=== PATIENT | female | born 1960 | race Caucasian/White ===

== ENCOUNTER 2017-10-13 19:25 | Emergency (ER) | payer MEDICAID, SELFPAY ==
[2017-10-13 19:29] VITALS: BP 155/96; PULSE 86; RESP 17; TEMP 36.5; O2SAT 98; BMI 25.9
--- NOTE | 2017-10-13 19:40 | RAD_ITS ---
STUDY: X-RAY - LEFT KNEE REASON FOR EXAM: Female, 57 years old. Pain TECHNIQUE: Three view(s) of the knee were obtained. COMPARISON: July 22, 2017 FINDINGS: There are small osteophytes on the distal femur. The proximal tibia is unremarkable. There is mild narrowing of the medial femorotibial compartment. Normal lateral femorotibial compartment. A lucency is again seen in the mid patella. There is sclerosis of the upper and lower patella. There is minimal fullness above the patella. The soft tissue structures are unremarkable. RAD/Knee 3 Views IMPRESSION: An old fracture is again seen in the patella. There is sclerosis throughout the patella. There is a small joint effusion. There are mild degenerative changes in the medial compartment. Electronically Signed: Annetta Arreola MD at 20:07 EST Tel Direct: [phone], Service support ,
--- NOTE | 2017-10-13 20:05 | ED.VISSUMM ---
- ER Visit Summary Date of Service: 10/13/17 Chief Complaint: Knee pain left History of Present Illness: The patient is a 57 F who had a fractured left patella surgically corrected by Dr. Anthony Ring approximately a year ago. She presents because of increased pain. She is concerned she may have ruptured the tendon. She is concerned the fracture may have broken apart. There is no history of direct trauma. She reports increased pain with walking and weightbearing. She localizes the pain to the left patella. Physical Examination: Vital signs are noted. The patella is not ballotable and there is no effusion. There is laxity with varus stressing of the lateral collateral ligament and causes her discomfort. Modified Jamarcus's test and Reyna tests were negative. She is able to extend 180? and flex to 90?. There is no evidence of trauma to the knee. Test Results: View x-ray of the knee reveals partial union of the patella. Unchanged from x-ray dated July 22, 2017. Emergency Department Course and Treatment: She was treated with [place] since she has intolerance and gastric problems with NSAIDs. Treatment Plan: Prescription for 10 [place] and follow-up appointment next week with pain management Disposition: Discharge to home Impression: Left patella pain status post fracture This note was generated with Gather dictation software. It may contain incorrect words, spelling, and punctuation that were not noted in review of the chart prior to signing ED Disposition - Plan for ED Patient: Disposition: Home or Assisted Living Chief Complaint: Lower Extremity Injury Instructions: ED Knee Pain [facility]O Prescriptions: Hydrocodone Bitart/Apap 5-325 [[place] 5MG-325MG] 1 tab PO Q6H PRN PRN #10 tab PRN Reason: Pain Referrals: Frankie Santiago MD [Primary Care Provider] -
--- NOTE | 2017-10-13 20:11 | ED.DCSUM_ITS ---
- ER Visit Summary Date of Service: 10/13/17 Chief Complaint: Knee pain left History of Present Illness: The patient is a 57 F who had a fractured left patella surgically corrected by Dr. Anthony Ring approximately a year ago. She presents because of increased pain. She is concerned she may have ruptured the tendon. She is concerned the fracture may have broken apart. There is no history of direct trauma. She reports increased pain with walking and weightbearing. She localizes the pain to the left patella. Physical Examination: Vital signs are noted. The patella is not ballotable and there is no effusion. There is laxity with varus stressing of the lateral collateral ligament and causes her discomfort. Modified Jamarcus's test and Reyna tests were negative. She is able to extend 180? and flex to 90?. There is no evidence of trauma to the knee. Test Results: View x-ray of the knee reveals partial union of the patella. Unchanged from x-ray dated July 22, 2017. Emergency Department Course and Treatment: She was treated with [place] since she has intolerance and gastric problems with NSAIDs. Treatment Plan: Prescription for 10 [place] and follow-up appointment next week with pain management Disposition: Discharge to home Impression: Left patella pain status post fracture This note was generated with CleanApp dictation software. It may contain incorrect words, spelling, and punctuation that were not noted in review of the chart prior to signing ED Disposition - Plan for ED Patient: Disposition: Home or Assisted Living Chief Complaint: Lower Extremity Injury Instructions: ED Knee Pain UKO Prescriptions: Hydrocodone Bitart/Apap 5-325 [[place] 5MG-325MG] 1 tab PO Q6H PRN PRN #10 tab PRN Reason: Pain Referrals: Frankie Santiago MD [Primary Care Provider] -
[2017-10-13 20:12] VITALS: PULSE 79; RESP 22
[2017-10-13] MEDS: HYDROcodone Bitartrate/Apap 5/325 Tablet PO (20:22)
[2017-10-13 20:23] VITALS: PULSE 71; RESP 22
--- NOTE | 2017-10-13 20:23 | ED.RN ---
THIS NURSE REVIEWED D/C INSTRUCTIONS WITH PT. PT VERBALIZED UNDERSTANDING OF INSTRUCTIONS. PT DENIES FURTHER NEEDS OR QUESTIONS AT THIS TIME. PT AMBULATES FROM DEPARTMENT ON OWN WITHOUT ASSISTANCE FROM STAFF
== END 2017-10-13 20:25 | disposition home or self-care (01) ==
PROVIDERS: Emergency Provider Emergency Medicine; Family Provider Family Medicine; PCP Family Medicine
DX: M25.562 Pain in left knee (principal); S82.002K Unspecified fracture of left patella, subsequent encounter for closed fracture with nonunion; X58.XXXD Exposure to other specified factors, subsequent encounter; Z72.0 Tobacco use; Z79.899 Other long term (current) drug therapy
CPT/HCPCS: 73562; 99283

== ENCOUNTER 2018-03-13 16:41 | Emergency (ER) | payer MEDICAID, SELFPAY ==
[2018-03-13 16:42] VITALS: BP 141/90; PULSE 72; RESP 16; TEMP 36.5; O2SAT 100; BMI 25.7
--- NOTE | 2018-03-13 17:07 | RAD_ITS ---
STUDY: X-RAY - LEFT ANKLE REASON FOR EXAM: Female, 58 years old. Trauma TECHNIQUE: 3 view(s) of the ankle. COMPARISON: None. FINDINGS: Normal visualized distal tibia and fibula. Normal medial and lateral malleoli. Normal tibiotalar articulation and ankle mortise. Normal visualized talus. Small plantar calcaneal spur is noted The visualized subtalar, talonavicular, calcaneocuboid and tarsal articulations are normal. The soft tissue structures are unremarkable. RAD/Ankle min 3 Views IMPRESSION: Normal x-ray examination of the ankle. Small plantar calcaneal spur Electronically Signed: Fermin New MD at 17:26 EDT , Service support ,
--- NOTE | 2018-03-13 18:26 | ED.VISSUMM ---
- ER Visit Summary Date of Service: 03/13/18 Chief Complaint: Left ankle pain History of Present Illness: The patient is a [address] Lorenzo. She reports that she suffered a forced inversion injury to her left ankle today. She has sharp pains 10-10 with walking and 9 out of 10 at rest. She denies any paresthesias distally or other injuries. Physical Examination: Vitals: Stable. Afebrile. General: Well-nourished and well-developed. Head: Normocephalic atraumatic. Neck: Supple, no lymphadenopathy. No JVD. Nontender. Cardiovascular: Regular rate and rhythm. No murmurs. Respiratory: No respiratory distress. Clear to auscultation bilaterally. Abdominal: Soft, nontender, nondistended, normal bowel sounds. No guarding, rebound, or peritoneal signs. Back: Nontender. Extremities: Moderate tenderness palpation over the lateral malleolus. No soft tissue swelling or contusion. She has mild tenderness palpation of the base the fifth metatarsal. No pain over the proximal fibula. She is neurovascularly intact. Skin: Normal color, no rash. Neurologic: Alert and oriented ?3. Cranial nerves II through XII are intact. Normal strength and sensation. Psych: Normal affect. Test Results: X-ray is negative. Emergency Department Course and Treatment: Had a prolonged discussion with patient that she does not need opiate-based medications for a sprained ankle. She is unhappy with this. She was given Tylenol and placed on crutches. Treatment Plan: Patient will be discharged with instructions to follow-up Dr. Scherer in 1 week if not improving. Return to the emergency department for any worsening symptoms. Disposition: To home in improved and stable condition. Impression: 1. Left ankle sprain. This note was generated with [email or web address] dictation software. It may contain incorrect words, spelling, and punctuation that were not noted in review of the chart prior to signing ED Disposition - Plan for ED Patient: Disposition: Home or Assisted Living Chief Complaint: Lower Extremity Injury Instructions: ED Sprain Ankle W X Ray Referrals: Fermin Scherer DPM [STAFF PHYSICIAN] - 1 Week if not improving
[2018-03-13] MEDS: Acetaminophen 325 MG Tablet 1000 MG PO (18:33)
== END 2018-03-13 19:12 | disposition home or self-care (01) ==
LOC: ED 18:33
PROVIDERS: Emergency Provider Emergency Medicine; Family Provider Family Medicine; PCP Family Medicine
DX: S93.402A Sprain of unspecified ligament of left ankle, initial encounter (principal); X50.1XXA Overexertion from prolonged static or awkward postures, initial encounter; Y93.9 Activity, unspecified; Y92.9 Unspecified place or not applicable; J44.9 Chronic obstructive pulmonary disease, unspecified; K21.9 Gastro-esophageal reflux disease without esophagitis; I48.91 Unspecified atrial fibrillation; Z79.899 Other long term (current) drug therapy; F17.200 Nicotine dependence, unspecified, uncomplicated
CPT/HCPCS: 73610; 99284

== ENCOUNTER 2018-03-27 16:43 | Emergency (ER) | payer MEDICAID, SELFPAY ==
[2018-03-27 16:43] VITALS: BP 136/102; PULSE 82; RESP 20; TEMP 37; O2SAT 96; BMI 26.6
--- NOTE | 2018-03-27 18:22 | RAD_ITS ---
STUDY: X-RAY - LEFT KNEE REASON FOR EXAM: Female, 58 years old. Left knee pain. Old injury TECHNIQUE: 3 view(s) of the knee. COMPARISON: 07/22/2017 FINDINGS: Continued lucency through patella compatible with chronic fracture. No acute fracture or dislocation. 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
[2018-03-27] MEDS: Morphine 4 MG/ML Syringe IM (18:29)
--- NOTE | 2018-03-27 19:34 | ED.VISSUMM ---
- ER Visit Summary Date of Service: 03/27/18 Chief Complaint: [Left knee pain] History of Present Illness: The patient is a 58 F [presents the emergency department complaint of left knee pain that has been chronic however more severe today. Patient states that she was walking when she felt like the knee got stuck and she was having a hard time bending it. Patient also having a hard time straightening the knee. Patient apparently has history of a non-healed patellar fracture and is scheduled to have surgery in 3 days with her surgeon at the [facility]. Patient denies falling today.] Physical Examination: [Left knee-no effusion. No significant soft tissue swelling. Patient has diffuse tenderness to palpation about the patella. Patient has pain with flexion of the knee. Patient is able to completely extend the knee. She is neurovascular intact distally. Ligamentous exam is not tolerated by the patient.] Test Results: [X-rays of the left knee were obtained and compared with recent prior x-rays of the same knee which showed a nonhealed patellar fracture otherwise nothing significant.] Emergency Department Course and Treatment: [Patient was medicated with morphine and Zofran] Treatment Plan: [Patient did not want a knee immobilizer and did not want an Gordon wrap. Patient does have crutches. Patient will be given a prescription for [place] for 3 days.] Disposition: [Discharged to home in stable condition] Impression: [Acute on chronic left knee pain-possible internal derangement] This note was generated with [employer] dictation software. It may contain incorrect words, spelling, and punctuation that were not noted in review of the chart prior to signing ED Disposition - Plan for ED Patient: Chief Complaint: Lower Extremity Injury Referrals: Frankie Santiago MD [Primary Care Provider] -
--- NOTE | 2018-03-27 19:37 | ED.DCSUM_ITS ---
- ER Visit Summary Date of Service: 03/27/18 Chief Complaint: [Left knee pain] History of Present Illness: The patient is a 58 F [presents the emergency department complaint of left knee pain that has been chronic however more severe today. Patient states that she was walking when she felt like the knee got stuck and she was having a hard time bending it. Patient also having a hard time straightening the knee. Patient apparently has history of a non- healed patellar fracture and is scheduled to have surgery in 3 days with her surgeon at the [facility]. Patient denies falling today.] Physical Examination: [Left knee-no effusion. No significant soft tissue swelling. Patient has diffuse tenderness to palpation about the patella. Patient has pain with flexion of the knee. Patient is able to completely extend the knee. She is neurovascular intact distally. Ligamentous exam is not tolerated by the patient.] Test Results: [X-rays of the left knee were obtained and compared with recent prior x-rays of the same knee which showed a nonhealed patellar fracture otherwise nothing significant.] Emergency Department Course and Treatment: [Patient was medicated with morphine and Zofran] Treatment Plan: [Patient did not want a knee immobilizer and did not want an Gordon wrap. Patient does have crutches. Patient will be given a prescription for [place] for 3 days.] Disposition: [Discharged to home in stable condition] Impression: [Acute on chronic left knee pain-possible internal derangement] This note was generated with [email or web address] dictation software. It may contain incorrect words, spelling, and punctuation that were not noted in review of the chart prior to signing ED Disposition - Plan for ED Patient: Chief Complaint: Lower Extremity Injury Referrals: Frankie Santiago MD [Primary Care Provider] -
--- NOTE | 2018-03-27 19:38 | DCINST.ED_ITS ---
ED Disposition - Plan for ED Patient: Chief Complaint: Lower Extremity Injury Instructions: ED Meniscal Injury Knee Poss, ED Knee Pain UKO Prescriptions: Hydrocodone Bitart/Apap 5-325 [[place] 5MG-325MG] 1 tab PO Q6H PRN PRN 3 Days #10 tab PRN Reason: Pain Referrals: Frankie Santiago MD [Primary Care Provider] - Additional Instructions: see your surgeon in 3 days
[2018-03-27 19:45] VITALS: BP 134/97; PULSE 86; RESP 22; O2SAT 97
--- NOTE | 2018-03-27 19:46 | ED.RN ---
THIS NURSE REVIEWED D/C INSTRUCTIONS WITH PT. PT VERBALIZED UNDERSTANDING OF INSTRUCTIONS. PT DENIES FURTHER NEEDS OR QUESTIONS AT THIS TIME. PT AMBULATES FROM ROOM ON OWN WITHOUT ASSISTANCE FROM STAFF
== END 2018-03-27 19:47 | disposition home or self-care (01) ==
PROVIDERS: Emergency Provider Emergency Medicine; Family Provider Family Medicine; PCP Family Medicine
DX: M25.562 Pain in left knee (principal); G89.29 Other chronic pain; Z72.0 Tobacco use
CPT/HCPCS: 73562; 96372; 99282

== ENCOUNTER 2018-07-04 18:32 | Emergency (ER) | payer MEDICAID, SELFPAY ==
[2018-07-04 18:33] VITALS: BP 156/82; PULSE 89; RESP 17; TEMP 36.2; O2SAT 100; BMI 27.6
--- NOTE | 2018-07-04 19:10 | RAD_ITS ---
STUDY: X-RAY - LEFT KNEE REASON FOR EXAM: Female, 58 years old. Increasing left knee pain. Patient feels mass over the left knee. History of left knee surgery 2 months ago. TECHNIQUE: 4 view(s) of the knee. COMPARISON: February 25, 2018. FINDINGS: Normal visualized distal femur. Normal visualized proximal tibia and fibula. Normal proximal tibiofibular articulation. The superior fragment of the chronically fractured patella is no longer absent is thought to been surgically removed. The remainder of the patella appears otherwise unchanged. There is mild degenerative arthrosis of the medial femorotibial compartment. There is mild degenerative arthrosis of the lateral femorotibial compartment. There is mild degenerative arthrosis of the patellofemoral articulation. There is no demonstrated joint effusion. The soft tissue structures are unremarkable. RAD/Knee 4 or More Views IMPRESSION: Evidence of interval removal of a patellar fragment when compared with study of February 25, 2018. There is no acute abnormality or interval change Electronically Signed: Julito Dao DO at 19:28 EDT Tel [phone], Service support ,
[2018-07-04] MEDS: Acetaminophen 500 MG Tablet 1000 MG PO (19:19)
--- NOTE | 2018-07-04 20:29 | US_ITS ---
STUDY: VENOUS DOPPLER ULTRASOUND - LEFT LOWER EXTREMITY REASON FOR EXAM: Female, 58 years old. Pain TECHNIQUE: Ultrasound evaluation of the deep vein system to include elizondo-scale imaging and compression was performed. Elizondo-scale imaging and Doppler sonographic evaluation, including duplex spectral analysis and qualitative color flow sonography, was performed. COMPARISON: None. FINDINGS: Common Femoral Vein: Normal compression, spontaneity and augmentation. Normal color Doppler. Common Femoral Vein/Greater Saphenous Junction: Normal compression, spontaneity and augmentation. Normal color Doppler. Femoral Proximal: Normal compression, spontaneity and augmentation. Normal color Doppler. Femoral Middle: Normal compression, spontaneity and augmentation. Normal color Doppler. Femoral Distal: Normal compression, spontaneity and augmentation. Normal color Doppler. Popliteal Vein: Normal compression, spontaneity and augmentation. Normal color Doppler. Posterior Tibial Vein: Normal compression, spontaneity and augmentation. Normal color Doppler. Peroneal Vein: Normal compression, spontaneity and augmentation. Normal color Doppler. There is a 5 x 4 x 3 mm simple fluid collection at the patient's palpable area of pain. US/Venous Duplex Imag/Limited/Uni IMPRESSION: Normal venous Doppler ultrasound of the lower extremity. 5 x 4 x 3 mm simple fluid collection in the patient's palpable area of pain. Electronically Signed: Tariq Almaguer, at 21:06 EDT Tel , Service support ,
[2018-07-04] MEDS: morphine 10 MG/ML Syringe 8 MG IM (21:00)
[2018-07-04] MEDS: Ondansetron 4 MG/2 ML Vial IM (21:00)
--- NOTE | 2018-07-04 21:25 | ED.VISSUMM ---
- ER Visit Summary Date of Service: 07/04/18 Chief Complaint: Left knee pain History of Present Illness: The patient is a 58 F presenting with left knee pain. This has been ongoing for the past week. She states she noticed swelling to the medial aspect of her left knee 1 week ago. She called her doctor at [facility] and she has appointment on July 11. She had surgery 2 months ago to remove part of her patella. She has been icing and using Tylenol at home. She denies any direct injury. She is able to ambulate. Denies fever. Physical Examination: Vitals are stable. Patient is afebrile. Alert no acute distress. HEENT exam is unremarkable. Neck is supple. Lungs are clear and equal bilaterally. Heart is regular rate and rhythm. Extremities left knee medial soft tissue swelling. No erythema or warmth. Active full range of motion. Normal distal pulse Skin is warm and dry. No focal neurologic deficit. Remainder of exam is unremarkable. Emergency Department Course and Treatment: Patient was given Tylenol. She continued to have pain and was given morphine and Zofran IM. Venous Doppler shows normal venous Doppler ultrasound of the lower extremity. 5 x 4 x 3 mm simple fluid collection in the patient's palpable area of pain. Left knee x-ray shows evidence of interval removal of a patellar fragment when compared with study of February 25, 2018. There is no acute abnormality or interval change. She is advised to keep her appointment with her orthopedic surgeon. She is given a short course of [place] for pain. Advised return to ED if worsening complaints. Disposition: Discharge home Impression: Left knee pain This note was generated with [employer]ity dictation software. It may contain incorrect words, spelling, and punctuation that were not noted in review of the chart prior to signing ED Disposition - Plan for ED Patient: Chief Complaint: Lower Extremity Injury Referrals: Frankie Santiago MD [Primary Care Provider] -
--- NOTE | 2018-07-04 21:29 | ED.DEP ---
ED Disposition - Plan for ED Patient: Chief Complaint: Lower Extremity Injury Prescriptions: Hydrocodone Bitart/Apap 5-325 [[place] 5MG-325MG] 1 tablet PO Q6H PRN PRN 3 Days #10 tablet PRN Reason: Pain Referrals: Frankie Santiago MD [Primary Care Provider] -
--- NOTE | 2018-07-04 21:32 | DCINST.ED_ITS ---
ED Disposition - Plan for ED Patient: Chief Complaint: Lower Extremity Injury Instructions: ED Knee Pain UKO Prescriptions: Hydrocodone Bitart/Apap 5-325 [[place] 5MG-325MG] 1 tablet PO Q6H PRN PRN 3 Days #10 tablet PRN Reason: Pain Referrals: Frankie Santiago MD [Primary Care Provider] -
--- NOTE | 2018-07-04 21:39 | ED.RN ---
REVIEWED D/C INSTRUCTIONS, FOLLOW UP CARE, PRESCRIPTION, AND S/S THAT WOULD WARRANT A RETURN TO THE ED WITH PT. PT VERBALIZED AN UNDERSTANDING AND DENIES FURTHER QUESTIONS FOR THIS RN. PT SKIN P/W/D, RESP EVEN AND UNLABORED, PT A&O X 3, NO DISTRESS NOTED. PT AMBULATED OUT OF ED, GAIT STEADY.
[2018-07-04 21:40] VITALS: BP 135/98; PULSE 78; RESP 16; O2SAT 98
== END 2018-07-04 21:41 | disposition home or self-care (01) ==
LOC: ED 19:29
PROVIDERS: Emergency Provider Emergency Medicine; Family Provider Family Medicine; PCP Family Medicine
DX: M25.562 Pain in left knee (principal); M79.89 Other specified soft tissue disorders; K21.9 Gastro-esophageal reflux disease without esophagitis; I10 Essential (primary) hypertension; G40.909 Epilepsy, unspecified, not intractable, without status epilepticus; Z79.899 Other long term (current) drug therapy; Z72.0 Tobacco use
CPT/HCPCS: 73564; 93971; 96372; 99283; J2405

== ENCOUNTER 2018-07-26 17:57 | Emergency (ER) | payer MEDICAID, SELFPAY ==
[2018-07-26 17:59] VITALS: BP 136/86; PULSE 79; RESP 17; TEMP 36.7; O2SAT 100; BMI 27.3
--- NOTE | 2018-07-26 18:26 | RAD_ITS ---
STUDY: X-RAY - RIGHT KNEE REASON FOR EXAM: Female, 58 years old. Posttraumatic pain TECHNIQUE: 4 view(s) of the knee. COMPARISON: None. FINDINGS: Normal visualized distal femur. Normal visualized proximal tibia and fibula. Normal proximal tibiofibular articulation. Mildly narrowed medial femorotibial compartment. Normal lateral femorotibial compartment. Normal patellofemoral articulation. The soft tissue structures are unremarkable. RAD/Knee 4 or More Views IMPRESSION: Mild degenerative changes. No evidence for acute fracture Electronically Signed: Fermin New MD at 19:04 EST , Service support ,
--- NOTE | 2018-07-26 18:36 | ED.VISSUMM ---
- ER Visit Summary Date of Service: 07/26/18 Chief Complaint: Right knee pain History of Present Illness: The patient is a 58 F presenting with right knee pain. Patient was putting up a smoke detector today. She was standing on a toolbox. When she stepped down she had pain in her right knee. She did not fall to the floor. She has had persistent pain since that time. She did not take any medication for pain prior to arrival. Physical Examination: Vitals are stable. Patient is afebrile. Alert no acute distress. HEENT exam is unremarkable. Neck is supple. Lungs are clear and equal bilaterally. Heart is regular rate and rhythm. Extremities right lateral knee tenderness. Active full range of motion. Normal distal pulse Skin is warm and dry. No focal neurologic deficit. Remainder of exam is unremarkable. Emergency Department Course and Treatment: Right knee x-ray shows no acute process. Patient is given Tylenol for pain. She states she has crutches at home. She is advised to follow-up with her orthopedic surgeon. Advised return to ED if worsening complaints. Disposition: Discharge home Impression: Right knee sprain This note was generated with [employer] dictation software. It may contain incorrect words, spelling, and punctuation that were not noted in review of the chart prior to signing ED Disposition - Plan for ED Patient: Chief Complaint: Lower Extremity Injury Referrals: Frankie Santiago MD [Primary Care Provider] -
[2018-07-26] MEDS: Acetaminophen 500 MG Tablet 1000 MG PO (19:41)
--- NOTE | 2018-07-26 19:43 | ED.DEP ---
ED Disposition - Plan for ED Patient: Chief Complaint: Lower Extremity Injury Instructions: ED Sprain Knee Referrals: Frankie Santiago MD [Primary Care Provider] -
[2018-07-26 20:10] VITALS: BP 131/60; PULSE 78; RESP 16; O2SAT 98
== END 2018-07-26 20:10 | disposition home or self-care (01) ==
LOC: ED 18:38
PROVIDERS: Emergency Provider Emergency Medicine; Family Provider Family Medicine; PCP Family Medicine
DX: S83.91XA Sprain of unspecified site of right knee, initial encounter (principal); X58.XXXA Exposure to other specified factors, initial encounter; Y93.9 Activity, unspecified; Y92.9 Unspecified place or not applicable; I25.10 Atherosclerotic heart disease of native coronary artery without angina pectoris; I25.2 Old myocardial infarction; Z79.899 Other long term (current) drug therapy; Z72.0 Tobacco use
CPT/HCPCS: 73564; 99282

== ENCOUNTER 2019-03-09 16:50 | Emergency (ER) | payer MEDICAID, SELFPAY ==
[2019-03-09 16:52] VITALS: BP 90/51; PULSE 89; RESP 12; TEMP 36.4; O2SAT 97; BMI 24.9
--- NOTE | 2019-03-09 17:08 | ED.VIS.GEN ---
History of Present Illness Informant: Patient Onset: Today Timing: Continuous Current Severity: Mild Maximum Severity: Mild Worsened by: Movement Relieved by: Nothing Narrative: Patient presents with left hand pain. She has chronic knee pain. Her knee sometimes give out on her. Her knees gave out on her today causing her to fall. She is complaining of left hand pain. She denies head trauma or loss of consciousness. Prior similar symptoms: No Recent Illness/Hospitalization: No <Nancy Carroll - Last Filed: 03/09/19 18:17> <Power Casper - Last Filed: 03/09/19 18:21> Chief Complaint: Upper Extremity Injury Past Medical History Surgical History: - - L foot surgery, BL knee arthroscopic surgery, CT surgery R wrist, partial-->complete hysterectomy, cholecystectomy, T+A. Smoking Status: Smoker, status unknown - Family History Maternal Family History: Family History (Last Updated 02/06/19 @ 17:01 by Maria Antonia Aiken) Mother Diabetes Cancer Father COPD (chronic obstructive pulmonary disease) Diabetes Sister Diabetes Family History: Reports: COPD, Diabetes, Heart Disease, Hypertension Paternal Family History: Family History (Last Updated 02/06/19 @ 17:01 by Maria Antonia Aiken) Mother Diabetes Cancer Father COPD (chronic obstructive pulmonary disease) Diabetes Sister Diabetes Family History: Reports: COPD, Diabetes, Heart Disease, Hypertension <Nancy Carroll - Last Filed: 03/09/19 18:17> - Family History Maternal Family History: Family History (Last Updated 02/06/19 @ 17:01 by Maria Antonia Aiken) Mother Diabetes Cancer Father COPD (chronic obstructive pulmonary disease) Diabetes Sister Diabetes Paternal Family History: Family History (Last Updated 02/06/19 @ 17:01 by Maria Antonia Aiken) Mother Diabetes Cancer Father COPD (chronic obstructive pulmonary disease) Diabetes Sister Diabetes <Power Casper - Last Filed: 03/09/19 18:21> - Allergies and Home Meds Allergies/Adverse Reactions: Allergies NSAIDS (Non-Steroidal Anti-Inflamma Adverse Reaction (Verified 03/09/19 16:52) Diarrhea tramadol HCl [From Ultram] Adverse Reaction (Verified 03/09/19 16:52) Diarrhea Primary Care Physician: Brea Jauregui DO [STAFF PHYSICIAN] - Frankie Santiago MD [Primary Care Provider] - Review of Systems General: Denies: Chills, Fever, Sweats Eyes: Denies: Visual changes - bilaterally, Diplopia ENT: Denies: Rhinorrhea, Sore throat Cardiovascular: Denies: Chest pain, Palpitations Respiratory: Denies: Dyspnea, Cough, Dyspnea on exertion Gastrointestinal: Denies: Abdominal pain, Nausea, Vomiting Genitourinary: Denies: Dysuria, Hematuria Musculoskeletal: Reports: Extremity Pain, - - Left hand pain. Denies: Back pain Skin: Denies: Rash, Wounds Neurological: Denies: Headache, Weakness, Numbness <NickmichaelNancy - Last Filed: 03/09/19 18:17> Physical Exam Vital Signs/Narrative: Vital Signs Temp Pulse Resp BP Pulse Ox 03/09/19 16:52 97.5 F L 89 12 90/51 L 97 Inital Vital Signs reviewed: Yes General: Well nourished, Well developed, No Acute Distress Head: Normocephalic, Atraumatic Eyes: Perrl, EOMI ENT: Moist mucous membranes, No rhinorrhea Neck: Supple, Nontender Cardiovascular: Regular rate, Regular rhythm, No murmurs Respiratory: No distress, CTA bilaterally, Chest nontender Abdomen: Soft, Nontender, Nondistended Back: Nontender, Normal Inspection Extremities: Tenderness, - - She has tenderness along the fourth and fifth metacarpals without swelling. Distal Ms. P is intact. Capillary refill is 1 second. No rotational deformity appreciated. Skin: Normal color, No rash Neurological: Alert, Oriented x3, Normal Strength, Normal Sensation Psychological: Normal affect, Normal Mood <Nancy Carroll - Last Filed: 03/09/19 18:17> Vital Signs/Narrative: Vital Signs Temp Pulse Resp BP Pulse Ox 03/09/19 16:52 97.5 F L 89 12 90/51 L 97 <Power Casper - Last Filed: 03/09/19 18:21> Diagnostic/Tx/Re-eval - Medical Decision Making Patient presents with left hand pain after fall. X-rays are ordered. Differential diagnosis is hand sprain versus fracture. X RAy of Left hand: nondisplaced proximal fifth meta carpal and possible proximal fourth metacarpal fracture. She was placed in an ortho Glass ulnar gutter splint. She remained neurovascularly intact. She was prescribed Percocet for pain. She was given orthopedic follow-up. She remained nervous intact and nontoxic in appearance she is comfortable discharge home. She was discharged home in stable condition. Final impression: Left proximal fourth and fifth nondisplaced metacarpal fracture <Nancy Carroll - Last Filed: 03/09/19 18:17> - Medical Decision Making Short arm ulnar gutter splint by ER physician using Ortho-Glass. <Power Casper - Last Filed: 03/09/19 18:21> ED Disposition <Nancy Carroll - Last Filed: 03/09/19 18:17> <Power Casper - Last Filed: 03/09/19 18:21> - Plan for ED Patient: Disposition: Home or Assisted Living Diagnosis: Hand fracture, left Instructions: FRACTURE, Hand (Closed) Prescriptions: Oxycodone HCl/Acetaminophen [Percocet 5/325] 1 tab PO Q6H PRN PRN 5 Days #20 tab PRN Reason: Moderate Pain (4-5/10) Prescription Printed Referrals: Frankie Santiago MD [Primary Care Provider] - Brea Jauregui DO [STAFF PHYSICIAN] - Additional Instructions: Keep splint clean and dry and do not remove. Follow-up with orthopedic doctor next week.
[2019-03-09] MEDS: HYDROcodone Bitartrate/Apap 5/325 Tablet PO (17:12)
--- NOTE | 2019-03-09 17:20 | RAD_ITS ---
STUDY: X-RAY - LEFT HAND REASON FOR EXAM: Female, 59 years old. Trauma TECHNIQUE: 3 view(s) of the hand. COMPARISON: None. FINDINGS: Normal radiocarpal articulation. Normal distal radioulnar joint. Normal visualized carpal bones. Normal carpal articulations Normal carpometacarpal articulation of the thumb. Normal second through fifth carpometacarpal joints. There is an old boxer fracture of the fifth metacarpal. Normal metacarpophalangeal joint of the thumb. Normal interphalangeal joint of the thumb. Normal proximal and distal phalanges of the thumb. Normal metacarpophalangeal joints of the second through fifth fingers. Normal proximal and distal interphalangeal joints of the second through fifth fingers. There is a nondisplaced transverse fracture of the base of the fifth proximal phalanx. The soft tissue structures are unremarkable. RAD/Hand Min 3 Views IMPRESSION: Nondisplaced transverse fracture of the base of the fifth proximal phalanx. There is an old healed fifth metacarpal boxer fracture. Electronically Signed: Chu King MD at 17:42 EDT , Service support ,
[2019-03-09 18:28] VITALS: BP 92/70; PULSE 74; RESP 16
== END 2019-03-09 18:28 | disposition home or self-care (01) ==
PROVIDERS: Emergency Provider Nurse Practitioner; Family Provider Family Medicine; PCP Family Medicine
DX: S62.645A Nondisplaced fracture of proximal phalanx of left ring finger, initial encounter for closed fracture (principal); W19.XXXA Unspecified fall, initial encounter; Y93.9 Activity, unspecified; Y92.9 Unspecified place or not applicable; M25.569 Pain in unspecified knee; G89.29 Other chronic pain; Z79.899 Other long term (current) drug therapy
CPT/HCPCS: 29125; 73130; 99283

== ENCOUNTER → 2019-03-19 | Outpatient (CLI) | payer MEDICAID, SELFPAY ==
[2019-03-09 16:52] VITALS: BMI 24.9
--- NOTE | 2019-03-19 09:18 | RAD_ITS ---
STUDY: X-RAY - LEFT HAND REASON FOR EXAM: Fracture. TECHNIQUE: 3 view(s) of the hand. COMPARISON: Radiographs 03/09/2019. FINDINGS: Normal radiocarpal articulation. Normal distal radioulnar joint. Normal visualized carpal bones. Normal carpal articulations Normal carpometacarpal articulation of the thumb. Normal second through fifth carpometacarpal joints. There is a chronic healed fracture of the fifth metacarpal neck. Normal metacarpophalangeal joint of the thumb. Normal interphalangeal joint of the thumb. Normal proximal and distal phalanges of the thumb. Normal metacarpophalangeal joints of the second through fifth fingers. Normal proximal and distal interphalangeal joints of the second through fifth fingers. There is a fracture of the base of the fifth proximal phalanx with slight dorsal angulation of the distal fragment. There is an overlying cast. RAD/Hand Min 3 Views IMPRESSION: Fifth proximal phalangeal base fracture. Chronic healed fracture deformity of the fifth metacarpal. Electronically Signed: Maury Hunt MD at 13:52 EDT Tel , Service support ,
--- NOTE | 2019-03-19 11:03 | RAD_ITS ---
STUDY: X-RAY - LEFT HAND REASON FOR EXAM: Fracture. TECHNIQUE: 3 view(s) of the hand. COMPARISON: Radiographs earlier the same day and 03/09/2019. FINDINGS: Normal radiocarpal articulation. Normal distal radioulnar joint. Normal visualized carpal bones. Normal carpal articulations Normal carpometacarpal articulation of the thumb. Normal second through fifth carpometacarpal joints. There is chronic fracture deformity of the fifth metacarpal neck. Normal metacarpophalangeal joint of the thumb. Normal interphalangeal joint of the thumb. Normal proximal and distal phalanges of the thumb. Normal metacarpophalangeal joints of the second through fifth fingers. Normal proximal and distal interphalangeal joints of the second through fifth fingers. There is a nondisplaced fracture of the fifth proximal phalangeal base. There has been readjustment of the overlying cast. RAD/Hand Min 3 Views IMPRESSION: Nondisplaced fracture of the fifth proximal phalangeal base. Chronic fracture deformity of the fifth metacarpal. Electronically Signed: Maury Hunt MD at 13:58 EDT Tel , Service support ,
== END | disposition home or self-care (01) ==
LOC: HPRAD 09:18
PROVIDERS: Family Provider Family Medicine; PCP Family Medicine; Referring Provider Orthopaedic Surgery; Visit Provider Orthopaedic Surgery
DX: S62.92XA Unspecified fracture of left hand, initial encounter for closed fracture (principal); S62.617A Displaced fracture of proximal phalanx of left little finger, initial encounter for closed fracture
CPT/HCPCS: 73130

== ENCOUNTER → 2019-03-27 | Outpatient (CLI) | payer MEDICAID, SELFPAY ==
[2019-03-19 10:58] VITALS: BMI 24.9
--- NOTE | 2019-03-27 12:26 | RAD_ITS ---
STUDY: X-RAY - LEFT HAND REASON FOR EXAM: Injury. TECHNIQUE: 3 view(s) of the hand. COMPARISON: Radiographs 03/19/2019 and 03/09/2019. FINDINGS: Normal radiocarpal articulation. Normal distal radioulnar joint. Normal visualized carpal bones. Normal carpal articulations Normal carpometacarpal articulation of the thumb. Normal second through fifth carpometacarpal joints. There is chronic fracture deformity of the fifth metacarpal neck. Normal metacarpophalangeal joint of the thumb. Normal interphalangeal joint of the thumb. Normal proximal and distal phalanges of the thumb. Normal metacarpophalangeal joints of the second through fifth fingers. Normal proximal and distal interphalangeal joints of the second through fifth fingers. There is a nondisplaced fracture of the fifth proximal phalangeal base. There is an ossicle at the ulnar styloid process. There is an overlying cast. RAD/Hand Min 3 Views IMPRESSION: Nondisplaced fracture of the fifth proximal phalangeal base. Chronic fracture deformity of the fifth metacarpal. Electronically Signed: Maury Hunt MD at 12:54 EDT Tel , Service support ,
== END | disposition home or self-care (01) ==
LOC: HPRAD 12:25
PROVIDERS: Family Provider Family Medicine; PCP Family Medicine; Referring Provider Physician Assistant; Visit Provider Physician Assistant
DX: S62.609A Fracture of unspecified phalanx of unspecified finger, initial encounter for closed fracture (principal)
CPT/HCPCS: 73130

== ENCOUNTER → 2019-05-03 | Outpatient (CLI) | payer MEDICAID, SELFPAY ==
[2019-03-27 12:37] VITALS: BMI 24.9
--- NOTE | 2019-05-03 09:37 | RAD_ITS ---
STUDY: X-RAY - LEFT HAND REASON FOR EXAM: Female, 59 years old. Post cast removal TECHNIQUE: 4 view(s) of the hand. COMPARISON: Prior study of 03/27/2019 FINDINGS: Normal radiocarpal articulation. Normal distal radioulnar joint. Normal visualized carpal bones. Normal carpal articulations Normal carpometacarpal articulation of the thumb. Normal second through fifth carpometacarpal joints. There is an old healed boxer's fracture of the fifth metacarpal. Normal metacarpophalangeal joint of the thumb. Normal interphalangeal joint of the thumb. Normal proximal and distal phalanges of the thumb. Normal metacarpophalangeal joints of the second through fifth fingers. Normal proximal and distal interphalangeal joints of the second through fifth fingers. There is a healing nondisplaced transverse fracture of the base of the fifth proximal phalanx. The soft tissue structures are unremarkable. RAD/Hand Min 3 Views IMPRESSION: Healing nondisplaced transverse fracture of the base of the fifth proximal phalanx. Bone union has not occurred as of yet. Old healed fifth metacarpal boxer fracture. Electronically Signed: Chu King MD at 22:16 EDT , Service support ,
== END | disposition home or self-care (01) ==
LOC: HPRAD 09:36
PROVIDERS: Family Provider Family Medicine; PCP Family Medicine; Referring Provider Physician Assistant; Visit Provider Physician Assistant
DX: S62.617A Displaced fracture of proximal phalanx of left little finger, initial encounter for closed fracture (principal)
CPT/HCPCS: 73130

== ENCOUNTER 2021-10-06 13:03 | Outpatient (CLI) | payer MEDICAID, SELFPAY ==
[2021-10-06 13:33] LABS: Absolute Lymphocyte Count 2.86 X10^3/uL (0.83-4.51); Absolute Neutrophil Count 3.7 X10^3/uL (2.0-7.7); Basophil# 0.05 X10^3/uL; Basophil% 0.7 % (0-1); Eosinophil# 0.09 X10^3/uL; Eosinophils% 1.2 % (0-5); Hematocrit 36.2 % (37-47); Hemoglobin 11.6 g/dL (12.0-15.0); Lymphocyte # 2.86 X10^3/ul (0.83-4.51); Lymphocyte % 39.4 % (19-41); Mean Corpuscular Hgb 27.3 pg (27.0-32.0); Mean Corpuscular Volume 85.2 fL (81-99); Mean Platelet Vol. 9.1 fl (6.2-12.0); Monocyte# 0.48 X10^3/uL; Monocyte% 6.6 % (0-10); NRBC Flagged by Analyzer 0 % (0-5); Neutrophil # 3.74 X10^3/uL (2.7-7.7); Neutrophil % 51.7 % (47-70); Platelet Count 357 K/mm3 (150-450); RBC Distribution Width CV 13.7 % (11.6-14.6); RBC Distribution Width SD 42.6 fl (35.1-43.9); Red Blood Count 4.25 M/mm3 (4.2-5.4); White Blood Count 7.3 K/mm3 (4.4-11.0)
[2021-10-06 14:29] LABS: ALB/GLOB Ratio 0.8 RATIO (0.9-2.4); AST(SGOT) 9 U/L (15-37); Alanine Aminotransfer ALT/SGPT 13 U/L (13-56); Albumin, Serum 3.4 g/dL (3.2-5.0); Alkaline Phosphatase 114 U/L (45-117); Anion Gap 5 (5-15); BUN 8 mg/dL (7-18); BUN/Creat Ratio 8.7 RATIO (10-20); Bilirubin, Direct < 0.05 mg/dL (0.00-0.30); Calcium,Total 8.5 mg/dL (8.5-10.1); Chloride 104 mmol/L (98-107); Cholesterol 243 mg/dL (200); Creatinine, Serum 0.92 mg/dL (0.55-1.02); EST Glomerular Filtration Rate 67 mL/min (>60); Est Glom Filt Rate - Afr Amer 81 mL/min (>60); Globulin 4.2 g/dL (2.2-4.2); Glucose 114 mg/dL (74-106); High Density Lipoprotein 70 mg/dL; Potassium 3.6 mmol/L (3.5-5.1); Protein, Total 7.6 g/dL (6.4-8.2); Sodium Level 137 mmol/L (136-145); Thyroid Stim Hormone (TSH) 1.22 uIU/mL (0.358-3.74); Triglycerides 117 mg/dL; Very Low Density Lipoprotein 23 mg/dL (5-40)
== END 2021-10-06 23:59 | disposition short-term general hospital (02) ==
PROVIDERS: Internal Medicine Cardiovascular Disease; Visit Provider Nurse Practitioner Adult Health
DX: K21.9 Gastro-esophageal reflux disease without esophagitis (principal)
CPT/HCPCS: 36415; 80053; 80061; 82248; 84443; 85025

== ENCOUNTER 2021-10-26 07:00 | Outpatient (CLI) | payer MEDICAID, SELFPAY ==
--- NOTE | 2021-10-26 07:04 | ECHOD_ITS ---
Reason For Study: Chest Pain Procedure This was a 2D Doppler, Color Flow transthoracic echocardiogram. The exam was of adequate technical quality. Exam performed in department. Left Ventricle Normal LV size. Left ventricular systolic function is normal. The estimated ejection fraction is 55 %. Transmitral doppler flow suggestive of impaired relaxation of left ventricle. No regional wall motion abnormalities noted. Right Ventricle Normal RV size. Normal systolic function. Atria Normal left atrium. Normal right atrium. No doppler evidence for ASD. Mitral Valve There is no mitral annular calcification. Normal mitral valve. Trivial mitral valve insufficiency. Tricuspid Valve Normal tricuspid valve. Trivial tricuspid valve insufficiency. Unable to estimate RV systolic pressure due to insufficient tricuspid regurgitant envelope. Aortic Valve Trisinus/trileaflet aortic valve. Mild focal aortic valve calcification. Pulmonic Valve The pulmonic valve is not well visualized. Great Vessels Normal sized aortic root. Pericardium/Pleural No pericardial effusion. MMode/2D Measurements & Calculations LVIDd: 5.1 cm IVSd: 1.3 cm Ao root diam: 2.9 cm LVIDs: 3.8 cm LVPWd: 1.2 cm LA dimension: 3.3 cm RVDd: 3.0 cm FS: 25.8 % LAV(MOD-bp): 25.5 ml LA A4 area: 10.3 cm2 RA A4 area: 7.3 cm2 LAV(MOD-bp) Indexed: 14.8 ml/m2 LAV(MOD-sp2): 29.4 ml LAV(MOD-sp4): 21.0 ml Time Measurements MV dec time: 0.18 sec Doppler Measurements & Calculations MV E max jeremias: 80.2 cm/sec Lat Peak E' Jeremias: 7.7 cm/sec Med Peak E' Jeremias: 5.8 cm/sec MV A max jeremias: 98.4 cm/sec E/E' lat: 10.4 E/E' med: 13.8 MV E/A: 0.82 MV V2 max: 99.7 cm/sec MV P1/2t max jeremias: 89.3 cm/sec Ao V2 max: 112.7 cm/sec MV max P.0 mmHg MV P1/2t: 73.2 msec Ao max P.1 mmHg MV V2 mean: 58.3 cm/sec MV dec slope: 357.2 cm/sec2 MV mean P.5 mmHg MVA(P1/2t): 3.0 cm2 MV V2 VTI: 24.7 cm LV V1 max: 84.4 cm/sec PA V2 max: 83.5 cm/sec LV V1 max P.9 mmHg ECHO/Echo Complete Interpretation Summary Left ventricular systolic function is normal. The estimated ejection fraction is 55 %. Trivial mitral valve insufficiency. Trivial tricuspid valve insufficiency. Mild focal aortic valve calcification. Unable to estimate RV systolic pressure due to insufficient tricuspid regurgita nt envelope. Transmitral doppler flow suggestive of impaired relaxation of left ventricle Ordering Physician: Alonzo Lanza Referring Physician: Alonzo Lanza Performed By: Kevin Appiah RCS
--- NOTE | 2021-10-26 09:08 | STRESSREP_ITS ---
Stress Test Report Date: 10-26-2021 Procedure: Exercise tolerance test/imaging study Indications: Chest pain; cardiomyopathy; cardiac ectopy/dysrhythmia; hyperlipi demia; hypertension Consent: Per the patient Procedure: The patient exercised on a Vineet protocol for 4 minutes 30 seconds completing Stage I and 1 minute 30 seconds of Stage II achieving a peak heart rate of 136 bpm (84% predicted maximal heart rate) with a peak blood pressure 170/88 mmHg and a peak MET capacity of 7 METs. The baseline ECG demonstrated normal sinus rhythm. The peak exercise ECG demonstrated no obvious ECG changes. There were occasional PVCs and transient ventricular bigeminy during recovery. The functional capacity was considered decreased. There was chest discomfort during exercise with spontaneous improvement/resolution in recovery. The examination was discontinued secondary to chest discomfort; dyspnea. Impression: 1. Technically inadequate (percent predicted maximal heart rate less than 85%) exercise tolerance test 2. Peak exercise ECG no obvious ECG changes at the heart rate achieved 3. There were occasional PVCs and transient ventricular bigeminy during recovery 4. Nuclear images pending Myocardial perfusion imaging study: Technique: The patient was injected with 11.0 mCi of technetium 99m Cardiolite and subsequently rest SPECT Cardiolite nuclear imaging was obtained in the horizontal long, vertical long, and short axis views. The patient exercised on a Vineet protocol for 4 minutes 30 seconds completing Stage I and 1 minute 30 seconds of Stage II achieving a peak heart rate of 136 bpm (84% predicted maximal heart rate) with a peak blood pressure 170/88 mmHg and a peak MET capacity of 7 METs. The patient was injected with 33.6 mCi of technetium 99m Cardiolite and subsequently stress SPECT Cardiolite nuclear imaging was obtained in the horizontal long, vertical long, and short axis views. A gated Cardiolite study at peak stress was obtained. Interpretation: Rest and stress SPECT Cardiolite nuclear imaging status post realignment, normalization, and attenuation correction, demonstrates the appearance of relative uniform tracer uptake and myocardial perfusion appearing within normal limits. There is end systolic thickening and brightening. The gated Cardiolite study demonstrates myocardial thickening and inward wall motion. The reported LVEF is 65%. Impression: 1. Rest and stress SPECT Cardiolite nuclear imaging demonstrate relative uniform tracer uptake and myocardial perfusion appearing within normal limits at the heart rate achieved. 2. The gated Cardiolite study reports an LVEF of 65%. This note was generated with Dragon dictation software. It may contain incorrect words, spelling, and punctuation that were not noted in checking the note before signing.
== END 2021-10-26 23:59 | disposition home or self-care (01) ==
LOC: CVS 07:02
PROVIDERS: Referring Provider Internal Medicine Cardiovascular Disease; Visit Provider Internal Medicine Cardiovascular Disease
DX: I10 Essential (primary) hypertension (principal); I43 Cardiomyopathy in diseases classified elsewhere; R07.9 Chest pain, unspecified; I49.9 Cardiac arrhythmia, unspecified; I25.2 Old myocardial infarction; E78.00 Pure hypercholesterolemia, unspecified
CPT/HCPCS: 78452; 93017; 93306; A9500; A4216

== ENCOUNTER 2021-11-23 18:42 | Outpatient (CLI) | payer MEDICAID, SELFPAY ==
--- NOTE | 2021-11-23 18:45 | CT_ITS ---
STUDY: CT ABDOMEN AND PELVIS WITHOUT CONTRAST REASON FOR EXAM: Female, 61 years old. PAIN RADIATION DOSAGE (If Supplied By Facility): CTDIvol = ( 9.38 ) mGy, DLP = ( 454.66 ) mGycm TECHNIQUE: Transaxial images were obtained from the dome of the diaphragm to the symphysis pubis without oral contrast, and without intravenous contrast. Sagittal and coronal images were reconstructed. Individualized dose optimization techniques were used for this CT. COMPARISON: CT abdomen and pelvis June 18, 2015 FINDINGS: The visualized lung bases are unremarkable. The visualized portions of the heart are within normal limits. Normal liver. There are surgical clips in the gallbladder fossa consistent with a prior cholecystectomy. Normal spleen. Normal pancreas. There is a small duodenal diverticulum at the level the head of the pancreas measuring 8.2 mm, not as well seen on prior study. Normal bilateral adrenal glands. Normal right kidney. Normal left kidney. Normal visualized stomach. There is nonspecific minimal distention of the small bowel. There is mild stool in the colon. There are a few diverticula present without visualized diverticulitis. The appendix is visualized and appears normal. The aorta is partially calcified. Normal inferior vena cava. There few nonspecific retroperitoneal lymph nodes Normal urinary bladder. There is absence of the uterus consistent with a prior hysterectomy. Normal abdominal wall. There are diffuse degenerative changes of the visualized lumbar spine. At the level of L4-L5 there is disc space narrowing and broad disc bulge moderate neural foramina narrowing moderate central stenosis facet arthropathy. CT/Abdomen/Pelvis without Cont IMPRESSION: Status post cholecystectomy. Status post hysterectomy. [id number] constipation. Nonspecific minimal distention of the small bowel. Minimal duodenal diverticula. No appendicitis. No hydronephrosis no visualized renal stones. Degenerative change of the thoracolumbar spine similar to the prior study. Electronically Signed: Mariaelena Manzano MD at 1:47 EST Reading Location ID and State: [facility] / [place] Tel , Service support ,
== END 2021-11-23 23:59 | disposition home or self-care (01) ==
LOC: CT 18:43
PROVIDERS: Visit Provider Nurse Practitioner Adult Health
DX: R10.84 Generalized abdominal pain (principal)
CPT/HCPCS: 74176

== ENCOUNTER → 2022-01-13 | Outpatient (CLI) | payer MEDICAID, SELFPAY ==
--- NOTE | 2022-01-13 11:01 | CDU_ITS ---
Reason For Study: Near syncope when turns head a certain way Rt. Velocities/BP Lt. Velocities/BP Prox CCA 77.3/16 cm/sec. Prox CCA 79.9/22.6 cm/sec. Mid CCA 78.6/20 cm/sec. Mid CCA 76/21.2 cm/sec. Dist CCA 74.7/21.3 cm/sec. Dist CCA 74.7/26.5 cm/sec. Prox ICA 66.9/26.5 cm/sec. Prox ICA 64.3/27.8 cm/sec. Mid ICA 95.6/40.8 cm/sec. Mid ICA 64.3/27.8 cm/sec. Dist ICA 81.2/27.8 cm/sec. Dist ICA 91.3/23.2 cm/sec. Rt. ICA/CCA = 1.24. Lt. ICA/CCA = 1.20. Prox ECA 96.9/22.6 cm/sec. Prox ECA 94.3/18.6 cm/sec. Rt. Vert. 57.8/22.6 cm/sec. Lt. Vert. 48.7/17.9 cm/sec. Right Extracranial There is homogeneous, smooth atherosclerotic plaque noted in the right common carotid artery. There is intimal thickening but no significant atherosclerotic plaque noted in the right internal carotid artery. There is intimal thickening but no significant atherosclerotic plaque noted in the right external carotid artery. Antegrade flow is noted in the right vertebral artery. Left Extracranial There is homogeneous, smooth atherosclerotic plaque noted in the left common carotid artery. There is heterogeneous, smooth atherosclerotic plaque noted in the left internal carotid artery. There is intimal thickening but no significant atherosclerotic plaque noted in the left external carotid artery. Antegrade flow is noted in the left vertebral artery. Procedure Carotid Duplex [id number]. This is a Carotid Duplex examination using B-mode, color flow and specral Doppler. Exam performed in department. VL/Carotid Duplex Ultrasound Interpretation Summary Intimal thickening right proximal internal carotid artery with less than 50% st enosis Less than 50% stenosis right external carotid artery Minimal smooth plaque at the proximal left internal carotid artery with less th an 50% stenosis Less than 50% stenosis left external carotid artery Patent and antegrade vertebral arteries bilaterally Ordering Physician: Maria Antonia Sinclair Referring Physician: [facility] Performed By: Graciela Berman RVT
== END | disposition home or self-care (01) ==
PROVIDERS: Referring Provider Physician Assistant Medical; Visit Provider Physician Assistant Medical
DX: R55 Syncope and collapse (principal); R42 Dizziness and giddiness; R00.2 Palpitations
CPT/HCPCS: 93225; 93226; 93880

== ENCOUNTER → 2022-02-07 | Outpatient (CLI) | payer MEDICAID, SELFPAY | END | disposition home or self-care (01) | LOC: CVS 13:13 | PROVIDERS: Referring Provider Internal Medicine Cardiovascular Disease; Visit Provider Internal Medicine Cardiovascular Disease | DX: R03.0 Elevated blood-pressure reading, without diagnosis of hypertension (principal) | CPT/HCPCS: 93788 ==

== ENCOUNTER 2022-02-16 02:15 | Emergency (ER) | payer MEDICAID, SELFPAY ==
[2022-02-16 02:16] VITALS: BP 138/72; PULSE 77; RESP 20; TEMP 36.7; O2SAT 100; BMI 26.6
--- NOTE | 2022-02-16 02:41 | RAD_ITS ---
STUDY: X-RAY CHEST REASON FOR EXAM: Female, 62 years old. chest pain TECHNIQUE: Single AP portable view of the chest. 2:52 AM. COMPARISON: Previous chest radiograph of 07/14/2017 and 01/01/2016. FINDINGS: The lungs are clear and expanded. There is no demonstrated pleural abnormality. Normal size heart. Normal mediastinum and vikas. Normal visualized pulmonary arteries. Normal visualized aortic arch and descending thoracic aorta. Normal visualized thoracic spine. Normal visualized ribs, clavicles, and shoulders. There is no demonstrated abnormality of the visualized soft tissue structures of the upper abdomen. RAD/Chest 1 View (Portable) IMPRESSION: Negative. No significant interval change or acute process. Electronically Signed: Kristopher Herbert MD at 3:14 EDT ,
--- NOTE | 2022-02-16 02:41 | EKG12_ITS ---
Test Reason : CP Blood Pressure : / mmHG Vent. Rate : 076 BPM Atrial Rate : 076 BPM P-R Int : 138 ms QRS Dur : 084 ms QT Int : 404 ms P-R-T Axes : 035 016 068 degrees QTc Int : 454 ms Sinus rhythm with frequent Premature ventricular complexes ST & T wave abnormality, consider anterolateral ischemia Abnormal ECG Confirmed by SHANNON SHAFFER, BIBI ([id number]), science editor GERSON ALMODOVAR ([id number]) on 02/21/2022 12:39:28 PM Referred By: MANISH Confirmed By:BIBI ORTEGA MD
[2022-02-16 02:54] LABS: Absolute Neutrophil Count 3.8 X10^3/uL (2.0-7.7); Basophil# 0.04 X10^3/uL; Basophil% 0.4 % (0-1); Eosinophil# 0.14 X10^3/uL; Eosinophils% 1.4 % (0-5); Hematocrit 38.4 % (37-47); Hemoglobin 12.5 g/dL (12.0-15.0); Lymphocyte % 52.9 % (19-41); Mean Corp Hgb Conc 32.6 g/dL (32-36); Mean Corpuscular Volume 85.9 fL (81-99); Mean Platelet Vol. 9.8 fl (6.2-12.0); Monocyte# 0.66 X10^3/uL; Monocyte% 6.6 % (0-10); NRBC Flagged by Analyzer 0 % (0-5); Neutrophil # 3.84 X10^3/uL (2.7-7.7); Neutrophil % 38.4 % (47-70); POSITIVE DIFFERENTIAL YES; Platelet Count 395 K/mm3 (150-450); RBC Distribution Width CV 12.8 % (11.6-14.6); RBC Distribution Width SD 39.9 fl (35.1-43.9); Red Blood Count 4.47 M/mm3 (4.2-5.4)
[2022-02-16 02:58] LABS: Differential Indicated SCAN CRITERIA MET
--- NOTE | 2022-02-16 03:07 | EX.ED.DYSGE1 ---
HPI History of Present Illness Chief Complaint: Chest Pain Informant: patient Narrative Narrative: Patient is a 62-year-old female with history of bipolar disorder, PVCs, palpitations and COPD as well as recent diagnosis of COVID-19 infection presenting with chest discomfort and palpitations. Patient developed symptoms approximately 3 days ago. She is now complaining of chest congestion and feeling like she has a chest cold. She states tonight she was sitting when she started feeling funny in her chest and every 2 heartbeats she felt like her heart would stop. She has some mild associated shortness of breath. Patient states she is on carvedilol for palpitations and this normally helps. Patient denies any swelling of her legs. She denies any history of DVT or PE. No other complaints at this time. PFSH PFSH Medical History Abdominal pain Asthma Bipolar disorder Cardiac dysrhythmia Cardiomyopathy in disease classified elsewhere Chest pain COPD (chronic obstructive pulmonary disease) Essential hypertension GERD (gastroesophageal reflux disease) History of left heart catheterization (LHC) (~09/04/09) HTN (hypertension) Melena Old myocardial infarct Pure hypercholesterolemia Seizure Tobacco use Home Medications duloxetine 60 mg PO DAILY 08/03/13 [History Last Taken 07/13/17] omeprazole 20 mg PO BID 08/03/13 [History Last Taken 07/13/17] lamotrigine 50 mg PO BID 04/13/17 [History Last Taken 07/13/17] atorvastatin 20 mg tablet 20 mg PO QHS #90 tab 11/10/21 [Rx Last Taken Unknown] carvedilol 6.25 mg tablet 12.5 mg PO BID #60 tab 01/26/22 [Rx Last Taken Unknown] Allergy/AdvReac Type Severity Reaction Status Date / Time NSAIDS (Non-Steroidal AdvReac Diarrhea Verified 02/16/22 02:19 Anti-Inflamma tramadol HCl [From Ultram] AdvReac Diarrhea Verified 02/16/22 02:19 Family History Mother Diabetes Cancer Father COPD (chronic obstructive pulmonary disease) Diabetes Sister Diabetes Surgical History History of arthroscopy of both knees History of carpal tunnel release History of cholecystectomy History of eye surgery History of foot surgery History of hysterectomy History of shoulder surgery Social History Smoking Status: Current every day smoker tobacco type: cigarettes alcohol intake: current details: occasional substance use type: does not use ROS ROS ED Constitutional Constitutional ED: Denies chills or fever(s) ENT ENT ED: Reports other Details: nasal congestion ; Denies rhinorrhea Cardiovascular Cardiovascular: Reports chest pain and palpitations; Denies racing heartbeat Respiratory/Chest Respiratory/Chest: Reports cough and dyspnea; Denies dyspnea on exertion or sputum Gastrointestinal Gastrointestinal: Denies abdominal pain, nausea or vomiting Genitourinary Genitourinary ED: Denies dysuria or hematuria Musculoskeletal Musculoskeletal: Denies myalgias Integumentary Denies rash Neurologic Neurologic: Denies headache(s) or weakness Psychiatric Psychiatric: Denies depression EXAM Physical Exam Const Vital Signs: 02/16/22 02:16 02/16/22 02:41 02/16/22 04:16 Temperature 98.1 F Temperature Source Temporal Pulse Rate 77 70 Respiratory Rate 20 H 16 Blood Pressure 138/72 H 115/73 Blood Pressure Mean 94 87 Pulse Ox 100 98 Oxygen Delivery Method Nasal Cannula Room Air Room Air 02/16/22 05:55 Temperature Temperature Source Pulse Rate 82 Respiratory Rate 21 H Blood Pressure 108/72 Blood Pressure Mean 84 Pulse Ox 97 Oxygen Delivery Method Room Air Positive well nourished and well developed General Appearance ED: well developed and NAD HEENT Reports moist mucous membranes Negative for tenderness Eyes PERRL and EOMs intact bilaterally Neck supple and no JVD Chest Wall inspection of chest normal Resp normal respiratory effort and clear to auscultation bilaterally Cardio regular rate, regular rhythm and no murmurs GI normal to inspection, nondistended, normoactive bowel sounds and non-tender Palpation: soft Extremity normal to inspection General Extremety ED: Negative for edema or tenderness General Extremity: Negative for edema Neuro oriented x3 and CN's II-XII intact bilaterally Sensorium / Orientation: alert Motor Exam: Negative for general weakness Psych mental status grossly normal Skin no rashes or lesions noted and no wounds MDM MDM MDM Narrative Medical decision making narrative: Patient's evaluated for palpitations. She has some associated chest congestion and a recent diagnosis of COVID-19 infection. Patient appears nontoxic in no acute distress. She does have intermittent PVCs in a trigeminy pattern. She seems to be feeeling the PVCs which I suspect is the cause of her palpitations. D-dimer is negative. CBC is normal. BMP is unremarkable. High since her troponin is less than 3x2. TSH is normal. Magnesium is normal. Chest x-rays not show any acute infiltrates or other acute process. Chest x-ray interpreted by myself as well as radiology. Patient be discharged home for outpatient cardiac follow-up. She is not hypoxic. I do not think she requires further admission or observation for her presentation today. Patient is agreeable this plan of care. Lab Data Attestation: I reviewed the patient's lab results. Labs: Laboratory Results - last 24 hr 02/16/22 02/16/22 02/16/22 02:24 02:24 02:24 WBC 10.0 RBC 4.47 Hgb 12.5 Hct 38.4 MCV 85.9 MCH 28.0 MCHC 32.6 RDW Std Deviation 39.9 RDW Coeff of Kaylyn 12.8 Plt Count 395 MPV 9.8 Immature Gran % (Auto) 0.300 Neut % (Auto) 38.4 L Lymph % (Auto) 52.9 H [place] % (Auto) 6.6 Eos % (Auto) 1.4 Baso % (Auto) 0.4 Absolute Neuts (auto) 3.8 Absolute Lymphs (auto) 5.30 H Nucleated RBC % 0 Atypical Lymphocytes 1+ D-Dimer Quant (PE/DVT) < 0.27 L Sodium 135 L Potassium 3.7 Chloride 103 Carbon Dioxide 26.0 Anion Gap 6 BUN 11 Creatinine 0.91 Estim Creat Clear Calc 59.16 Est GFR (MDRD) Af Amer 81 Est GFR (MDRD) Non-Af 67 BUN/Creatinine Ratio 12.1 Glucose 133 H Calcium 9.2 Magnesium 1.9 Troponin I High Sens < 3 L TSH 2.02 02/16/22 05:12 WBC RBC Hgb Hct MCV MCH MCHC RDW Std Deviation RDW Coeff of Kaylyn Plt Count MPV Immature Gran % (Auto) Neut % (Auto) Lymph % (Auto) [place] % (Auto) Eos % (Auto) Baso % (Auto) Absolute Neuts (auto) Absolute Lymphs (auto) Nucleated RBC % Atypical Lymphocytes D-Dimer Quant (PE/DVT) Sodium Potassium Chloride Carbon Dioxide Anion Gap BUN Creatinine Estim Creat Clear Calc Est GFR (MDRD) Af Amer Est GFR (MDRD) Non-Af BUN/Creatinine Ratio Glucose Calcium Magnesium Troponin I High Sens < 3 L TSH Radiography Chest X-Ray - ED: 1 View, Read by ED Physician, Read by Radiologist and No Acute Disease Diagnostic Testing: Clinical Impression(s) from Imaging Studies Chest X-Ray 02/16/22 02:41 IMPRESSION: Negative. No significant interval change or acute process. Electronically Signed: Kristopher Herbert MD at 3:14 EDT , Rhythm Strip Rhythm Strip: Sinus Rhythm Rate: 76 Ectopy: PVC(s) EKG Initial EKG: Attestation: I personally reviewed and interpreted this EKG as follows: Interpretation: Sinus Rhythm Comments: Sinus rhythm at a rate of 76 with frequent PVCs Normal intervals Normal axis T wave inversion in V1 through V5 with no reciprocal changes PVCs are new compared to prior EKG on 07/14/2017 however T wave inversions are unchanged Discharge Plan Triage Chief Complaint: Chest Pain ED Provider: Laquita Woods Dx/Rx/DC Orders Clinical Impression: Palpitations, Symptomatic PVCs Instructions: PVCs, ED Palpitations Prescriptions: No Action omeprazole 20 MG capsule 20 mg PO BID RF: 0 duloxetine 60 MG capsule,delayed release(DR/EC) 60 mg PO DAILY RF: 0 lamotrigine 25 MG tablet 50 mg PO BID RF: 0 atorvastatin 20 mg tablet 20 mg PO QHS Qty: 90 RF: 3 carvedilol 6.25 mg tablet 12.5 mg PO BID Qty: 60 RF: 12 Primary Care Provider: [facility] Miriam Anton Referrals: [facility] Miriam Anton [Primary Care Provider] - Activity Restrictions/Additional Instructions: Please follow-up with your quality assurance consultant. Disposition Disposition: Home, Self Care
[2022-02-16 03:09] LABS: Atypical Lymphocyte 1+ %
[2022-02-16 03:19] LABS: Anion Gap 6 (5-15); BUN 11 mg/dL (7-18); BUN/Creat Ratio 12.1 RATIO (10-20); Calcium,Total 9.2 mg/dL (8.5-10.1); Chloride 103 mmol/L (98-107); Creatinine, Serum 0.91 mg/dL (0.55-1.02); EST Glomerular Filtration Rate 67 mL/min (>60); Est Glom Filt Rate - Afr Amer 81 mL/min (>60); Estimated Creatinine Clearance 59.16 ml/min; Glucose 133 mg/dL (74-106); Magnesium 1.9 mg/dL (1.6-2.6); Potassium 3.7 mmol/L (3.5-5.1); Sodium Level 135 mmol/L (136-145); Thyroid Stim Hormone (TSH) 2.02 uIU/mL (0.358-3.74); Troponin-I HS (w/2H Reflex) < 3 pg/mL (3.0-54.0)
[2022-02-16 03:54] LABS: D-Dimer Quantitative (DVT/PE) < 0.27 FEU/ug/m (0.27-0.49)
[2022-02-16 04:16] VITALS: BP 115/73; PULSE 70; RESP 16; O2SAT 98
[2022-02-16 04:50] LABS: Reflex Troponin-HS? (from REC) Y
[2022-02-16 05:43] LABS: Troponin-I HS < 3 pg/mL (3.0-54.0)
[2022-02-16 05:55] VITALS: BP 108/72; PULSE 82; RESP 21; O2SAT 97
[2022-02-16 06:00] VITALS: BP 126/78; PULSE 78; RESP 16; O2SAT 96
== END 2022-02-16 06:12 | disposition home or self-care (01) ==
PROVIDERS: Emergency Provider Emergency Medicine; Visit Provider Emergency Medicine
DX: I49.3 Ventricular premature depolarization (principal); J44.9 Chronic obstructive pulmonary disease, unspecified; I43 Cardiomyopathy in diseases classified elsewhere; F31.9 Bipolar disorder, unspecified; G40.909 Epilepsy, unspecified, not intractable, without status epilepticus; K21.9 Gastro-esophageal reflux disease without esophagitis; I10 Essential (primary) hypertension; I25.2 Old myocardial infarction; E78.00 Pure hypercholesterolemia, unspecified; Z79.899 Other long term (current) drug therapy; Z86.16 Personal history of COVID-19; F17.210 Nicotine dependence, cigarettes, uncomplicated
CPT/HCPCS: 71045; 80048; 83735; 84443; 84484; 85025; 85379; 93005; 99285; A4216

== ENCOUNTER 2022-06-01 17:49 | Emergency (ER) | payer MEDICAID, SELFPAY ==
[2022-06-01 17:50] VITALS: BP 121/80; PULSE 82; RESP 17; TEMP 36.6; O2SAT 100; BMI 26.4
--- NOTE | 2022-06-01 18:36 | EDS_ITS ---
HPI History of Present Illness HPI Narrative: Patient presents with bilateral knee pain that has been getting progressively worse over the past several days. Patient denies any trauma or injury. Patient states the pain is worse in her right knee. Patient states she has had a left total knee replacement and is scheduled to have that revised. Patient denies any clicking or popping sensation. Patient states her pain is constant and worse with certain movements. Patient denies any paresthesias or weakness. Chief Complaint: Lower Extremity Injury Informant: patient Onset/Context/Timing Onset: Days Context: Gradual Onset Timing: Continuous Quality of Pain: Aching Location: Bilateral knees Associated Symptoms Associated Symptoms: Negative for Parasthesia, Weakness or Loss of Funtion PFSH [facility] Medical History Abdominal pain Asthma Bipolar disorder Cardiac dysrhythmia Cardiology follow-up encounter Cardiomyopathy in disease classified elsewhere Chest pain COPD (chronic obstructive pulmonary disease) Essential hypertension GERD (gastroesophageal reflux disease) History of atrial fibrillation History of echocardiogram History of edema History of heart attack History of left heart catheterization (LHC) (~09/04/09) History of stress test History of ulceration HTN (hypertension) Melena Old myocardial infarct Pure hypercholesterolemia Seizure Smoker Tobacco use Wears dentures Home Medications duloxetine 60 mg capsule,delayed release 60 mg PO DAILY 08/03/13 [History Last Taken 07/13/17] lamotrigine 25 mg tablet 50 mg PO BID seizures 04/13/17 [History Last Taken 07/13/17] atorvastatin 20 mg tablet 20 mg PO QHS #90 tabs 11/10/21 [Rx Last Taken Unknown] carvedilol 6.25 mg tablet 12.5 mg PO BID #60 tabs 01/26/22 [Rx Last Taken Unknown] pantoprazole 40 mg tablet,delayed release 40 mg PO BID 3 months #180 tabs 03/31/22 [Rx Last Taken Unknown] bisacodyl 5 mg tablet,delayed release (Dulcolax (bisacodyl)) 5 mg PO ONCE #4 tabs 05/06/22 [Rx Last Taken Unknown] polyethylene glycol 3350 17 gram/dose oral powder (Miralax) See Rx Instructions PO .COMPLEX #238 grams 05/06/22 [Rx Last Taken Unknown] sodium sul 1.479 gram-potas ch 0.188 gram-magnes sul 0.225 gram tablet (Sutab) See Rx Instructions PO PER PKG DIR #24 tabs 05/13/22 [Rx Last Taken Unknown] Allergy/AdvReac Type Severity Reaction Status Date / Time NSAIDS (Non-Steroidal AdvReac Diarrhea Verified 06/01/22 17:49 Anti-Inflamma tramadol HCl [From Ultram] AdvReac Diarrhea Verified 06/01/22 17:49 Family History Mother Diabetes Cancer Father COPD (chronic obstructive pulmonary disease) Diabetes Sister Diabetes Surgical History History of arthroscopy of both knees History of bilateral cataract extraction History of carpal tunnel release History of cholecystectomy History of foot surgery History of hysterectomy History of partial hysterectomy History of shoulder surgery History of total left knee replacement Social History Smoking Status: Current every day smoker tobacco type: cigarettes alcohol intake: current details: occasional substance use type: does not use ROS ROS ED Constitutional Constitutional ED: Denies chills or fever(s) Eyes Eyes: Denies blurry vision or change in vision ENT ENT ED: Denies rhinorrhea or sore throat Cardiovascular Cardiovascular: Denies chest pain or palpitations Respiratory/Chest Respiratory/Chest: Denies cough or dyspnea Gastrointestinal Gastrointestinal: Denies nausea or vomiting Genitourinary Genitourinary ED: Denies dysuria or hematuria Musculoskeletal Musculoskeletal: Denies back pain or neck pain Integumentary Denies abscess or rash Neurologic Neurologic: Denies headache(s) or weakness Allergic/Immunologic Allergic/Immunologic ED: Denies mouth swelling or urticaria EXAM Physical Exam Const Vital Signs: 06/01/22 17:50 Temperature 97.8 F Temperature Source Temporal Pulse Rate 82 Respiratory Rate 17 Blood Pressure 121/80 H Blood Pressure Mean 93 Pulse Ox 100 Oxygen Delivery Method Room Air Positive well nourished and well developed General Appearance ED: well developed and NAD HEENT Reports moist mucous membranes Neck full ROM and supple Extremity Extremity Narrative: There is tenderness over the knees bilaterally. There is no edema or ecchymosis. There is no erythema or warmth. There is no joint effusion noted. There is good range of motion of both knees. Strength is 5/5 bilaterally in the lower extremities. There are no sensory deficits noted. Extensor mechanism is intact bilaterally. Pedal pulses are equal bilaterally. Neuro oriented x3, CN's II-XII intact bilaterally, moves all extremities and no sensory deficits noted Sensorium / Orientation: alert Motor Exam: strength 5/5 throughout Psych mental status grossly normal MDM MDM MDM Narrative Medical decision making narrative: X-rays of the right knee were obtained. There are 4 views. On my interpretation, there is no acute fracture. There is no dislocation. There is no soft tissue swelling. Radiologist also interpreted the x-rays and agrees. X-rays of the left knee were obtained. There are 4 views. On my interpretation, there is no acute fracture. There is no dislocation. The left knee prosthesis is in place. There is no loosening of the prosthetic parts. There is no soft tissue swelling. Radiologist also interpreted the x-rays and agrees. Patient was advised of her findings. Patient was instructed to ice and elevate the knee. Patient was instructed to follow-up with her orthopedic surgeon in 5 to 7 days. Patient understood and was agreeable with the plan. All questions were answered. Radiography Diagnostic Testing: Clinical Impression(s) from Imaging Studies Knee X-Ray 06/01/22 18:39 IMPRESSION: Left knee replacement. Electronically Signed: Juan Miguel Andrea MD at 19:23 EDT , Knee X-Ray 06/01/22 18:50 IMPRESSION: Degenerative arthrosis. Electronically Signed: Juan Miguel Andrea MD at 19:24 EDT , Discharge Plan Triage Chief Complaint: Lower Extremity Injury ED Provider: Chuy Irving Dx/Rx/DC Orders Clinical Impression: Acute pain of left knee, Acute pain of right knee Instructions: ED Knee Pain of Uncertain Cause Prescriptions: No Action pantoprazole 40 mg tablet,delayed release (DR/EC) 40 mg PO BID 90 Days Qty: 180 0RF duloxetine 60 MG capsule,delayed release(DR/EC) 60 mg PO DAILY Label Comments: DEPRESSION lamotrigine 25 MG tablet 50 mg PO BID atorvastatin 20 mg tablet 20 mg PO QHS Qty: 90 3RF carvedilol 6.25 mg tablet 12.5 mg PO BID Qty: 60 12RF Rx Instructions: must administer with a meal/food bisacodyl [Dulcolax (bisacodyl)] 5 mg tablet,delayed release (DR/EC) 5 mg PO ONCE Qty: 4 0RF Rx Instructions: take as directed for bowel prep polyethylene glycol 3350 [Miralax] 17 gram/dose powder See Rx Instructions PO .COMPLEX Qty: 238 0RF Rx Instructions: orally; take as directed for bowel prep Sutab 1.479-0.188- 0.225 gram tablet See Rx Instructions PO PER PKG DIR Qty: 24 0RF Rx Instructions: PO PER PKG DIR Primary Care Provider: [facility] Miriam Anton Referrals: [facility] Miriam Anton [Primary Care Provider] - 3-5 Days Disposition Disposition: Home, Self Care
--- NOTE | 2022-06-01 18:39 | RAD_ITS ---
STUDY: X-RAY - LEFT KNEE REASON FOR EXAM: Female, 62 years old. Injury/Pain TECHNIQUE: 4 view(s) of the knee. COMPARISON: None. FINDINGS: There is demineralization of the visualized distal femur. There is demineralization of the tibia and fibula. Normal proximal tibiofibular articulation. There is no demonstrated fracture. There is total joint replacement . The alignment is near-anatomic. There is lucency of the proximal tibia with possible loosening or small particle disease. The soft tissue structures are unremarkable. RAD/Knee 4 or More Views IMPRESSION: Left knee replacement. Electronically Signed: Juan Miguel Andrea MD at 19:23 EDT ,
--- NOTE | 2022-06-01 18:50 | RAD_ITS ---
STUDY: X-RAY - RIGHT KNEE REASON FOR EXAM: Female, 62 years old. Injury/Pain TECHNIQUE: 4 view(s) of the knee. COMPARISON: None. FINDINGS: There is demineralization of the visualized distal femur. There is demineralization of the tibia and fibula. Normal proximal tibiofibular articulation. There is no demonstrated fracture. There is mild degenerative arthrosis of the medial femorotibial compartment. There is mild degenerative arthrosis of the lateral femorotibial compartment. There is mild degenerative arthrosis of the patellofemoral articulation. The soft tissue structures are unremarkable. RAD/Knee 4 or More Views IMPRESSION: Degenerative arthrosis. Electronically Signed: Juan Miguel Andrea MD at 19:24 EDT ,
== END 2022-06-01 20:33 | disposition home or self-care (01) ==
PROVIDERS: Emergency Provider Emergency Medicine; Visit Provider Emergency Medicine
DX: M25.561 Pain in right knee (principal); J44.9 Chronic obstructive pulmonary disease, unspecified; I43 Cardiomyopathy in diseases classified elsewhere; F31.9 Bipolar disorder, unspecified; I48.91 Unspecified atrial fibrillation; G40.909 Epilepsy, unspecified, not intractable, without status epilepticus; K21.9 Gastro-esophageal reflux disease without esophagitis; I10 Essential (primary) hypertension; E78.00 Pure hypercholesterolemia, unspecified; I25.2 Old myocardial infarction; Z79.899 Other long term (current) drug therapy; F17.210 Nicotine dependence, cigarettes, uncomplicated; Z96.652 Presence of left artificial knee joint; M25.562 Pain in left knee
CPT/HCPCS: 73564; 99282

== ENCOUNTER 2022-06-27 19:17 | Emergency (ER) | payer MEDICAID, SELFPAY ==
[2022-06-27 19:17] VITALS: BP 150/79; PULSE 78; RESP 16; TEMP 35.8; O2SAT 100
[2022-06-27 19:18] VITALS: BP 150/79; PULSE 78; RESP 16; TEMP 35.8; O2SAT 100; BMI 27.2
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
== END 2022-06-27 20:10 | disposition home or self-care (01) ==
PROVIDERS: Emergency Provider Emergency Medicine; Visit Provider Emergency Medicine
DX: S60.221A Contusion of right hand, initial encounter (principal); J44.9 Chronic obstructive pulmonary disease, unspecified; V29.888A Rider (driver) (passenger) of other motorcycle injured in other specified transport accidents, initial encounter; Y93.55 Activity, bike riding; I25.2 Old myocardial infarction; I10 Essential (primary) hypertension; E78.00 Pure hypercholesterolemia, unspecified; F17.210 Nicotine dependence, cigarettes, uncomplicated; Z79.899 Other long term (current) drug therapy
CPT/HCPCS: 73130; 99282

== ENCOUNTER 2022-08-04 13:01 | Outpatient (CLI) | payer MEDICAID, SELFPAY | END 2022-08-04 23:59 | disposition home or self-care (01) | LOC: PSN 13:03 | PROVIDERS: Referring Provider Nurse Practitioner Family; Visit Provider Nurse Practitioner Family | DX: Z78.9 Other specified health status (principal) | CPT/HCPCS: 93005 ==

== ENCOUNTER 2022-08-09 09:34 | Outpatient (CLI) | payer MEDICAID, SELFPAY ==
[2022-08-09 10:04] LABS: Hematocrit 37.6 % (37-47); Hemoglobin 12.2 g/dL (12.0-15.0); Mean Corp Hgb Conc 32.4 g/dL (32-36); Mean Corpuscular Hgb 27.8 pg (27.0-32.0); Mean Corpuscular Volume 85.6 fL (81-99); Mean Platelet Vol. 9.4 fl (6.2-12.0); Platelet Count 314 K/mm3 (150-450); RBC Distribution Width CV 13.8 % (11.6-14.6); RBC Distribution Width SD 42.9 fl (35.1-43.9); Red Blood Count 4.39 M/mm3 (4.2-5.4)
[2022-08-09 10:39] LABS: Anion Gap 4 (5-15); BUN 8 mg/dL (7-18); BUN/Creat Ratio 9.7 RATIO (10-20); Calcium,Total 9.1 mg/dL (8.5-10.1); Chloride 108 mmol/L (98-107); Creatinine, Serum 0.83 mg/dL (0.55-1.02); EST Glomerular Filtration Rate 75 mL/min (>60); Est Glom Filt Rate - Afr Amer 90 mL/min (>60); Glucose 118 mg/dL (74-106); Magnesium 2.3 mg/dL (1.6-2.6); Potassium 3.8 mmol/L (3.5-5.1); Sodium Level 142 mmol/L (136-145)
== END 2022-08-09 23:59 | disposition home or self-care (01) ==
DX: Z78.9 Other specified health status (principal)
CPT/HCPCS: 36415; 80048; 83735; 85027

== ENCOUNTER → 2023-02-09 | Outpatient (CLI) | payer MEDICAID, SELFPAY | END | disposition home or self-care (01) | LOC: PSN 09:24 | PROVIDERS: Referring Provider Physician Assistant Medical; Visit Provider Physician Assistant Medical | DX: R55 Syncope and collapse (principal); I43 Cardiomyopathy in diseases classified elsewhere; R42 Dizziness and giddiness; R00.2 Palpitations | CPT/HCPCS: 93225; 93226 ==

== ENCOUNTER 2024-02-06 12:39 | Emergency (ER) | payer MEDICAID, SELFPAY ==
[2024-02-06 12:40] VITALS: BP 88/59; PULSE 71; RESP 14; TEMP 36.3; O2SAT 100
--- NOTE | 2024-02-06 12:50 | RAD_ITS ---
STUDY: X-RAY - RIGHT KNEE REASON FOR EXAM: Female, 64 years old. Swelling. TECHNIQUE: 4 views of the right knee. COMPARISON: None. FINDINGS: Normal visualized distal femur. Normal visualized proximal tibia and fibula. Normal proximal tibiofibular articulation. There is no demonstrated fracture. There is mild degenerative arthrosis of the medial femorotibial compartment. There is mild degenerative arthrosis of the lateral femorotibial compartment. There is moderate degenerative arthrosis of the patellofemoral articulation. There is a small joint effusion. There is an 8 mm calcified loose body in the posterior femorotibial joint recess. The soft tissue structures are unremarkable. RAD/Knee 4 or More Views IMPRESSION: Tricompartment degenerative arthrosis, most pronounced in the patellofemoral compartment. Small joint effusion. 8 mm calcified loose body in the posterior femorotibial joint recess. Electronically Signed: Deondre Nava MD at 13:07 EDT ,
[2024-02-06 14:56] VITALS: BP 110/59
--- NOTE | 2024-02-06 15:00 | EDS_ITS ---
HPI History of Present Illness Chief Complaint: Lower Extremity Injury [facility] Medical History Abdominal pain Asthma Bipolar disorder Cardiac dysrhythmia Cardiology follow-up encounter Cardiomyopathy in disease classified elsewhere Chest pain COPD (chronic obstructive pulmonary disease) Essential hypertension GERD (gastroesophageal reflux disease) History of atrial fibrillation History of echocardiogram History of edema History of heart attack History of left heart catheterization (LHC) (~09/04/09) History of stress test History of ulceration HTN (hypertension) Melena Old myocardial infarct Pure hypercholesterolemia Seizure Smoker Tobacco use Wears dentures Home Medications ?Medication ?Instructions ?Recorded ?Last Taken ?Type lamotrigine 25 mg tablet 50 mg PO BID seizures 04/13/17 07/13/17 History bisacodyl 5 mg tablet,delayed 5 mg PO ONCE #4 tabs 05/06/22 Unknown Rx release (Dulcolax (bisacodyl)) polyethylene glycol 3350 17 See Rx Instructions PO .COMPLEX 05/06/22 Unknown Rx gram/dose oral powder (Miralax) #238 grams sodium sul 1.479 gram-potas ch See Rx Instructions PO PER PKG DIR 05/13/22 Unknown Rx 0.188 gram-magnes sul 0.225 gram #24 tabs tablet (Sutab) carvedilol 25 mg tablet 25 mg PO BID #180 tabs 11/07/22 Unknown Rx atorvastatin 20 mg tablet 20 mg PO QHS #90 tabs 12/12/22 Unknown Rx duloxetine 60 mg capsule,delayed 60 mg PO DAILY 12/15/22 Unknown History release pantoprazole 40 mg tablet,delayed 40 mg PO BID 3 months #180 tabs 09/29/23 Unknown Rx release Allergy/AdvReac Type Severity Reaction Status Date / Time NSAIDS (Non-Steroidal AdvReac Diarrhea Verified 02/06/24 12:44 Anti-Inflamma tramadol HCl (From Ultram) AdvReac Diarrhea Verified 02/06/24 12:44 Family History Mother Diabetes Cancer Father COPD (chronic obstructive pulmonary disease) Diabetes Sister Diabetes Surgical History History of arthroscopy of both knees History of bilateral cataract extraction History of carpal tunnel release History of cholecystectomy History of foot surgery History of hysterectomy History of partial hysterectomy History of shoulder surgery History of total left knee replacement Social History Smoking Status: Current every day smoker tobacco type: cigarettes alcohol intake: current details: occasional substance use type: does not use EXAM Physical Exam Const Vital Signs: 02/06/24 12:40 02/06/24 14:56 Temperature 97.4 F L Temperature Source Temporal Pulse Rate 71 Respiratory Rate 14 Blood Pressure 88/59 L 110/59 L Blood Pressure Mean 68 76 Pulse Ox 100 Oxygen Delivery Method Room Air MDM MDM [facility] Narrative Medical decision making narrative: HISTORY OF PRESENT ILLNESS: 62-year-old female presents with right knee pain. Notes she had mechanical fall from standing she fell on her buttocks. She did not note knee pain at that time however the next day 3 days ago she noticed knee pain and swelling. Patient denies active cancer, being bedridden for greater than 3 days, denies unilateral leg swelling, denies any varicose veins, denies any calf tenderness, denies tenderness along deep venous system. Denies major surgery within 12 weeks, recent paralysis, previous DVT. Denies history of surgery to the knee. Denies any loss of movement or sensation but notes pain with ambulation. REVIEW OF SYSTEMS: Pertinent positives: Knee pain, knee swelling Pertinent negatives: Calf tenderness, loss of movement or sensation PHYSICAL EXAM: Nursing triage notes reviewed, Vital signs reviewed Constitutional: please see mdm Extremities: Slight swelling and palpable effusion of right knee, patella midline, anticoag subtending complex. Neuro: Intact sensation L1-S1 dermatomal distributions. Intact 5/5 strength in hip flexion (T12-L3). Knee extension (L2-L4). Ankle dorsiflexion (L4-L5). Ankle plantar flexion (S1). Great toe extension (L5). 2+ patellar and Achilles DTRs. Skin: No erythema noted over the knee, no crepitus, no bullae, MEDICAL DECISION MAKING: Chief Complaint: Knee pain External records reviewed: [] Factors affecting care: COPD, bipolar disorder, hyperlipidemia Social determinants of health: none History obtained from others: none Consults: none] [facility] Narrative: Patient was hemodynamically stable, afebrile and nontoxic-appearing. Right lower extremity is neurovascularly intact. Intact quadricep tendon complex. Intact pulses. Intact sensation I considered the following differential diagnosis: Knee sprain, knee fracture, knee dislocation, patella fracture, dislocation, quadriceps tendon rupture ALL IMAGES (IF OBTAINED) HAVE BEEN PERSONALLY REVIEWED AND INTERPRETED BY MYSELF. X-ray of the right knee was read reviewed by myself shows no evidence of obvious bony abnormality including fracture or dislocation or patellar malalignment. The patient is likely suffering from a knee sprain. She is also likely suffering from osteoarthritis. NSAIDs, Tylenol, rest ice compression elevation instructions were given. Close PCP and orthopedic follow-up was given. The patient and/or family, caregivers express understanding. The patient and/or family, caregivers agrees with the plan. Shared decision making: I will have a discussion with the patient and or visitors regarding risk/benefits of further testing or admission. They will be made aware of of the risk/benefits inherent in this decision they will be given the opportunity to voice understanding. Total critical care time today provided was at least 0 minutes. This excludes separately billable procedures. Critical care time (if documented) is secondary to the patient having high probability of clinically significant/life threatening deterioration in the patient's condition which required my urgent intervention. Impression: 1. Acute right knee pain 2. Knee osteoarthritis Dispo: Discharge home This note was generated with [employer] dictation software. It may contain incorrect words, spelling, and punctuation that were not noted in review of the chart prior to signing. Radiography Diagnostic Testing: Clinical Impression(s) from Imaging Studies Knee X-Ray 02/06/24 12:50 IMPRESSION: Tricompartment degenerative arthrosis, most pronounced in the patellofemoral compartment. Small joint effusion. 8 mm calcified loose body in the posterior femorotibial joint recess. Electronically Signed: Deondre Nava MD at 13:07 EDT , Discharge Plan Triage Chief Complaint: Lower Extremity Injury ED Provider: Alan Barrios Dx/Rx/DC Orders Clinical Impression: Knee sprain Instructions: ED Knee Sprain, ED RICE Prescriptions: No Action duloxetine 60 mg capsule,delayed release(DR/EC) 60 mg PO DAILY Patient Comments: DEPRESSION Rx Instructions: 30 mg qhs lamotrigine 25 MG tablet 50 mg PO BID bisacodyl [Dulcolax (bisacodyl)] 5 mg tablet,delayed release (DR/EC) 5 mg PO ONCE Qty: 4 0RF Rx Instructions: take as directed for bowel prep polyethylene glycol 3350 [Miralax] 17 gram/dose powder See Rx Instructions PO .COMPLEX Qty: 238 0RF Rx Instructions: orally; take as directed for bowel prep Sutab 1.479-0.188- 0.225 gram tablet See Rx Instructions PO PER PKG DIR Qty: 24 0RF Rx Instructions: PO PER PKG DIR carvedilol 25 mg tablet 25 mg PO BID Qty: 180 3RF Rx Instructions: must administer with a meal/food atorvastatin 20 mg tablet 20 mg PO QHS Qty: 90 3RF pantoprazole 40 mg tablet,delayed release (DR/EC) 40 mg PO BID 90 Days Qty: 180 1RF Stand Alone Forms: ED Work / School Excuse Primary Care Provider: [facility] Miriam Anton Referrals: [facility] Miriam Anton [Primary Care Provider] - Activity Restrictions/Additional Instructions: Thank you for trusting us with your care today! Your x-ray was negative for any acute fracture, dislocation or bony injury. Did show evidence of osteoarthritis which can cause pain and swelling. You likely exacerbated this with your recent injury. Please take Tylenol (2 pills, 650 mg), ibuprofen (2 pills, 400 mg) every 6 hours as needed for pain and fever control. Please go to local pharmacy or drugstore obtain Salonpas lidocaine patches apply these for additional pain relief. Please use ice liberally. Recommend 20 minutes on and department soft for additional pain inflammation control. Please return to the emergency department if your symptoms change or worsen. Specifically develop calf pain, discoloration or loss of movement or sensation in your injured extremity Please follow with your primary care physician as well as your orthopedic surgeon (Dr. Rivas) for further outpatient evaluation and management. Print Language: Amharic Disposition Disposition: Home, Self Care
[2024-02-06 15:05] VITALS: BP 110/59; PULSE 80; RESP 18; TEMP 36.6; O2SAT 97
== END 2024-02-06 15:13 | disposition home or self-care (01) ==
PROVIDERS: Emergency Provider Emergency Medicine; Visit Provider Emergency Medicine
DX: S83.91XA Sprain of unspecified site of right knee, initial encounter (principal); J44.9 Chronic obstructive pulmonary disease, unspecified; M17.11 Unilateral primary osteoarthritis, right knee; E78.5 Hyperlipidemia, unspecified; M25.561 Pain in right knee; W18.39XA Other fall on same level, initial encounter; F17.210 Nicotine dependence, cigarettes, uncomplicated
CPT/HCPCS: 73564; 99282

== ENCOUNTER 2025-04-27 02:47 | Emergency (ER) | payer MEDICAID, SELFPAY ==
[2025-04-27 02:48] VITALS: BP 151/97; PULSE 94; RESP 24; TEMP 37.2; O2SAT 99; BMI 25.8
--- NOTE | 2025-04-27 02:55 | EKG12_ITS ---
Test Reason : DYSRHYTHMIA Blood Pressure : */* mmHG Vent. Rate : 90 BPM Atrial Rate : 90 BPM P-R Int : 140 ms QRS Dur : 82 ms QT Int : 380 ms P-R-T Axes : 59 8 73 degrees QTcB Int : 464 ms Normal sinus rhythm Nonspecific ST and T wave abnormality Abnormal ECG Confirmed by SHANNON SHAFFER, BIBI ([id number]), health editor MELISSA RIBEIRO ([id number]) on 04/28/2025 1:13:52 PM Referred By: PHIL Confirmed By: BIBI ORTEGA MD
--- OUTSIDE RECORDS SUMMARY | 2025-04-27 03:21 | XMS RPT_ITS | CCD ---
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 mg PO DAILY 12/15/22 Unknown History release pantoprazole 40 mg tablet,delayed 40 mg PO BID 3 months #180 tabs 09/29/23 Unknown Rx release Allergy/AdvReac Type Severity Reaction Status Date / Time NSAIDS (Non-Steroidal AdvReac Diarrhea Verified 02/06/24 12:44 Anti-Inflamma tramadol HCl (From Ultram) AdvReac Diarrhea Verified 02/06/24 12:44 Family History Mother Diabetes Cancer Father COPD (chronic obstructive pulmonary disease) Diabetes Sister Diabetes Surgical History History of arthroscopy of both knees History of bilateral cataract extraction History of carpal tunnel release History of cholecystectomy History of foot surgery History of hysterectomy History of partial hysterectomy History of shoulder surgery History of total left knee replacement Social History Smoking Status: Current every day smoker tobacco type: cigarettes alcohol intake: current details: occasional substance use type: does not use EXAM Physical Exam Const Vital Signs: 02/06/24 12:40 02/06/24 14:56 Temperature 97.4 F L Temperature Source Temporal Pulse Rate 71 Respiratory Rate 14 Blood Pressure 88/59 L 110/59 L Blood Pressure Mean 68 76 Pulse Ox 100 Oxygen Delivery Method Room Air MDM MDM MDM Narrative Medical decision making narrative: HISTORY OF PRESENT ILLNESS: 62-year-old female presents with right knee pain. Notes she had mechanical fall from standing she fell on her buttocks. She did not note knee pain at that time however the next day 3 days ago she noticed knee pain and swelling. Patient denies active cancer, being bedridden for greater than 3 days, denies unilateral leg swelling, denies any varicose veins, denies any calf tenderness, denies tenderness along deep venous system. Denies major surgery within 12 weeks, recent paralysis, previous DVT. Denies history of surgery to the knee. Denies any loss of movement or sensation but notes pain with ambulation. REVIEW OF SYSTEMS: Pertinent positives: Knee pain, knee swelling Pertinent negatives: Calf tenderness, loss of movement or sensation PHYSICAL EXAM: Nursing triage notes reviewed, Vital signs reviewed Constitutional: please see mdm Extremities: Slight swelling and palpable effusion of right knee, patella midline, anticoag subtending complex. Neuro: Intact sensation L1-S1 dermatomal distributions. Intact 5/5 strength in hip flexion (T12- L3). Knee extension (L2-L4). Ankle dorsiflexion (L4-L5). Ankle plantar flexion (S1). Great toe e xtension (L5). 2+ patellar and Achilles DTRs. Skin: No erythema noted over the knee, no crepitus, no bullae, MEDICAL DECISION MAKING: Chief Complaint: Knee pain External records reviewed: [] Factors affecting care: COPD, bipolar disorder, hyperlipidemia Soci (more content not included)... Normal [facility] Knee 4 or More Viewson 02-05 Knee 4 or More Views [facility] [address] [place] [address] Knee 4 or More Views MR#: [id number] Acct: [id number] Name: MARILU GUNTER Rep #: [id number] : 1960 F 64 From: Deondre Nava MD PCP: [facility] Status: PRE ER Study: Knee 4 or More Views Date of Exam: 02/06/24 Exam# [id number] Ordering Dr: Frederic Maxwell [id number] STUDY: X-RAY - RIGHT KNEE REASON FOR EXAM: Female, 64 years old. Swelling. TECHNIQUE: 4 views of the right knee. COMPARISON: None. FINDINGS: Normal visualized distal femur. Normal visualized proximal tibia and fibula. Normal proximal tibiofibular articulation. There is no demonstrated fracture. There is mild degenerative arthrosis of the medial femorotibial compartment. There is mild degenerative arthrosis of the lateral femorotibial compartment. There is moderate degenerative arthrosis of the patellofemoral articulation. There is a small joint effusion. There is an 8 mm calcified loose body in the posterior femorotibial joint recess. The soft tissue structures are unremarkable. RAD/Knee 4 or More Views IMPRESSION: Tricompartment degenerative arthrosis, most pronounced in the patellofemoral compartment. Small joint effusion. 8 mm calcified loose body in the posterior femorotibial joint recess. Electronically Signed: Deondre Nava MD at 13:07 EDT , CC: ED PHYSICIAN PROVIDER; [facility] Soapstoner: Signed Normal [facility] Basophil percentageon 2021 Chloride [Moles/Vol] 108 mmol/L 98-107 [facility] Work Phone: Glucose [Mass/Vol] 118 mg/dL 74-106 [facility] Work Phone: Comment on above: Fasting Glucose resu lt from 100 to 125 mg/dL suggests IMPAIRED HOMEOSTASIS per A.D.A. criteria. Potassium [Moles/Vol] 3.8 mmol/L 3.5-5.1 [facility] Work Phone: Sodium [Moles/Vol] 142 mmol/L 136-145 [facility] Work Phone: WBC (Bld) [#/Vol] 8.0 10*3/uL 4.4-11.0 [facility] Work Phone: Blood erythrocytes count (nu mber/volume)on 08-09-2022 RBC (Bld) [#/Vol] 4.39 10*6/uL 4.2-5.[address] [facility] Work Phone: Blood hemoglobin measurement (mass/volume)on 08-09-2022 Hemoglobin (Bld) [Mass/Vol] 12.2 g/dL 12.0-15.0 [facility] Work Phone: Blood platelet mean volumeon 08-09-2022 Platelet mean volume (Bld) [Entitic vol] 9.4 fL 6.2-12.0 [facility] Work Phone: Determination of erythrocyte mean corpuscular volume (MCV)on 08-09-2022 MCV (RBC) [Entitic vol] 85.6 fL 81-99 [facility] Work Phone: Hematocrit Auto (Bld) [Volum e fraction]on 08-09-2022 Hematocrit (Bld) [Volume fraction] 37.6 % 37-47 [facility] Work Phone: Laboratory - Chemistry and C hemistry - challengeon 08-09-2022 CO2 [Moles/Vol] 30.0 mmol/L 21.0-32.0 [facility] Work Phone: Magnesium [Mass/Vol] 2.3 mg/dL 1.6-2.6 [facility] Work Phone: Urea nitrogen/Creatini ne [Mass ratio] 9.7 mg/mg 10-20 [facility] Work Phone: Laboratory - Hematology and Cell countson 08-09-2022 Erythrocyte distribution width (RBC) [Entitic vol] 42.9 fL 35.1-43.9 [facility] Work Phone: Erythrocyte distribution width (RBC) [Ratio] 13.8 % 11.6-14.6 [facility] Work Phone: MCH (RBC) [Entitic mass] 27.8 pg 27.0-32.0 [facility] Work Phone: MCHC Auto (RBC) [Mass/Vol]on 08-09-2022 MCHC (RBC) [Mass/Vol] 32.4 g/dL 32-36 [facility] Work Phone: No Panel Informationon 08-09 Estimated GFR (MDRD) Amer 90 mL/min >60 [facility] Work Phone: Comment on above: GFR Calc Estimated GFR (MDRD) Non-Af Amer 75 mL/min >60 [facility] Work Phone: Comment on above: Non- GFR Calc Platelets bldon 08-09-2022 Platelets (Bld) [#/Vol] 314 10*3/uL 150-450 [facility] Work Phone: Serum or plasma calcium anupam urement (mass/volume)on 08-09-2022 Calcium [Mass/Vol] 9.1 mg/dL 8.5-10.1 [facility] Work Phone: Serum or plasma creatinine m easurement (mass/volume)on 08-09-2022 Creatinine [Mass/Vol] 0.83 mg/dL 0.55-1.02 [facility] Work Phone: Comment on above: The validity of the calculated GFR & GFRAA in patients over 70 years has not been determined. Clinical correlation is essential. Serum or plasma urea nitroge n measurement (mass/volume)on 08-09-2022 Urea nitrogen [Mass/Vol] 8 mg/dL 7-18 [facility] Work Phone: Thin prep Papanicolaou smear with manual screeningon 08-09-2022 Thin prep Papanicolaou smear with manual screening 4 5-15 [facility] Work Phone: Absolute lymphocyte counton 02-16-2022 Lymphocytes Auto (Unsp spec) [#/Vol] 5.30 10*3/uL 0.83-4.51 [facility] Work Phone: Basophil percentageon 2021 Basophils/100 WBC (Bld) 0.4 % 0-1 [facility] Work Phone: Chloride [Moles/Vol] 103 mmol/L 98-107 [facility] Work Phone: Eosinophils/100 WBC (Bld) 1.4 % 0-5 [facility] Work Phone: Glucose [Mass/Vol] 133 mg/dL 74-106 [facility] Work Phone: Comment on above: Fasting Glucose resu lt greater than or equal to 126 mg/dL suggests DIABETES MELLITUS per A.D.A. criteria. Neutrophils (Bld) [#/Vol] 3.8 10*3/uL 2.0-7.7 [facility] Work Phone: Neutrophils/100 WBC (Bld) 38.4 % 47-70 [facility] Work Phone: Potassium [Moles/Vol] 3.7 mmol/L 3.5-5.1 [facility] Work Phone: Sodium [Moles/Vol] 135 mmol/L 136-145 [facility] Work Phone: WBC (Bld) [#/Vol] 10.0 10*3/uL 4.4-11.[address] [facility] Work Phone: Blood erythrocytes count (nu mber/volume)on 02-16-2022 RBC (Bld) [#/Vol] 4.47 10*6/uL 4.2-5.[address] [facility] Work Phone: Blood hemoglobin measurement (mass/volume)on 02-16-2022 Hemoglobin (Bld) [Mass/Vol] 12.5 g/dL 12.0-15.0 [facility] Work Phone: Blood lymphocytes/100 leukoc yteson 02-16-2022 Lymphocytes/100 WBC (Bld) 52.9 % 19-41 [facility] Work Phone: Blood monocytes/100 leukocyt eson 02-16-2022 Monocytes/100 WBC (Bld) 6.6 % 0-10 [facility] Work Phone: Blood platelet mean volumeon 02-16-2022 Platelet mean volume (Bld) [Entitic vol] 9.8 fL 6.2-12.0 [facility] Work Phone: Determination of erythrocyte mean corpuscular volume (MCV)on 02-16-2022 MCV (RBC) [Entitic vol] 85.9 fL 81-99 [facility] Work Phone: Hematocrit Auto (Bld) [Volum e fraction]on 02-16-2022 Hematocrit (Bld) [Volume fraction] 38.4 % 37-47 [facility] Work Phone: Laboratory - Chemistry and C hemistry - challengeon 02-16-2022 CO2 [Moles/Vol] 26.0 mmol/L 21.0-32.0 [facility] Work Phone: [phone] Magnesium [Mass/Vol] 1.9 mg/dL 1.6-2.6 [facility] Work Phone: [phone] Urea nitrogen/Creatini ne [Mass ratio] 12.1 mg/mg 10-20 [facility] Work Phone: [phone] Laboratory - Hematology and Cell countson 02-16-2022 Erythrocyte distribution width (RBC) [Entitic vol] 39.9 fL 35.1-43.9 [facility] Work Phone: [phone] Erythrocyte distribution width (RBC) [Ratio] 12.8 % 11.6-14.6 [facility] Work Phone: Immature granulocytes/100 WBC (Bld) 0.300 % 0.0-0.9 [facility] Work Phone: [phone] Comment on above: IG% - Immature Granu locytes (promyelocytes, myelocytes and metamyelocytes) > 1% indicates that a LEFT SHIFT is Present. MCH (RBC) [Entitic mass] 28.0 pg 27.0-32.0 [facility] Work Phone: Nucleated RBC/100 WBC (Bld) [Ratio] 0 % 0-5 [facility] Work Phone: MCHC Auto (RBC) [Mass/Vol]on 02-16-2022 MCHC (RBC) [Mass/Vol] 32.6 g/dL 32-36 [facility] Work Phone: No Panel Informationon 02-16 Troponin I High Sensitivity < 3 pg/mL 3.0-54.0 [facility] Work Phone: Comment on above: Please Note: New Poppy t Units and Gender Specific Reference Ranges. For more information see Policy Stat Procedure [place] High Sensitivity Troponin (TNIH) and attachments. Atypical Lymphocytes 1+ % [facility] Work Phone: D-Dimer Quantitative (PE/DVT) < 0.27 FEU/ug/m 0.27-0.49 [facility] Work Phone: Comment on above: NORMAL D-Dimer level (<0.50) indicates no DVT or PE. Estimated Creatinine Clearance Calc 59.16 ml/min [facility] Work Phone: Estimated GFR (MDRD) Amer 81 mL/min >60 [facility] Work Phone: Comment on above: GFR Calc Estimated GFR (MDRD) Non-Af Amer 67 mL/min >60 [facility] Work Phone: Comment on above: Non- GFR Calc Thyroid Stimulating Hormone (TSH) 2.02 uIU/mL 0.358-3.74 [facility] Work Phone: Platelets bldon 02-16-2022 Platelets (Bld) [#/Vol] 395 10*3/uL 150-450 [facility] Work Phone: Serum or plasma calcium anupam urement (mass/volume)on 02-16-2022 Calcium [Mass/Vol] 9.2 mg/dL 8.5-10.1 [facility] Work Phone: Serum or plasma creatinine m easurement (mass/volume)on 02-16-2022 Creatinine [Mass/Vol] 0.91 mg/dL 0.55-1.02 [facility] Work Phone: Comment on above: The validity of the calculated GFR & GFRAA in patients over 70 years has not been determined. Clinical correlation is essential. Serum or plasma urea nitroge n measurement (mass/volume)on 02-16-2022 Urea nitrogen [Mass/Vol] 11 mg/dL 7-18 [facility] Work Phone: Thin prep Papanicolaou smear with manual screeningon 02-16-2022 Thin prep Papanicolaou smear with manual screening 6 5-15 [facility] Work Phone: Absolute lymphocyte counton 10-06-2021 Lymphocytes Auto (Unsp spec) [#/Vol] 2.86 10*3/uL 0.83-4.51 [facility] Work Phone: Basophil percentageon 2021 Basophils/100 WBC (Bld) 0.7 % 0-1 [facility] Work Phone: Eosinophils/100 WBC (Bld) 1.2 % 0-5 [facility] Work Phone: Neutrophils (Bld) [#/Vol] 3.7 10*3/uL 2.0-7.7 [facility] Work Phone: Neutrophils/100 WBC (Bld) 51.7 % 47-70 [facility] Work Phone: WBC (Bld) [#/Vol] 7.3 10*3/uL 4.4-11.0 [facility] Work Phone: Bilirubin [Mass/Vol] 0.20 mg/dL 0.20-1.00 [facility] Work Phone: Comment on above: For patients on eltr ombopag therapy, use of Dimension S[place]y TBIL is not recommended. Chloride [Moles/Vol] 104 mmol/L 98-107 [facility] Work Phone: Cholesterol [Mass/Vol] 243 mg/dL <200 [facility] Work Phone: Comment on above: <200 mg/dL Desirable 200-240 mg/dL Borderline >240 mg/dL High Risk Glucose [Mass/Vol] 114 mg/dL 74-106 [facility] Work Phone: Comment on above: Fasting Glucose resu lt from 100 to 125 mg/dL suggests IMPAIRED HOMEOSTASIS per A.D.A. criteria. Potassium [Moles/Vol] 3.6 mmol/L 3.5-5.1 [facility] Work Phone: Protein [Mass/Vol] 7.6 g/dL 6.4-8.2 [facility] Work Phone: Sodium [Moles/Vol] 137 mmol/L 136-145 [facility] Work Phone: Triglyceride [Mass/Vol] 117 mg/dL [facility] Work Phone: Comment on above: The drugs N-Acetylcy steine and Metamizole may falsely depress this assay.Serum Triglycerides Reference Interval Normal <150 mg/dL Borderline high 150 - 199 mg/dL High 200 - 499 mg/dL Very High > or = 500 mg/dL Blood erythrocytes count (nu mber/volume)on 10-06-2021 RBC (Bld) [#/Vol] 4.25 10*6/uL 4.2-5.[address] [facility] Work Phone: Blood hemoglobin measurement (mass/volume)on 10-06-2021 Hemoglobin (Bld) [Mass/Vol] 11.6 g/dL 12.0-15.0 [facility] Work Phone: Blood lymphocytes/100 leukoc yteson 10-06-2021 Lymphocytes/100 WBC (Bld) 39.4 % 19-41 [facility] Work Phone: Blood monocytes/100 leukocyt eson 10-06-2021 Monocytes/100 WBC (Bld) 6.6 % 0-10 [facility] Work Phone: Blood platelet mean volumeon 10-06-2021 Platelet mean volume (Bld) [Entitic vol] 9.1 fL 6.2-12.0 [facility] Work Phone: Determination of erythrocyte mean corpuscular volume (MCV)on 10-06-2021 MCV (RBC) [Entitic vol] 85.2 fL 81-99 [facility] Work Phone: Direct bilirubinon 2 Bilirubin.direct [Mass/Vol] mg/dL 0.00-0.30 [facility] Work Phone: Hematocrit Auto (Bld) [Volum e fraction]on 10-06-2021 Hematocrit (Bld) [Volume fraction] 36.2 % 37-47 [facility] Work Phone: [phone] Laboratory - Chemistry and C hemistry - challengeon 10-06-2021 ALP [Catalytic activity/Vol] 114 U/L 45-117 [facility] Work Phone: [phone] ALT [Catalytic activity/Vol] 13 U/L 13-56 [facility] Work Phone: [phone] CO2 [Moles/Vol] 28.0 mmol/L 21.0-32.0 [facility] Work Phone: [phone] Globulin (S) [Mass/Vol] 4.2 g/dL 2.2-4.2 [facility] Work Phone: [phone] Urea nitrogen/Creatini ne [Mass ratio] 8.7 mg/mg 10-20 [facility] Work Phone: [phone] Laboratory - Hematology and Cell countson 10-06-2021 Erythrocyte distribution width (RBC) [Entitic vol] 42.6 fL 35.1-43.9 [facility] Work Phone: [phone] Erythrocyte distribution width (RBC) [Ratio] 13.7 % 11.6-14.6 [facility] Work Phone: [phone] Immature granulocytes/100 WBC (Bld) 0.400 % 0.0-0.9 [facility] Work Phone: [phone] Comment on above: IG% - Immature Granu locytes (promyelocytes, myelocytes and metamyelocytes) > 1% indicates that a LEFT SHIFT is Present. MCH (RBC) [Entitic mass] 27.3 pg 27.0-32.0 [facility] Work Phone: [phone] Nucleated RBC/100 WBC (Bld) [Ratio] 0 % 0-5 [facility] Work Phone: MCHC Auto (RBC) [Mass/Vol]on 10-06-2021 MCHC (RBC) [Mass/Vol] 32.0 g/dL 32-36 [facility] Work Phone: No Panel Informationon 10-06 Estimated GFR (MDRD) Amer 81 mL/min >60 [facility] Work Phone: Comment on above: GFR Calc Estimated GFR (MDRD) Non-Af Amer 67 mL/min >60 [facility] Work Phone: Comment on above: Non- GFR Calc Thyroid Stimulating Hormone (TSH) 1.22 uIU/mL 0.358-3.74 [facility] Work Phone: Platelets bldon 10-06-2021 Platelets (Bld) [#/Vol] 357 10*3/uL 150-450 [facility] Work Phone: Serum or plasma albumin anupam urement (mass/volume)on 10-06-2021 Albumin [Mass/Vol] 3.4 g/dL 3.2-5.0 [facility] Work Phone: Serum or plasma albumin/glob ulin mass ratioon 10-06-2021 Albumin/Globulin [Mass ratio] 0.8 {ratio} 0.9-2.4 [facility] Work Phone: Serum or plasma calcium anupam urement (mass/volume)on 10-06-2021 Calcium [Mass/Vol] 8.5 mg/dL 8.5-10.1 [facility] Work Phone: Serum or plasma cholesterol in HDL measurement (mass/volume)on 10-06-2021 Cholesterol in HDL [Mass/Vol] 70 mg/dL [facility] Work Phone: Comment on above: The drugs N-Acetylcy steine and Metamizole may falsely depress this assay. Reference Range HDL <40 mg/dL Low HDL Cholesterol HDL >or= 60 mg/dL High HDL Cholesterol Serum or plasma cholesterol in VLDL measurement (mass/volume)on 10-06-2021 Cholesterol in VLDL [Mass/Vol] 23 mg/dL 5-40 [facility] Work Phone: Serum or plasma creatinine m easurement (mass/volume)on 10-06-2021 Creatinine [Mass/Vol] 0.92 mg/dL 0.55-1.02 [facility] Work Phone: Comment on above: The validity of the calculated GFR & GFRAA in patients over 70 years has not been determined. Clinical correlation is essential. Serum or plasma low density lipoprotein (LDL) cholesterol measurement (mass/volume)on 10-06-2021 Cholesterol in LDL [Mass/Vol] 150 mg/dL 0-130 [facility] Work Phone: Serum or plasma urea nitroge n measurement (mass/volume)on 10-06-2021 Urea nitrogen [Mass/Vol] 8 mg/dL 7-18 [facility] Work Phone: Thin prep Papanicolaou smear with manual screeningon 10-06-2021 Thin prep Papanicolaou smear with manual screening 9 U/L 15-37 [facility] Work Phone: Thin prep Papanicolaou smear with manual screening 5 5-15 [facility] Work Phone: PROGRESSon 01-15-2018 [facility] NOT[facility] XR KNEE LEFT 4+ VIEWS (SPECI FY VIEWS IN COMMENTS)on 08-02-2017 XR KNEE LEFT 4+ VIEWS (SPECIFY VIEWS IN COMMENTS) 4 views left knee reveals a patella fracture near the superior pole about 25% from the top is nondisplaced and minimal degenerative arthritis onlyDictated by: TOREY FLORES on MonAug 02, 2017 5:04:03 PM ESTTranscribed by: TOREY FLORES on MonAug 02, 2017 5:04:03 PM ESTFinalized by: TOREY FLORES on MonAug 02, 2017 5:04:03 PM EST Normal [facility] XR Knee Left 4+ Views (Note in Comments)on 08-02-2017 XR Knee Left 4+ Views (Note in Comments) 4 views left knee reveals a patella fracture near the superior pole about 25% from the top is nondisplaced and minimal degenerative arthritis only Invalid Interpretation Code FUJI SYNAPSE [facility] Vital Signs Date Time Vital Sign Value Performing Clinician Facility 12-15-2022 09:06-0400 Body height 165.1 cm [facility] Work Phone: [phone] [place] [address] 12-15-2022 09:00-0400 Body mass index (BMI) [Ratio] 28.4 kg/m2 [facility] Work Phone: [phone] [place] [address] 12-15-2022 09:00-0400 Body weight 77.56 kg [facility] Work Phone: [phone] [place] [address] 12-15-2022 09:00-0400 Diastolic blood pressure 63 mm[Hg] [facility] Work Phone: [phone] [place] [address] 12-15-2022 09:00-0400 Heart rate 76 /min [facility] [facility] Work Phone: [phone] [place] [address] 12-15-2022 09:00-0400 Respiratory rate 18 /min [facility] Work Phone: [phone] [place] [address] 12-15-2022 09:00-0400 SaO2% (BldA) [Mass fraction] 98 % [facility] Work Phone: [phone] [place] [address] 12-15-2022 09:00-0400 Systolic blood pressure 104 mm[Hg] [facility] Work Phone: [phone] [place] [address] 06-27-2022 19:18-0400 Body height 165.1 cm [facility] Work Phone: [phone] [place] [address] Work Phone: 06-27-2022 19:18-0400 Body mass index (BMI) [Ratio] 27.2 kg/m2 [facility] Work Phone: [phone])043-520824 [place] [address] Work Phone: 06-27-2022 19:18-0400 Body temperature 96.4 [degF] [facility] Work Phone: [phone] [place] [address] Work Phone: 06-27-2022 19:18-0400 Body weight 74.3 kg [facility] Work Phone: [phone] [place] [address] Work Phone: 06-27-2022 19:18-0400 Diastolic blood pressure 79 mm[Hg] [facility] Work Phone: [facility] Work Phone: 06-27-2022 19:18-0400 Heart rate 78 /min [facility] Work Phone: [facility] Work Phone: 06-27-2022 19:18-0400 Respiratory rate 16 /min [facility] Work Phone: [facility] Work Phone: 06-27-2022 19:18-0400 SaO2% (BldA) [Mass fraction] 100 % [facility] Work Phone: [facility] Work Phone: 06-27-2022 19:18-0400 Systolic blood pressure 150 mm[Hg] [facility] Work Phone: [facility] Work Phone: 06-01-2022 17:50-0400 Body height 165.1 cm [facility] Work Phone: [facility] Work Phone: 06-01-2022 17:50-0400 Body mass index (BMI) [Ratio] 26.4 kg/m2 [facility] Work Phone: [facility] Work Phone: 06-01-2022 17:50-0400 Body temperature 97.8 [degF] [facility] Work Phone: [facility] Work Phone: 06-01-2022 17:50-0400 Body weight 72 kg [facility] Work Phone: [facility] Work Phone: 06-01-2022 17:50-0400 Diastolic blood pressure 80 mm[Hg] [facility] Work Phone: [facility] Work Phone: 06-01-2022 17:50-0400 Heart rate 82 /min [facility] Work Phone: [facility] Work Phone: 06-01-2022 17:50-0400 Respiratory rate 17 /min [facility] Work Phone: [facility] Work Phone: 06-01-2022 17:50-0400 SaO2% (BldA) [Mass fraction] 100 % [facility] Work Phone: [facility] Work Phone: 06-01-2022 17:50-0400 Systolic blood pressure 121 mm[Hg] [facility] Work Phone: [facility] Work Phone: 02-16-2022 06:00-0400 Diastolic blood pressure 78 mm[Hg] [facility] Work Phone: [facility] Work Phone: 02-16-2022 06:00-0400 Heart rate 78 /min [facility] Work Phone: [facility] Work Phone: 02-16-2022 06:00-0400 Respiratory rate 16 /min [facility] Work Phone: [facility] Work Phone: 02-16-2022 06:00-0400 SaO2% (BldA) [Mass fraction] 96 % [facility] Work Phone: [facility] Work Phone: 02-16-2022 06:00-0400 Systolic blood pressure 126 mm[Hg] [facility] Work Phone: [facility] Work Phone: 02-16-2022 02:16-0400 Body height 165.1 cm [facility] Work Phone: [facility] Work Phone: 02-16-2022 02:16-0400 Body mass index (BMI) [Ratio] 26.6 kg/m2 [facility] Work Phone: [facility] Work Phone: 02-16-2022 02:16-0400 Body temperature 98.1 [degF] [facility] Work Phone: [facility] Work Phone: 02-16-2022 02:16-0400 Body weight 72.6 kg [facility] Work Phone: [facility] Work Phone: 09-23-2021 13:03-0500 Body height 165.1 cm No Primary Care Physician [facility] Work Phone: 09-23-2021 13:03-0500 Body mass index (BMI) [Ratio] 23.9 kg/m2 No Primary Care Physician [facility] Work Phone: 09-23-2021 13:03-0500 Body weight 65.31 kg No Primary Care Physician [facility] Work Phone: 09-23-2021 13:03-0500 Diastolic blood pressure 60 mm[Hg] No Primary Care Physician [facility] Work Phone: 09-23-2021 13:03-0500 Heart rate 84 /min No Primary Care Physician [facility] Work Phone: 09-23-2021 13:03-0500 Respiratory rate 20 /min No Primary Care Physician [facility] Work Phone: 09-23-2021 13:03-0500 Systolic blood pressure 130 mm[Hg] No Primary Care Physician [facility] Work Phone: 08-02-2017 14:15-0500 BMI (Body Mass Index) 25.79 kg/m2 Torey Flores [facility] Work Phone: 08-02-2017 14:15-0500 Height 165.1 cm Torey Flores [facility] Work Phone: 08-02-2017 14:15-0500 Weight 70.31 kg Torey Flores [facility] Work Phone: Encounters Encounter Date Encounter Type Care Provider Facility Start: 04-11-2025 ambulatory NO PCP AA NO PCP [facility] Start: 01-29-2025 End: 01-29-2025 ambulatory NO PCP AA NO PCP [facility] Start: 01-23-2025 ambulatory NO PCP AA NO PCP [facility] Start: 01-14-2025 ambulatory Sunita Wilson ty:[facility] Start: 11-27-2024 End: 11-27-2024 ambulatory NO PCP AA NO PCP [facility] Start: 11-12-2024 End: 11-22-2024 Telephone encounter Caryn Roe Work Phone: Podiatry Comment on above: Patient Update Start: 11-11-2024 End: 11-11-2024 ambulatory NO PCP AA NO PCP [facility] Start: 09-09-2024 ambulatory Carlos Mollison Facility :[facility] Start: 08-01-2024 ambulatory Carlos Mollison Facility [facility] Start: 07-23-2024 End: 07-23-2024 ambulatory Carlos Mollison Facility:[facility] Start: 02-27-2024 ambulatory Carlos Mollison Facility [facility] Start: 02-16-2024 ambulatory Carlos Mollison Facility :[facility] Start: 02-06-2024 End: 02-06-2024 Emergency department patient visit MARIA TERESA MORILLO Facility:[facility] Start: 10-20-2023 End: 10-20-2023 Patient encounter procedure HAYDEE ESCOTO MD [facility] Start: 10-13-2023 ambulatory HAYDEE ESCOTO MD Facility :[facility] Start: 02-09-2023 End: 02-09-2023 ambulatory [facility] Work Phone: [facility] Work Phone: Start: 02-09-2023 End: 02-09-2023 Patient encounter procedure [facility] Work Phone: [facility]-Pulmonary Services/Neurology Start: 12-15-2022 End: 12-15-2022 Patient encounter procedure [facility] Work Phone: [facility] Start: 08-09-2022 End: 08-09-2022 ambulatory [facility] Work Phone: [facility] Work Phone: Start: 08-09-2022 End: 08-09-2022 Patient encounter procedure [facility] Work Phone: [facility]-Laboratory Start: 08-04-2022 Patient encounter procedure [facility] Work Phone: [facility]-Pulmonary Services/Neurology Start: 07-12-2022 Non-patient / Non-visit [facility] Work Phone: [facility] Start: 06-27-2022 End: 06-27-2022 Emergency department patient visit [facility] Work Phone: [facility]-Emergency Department Start: 06-01-2022 End: 06-01-2022 Emergency department patient visit [facility] Work Phone: [facility]-Emergency Department Start: 03-31-2022 End: 03-31-2022 Patient encounter procedure [facility] Work Phone: [facility] Start: 02-16-2022 End: 02-16-2022 Emergency department patient visit [facility] Work Phone: [facility]-Emergency Department Start: 02-07-2022 End: 02-07-2022 Patient encounter procedure [facility] Start: 01-13-2022 Non-patient / Non-visit No Primary Care Physician [facility] Start: 01-13-2022 End: 01-13-2022 Patient encounter procedure No Primary Care Physician [facility]Cardi[facility] Services Start: 11-23-2021 End: 11-23-2021 Patient encounter procedure No Primary Care Physician [facility] Start: 10-26-2021 Non-patient / Non-visit No Primary Care Physician [facility] Start: 10-26-2021 End: 10-26-2021 Patient encounter procedure No Primary Care Physician [facility]Cardiovascular Services Start: 10-06-2021 End: 10-06-2021 Patient encounter procedure No Primary Care Physician [facility]-Laboratory Start: 09-23-2021 End: 09-23-2021 Patient encounter procedure No Primary Care Physician [facility] Start: 01-15-2018 Ambulatory EDUARDO Restrepo FABIEN [facility] Start: 11-15-2017 End: 11-15-2017 Ambulatory Cisco Murillo Facility:[facility] Start: 10-03-2017 End: 10-04-2017 Ambulatory Cisco Murillo Facility:[facility] Start: 09-22-2017 End: 09-23-2017 Ambulatory Cisco Murillo Facility:[facility] Start: 08-19-2017 End: 08-19-2017 Ambulatory Cisco Murillo Facility:[facility] Start: 08-03-2017 Ambulatory CELY GA [facility] Ambulatory Start: 08-02-2017 End: 08-02-2017 Ambulatory TOREY MARIE FLORES [facility] Amb[facility] Start: 08-02-2017 Office outpatient ne w 30 minutes Torey Flores Work Phone: [facility] Phys[facility] Procedures Date Procedure Procedure Detail Performing Clinician Start: 06-27-2022 Plain x-ray of hand [facility] Work Phone: Start: 06-01-2022 End: 06-01-2022 Radiologic examination of knee [facility] Work Phone: Start: 02-16-2022 Plain chest X-ray [facility] Work Phone: Start: 11-23-2021 CT of abdomen and pe lvis without contrast No Primary Care Physician Start: 10-26-2021 Radionuclide imaging of perfusion of myocardium under exercise stress No Primary Care Physician Start: 05-23-2012 Colonoscopy Caryn Luz Work Phone: Plan of Treatment Date Care Activity Detail Author Start: 2037 RSV Vaccine (1 - 1-d ose 75+ series) RSV Vaccine (1 - 1-dose 75+ series) [facility] Start: 11-26-2024 End: 11-26-2024 Patient encounter procedure 11/26/2024 9:15 AM EDT Office Visit Podiatry [address] [place] [address] Caryn Roe [address] [address] Left Foot/Ankle pain, previous surgery on foot Podiatry Comment on above: Left Foot/Ankle pain , previous surgery on foot Start: 05-19-2024 Covid-19 Vaccine ( season) Covid-19 Vaccine () [facility] Start: 05-19-2024 Influenza vaccination Influenza Vacc ine (#1) [facility] Start: 02-16-2022 [facility] Work Phone: Start: 03-22-2021 Diabetes Screening Diabetes Screenin g [facility] Start: 05-19-2017 Influenza vaccination SEQUENTI AL INFLUENZA VACCINE (#1) [facility] Work Phone: Start: 05-02-2015 Pneumococcal Vaccine : 50+ (2 of 2 - PCV) Pneumococcal Vaccine: 50+ (2 of 2 - PCV) [facility] Start: 05-23-2013 Screening for malign ant neoplasm of colon [facility] Start: 02-06-2012 Shingrix Vaccine (1 of 2) Shingrix Vaccine (1 of 2) [facility] Start: 07-19-2009 Screening for malign ant neoplasm of breast Mammogram Screening [facility] Start: 2007 Lipid panel Lipid Screening [facility] Start: 2007 Screening for malign ant neoplasm of colon [facility] Start: 1981 Urine microalbumin profile DTaP,Tdap,Td Vaccine (1 - Tdap) [facility] Start: 02-06-1980 Anxiety Screening Anxiety Screening [facility] Start: 02-06-1980 [facility] Start: 02-06-1980 Hepatitis C screening Hepatitis C [facility] Start: 02-06-1980 HIV screening HIV Screening [facility] Start: 1960 HEPATITIS C SCREENING HEPATITIS C [facility] Work Phone: Start: 1960 Screening colonoscopy [facility]OSCOPY [facility] Work Phone: Start: 1960 Screening for malign ant neoplasm of cervix PAP SMEAR [facility] Work Phone: Start: 1960 Tetanus vaccination TETANUS EVERY [address] [facility] Work Phone: Patient Education [facility] Work Phone: Patient referral [facility] Work Phone: Payers Date Payer Category Payer Self-pay [id number] 2022 Medicaid [employer] [id number] 2017 Unknown 2013 Medicaid [id number] 1962 Unknown [id number] 1962 Unknown [id number] 1962 Unknown [id number] 1962 Unknown [id number] 1962 Unknown [id number] 1962 Unknown [id number] 1959 Medicaid [id number] Unknown [id number] Unknown [id number] Unknown [id number] Unknown [id number] Unknown [id number] Unknown [id number] Unknown [id number] Social History Date Type Detail Facility Start: 08-02-2017 End: 03-09-2018 Tobacco smoking status MIIS Current every day smoker [facility] Start: 1960 Sex Assigned At Not on file [facility] Work Phone: Start: 09-23-2021 End: 12-15-2022 Tobacco smoking status MIIS Unknown if ever smoked [facility] Start: 07-14-2017 Heavy [facility] Start: 07-14-2017 None [place] [facility] Start: 07-14-2017 Alone [place] [facility] Start: 06-21-2021 Cigarettes [facility] Start: 1960 Sex Assigned At Female W [facility] Tobacco smoking status No Smokin g Status Entered [facility] History of tobacco use Cigarette Smoker C [facility] Start: 03-09-2018 End: 11-21-2024 Cigarettes smoked current (pack per day) - Reported 1 [facility] Start: 03-09-2018 Tobacco use and exposure Smokeless tobacco non-user [facility] Start: 03-22-2018 Alcoholic beverage intake Current drinker of alcohol (finding) [facility] Start: 03-22-2018 End: 11-21-2024 Tobacco use panel [facility] National Score (1-10 0), lower number is lower risk 89 [facility] Mental Status Date Assessment Result Facility 02-16-2022 Cognitive function Awake;Alert;A ppropriate;Fol lows Commands [facility] Work Phone: Clinical Notes 10-20-2023 to 11-14-2024 Telephone Encounter - Sonam Love RN - 11/14/2024 3:35 PM ESTTelephone Encounter - Sonam Love RN - 11/14/2024 3:35 PM ESTTelephone Encounter - Bev Meng LPN - 11/13/2024 1:54 PM EST Note Date & Type Note Facility 11-14-2024 Telephone encounter Note Called patient to inform her that at this time we do not have appointments available prior to her scheduled one next . Patient did not answer, left message for patient to call office back. We can place patient on a waitlist incase something sooner does open up. If she is experiencing concerning symptoms she can present to urgent care. Spoke with Dr. Roe about previous message. He is not able to see her tomorrow as he needs to leave the office by 11am and schedule is fully booked prior to. [facility] 11-14-2024 Miscellaneous Notes Called patient to inform her that at this time we do not have appointments available prior to her scheduled one next . Patient did not answer, left message for patient to call office back. We can place patient on a waitlist incase something sooner does open up. If she is experiencing concerning symptoms she can present to urgent care. Spoke with Dr. Roe about previous message. He is not able to see her tomorrow as he needs to leave the office by 11am and schedule is fully booked prior to. Report of xrays has been received. Bev Meng LPN 's office calling and is sending foot xray to office. Ara Hatfield LPN Pt reports she has appt with Dr. Roe on 11-21-24. Asking if she can get a sooner appt. Reports her left foot has gotten worse in the last week. Reports she is unable to wear a shoe the whole foot hurts. Top of foot has a hump, that has been there since or , when she was in the [employer]. She stepped into a deep hole and it messed up her foot. She had surgery on that foot to remove a spur and something on the left side of her foot. After the surgery it would still hurt once in a while and sometimes go numb, but in the last week the pain is constant. Reports everything on her foot hurts now, it's even painful to bend her toes. She is able to walk but has to limp due to pain. Reports she had left knee replacement surgery 6-7 years ago that didn't work out. 2 years ago her knee was still popping, and had to have surgery again to remove a piece that was moving around- it was too small. Reports pain management, Dr. Rush (ph # [phone]) took an xray of her foot yesterday. Pt has not received the results yet. Dr. 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 documented in this encounter [facility] 11-13-2024 Telephone encounter Note Report of xrays has been received. Bev Meng LPN [facility] Work Phone: 11-12-2024 Telephone encounter Note 's office calling and is sending foot xray to office. Ara Hatfield LPN [facility] 11-12-2024 Telephone encounter Note Pt reports she has appt with Dr. oRe on 11-21-24. Asking if she can get a sooner appt. Reports her left foot has gotten worse in the last week. Reports she is unable to wear a shoe the whole foot hurts. Top of foot has a hump, that has been there since or , when she was in the [employer]. She stepped into a deep hole and it messed up her foot. She had surgery on that foot to remove a spur and something on the left side of her foot. After the surgery it would still hurt once in a while and sometimes go numb, but in the last week the pain is constant. Reports everything on her foot hurts now, it's even painful to bend her toes. She is able to walk but has to limp due to pain. Reports she had left knee replacement surgery 6-7 years ago that didn't work out. 2 years ago her knee was still popping, and had to have surgery again to remove a piece that was moving around- it was too small. Reports pain management, Dr. Rush (ph # [phone]) took an xray of her foot yesterday. Pt has not received the results yet. Dr. 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 [facility] 10-20-2023 Note ORIGINAL EXAMINATION: MRI OF THE BRAIN WITHOUT AND WITH CONTRAST 10/20/2023 11:14 am TECHNIQUE: Multiplanar multisequence MRI of the head/brain was performed without and with the administration of intravenous contrast. COMPARISON: None. HISTORY: ORDERING SYSTEM PROVIDED HISTORY: Reason for Exam: Altered mental status, unspecified FINDINGS: No acute infarct or hemorrhage. No midline shift, mass effect or hydrocephalus. There is mild diffuse atrophy. Mild patchy periventricular and subcortical white matter T2 prolongation, nonspecific but likely on the basis of chronic small vessel ischemic change. Small chronic lacunar type infarct involves the right putamen. There is a tiny enhancing and branching structure in the right frontoparietal junction compatible with incidental developmental venous anomaly. No other abnormal postcontrast enhancement. Basilar cisterns patent. Mild sinus inflammatory disease. Mastoids clear. IMPRESSION: No acute intracranial findings. Probable mild chronic small vessel ischemic change. Mild diffuse atrophy. Incidentally noted is a tiny developmental venous anomaly at the right frontoparietal junction. Interpreted by: Riaz Livingston Preliminary Report By: Riaz Livingston Electronically signed By Riaz Livingston Dictated Date: 10/20/2023 7:24:15 PM Prelim Date: 10/20/2023 7:28:20 PM Sign Date: 10/20/2023 7:28:20 PM Ordering Provider: HAYDEE ESCOTO [facility] Evaluation + Plan note No data available for this section [facility] Evaluation note Diagnosis Onset Date Cardiomyopathy in disease cl assified elsewhere acute Chest pain acute Cardiac dysrhythmia chronic Essential hypertension chron ic Pure hypercholesterolemia [facility] Work Phone: Evaluation noteNo assessment information available [facility] Work Phone: Evaluation note* Diagnosis Onset Date Resolution Status Abdominal pain acute GERD (gastroesophageal reflux disease) [facility] Work Phone: Evaluation note* Diagnosis Onset Date Resolution Status Cardiomyopathy in disease classified elsewhere acute Cardiac dysrhythmia chronic Essential hypertension chron ic Pure hypercholesterolemia [facility] Work Phone: Hospital Discharge instructions No data available for this section [facility] Progress note No data available for this section [facility] Carole Assessments Diagnosis Left knee pain, unspecified chronicity - Primary Summary Purpose Family History No Family History Records Found Relationship Condition Age at Onset Recorded Date/T del mother Diabetes mellitus Unknown Malignant neoplasm Unknown father Chronic obstructive pulmonary disease Unk nown Diabetes mellitus Unknown sister Diabetes mellitus Unknown Advance Directives No Advanced Directives Records Found Advance Directive Response Recorded Date/ Time Advance Directives No March 19 9 10:58am Living Will No March 19, 2019 1 0:58am Power of Associate Professor [employer] No March 19, 2019 10:58am Advance Directive Response Recorded Date/ Time Advance Directives No February 03 2 2:01pm Living Will No February 03, 2022 2 :01pm Power of Associate Professor [employer] No February 03, 2022 2:01pm Advance Directive Response Recorded Date/ Time Advance Directives No February 03 2 2:01pm Living Will No February 16, 2022 2 :28am Power of Associate Professor [employer] No February 16, 2022 2:28am Advance Directive Response Recorded Date/ Time Advance Directives No February 03 2 2:01pm Living Will No June 01, 2022 7:02pm Power of Associate Professor [employer] No May 7:02pm Advance Directive Response Recorded Date/ Time Advance Directives No February 03 2 1:01pm Living Will No June 27 6:28pm Power of Associate Professor [employer] No June 27, 2022 6:28pm Advance Directive Response Recorded Date/ Time Advance Directives No February 03 2 2:01pm Living Will No June 27 7:28pm Power of Associate Professor [employer] No June 27, 2022 7:28pm Chief Complaint and Reason for Visit Chief Complaint RE-ESTAB WITH PFM [facility]/EORDERS CHEST PAIN CHEST PAIN pain Palpitations Reason for Visit Cardiomyopathy in estefany swenson classified elsewhere Chest pain Cardiac dysrhythmia Essential hypertension Pure hypercholesterolemia Chief Complaint CHEST PAIN CHEST PAIN pain Palpitations Elevated blood-pressure reading, without diagnosis Chief Complaint CHEST PAIN CHEST PAIN pain Palpitations Elevated blood-pressure reading, without diagnosis cp Chief Complaint Elevated blood-press ure reading, without diagnosis cp MELENA ABD PAIN GERD B/L KNEE PAIN Reason for Visit Abdominal pain GERD (gastroesophageal reflux disease) Chief Complaint B/L KNEE PAIN UPPER Other specified health status Chief Complaint SURG CLEARANCE - KNE E SURGERY SYNCOPE AND COLLAPSE Reason for Visit Cardiomyopathy in estefany swenson classified elsewhere Cardiac dysrhythmia Essential hypertension Pure hypercholesterolemia Additional Source Comments INFORMATION SOURCE (unrecogn ized section and content) DATE CREATED AUTHOR 03/08/2018 [facility] DATE CREATED AUTHOR AUTHOR'S ORGANIZ ATION 03/09/2018 [facility] DATE CREATED AUTHOR AUTHOR'S ORGANIZ ATION 03/13/2018 [facility] DATE CREATED AUTHOR AUTHOR'S ORGANIZ ATION 10/15/2023 [facility] DATE CREATED AUTHOR AUTHOR'S ORGANIZ ATION 01/11/2025 [facility] DATE CREATED AUTHOR AUTHOR'S ORGANIZ ATION 01/21/2025 [facility] DATE CREATED AUTHOR AUTHOR'S ORGANIZ ATION 04/09/2025 [facility] Goals (unrecognized section and content) Goals may be documented in a n alternate sectionGoals may be documented in an alternate sectionGoals may be documented in an alternate sectionGoals may be documented in an alternate sectionGoals may be documented in an alternate sectionGoals may be documented in an alternate section No data available for this section Care Teams (unrecognized sec tion and content) Team Status: Active Member Role Status Dates Dr. 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 Specialty Start Date End Date Torey Flores [address] [place] [address] Referring Orthopedics 08/08/17 Source Comments (unrecognize d section and content) In the event this informatio n is protected by the Federal Confidentiality of Alcohol and Drug Abuse Patient Records regulations: The Federal rules restrict any use of the information to criminally investigate or prosecute any alcohol or drug abuse patient.[facility] Reason for Visit (unrecogniz ed section and content) Reason Comments Patient Update FOR RECORDS PERTAINING TO PATIENTS WHO ARE OR HAVE BEEN ENROLLED IN A CHEMICAL DEPENDENCY/SUBSTANCEABUSE PROGRAM, SOME INFORMATION MAY BE OMITTED. This clinical summary was aggregated from multiple sources. Caution should be exercised in using it in the provision of clinical care. This summary normalizes information from multiple sources, and as a consequence, information in this document may materially change the coding, format and clinical context of patient data. In addition, data may be omitted in some cases. CLINICAL DECISIONS SHOULD BE BASED ON THE PRIMARY CLINICAL RECORDS. [employer] [facility]. provides no warranty or guarantee of the accuracy or completeness of information in this document.
--- NOTE | 2025-04-27 03:30 | RAD_ITS ---
PROCEDURE: KNEE 4 OR MORE VIEWS 04/27/2025 REASON FOR EXAM: PAIN TECHNIQUE: KNEE 4 OR MORE VIEWS Laterality: Right COMPARISON: 02/06/2024 FINDINGS: Osteophytes. Mild lateral femorotibial joint space narrowing. Mild lateral patellofemoral joint space narrowing. Posterior joint space loose body. Small joint effusion. No acute bone pathology. RAD/Knee 4 or More Views IMPRESSION: Mild right knee osteoarthritis. [facility]
[2025-04-27 03:49] LABS: Hematocrit 40.2 % (37-47); Hemoglobin 13.8 g/dL (12.0-15.0); Immature Granulocytes Count 0.050 X10^3/uL (0.0-0.0); Mean Corp Hgb Conc 34.3 g/dL (32-36); Mean Corpuscular Volume 86.1 fL (81-99); Mean Platelet Vol. 9.8 fl (6.2-12.0); NRBC Flagged by Analyzer 0 % (0-5); POSITIVE MORPHOLOGY YES; Platelet Count 394 K/mm3 (150-450); RBC Distribution Width CV 13.2 % (11.6-14.6); RBC Distribution Width SD 40.8 fl (35.1-43.9); Red Blood Count 4.67 M/mm3 (4.2-5.4); White Blood Count 9.4 K/mm3 (4.4-11.0)
[2025-04-27 03:51] LABS: Differential Indicated SCAN CRITERIA MET
[2025-04-27 04:47] LABS: Differential Comment SCANNED
[2025-04-27 04:48] VITALS: BP 145/80; PULSE 84; RESP 18; O2SAT 96
[2025-04-27 05:20] LABS: CRP < 3.00 mg/L (0.0-3.0)
--- NOTE | 2025-04-27 05:38 | EDS_ITS ---
HPI History of Present Illness Chief Complaint: Lower Extremity Injury Informant: patient and friend Narrative Narrative: Patient is a 65-year-old female with past medical history of COPD hypertension hyperlipidemia and bipolar disorder. She states that she has had knee problems for quite some time. However she reports that over the last 5 days she has been having increased pain and swelling to her right knee. She denies any trauma. She states this evening she was out with friends and the pain got to a point where it was so severe she could not ambulate. Secondary to this she was brought in for evaluation. Patient states there is been no sick symptoms such as fevers or chills and she denies any recent injury or excessive activity. [facility] Medical History (Updated 04/29/25 @ 00:[address] Geoff Marte, DO) Left knee pain Bilateral primary osteoarthritis of knee Right knee pain Wears dentures History of ulceration Smoker History of edema History of echocardiogram History of stress test Cardiology follow-up encounter History of heart attack History of atrial fibrillation Melena Abdominal pain Seizure History of left heart catheterization (LHC) (~09/04/09) Asthma COPD (chronic obstructive pulmonary disease) Cardiomyopathy in disease classified elsewhere Essential hypertension Chest pain GERD (gastroesophageal reflux disease) Tobacco use Pure hypercholesterolemia Old myocardial infarct HTN (hypertension) Cardiac dysrhythmia Bipolar disorder Home Medications ?Medication ?Instructions ?Recorded ?Last Taken ?Type lamotrigine 25 mg tablet 50 mg PO BID seizures 07/13/17 History atorvastatin 20 mg tablet 20 mg PO QHS #90 tabs Unknown Rx duloxetine 60 mg capsule,delayed 90 mg PO DAILY Unknown History release carvedilol 25 mg tablet 25 mg PO BID #180 tabs 05/02 Unknown Rx pantoprazole 40 mg tablet,delayed 40 mg PO BID 3 month s #180 tabs 01/09/25 Un known Rx release buprenorphine 7.5 mcg/hour weekly 1 patch topical QWEE K 04/27/25 Unknown History transdermal patch (Butrans) clonidine HCl 0.1 mg tablet 0.05 mg PO BID PRN PRN anx iety 04/27/25 Unknown History gabapentin 300 mg capsule 300 mg PO TID 30 days #90 ca ps 04/27/25 Unknown Rx Allergy/AdvReac Type Severity Reaction Status Date / Time NSAIDS (Non-Steroidal AdvReac Diarrhea Verified 02/06/24 12:44 Anti-Inflamma tramadol HCl (From Ultram) AdvReac Diarrhea Verified 02/06/24 12:44 Family History Mother Diabetes Cancer Father COPD (chronic obstructive pulmonary disease) Diabetes Sister Diabetes Surgical History History of partial hysterectomy History of bilateral cataract extraction History of total left knee replacement History of carpal tunnel release History of shoulder surgery History of foot surgery History of arthroscopy of both knees History of cholecystectomy History of hysterectomy Social History Smoking Status: Current every day smoker tobacco type: cigarettes alcohol intake: current details: occasional substance use type: does not use ROS ROS ED Constitutional Constitutional ED: Denies chills or fever(s) Cardiovascular Cardiovascular: Denies chest pain Respiratory/Chest Respiratory/Chest: Denies cough or dyspnea Gastrointestinal Gastrointestinal: Denies abdominal pain, diarrhea, nausea or vomiting Musculoskeletal Musculoskeletal: Reports other Details: Positive right knee pain and Integumentary Denies rash Neurologic Neurologic: Denies headache(s) Psychiatric Psychiatric: Reports anxiety Hematologic/Lymphatic Hematologic/Lymphatic: Denies easy bleeding or easy bruising EXAM Physical Exam Const Vital Signs: 04/27/25 02:48 04/27/25 04:48 Temperature 98.9 F Temperature Source Oral Pulse Rate 94 84 Respiratory Rate 24 H 18 Blood Pressure 151/97 H 145/80 H Blood Pressure Mean 115 101 Pulse Ox 99 96 Oxygen Delivery Method Room Air Room Air Positive well nourished and well developed General Appearance ED: well developed; Negative for pallor HEENT HEENT Narrative: Normocephalic atraumatic Eyes PERRL and EOMs intact bilaterally General Eye ED: Negative for scleral icterus Neck supple Resp normal respiratory effort and clear to auscultation bilaterally Cardio regular rate and regular rhythm Extremity Extremity Narrative: Right lower extremity is neurovascularly intact. There is no obvious bony deformity noted. There is soft tissue swelling and joint effusion to the anterior aspect of the right knee without overlying erythema or warmth or lymphangitic streaking or crepitance. Patellar tendon is intact. Knee ligaments are stable. All compartments are soft and compressible going against compartment syndrome Remainder of the exam is normal Neuro oriented x3, CN's II-XII intact bilaterally and no sensory deficits noted Sensorium / Orientation: alert Psych Mood & Affect: anxious and tearful Skin no rashes or lesions noted and no wounds Skin Narrative: Soft tissue swelling to the anterior aspect of the right knee as documented above without overlying erythema warmth or lymphangitic streaking General Skin Exam: Negative for jaundice or pallor MDM MDM MDM Narrative Medical decision making narrative: Patient arrived to the ER hypertensive but otherwise with stable vitals. She reports increasing pain to the right knee as well as swelling without trauma. Differential diagnosis is for osteoarthritis versus knee sprain versus joint effusion versus septic joint. There is no overlying erythema or warmth and the patient is able to flex the knee to 90 degrees and bear weight going against septic joint but based on her report of increasing pain without trauma I did elect to perform basic laboratory studies and a x-ray. Labs revealed no leukocytosis or left shift her ESR lactic acid and CRP are normal indicating no findings for septic joint. X-ray revealed mild arthritis without obvious bony pathology such as osteomyelitis. I discussed with patient she may benefit from a joint aspiration based on her increased pain and swelling. She states that the medication given in the ER has helped her pain and she does not want any type of invasive intervention at this time. She states she will follow-up with orthopedics to discuss potential joint aspiration if deemed necessary. However at this time her pain is improved her exam does not reveal a ligament or tendon injury and there are no signs of secondary infection or septic joint so she is otherwise safe for discharge History & Record Review Discussion w/independent historian: Patient and Friend Lab Data Attestation: I reviewed the patient's lab results. Labs: Laboratory Results - last 24 hr 04/27/25 03:00 WBC 9.4 RBC 4.67 Hgb 13.8 Hct 40.2 MCV 86.1 MCH 29.6 MCHC 34.3 RDW Std Deviation 40.8 RDW Coeff of Kaylyn 13.2 Plt Count 394 MPV 9.8 Immature Gran % (Auto) 0.500 Neut % (Auto) 43.5 L Lymph % (Auto) 48.0 H [place] % (Auto) 6.5 Eos % (Auto) 1.1 Baso % (Auto) 0.4 Absolute Neuts (auto) 4.1 Absolute Lymphs (auto) 4.51 Nucleated RBC % 0 Differential Comment SCANNED ESR 22 Lactic Acid 1.9 C-React Prot Ext Range < 3.00 Radiography Diagnostic Testing: Clinical Impression(s) from Imaging Studies Knee X-Ray 04/27/25 03:30 IMPRESSION: Mild right knee osteoarthritis. Reading Location: [place] [id number] Right knee x-ray is interpreted by the emergency medicine physician reveals osteoarthritis with small joint effusion without acute fracture or dislocation no retained foreign body Discharge Plan Triage Chief Complaint: Lower Extremity Injury ED Provider: Geoff Marte Dx/Rx/DC Orders Clinical Impression: Effusion of knee joint right, Osteoarthritis, Bipolar disorder, COPD (chronic obstructive pulmonary disease) Instructions: ED Knee Effusion, ED Osteoarthritis Prescriptions: New gabapentin 300 mg capsule 300 mg PO TID 30 Days Qty: 90 0RF No Action duloxetine 60 mg capsule,delayed release(DR/EC) 90 mg PO DAILY Patient Comments: DEPRESSION lamotrigine 25 MG tablet 50 mg PO BID clonidine HCl 0.1 mg tablet 0.05 mg PO BID PRN PRN (Reason: anxiety) buprenorphine [Butrans] 7.5 mcg/hour patch weekly 1 patch topical QWEEK atorvastatin 20 mg tablet 20 mg PO QHS Qty: 90 3RF carvedilol 25 mg tablet 25 mg PO BID Qty: 180 3RF Rx Instructions: must administer with a meal/food pantoprazole 40 mg tablet,delayed release (DR/EC) 40 mg PO BID 90 Days Qty: 180 1RF Primary Care Provider: Chuy Meng Referrals: Tariq Carl MD [Med Staff - Active Staff] - Chuy Meng MD [Primary Care Provider] - Activity Restrictions/Additional Instructions: Please follow-up with orthopedic surgery to discuss further testing to evaluate your knee pain such as an MRI. Also discuss having your knee joint aspirated as your x-ray today did show a small joint effusion. Continue all of your home med ications as directed by your doctor and add the gabapentin for improved pain control. Return to the ER should you have any further concerns Print Language: Estonian Disposition Disposition: Home, Self Care Discharge Date/Time: 04/27/25 05:54
[2025-04-27 05:44] VITALS: BP 133/83; PULSE 88; RESP 16; TEMP 37.2; O2SAT 100
== END 2025-04-27 05:54 | disposition home or self-care (01) ==
PROVIDERS: Emergency Provider Emergency Medicine; PCP Family Medicine; Visit Provider Emergency Medicine
DX: M25.461 Effusion, right knee (principal); F31.9 Bipolar disorder, unspecified; J44.9 Chronic obstructive pulmonary disease, unspecified; M17.11 Unilateral primary osteoarthritis, right knee; I10 Essential (primary) hypertension; E78.00 Pure hypercholesterolemia, unspecified; I25.2 Old myocardial infarction; Z79.899 Other long term (current) drug therapy
CPT/HCPCS: 73564; 83605; 85025; 85652; 86140; 93005; 96374; 96375; 96376; 99285; A4216; J2405

== ENCOUNTER 2025-05-17 00:34 | Emergency (ER) | payer MEDICAID, SELFPAY ==
[2025-05-17 00:35] VITALS: BP 124/83; PULSE 79; RESP 18; TEMP 36.6; O2SAT 100; BMI 26.2
--- NOTE | 2025-05-17 01:30 | RAD_ITS ---
PROCEDURE: KNEE 4 OR MORE VIEWS 05/17/2025 REASON FOR EXAM: PAIN TECHNIQUE: Procedure Code: RADKN Modality: DX Procedure: KNEE 4 OR MORE VIEWS Laterality: RIGHT COMPARISON: 04/27/2025. FINDINGS: Mild osteopenia of the visualized bones. Degenerative joint disease. No fracture or dislocation is seen. No lytic or blastic bone lesion is noted. RAD/Knee 4 or More Views IMPRESSION: Mild tricompartmental changes of degenerative joint disease, more prominent in the medial tibiofemoral compartment. Findings are unchanged. No radiographic evidence of an acute abnormality. [facility]
--- OUTSIDE RECORDS SUMMARY | 2025-05-17 02:01 | XMS RPT_ITS | CCD ---
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 tried a topical pain management. She does see pain management but they are not going to do anything for her until after her appt today. She would like to avoid steroid injections as she has had them in the past and has not had good relief with them. She does get pain that radiates up into her thigh as well. She states that the majority of her pain is the whole knee but at times she does get anterior lateral pain. Agree with above. Started on Gabapentin 300 mg 3x/daily per ED visit with no improvement. States OTC meds no longer work for me Intolerant of NSAIDs due to GI upset. Topical reportedly does not work. Last Butrans patch 3-4 days (more content not included)... Normal [facility] 12 Lead EKGon 04-27-2025 12 Lead EKG [facility] [address] [place] [address] 12 Lead EKG 04/27/25 0258 MR#: [id number] Acct: [id number] Name: MARILU GUNTER Rep #: [id number] : 1960 65 From: Gianluca Trevino MD Attending Dr: Status: DEP ER Ordering Dr: Geoff Marte DO Date: 04/27/25 Location: ED Sex: F C Admitted: Test Reason : DYSRHYTHMIA Blood Pressure : */* mmHG Vent. Rate : 90 BPM Atrial Rate : 90 BPM P-R Int : 140 ms QRS Dur : 82 ms QT Int : 380 ms P-R-T Axes : 59 8 73 degrees QTcB Int : 464 ms Normal sinus rhythm Nonspecific ST and T wave abnormality Abnormal ECG Confirmed by SHANNON SHAFFER, GIANLUCA ([id number]), assistant film editor MELISSA RIBEIRO ([id number]) on 04/28/2025 1:13:52 PM Referred By: PHIL Confirmed By: GIANLUCA TREVINO MD 04/28/25 1313 Date Gianluca Trevino MD CC: Chuy Meng MD; Geoff Marte DO Signed Normal [facility] Absolute lymphocyte countOrd ered By: Geoff Marte on 04-27-2025 Lymphocytes Auto (Unsp spec) [#/Vol] 4.51 10*3/uL 0.83-4.51 [facility] Absolute neutrophil countOrd ered By: Geoff Marte on 04-27-2025 Neutrophils (Bld) [#/Vol] 4.1 10*3/uL 2.0-7.7 [facility] Automated lymphocyte count a s percentage of total leukocytesOrdered By: Gefof Marte on 04-27-2025 Lymphocytes/100 WBC Auto (Unsp spec) 48.0 % High 19-41 [facility] Basophil percentageOrdered B y: Geoff Marte on 04-27-2025 Basophils/100 WBC (Bld) 0.4 % 0-1 [facility] Blood manual differential co mment interpretation (narrative result)Ordered By: Geoff Marte on 04-27-2025 Manual differential comment Wilder (Bld) [Interp] SCANNED [facility] CBC W/Diff, Automatedon 04-18 SMEAR COMMENT SCANNED Normal [facility] Comment on above: Performed By: #### L 101.9900, L503.6005, L100.0100, L501.6710 #### [facility] [address] [place], [address] CRPon 04-27-2025 C-REACTIVE PROT < 3.00 Normal 0.0-3.0 [facility] Comment on above: Performed By: #### L 101.9900, L503.6005, L100.0100, L501.6710 #### [facility] [address] [facility] [place], [address] Emergency Department Summary on 04-27-2025 Emergency Department Summary [facility] Medical Records Department [address] [place] [address] Emergency Department Summary 04/27/25 MR#: [id number] Acct: [id number] Name: MARILU GUNTER Rep #: [id number] : 1960 65 From: Geoff Marte DO PCP: Chuy Meng MD Status:DEP ER Location: ED HPI History of Present Illness Chief Complaint: Lower Extremity Injury Informant: patient and friend Narrative Narrative: Patient is a 65-year-old female with past medical history of COPD hypertension hyperlipidemia and bipolar disorder. She states that she has had knee problems for quite some time. However she reports that over the last 5 days she has been having increased pain and swelling to her right knee. She denies any trauma. She states this evening she was out with friends and the pain got to a point where it was so severe she could not ambulate. Secondary to this she was brought in for evaluation. Patient states there is been no sick symptoms such as fevers or chills and she denies any recent injury or excessive activity. [facility] Medical History (Updated 04/29/25 @ 00:[address] Geoff Marte, DO) Left knee pain Bilateral primary osteoarthritis of knee Right knee pain Wears dentures History of ulceration Smoker History of edema History of echocardiogram History of stress test Cardiology follow-up encounter History of heart attack History of atrial fibrillation Melena Abdominal pain Seizure History of left heart catheterization (LHC) ( 09/04/09) Asthma COPD (chronic obstructive pulmonary disease) Cardiomyopathy in disease classified elsewhere Essential hypertension Chest pain GERD (gastroesophageal reflux disease) Tobacco use Pure hypercholesterolemia Old myocardial infarct HTN (hypertension) Cardiac dysrhythmia Bipolar disorder Home Medications ???Medication ???Instructions ???Recorded ???Last Taken ???Type lamotrigine 25 mg tablet 50 mg PO BID seizures 04/13/17 History atorvastatin 20 mg tablet 20 mg PO QHS #90 tabs 12/12/22 Unk nown Rx duloxetine 60 mg capsule,delayed 90 mg PO DAILY 12/15/22 Unknown Hi story release carvedilol 25 mg tablet 25 mg PO BID #180 tabs 05/02/24 Un known Rx pantoprazole 40 mg tablet,delayed 40 mg PO BID 3 months #180 tabs 0 01/09/25 Unknown Rx release buprenorphine 7.5 mcg/hour weekly 1 patch topical QWEEK 04/27/25 Un known History transdermal patch (Butrans) clonidine HCl 0.1 mg tablet 0.05 mg PO BID PRN PRN anxiety 07/12 Unknown History gabapentin 300 mg capsule 300 mg PO TID 30 days #90 caps 07/12 Unknown Rx Allergy/AdvReac Type Severity Reaction Status Date / Time NSAIDS (Non-Steroidal AdvReac Diarrhea Verified 02/06/24 12:44 Anti-Inflamma tramadol HCl (From Ultram) AdvReac Diarrhea Verified 02/06/24 12:44 Family History Mother Diabetes Cancer Father COPD (chronic obstructive pulmonary disease) Diabetes Sister Diabetes Surgical History History of partial hysterectomy History of bilateral cataract extraction History of total left knee replacement History of carpal tunnel release History of shoulder surgery History of foot surgery History of arthroscopy of both knees History of cholecystectomy History of hysterectomy Social History Smoking Status: Current every day smoker tobacco type: cigarettes alcohol intake: current details: occasional substance use type: does not use ROS ROS ED Constitutional Constitutional ED: Denies chills or fever(s) Cardiovascular Cardiovascular: Denies chest pain Respiratory/Chest Respiratory/Chest: Denies cough or dyspnea Gastrointestinal Gastrointestinal: Denies abdominal pain, diarrhea, nausea or vomiting Musculoskeletal Musculoskeletal: Reports other Details: Positive right knee pain and Integumentary Denies rash Neurologic Neurologic: Denies headache(s) Psychiatric Psychiatric: Reports anxiety Hematologic/Lymphatic Hematologic/Lymphatic: Denies easy bleeding or easy bruising EXAM Physical Exam Const Vital Signs: 04/27/25 02:48 04/27/25 04:48 Temperature 98.9 F Temperature Source Oral Pulse Rate 94 84 Respiratory Rate 24 H 18 Blood Pressure 151/97 H 145/80 H Blood Pressure Mean 115 101 Pulse Ox 99 96 Oxygen Delivery Method Room Air Room Air Positive well nourished and well developed General Appearance ED: well developed; Negative for pallor HEENT HEENT Narrative: Normocephalic atraumatic Eyes PERRL and EOMs intact bilaterally General Eye ED: Negative for scleral icterus Neck supple Resp normal respiratory effort and clear to auscultation bila (more content not included)... Normal [facility] Eosinophil percentageOrdered By: Geoff Marte on 04-27-2025 Eosinophils/100 WBC (Bld) 1.1 % 0-5 [facility] Erythrocyte Sed Rateon 04-27 SED RATE 22 mm/hr Normal 0-30 [facility] Comment on above: Performed By: #### L 101.9900, L503.6005, L100.0100, L501.6710 #### [facility] [address] [place], [place], [id number] Erythrocyte distribution wid th ratioOrdered By: Geoff Marte on 04-27-2025 Erythrocyte distribution width (RBC) [Ratio] 13.2 % 11.6-14.6 [facility] Erythrocyte distribution wid th standard deviationOrdered By: Geoff Marte on 04-27-2025 Erythrocyte distribution width (RBC) [Ratio] 40.8 fl 35.1-43.9 [facility] Erythrocyte sedimentation ra teOrdered By: Geoff Marte on 04-27-2025 ESR (Bld) [Velocity] 22 mm/h 0-30 [facility] Hematocrit Auto (Bld) [Volum e fraction]Ordered By: Geoff Marte on 04-27-2025 Hematocrit (Bld) [Volume fraction] 40.2 % 37-47 [facility] Hemoglobin measurementOrdere d By: Geoff Marte on 04-27-2025 Hemoglobin (Bld) [Mass/Vol] 13.8 g/dL 12.0-15.0 [facility] Immature granulocytes/100 WB C Auto (Bld)Ordered By: Geoff Marte on 04-27-2025 Immature granulocytes/100 WBC (Bld) 0.500 % 0.0-0.9 [facility] Comment on above: IG% - Immature Granu locytes (promyelocytes, myelocytes and metamyelocytes) > 1% indicates that a LEFT SHIFT is Present. Knee 4 or More Viewson 04-27 Knee 4 or More Views [facility] [address] [place] [address] Knee 4 or More Views MR#: [id number] Acct: [id number] Name: MARILU GUNTER Rep #: [id number] : 1960 F 65 From: Keith Leonard MD PCP: Chuy Meng MD Status: [facility] ER Study: Knee 4 or More Views Date of Exam: 04/27/25 Exam# [id number] Ordering Dr: Geoff Marte DO PROCEDURE: KNEE 4 OR MORE VIEWS 04/27/2025 REASON FOR EXAM: PAIN TECHNIQUE: KNEE 4 OR MORE VIEWS Laterality: Right COMPARISON: 02/06/2024 FINDINGS: Osteophytes. Mild lateral femorotibial joint space narrowing. Mild lateral patellofemoral joint space narrowing. Posterior joint space loose body. Small joint effusion. No acute bone pathology. RAD/Knee 4 or More Views IMPRESSION: Mild right knee osteoarthritis. Reading Location: [place] [address] CC: Chuy Meng MD; Geoff Marte DO Medication Manager: Signed Normal [facility] Lactic acid measurementOrder ed By: Geoff Marte on 04-27-2025 Lactate [Moles/Vol] 1.9 mmol/L Normal 0.0-2.0 [facility] Comment on above: Order Comment: Y Performed By: #### L 101.9900, L503.6005, L100.0100, L501.6710 #### [facility] [address] [place], [address] MCV (mean corpuscular volume ) determinationOrdered By: Geoff Marte on 04-27-2025 MCV (RBC) [Entitic vol] 86.1 fL 81-99 [facility] Mean corpuscular hemoglobin (MCH) determinationOrdered By: Geoff Marte on 04-27-2025 MCH (RBC) [Entitic mass] 29.6 pg 27.0-32.0 [facility] Mean corpuscular hemoglobin concentration (MCHC) determinationOrdered By: Geoff Marte on 04-27-2025 MCHC (RBC) [Mass/Vol] 34.3 g/dL 32-36 [facility] Mean platelet volume determi nationOrdered By: Geoff Marte on 04-27-2025 Platelet mean volume (Bld) [Entitic vol] 9.8 fL 6.2-12.0 [facility] Monocyte percentageOrdered B y: Geoff Marte on 04-27-2025 Monocytes/100 WBC (Bld) 6.5 % 0-10 [facility] Neutrophil percentageOrdered By: Geoff Marte on 04-27-2025 Neutrophils/100 WBC (Bld) 43.5 % Low 47-70 [facility] Nucleated red blood cell per centageOrdered By: Geoff Marte on 04-27-2025 Nucleated RBC/100 WBC (Bld) [Ratio] 0 % 0-5 [facility] Platelet countOrdered By: lEizabeth Marte on 04-27-2025 Platelets (Bld) [#/Vol] 394 10*3/uL 150-450 [facility] RBC Auto (Bld) [#/Vol]Ordere d By: Geoff Marte on 04-27-2025 RBC (Bld) [#/Vol] 4.67 10*6/uL 4.2-5.4 [facility] Serum or plasma C reactive p rotein measurement (mass/volume)Ordered By: Geoff Marte on 04-27-2025 CRP [Mass/Vol] mg/L 0.0-3.0 [facility] White blood cell (WBC) count Ordered By: Geoff Marte on 04-27-2025 WBC (Bld) [#/Vol] 9.4 10*3/uL 4.4-11.0 [facility] CNCOon 01-16-2025 CNCO Letter Text Normal [facility] CNPNon 11-12-2024 CNPN Telephone (PODIWS) MARILU GUNTER ([id number]) 1960 F Date Time Provider Department 11/12/24 [...] Reports pain management, Dr. Rush (ph # [phone]) took an xray of her foot yesterday. Pt has not received the results yet. Dr. Rush also prescribed pain patches for her- she hasn't picked them up yet, will berry picker today. Ara Hatfield LPN 11/12/2024 3:22 PM [...] of left *01/03/2018 Encounter Status:Closed by Luis lAberto HORAN on 11/22/24 Normal [facility] XR Foot Left complete 3 plus viewson [...] RICARDO MEZA DO, MD Date: 11/12/2024 10:33 Normal [facility] Basophil percentageon 2021 Chloride [Moles/Vol] 108 mmol/L 98-107 [facility] Work Phone: [phone] Glucose [Mass/Vol] 118 mg/dL 74-106 [facility] Work Phone: [phone] Comment on above: Fasting Glucose resu lt from 100 to 125 mg/dL suggests IMPAIRED HOMEOSTASIS per A.D.A. criteria. Potassium [Moles/Vol] 3.8 mmol/L 3.5-5.1 [facility] Work Phone: [phone] Sodium [Moles/Vol] 142 mmol/L 136-145 [facility] Work Phone: [phone] WBC (Bld) [#/Vol] 8.0 10*3/uL 4.4-11.0 [facility] Work Phone: [phone] Blood erythrocytes count (nu mber/volume)on 08-09-2022 RBC (Bld) [#/Vol] 4.39 10*6/uL 4.2-5.4 [facility] Work Phone: [phone] Blood hemoglobin measurement (mass/volume)on 08-09-2022 Hemoglobin (Bld) [Mass/Vol] 12.2 g/dL 12.0-15.0 [facility] Work Phone: [phone] Blood platelet mean volumeon 08-09-2022 Platelet mean volume (Bld) [Entitic vol] 9.4 fL 6.2-12.0 [facility] Work Phone: [phone] Determination of erythrocyte mean corpuscular volume (MCV)on 08-09-2022 MCV (RBC) [Entitic vol] 85.6 fL 81-99 [facility] Work Phone: [phone] Hematocrit Auto (Bld) [Volum e fraction]on 08-09-2022 Hematocrit (Bld) [Volume fraction] 37.6 % 37-47 [facility] Work Phone: Laboratory - Chemistry and C hemistry - challengeon 08-09-2022 CO2 [Moles/Vol] 30.0 mmol/L 21.0-32.0 [facility] Work Phone: Magnesium [Mass/Vol] 2.3 mg/dL 1.6-2.6 [facility] Work Phone: Urea nitrogen/Creatinine [Mass ratio] 9.7 mg/mg 10-20 [facility] Work Phone: Laboratory - Hematology and Cell countson 08-09-2022 Erythrocyte distribution width (RBC) [Entitic vol] 42.9 fL 35.1-43.9 [facility] Work Phone: Erythrocyte distribution width (RBC) [Ratio] 13.8 % 11.6-14.6 [facility] Work Phone: MCH (RBC) [Entitic mass] 27.8 pg 27.0-32.0 [facility] Work Phone: MCHC Auto (RBC) [Mass/Vol]on 08-09-2022 MCHC (RBC) [Mass/Vol] 32.4 g/dL 32-36 [facility] Work Phone: No Panel Informationon 08-09 Estimated GFR (MDRD) Amer 90 mL/min >60 [facility] Work Phone: Comment on above: GFR Calc Estimated GFR (MDRD) Non-Af Amer 75 mL/min >60 [facility] Work Phone: Comment on above: Non- GFR Calc Platelets bldon 08-09-2022 Platelets (Bld) [#/Vol] 314 10*3/uL 150-450 [facility] Work Phone: Serum or plasma calcium anupam urement (mass/volume)on 08-09-2022 Calcium [Mass/Vol] 9.1 mg/dL 8.5-10.1 [facility] Work Phone: Serum or plasma creatinine m easurement (mass/volume)on 08-09-2022 Creatinine [Mass/Vol] 0.83 mg/dL 0.55-1.02 [facility] Work Phone: Comment on above: The validity of the calculated GFR & GFRAA in patients over 70 years has not been determined. Clinical correlation is essential. Serum or plasma urea nitroge n measurement (mass/volume)on 08-09-2022 Urea nitrogen [Mass/Vol] 8 mg/dL 7-18 [facility] Work Phone: Thin prep Papanicolaou smear with manual screeningon 08-09-2022 Thin prep Papanicolaou smear with manual screening 4 5-15 [facility] Work Phone: Absolute lymphocyte counton 02-16-2022 Lymphocytes Auto (Unsp spec) [#/Vol] 5.30 10*3/uL 0.83-4.51 [facility] Work Phone: Basophil percentageon 2021 Basophils/100 WBC (Bld) 0.4 % 0-1 [facility] Work Phone: Chloride [Moles/Vol] 103 mmol/L 98-107 [facility] Work Phone: Eosinophils/100 WBC (Bld) 1.4 % 0-5 [facility] Work Phone: Glucose [Mass/Vol] 133 mg/dL 74-106 [facility] Work Phone: Comment on above: Fasting Glucose resu lt greater than or equal to 126 mg/dL suggests DIABETES MELLITUS per A.D.A. criteria. Neutrophils (Bld) [#/Vol] 3.8 10*3/uL 2.0-7.7 [facility] Work Phone: Neutrophils/100 WBC (Bld) 38.4 % 47-70 [facility] Work Phone: Potassium [Moles/Vol] 3.7 mmol/L 3.5-5.1 [facility] Work Phone: Sodium [Moles/Vol] 135 mmol/L 136-145 [facility] Work Phone: WBC (Bld) [#/Vol] 10.0 10*3/uL 4.4-11.0 [facility] Work Phone: Blood erythrocytes count (nu mber/volume)on 02-16-2022 RBC (Bld) [#/Vol] 4.47 10*6/uL 4.2-5.4 [facility] Work Phone: [phone] Blood hemoglobin measurement (mass/volume)on 02-16-2022 Hemoglobin (Bld) [Mass/Vol] 12.5 g/dL 12.0-15.0 [facility] Work Phone: Blood lymphocytes/100 leukoc yteson 02-16-2022 Lymphocytes/100 WBC (Bld) 52.9 % 19-41 [facility] Work Phone: Blood monocytes/100 leukocyt eson 02-16-2022 Monocytes/100 WBC (Bld) 6.6 % 0-10 [facility] Work Phone: Blood platelet mean volumeon 02-16-2022 Platelet mean volume (Bld) [Entitic vol] 9.8 fL 6.2-12.0 [facility] Work Phone: Determination of erythrocyte mean corpuscular volume (MCV)on 02-16-2022 MCV (RBC) [Entitic vol] 85.9 fL 81-99 [facility] Work Phone: Hematocrit Auto (Bld) [Volum e fraction]on 02-16-2022 Hematocrit (Bld) [Volume fraction] 38.4 % 37-47 [facility] Work Phone: Laboratory - Chemistry and C hemistry - challengeon 02-16-2022 CO2 [Moles/Vol] 26.0 mmol/L 21.0-32.0 [facility] Work Phone: [phone] Magnesium [Mass/Vol] 1.9 mg/dL 1.6-2.6 [facility] Work Phone: [phone] Urea nitrogen/Creatinine [Mass ratio] 12.1 mg/mg 10-20 [facility] Work Phone: [phone] Laboratory - Hematology and Cell countson 02-16-2022 Erythrocyte distribution width (RBC) [Entitic vol] 39.9 fL 35.1-43.9 [facility] Work Phone: [phone] Erythrocyte distribution width (RBC) [Ratio] 12.8 % 11.6-14.6 [facility] Work Phone: [phone] Immature granulocytes/100 WBC (Bld) 0.300 % 0.0-0.9 [facility] Work Phone: [phone] Comment on above: IG% - Immature Granu locytes (promyelocytes, myelocytes and metamyelocytes) > 1% indicates that a LEFT SHIFT is Present. MCH (RBC) [Entitic mass] 28.0 pg 27.0-32.0 [facility] Work Phone: [phone] Nucleated RBC/100 WBC (Bld) [Ratio] 0 % 0-5 [facility] Work Phone: [phone] MCHC Auto (RBC) [Mass/Vol]on 02-16-2022 MCHC (RBC) [Mass/Vol] 32.6 g/dL 32-36 [facility] Work Phone: [phone] No Panel Informationon 02-16 Troponin I High Sensitivity < 3 pg/mL 3.0-54.0 [facility] Work Phone: [phone] Comment on above: Please Note: New Poppy t Units and Gender Specific Reference Ranges. For more information see Policy Stat Procedure [place] High Sensitivity Troponin (TNIH) and attachments. Atypical Lymphocytes 1+ % [facility] Work Phone: [phone] D-Dimer Quantitative (PE/DVT) < 0.27 FEU/ug/m 0.27-0.49 [facility] Work Phone: [phone] Comment on above: NORMAL D-Dimer level (<0.50) indicates no DVT or PE. Estimated Creatinine Clearance Calc 59.16 ml/min [facility] Work Phone: [phone] Estimated GFR (MDRD) Amer 81 mL/min >60 [facility] Work Phone: Comment on above: GFR Calc Estimated GFR (MDRD) Non-Af Amer 67 mL/min >60 [facility] Work Phone: Comment on above: Non- GFR Calc Thyroid Stimulating Hormone (TSH) 2.02 uIU/mL 0.358-3.74 [facility] Work Phone: Platelets bldon 02-16-2022 Platelets (Bld) [#/Vol] 395 10*3/uL 150-450 [facility] Work Phone: [phone] Serum or plasma calcium anupam urement (mass/volume)on 02-16-2022 Calcium [Mass/Vol] 9.2 mg/dL 8.5-10.1 [facility] Work Phone: Serum or plasma creatinine m easurement (mass/volume)on 02-16-2022 Creatinine [Mass/Vol] 0.91 mg/dL 0.55-1.02 [facility] Work Phone: Comment on above: The validity of the calculated GFR & GFRAA in patients over 70 years has not been determined. Clinical correlation is essential. Serum or plasma urea nitroge n measurement (mass/volume)on 02-16-2022 Urea nitrogen [Mass/Vol] 11 mg/dL 7-18 [facility] Work Phone: Thin prep Papanicolaou smear with manual screeningon 02-16-2022 Thin prep Papanicolaou smear with manual screening 6 5-15 [facility] Work Phone: Absolute lymphocyte counton 10-06-2021 Lymphocytes Auto (Unsp spec) [#/Vol] 2.86 10*3/uL 0.83-4.51 [facility] Work Phone: Basophil percentageon 2021 Basophils/100 WBC (Bld) 0.7 % 0-1 [facility] Work Phone: Eosinophils/100 WBC (Bld) 1.2 % 0-5 [facility] Work Phone: [phone] Neutrophils (Bld) [#/Vol] 3.7 10*3/uL 2.0-7.7 [facility] Work Phone: [phone] Neutrophils/100 WBC (Bld) 51.7 % 47-70 [facility] Work Phone: [phone] WBC (Bld) [#/Vol] 7.3 10*3/uL 4.4-11.0 [facility] Work Phone: Bilirubin [Mass/Vol] 0.20 mg/dL 0.20-1.00 [facility] Work Phone: Comment on above: For patients on eltr ombopag therapy, use of Dimension [place] TBIL is not recommended. Chloride [Moles/Vol] 104 mmol/L 98-107 [facility] Work Phone: Cholesterol [Mass/Vol] 243 mg/dL <200 [facility] Work Phone: Comment on above: <200 mg/dL Desirable 200-240 mg/dL Borderline >240 mg/dL High Risk Glucose [Mass/Vol] 114 mg/dL 74-106 [facility] Work Phone: Comment on above: Fasting Glucose resu lt from 100 to 125 mg/dL suggests IMPAIRED HOMEOSTASIS per A.D.A. criteria. Potassium [Moles/Vol] 3.6 mmol/L 3.5-5.1 [facility] Work Phone: Protein [Mass/Vol] 7.6 g/dL 6.4-8.2 [facility] Work Phone: [phone] Sodium [Moles/Vol] 137 mmol/L 136-145 [facility] Work Phone: Triglyceride [Mass/Vol] 117 mg/dL [facility] Work Phone: Comment on above: The drugs N-Acetylcy steine and Metamizole may falsely depress this assay.Serum Triglycerides Reference Interval Normal <150 mg/dL Borderline high 150 - 199 mg/dL High 200 - 499 mg/dL Very High > or = 500 mg/dL Blood erythrocytes count (nu mber/volume)on 10-06-2021 RBC (Bld) [#/Vol] 4.25 10*6/uL 4.2-5.4 [facility] Work Phone: Blood hemoglobin measurement (mass/volume)on 10-06-2021 Hemoglobin (Bld) [Mass/Vol] 11.6 g/dL 12.0-15.0 [facility] Work Phone: [phone] Blood lymphocytes/100 leukoc yteson 10-06-2021 Lymphocytes/100 WBC (Bld) 39.4 % 19-41 [facility] Work Phone: [phone] Blood monocytes/100 leukocyt eson 10-06-2021 Monocytes/100 WBC (Bld) 6.6 % 0-10 [facility] Work Phone: [phone] Blood platelet mean volumeon 10-06-2021 Platelet mean volume (Bld) [Entitic vol] 9.1 fL 6.2-12.0 [facility] Work Phone: [phone] Determination of erythrocyte mean corpuscular volume (MCV)on 10-06-2021 MCV (RBC) [Entitic vol] 85.2 fL 81-99 [facility] Work Phone: Direct bilirubinon Bilirubin.direct [Mass/Vol] mg/dL 0.00-0.30 [facility] Work Phone: [phone] Hematocrit Auto (Bld) [Volum e fraction]on 10-06-2021 Hematocrit (Bld) [Volume fraction] 36.2 % 37-47 [facility] Work Phone: [phone] Laboratory - Chemistry and C hemistry - challengeon 10-06-2021 ALP [Catalytic activity/Vol] 114 U/L 45-117 [facility] Work Phone: [phone] ALT [Catalytic activity/Vol] 13 U/L 13-56 [facility] Work Phone: [phone] CO2 [Moles/Vol] 28.0 mmol/L 21.0-32.0 [facility] Work Phone: [phone] Globulin (S) [Mass/Vol] 4.2 g/dL 2.2-4.2 [facility] Work Phone: [phone] Urea nitrogen/Creatinine [Mass ratio] 8.7 mg/mg 10-20 [facility] Work Phone: [phone] Laboratory - Hematology and Cell countson 10-06-2021 Erythrocyte distribution width (RBC) [Entitic vol] 42.6 fL 35.1-43.9 [facility] Work Phone: [phone] Erythrocyte distribution width (RBC) [Ratio] 13.7 % 11.6-14.6 [facility] Work Phone: [phone] Immature granulocytes/100 WBC (Bld) 0.400 % 0.0-0.9 [facility] Work Phone: [phone] Comment on above: IG% - Immature Granu locytes (promyelocytes, myelocytes and metamyelocytes) > 1% indicates that a LEFT SHIFT is Present. MCH (RBC) [Entitic mass] 27.3 pg 27.0-32.0 [facility] Work Phone: [phone] Nucleated RBC/100 WBC (Bld) [Ratio] 0 % 0-5 [facility] Work Phone: [phone] MCHC Auto (RBC) [Mass/Vol]on 10-06-2021 MCHC (RBC) [Mass/Vol] 32.0 g/dL 32-36 [facility] Work Phone: No Panel Informationon 10-06 Estimated GFR (MDRD) Amer 81 mL/min >60 [facility] Work Phone: [phone] Comment on above: GFR Calc Estimated GFR (MDRD) Non-Af Amer 67 mL/min >60 [facility] Work Phone: [phone] Comment on above: Non- GFR Calc Thyroid Stimulating Hormone (TSH) 1.22 uIU/mL 0.358-3.74 [facility] Work Phone: Platelets bldon 10-06-2021 Platelets (Bld) [#/Vol] 357 10*3/uL 150-450 [facility] Work Phone: Serum or plasma albumin anupam urement (mass/volume)on 10-06-2021 Albumin [Mass/Vol] 3.4 g/dL 3.2-5.0 [facility] Work Phone: [phone] Serum or plasma albumin/glob ulin mass ratioon 10-06-2021 Albumin/Globulin [Mass ratio] 0.8 {ratio} 0.9-2.4 [facility] Work Phone: [phone] Serum or plasma calcium anupam urement (mass/volume)on 10-06-2021 Calcium [Mass/Vol] 8.5 mg/dL 8.5-10.1 [facility] Work Phone: Serum or plasma cholesterol in HDL measurement (mass/volume)on 10-06-2021 Cholesterol in HDL [Mass/Vol] 70 mg/dL [facility] Work Phone: Comment on above: The drugs N-Acetylcy steine and Metamizole may falsely depress this assay. Reference Range HDL <40 mg/dL Low HDL Cholesterol HDL >or= 60 mg/dL High HDL Cholesterol Serum or plasma cholesterol in VLDL measurement (mass/volume)on 10-06-2021 Cholesterol in VLDL [Mass/Vol] 23 mg/dL 5-40 [facility] Work Phone: [phone] Serum or plasma creatinine m easurement (mass/volume)on 10-06-2021 Creatinine [Mass/Vol] 0.92 mg/dL 0.55-1.02 [facility] Work Phone: Comment on above: The validity of the calculated GFR & GFRAA in patients over 70 years has not been determined. Clinical correlation is essential. Serum or plasma low density lipoprotein (LDL) cholesterol measurement (mass/volume)on 10-06-2021 Cholesterol in LDL [Mass/Vol] 150 mg/dL 0-130 [facility] Work Phone: [phone] Serum or plasma urea nitroge n measurement (mass/volume)on 10-06-2021 Urea nitrogen [Mass/Vol] 8 mg/dL 7-18 [facility] Work Phone: [phone] Thin prep Papanicolaou smear with manual screeningon 10-06-2021 Thin prep Papanicolaou smear with manual screening 9 U/L 1537 [facility] Work Phone: Thin prep Papanicolaou smear with manual screening 5 5-15 [facility] Work Phone: PROGRESSon 01-15-2018 [facility] NOTES Normal [facility] XR KNEE LEFT 4+ VIEWS (SPECI FY [...] MonAug 02, 2017 5:04:03 PM EST Normal [facility] XR Knee Left 4+ Views (Note in Comments)on 08-02-2017 XR Knee Left 4+ Views (Note in Comments) 4 views left knee reveals a patella fracture near the superior pole about 25% from the top is nondisplaced and minimal degenerative arthritis only Invalid Interpretation Code FUJI SYNAPSE [facility] Vital Signs Date Time Vital Sign Value Performing Clinician Facility 04-30-2025 11:21-0400 Body height 165.[address] Geoff Marte DO Work Phone: [facility] 04-30-2025 11:21-0400 Body mass index (BMI) [Ratio] 25.7 kg/m2 Dr. Geoff Marte DO Work Phone: [facility] 04-30-2025 11:21-0400 Body weight 70.[address] Geoff Marte DO Work Phone: [facility] 04-27-2025 05:44-0400 Body temperature 98.9 [degF] Dr. Geoff Marte DO Work Phone: [facility] 04-27-2025 05:44-0400 Diastolic blood pressure 83 mm[Hg] Dr. Geoff Marte DO Work Phone: [facility] 04-27-2025 05:44-0400 Heart rate 88 /min Dr. Geoff Marte DO Work Phone: [facility] 04-27-2025 05:44-0400 Respiratory rate 16 /min Dr. Geoff Marte DO Work Phone: [facility] 04-27-2025 05:44-0400 SaO2% (BldA) [Mass fraction] 100 % Dr. Geoff Marte DO Work Phone: [facility] 04-27-2025 05:44-0400 Systolic blood pressure 133 mm[Hg] Dr. Geoff Marte DO Work Phone: [phone] [place] [address] 04-27-2025 02:48-0400 Body height 165.[address] Geoff Marte DO Work Phone: [phone] [place] [address] 04-27-2025 02:48-0400 Body mass index (BMI) [Ratio] 25.8 kg/m2 Dr. Geoff Marte DO Work Phone: [facility] 04-27-2025 02:48-0400 Body weight 70.[address] Geoff Marte DO Work Phone: [facility] 12-15-2022 09:06-0400 Body height 165.1 cm [facility] Work Phone: [phone] [address] 12-15-2022 09:00-0400 Body mass index (BMI) [Ratio] 28.4 kg/m2 [facility] Work Phone: [phone] [place] [address] 12-15-2022 09:00-0400 Body weight 77.56 kg [facility] Work Phone: [phone] [address] 12-15-2022 09:00-0400 Diastolic blood pressure 63 mm[Hg] [facility] Work Phone: [phone] [place] [address] 12-15-2022 09:00-0400 Heart rate 76 /min [facility] Work Phone: [phone] [place] [address] 12-15-2022 09:00-0400 Respiratory rate 18 /min [facility] Work Phone: [facility] 12-15-2022 09:00-0400 SaO2% (BldA) [Mass fraction] 98 % [facility] Work Phone: [facility] 12-15-2022 09:00-0400 Systolic blood pressure 104 mm[Hg] [facility] Work Phone: [facility] 06-27-2022 19:18-0400 Body height 165.1 cm [facility] Work Phone: [facility] Work Phone: 06-27-2022 19:18-0400 Body mass index (BMI) [Ratio] 27.2 kg/m2 [facility] Work Phone: [facility] Work Phone: 06-27-2022 19:18-0400 Body temperature 96.4 [degF] [facility] Work Phone: [facility] Work Phone: 06-27-2022 19:18-0400 Body weight 74.3 kg [facility] Work Phone: [facility] Work Phone: 06-27-2022 19:18-0400 Diastolic blood pressure 79 mm[Hg] [facility] Work Phone: [facility] Work Phone: 06-27-2022 19:18-0400 Heart rate 78 /min [facility] Work Phone: [facility] Work Phone: 06-27-2022 19:18-0400 Respiratory rate 16 /min [facility] Work Phone: [facility] Work Phone: 06-27-2022 19:18-0400 SaO2% (BldA) [Mass fraction] 100 % [facility] Work Phone: [facility] Work Phone: 06-27-2022 19:18-0400 Systolic blood pressure 150 mm[Hg] [facility] Work Phone: [facility] Work Phone: 06-01-2022 17:50-0400 Body height 165.1 cm [facility] Work Phone: [facility] Work Phone: 06-01-2022 17:50-0400 Body mass index (BMI) [Ratio] 26.4 kg/m2 [facility] Work Phone: [facility] Work Phone: 06-01-2022 17:50-0400 Body temperature 97.8 [degF] [facility] Work Phone: [facility] Work Phone: 06-01-2022 17:50-0400 Body weight 72 kg [facility] Work Phone: [facility] Work Phone: 06-01-2022 17:50-0400 Diastolic blood pressure 80 mm[Hg] [facility] Work Phone: [facility] Work Phone: 06-01-2022 17:50-0400 Heart rate 82 /min [facility] Work Phone: [facility] Work Phone: 06-01-2022 17:50-0400 Respiratory rate 17 /min [facility] Work Phone: [facility] Work Phone: 06-01-2022 17:50-0400 SaO2% (BldA) [Mass fraction] 100 % [facility] Work Phone: [facility] Work Phone: 06-01-2022 17:50-0400 Systolic blood pressure 121 mm[Hg] [facility] Work Phone: [facility] Work Phone: 02-16-2022 06:00-0400 Diastolic blood pressure 78 mm[Hg] [facility] Work Phone: [facility] Work Phone: 02-16-2022 06:00-0400 Heart rate 78 /min [facility] Work Phone: [facility] Work Phone: 02-16-2022 06:00-0400 Respiratory rate 16 /min [facility] Work Phone: [facility] Work Phone: 02-16-2022 06:00-0400 SaO2% (BldA) [Mass fraction] 96 % [facility] Work Phone: [facility] Work Phone: 02-16-2022 06:00-0400 Systolic blood pressure 126 mm[Hg] [facility] Work Phone: [facility] Work Phone: 02-16-2022 02:16-0400 Body height 165.1 cm [facility] Work Phone: [facility] Work Phone: 02-16-2022 02:16-0400 Body mass index (BMI) [Ratio] 26.6 kg/m2 [facility] Work Phone: [facility] Work Phone: 02-16-2022 02:16-0400 Body temperature 98.1 [degF] [facility] Work Phone: [facility] Work Phone: 02-16-2022 02:16-0400 Body weight 72.6 kg [facility] Work Phone: [facility] Work Phone: 09-23-2021 13:03-0500 Body height 165.1 cm No Primary Care Physician [facility] Work Phone: 09-23-2021 13:03-0500 Body mass index (BMI) [Ratio] 23.9 kg/m2 No Primary Care Physician [facility] Work Phone: 09-23-2021 13:03-0500 Body weight 65.31 kg No Primary Care Physician [facility] Work Phone: 09-23-2021 13:03-0500 Diastolic blood pressure 60 mm[Hg] No Primary Care Physician [facility] Work Phone: 09-23-2021 13:03-0500 Heart rate 84 /min No Primary Care Physician [facility] Work Phone: 09-23-2021 13:03-0500 Respiratory rate 20 /min No Primary Care Physician [facility] Work Phone: 09-23-2021 13:03-0500 Systolic blood pressure 130 mm[Hg] No Primary Care Physician [facility] Work Phone: 08-02-2017 14:15-0500 BMI (Body Mass Index) 25.79 kg/m2 Torey Flores [facility] Work Phone: 08-02-2017 14:15-0500 Height 165.1 cm Toreylisa Flores [facility] Work Phone: 08-02-2017 14:15-0500 Weight 70.31 kg Torey Flores [facility] Work Phone: Encounters Encounter Date Encounter Type Care Provider Facility Start: 05-16-2025 ambulatory Chuy [facility] Facility :[facility] Start: 05-08-2025 ambulatory GANGA CLARKE MD~[id number] [facility] Start: 04-30-2025 End: 04-30-[address] Geoff Marte DO Work Phone: -[facility] Start: 04-30-2025 End: 04-30-2025 Patient encounter procedure Marion Carroll [employer]PER[employer] -[facility] Work Phone: Start: 04-27-2025 End: 04-27-2025 Emergency department patient visit Dr. Geoff Marte DO Work Phone: -Emergency Department Work Phone: Start: 01-29-2025 End: 01-29-2025 ambulatory TABATHA MAYS MD~[id number] [facility] Start: 01-23-2025 ambulatory GANGA CLARKE MD~[id number] [facility] Start: 01-14-2025 ambulatory Sunita Richard Steve ty:[facility] Start: 11-27-2024 End: 11-27-2024 ambulatory GANGA SCHULER MD~[id number] [facility] Start: 11-12-2024 End: 11-22-2024 Telephone encounter Caryn Roe Work Phone: Podiatry Comment on above: Patient Update Start: 11-11-2024 End: 11-11-2024 ambulatory GANGA SCHULER MD~[id number] [facility] Start: 09-09-2024 ambulatory Carlos Mollison Facility [facility] Start: [facility] Start: 07-23-2024 End: 07-23-2024 ambulatory NO PCP AA NO PCP [facility] Start: 10-20-2023 End: 10-20-2023 Patient encounter procedure HAYDEE ESCOTO MD [facility] Start: 10-13-2023 ambulatory HAYDEE ESCOTO MD Facility :B Start: 02-09-2023 End: 02-09-2023 ambulatory [facility] Work Phone: [facility] Work Phone: Start: 02-09-2023 End: 02-09-2023 Patient encounter procedure [facility] Work Phone: [facility]-Pulmonary Services/Neurology Start: 12-15-2022 End: 12-15-2022 Patient encounter procedure [facility] Work Phone: [facility] Start: 08-09-2022 End: 08-09-2022 ambulatory [facility] Work Phone: [facility] Work Phone: Start: 08-09-2022 End: 08-09-2022 Patient encounter procedure [facility] Work Phone: [facility]-Laboratory Start: 08-04-2022 Patient encounter procedure [facility] Work Phone: [facility]-Pulmonary Services/Neurology Start: 07-12-2022 Non-patient / Non-visit [facility] Work Phone: [facility] Start: 06-27-2022 End: 06-27-2022 Emergency department patient visit [facility] Work Phone: [facility]-Emergency Department Start: 06-01-2022 End: 06-01-2022 Emergency department patient visit [facility] Work Phone: [facility]-Emergency Department Start: 03-31-2022 End: 03-31-2022 Patient encounter procedure [facility] Work Phone: [facility] Gastroenterology Start: 02-16-2022 End: 02-16-2022 Emergency department patient visit [facility] Work Phone: [facility]-Emergency Department Start: 02-07-2022 End: 02-07-2022 Patient encounter procedure [facility] Work Phone: [facility]-Cardiovascular Services Start: 01-13-2022 Non-patient / Non-visit No Primary Care Physician [facility] Start: 01-13-2022 End: 01-13-2022 Patient encounter procedure No Primary Care Physician [facility]-Cardiovascular Services Start: 11-23-2021 End: 11-23-2021 Patient encounter procedure No Primary Care Physician [facility] Start: 10-26-2021 Non-patient / Non-visit No Primary Care Physician [facility] Start: 10-26-2021 End: 10-26-2021 Patient encounter procedure No Primary Care Physician [facility]-Cardiovascular Services Start: 10-06-2021 End: 10-06-2021 Patient encounter procedure No Primary Care Physician [facility]-Laboratory Start: 09-23-2021 End: 09-23-2021 Patient encounter procedure No Primary Care Physician [facility] Start: 01-15-2018 Ambulatory [facility] Start: 11-15-2017 End: 11-15-2017 Ambulatory Cisco Sahu Murillo Facility:[facility] Start: 10-03-2017 End: 10-04-2017 Ambulatory Cisco Beckfordfrey Facility:[facility] Start: 09-22-2017 End: 09-23-2017 Ambulatory Cisco Murillo Facility:[facility] Start: 08-19-2017 End: 08-19-2017 Ambulatory Cisco Luis Alberto Murillo Facility:[facility] Start: 08-03-2017 [facility] Start: 08-02-2017 End: 08-02-2017 Ambulatory TOREY FLORES [facility] Ambulato ry Start: 08-02-2017 Office outpatient ne w 30 minutes Torey Flores Work Phone: [facility] Procedures Date Procedure Procedure Detail Performing Clinician Start: 04-27-2025 X-ray of knee, four or more views Dr[address] Geoff Marte DO Work Phone: Start: 06-27-2022 Plain x-ray of hand [facility] Work Phone: Start: 06-01-2022 End: 06-01-2022 Radiologic examination of knee [facility] Work Phone: Start: 02-16-2022 Plain chest X-ray [facility] Work Phone: Start: 11-23-2021 CT of abdomen and pe lvis without contrast No Primary Care Physician Start: 10-26-2021 Radionuclide imaging of perfusion of myocardium under exercise stress No Primary Care Physician Start: 05-23-2012 Colonoscopy Caryn Luz Work Phone: Plan of Treatment Date Care Activity Detail Author Start: 2037 RSV Vaccine (1 - 1-d ose 75+ series) RSV Vaccine (1 - 1-dose 75+ series) [facility] Start: 04-27-2025 [facility] Start: 11-26-2024 End: 11-26-2024 Patient encounter procedure 11/26/2024 9:15 AM EDT Office Visit Podiatry [address] [place] [address] Caryn Roe [address] [address] Left Foot/Ankle pain, previous surgery on foot Podiatry Comment on above: Left Foot/Ankle pain , previous surgery on foot Start: 05-19-2024 Covid-19 Vaccine ( season) Covid-19 Vaccine ( season) [facility] Start: 05-19-2024 Influenza vaccination Influenza Vacc ine (#1) [facility] Start: 02-16-2022 [facility] Work Phone: Start: 03-22-2021 Diabetes Screening Diabetes Screenin g [facility] Start: 05-19-2017 Influenza vaccination SEQUENTI AL INFLUENZA VACCINE (#1) [facility] Work Phone: Start: 05-02-2015 Pneumococcal Vaccine : 50+ (2 of 2 - PCV) Pneumococcal Vaccine: 50+ (2 of 2 - PCV) [facility] Start: 05-23-2013 Screening for malign ant neoplasm of colon [facility] Start: 02-06-2012 Shingrix Vaccine (1 of 2) Shingrix Vaccine (1 of 2) [facility] Start: 07-19-2009 Screening for malign ant neoplasm of breast Mammogram Screening [facility] Start: 2007 Lipid panel Lipid Screening [facility] Start: 2007 Screening for malign ant neoplasm of colon [facility] Start: 1981 Urine microalbumin profile DTaP,Tdap,Td Vaccine (1 - Tdap) [facility] Start: 02-06-1980 Anxiety Screening Anxiety Screening [facility] Start: 02-06-1980 Depression Screening Depression Scre ening [facility] Start: 02-06-1980 Hepatitis C screening Hepatitis C [facility] Start: 02-06-1980 HIV screening HIV Screening [facility] Start: 1960 HEPATITIS C SCREENING HEPATITIS C SC EVA [facility] Work Phone: Start: 1960 Screening colonoscopy COLONOSCOPY [facility] Work Phone: Start: 1960 Screening for malign ant neoplasm of cervix PAP SMEAR [facility] Work Phone: Start: 1960 Tetanus vaccination TETANUS EVERY 10 YR [facility] Work Phone: Patient Education [facility] Work Phone: Patient referral [facility] Work Phone: Payers Date Payer Category Payer Self-pay [id number] 2022 Medicaid [employer] [id number] 2017 Unknown 2013 Medicaid [id number] 1962 Unknown [id number] 1962 Unknown [id number] [id number] 1962 Unknown [id number] 1962 Unknown [id number] 1962 Unknown [id number] [id number] 1962 Unknown [id number] [id number] 1959 Medicaid [id number] Unknown [id number] Unknown [id number] Unknown [id number] [id number] Unknown [id number] Unknown [id number] Unknown [id number] Unknown [id number] Unknown [id number] Social History Date Type Detail Facility Start: 08-02-2017 End: 04-28-2025 Tobacco smoking status NHIS Current every day smoker [facility] Start: 1960 Sex Assigned At Not on file [facility] Work Phone: Start: 09-23-2021 End: 12-15-2022 Tobacco smoking status PRIS Unknown if ever smoked [facility] Start: 07-14-2017 Heavy [facility] Start: 07-14-2017 None [facility] Start: 07-14-2017 Alone [facility] Start: 06-21-2021 Cigarettes [facility] Start: 1960 Sex Assigned At Female [facility] Tobacco smoking status No Smokin g Status Entered [facility] History of tobacco use Cigarette Smoker [facility] Start: 03-09-2018 End: 11-21-2024 Cigarettes smoked current (pack per day) - Reported 1 [facility] Start: 03-09-2018 Tobacco use and exposure Smokeless tobacco non-user [facility] Start: 03-22-2018 Alcoholic beverage intake Current drinker of alcohol (finding) [facility] Start: 03-22-2018 End: 11-21-2024 Tobacco use panel [facility] National Score (1-10 0), lower number is lower risk 89 [facility] Mental Status Date Assessment Result Facility 02-16-2022 Cognitive function Awake;Alert;A ppropriate;Fol lows Commands [facility] Work Phone: Clinical Notes 10-20-2023 to 04-27-2025 Telephone Encounter - Sonam Love RN - 11/14/2024 3:35 PM ESTTelephone Encounter - Sonam Love RN - 11/14/2024 3:35 PM ESTTelephone Encounter - Bev Meng LPN - 11/13/2024 1:54 PM EST Note Date & Type Note Facility 04-27-2025 Radiology Diagnostic study note [facility] [address] [place], [place] [address] Knee 4 or More Views MR#: [id number] Acct: [id number] Name: MARILU GUNTER Rep #: [id number] : 1960 F 65 From: Princess Leonard MD PCP: Chuy Meng MD Status: REG ER Study:Knee 4 or More Views Date of Exam: 04/27/25 Exam# [id number] Ordering Dr: Elizabeth Marte DO PROCEDURE: KNEE 4 OR MORE VIEWS 04/27/2025 REASON FOR EXAM: PAIN TECHNIQUE: KNEE 4 OR MORE VIEWS Laterality: Right COMPARISON: 02/06/2024 FINDINGS: Osteophytes. Mild lateral femorotibial joint space narrowing. Mild lateral patellofemoral joint space narrowing. Posterior joint space loose body. Small joint effusion. No acute bone pathology. RAD/Knee 4 or More Views IMPRESSION: Mild right knee osteoarthritis. Reading Location: [place] [address] CC: Chuy Meng MD; Geoff Marte DO ~ Medication Manager: Signed [facility] 11-14-2024 Telephone encounter Note Called patient to [...] and schedule is fully booked prior to. [facility] 11-14-2024 Miscellaneous Notes Called patient to inform [...] Reports pain management, Dr. Rush (ph # [phone]) took an xray of her foot yesterday. Pt has not received the results yet. Dr. Rush also prescribed pain patches for her- she hasn't picked them up yet, will berry picker today. documented in this encounter [facility] 11-13-2024 Telephone encounter Note Report of xrays has been received. Bev Meng LPN [facility] Work Phone: 11-12-2024 Telephone encounter Note 's office calling and is sending foot xray to office. Ara Hatfield LPN [facility] 11-12-2024 Telephone encounter Note Pt reports she [...] Reports pain management, Dr. Rush (ph # [phone]) took an xray of her foot yesterday. Pt has not received the results yet. Dr. Rush also prescribed pain patches for her- she hasn't picked them up yet, will berry picker today. [facility] 10-20-2023 Note ORIGINAL EXAMINATION: MRI OF THE [...] Interpreted by: Riaz Livingston Preliminary Report By: Riza Livingston Electronically signed By Riaz Livingston Dictated Date: 10/20/2023 7:24:15 PM Prelim Date: 10/20/2023 7:28:20 PM Sign Date: 10/20/2023 7:28:20 PM Ordering Provider: HAYDEE ESCOTO [facility] Evaluation + Plan note No data available for this section [facility] Evaluation note Diagnosis Onset Date Cardiomyopathy in disease cl assified elsewhere acute Chest pain acute Cardiac dysrhythmia chronic Essential hypertension chron ic Pure hypercholesterolemia [facility] Work Phone: Evaluation noteNo assessment information available [facility] Work Phone: Evaluation note* Diagnosis Onset Date Resolution Status Abdominal pain acute GERD (gastroesophageal reflux disease) [facility] Work Phone: Evaluation note* Diagnosis Onset Date Resolution Status Cardiomyopathy in disease classified elsewhere acute Cardiac dysrhythmia chronic Essential hypertension chron ic Pure hypercholesterolemia [facility] Work Phone: Evaluation note* Diagnosis Onset Date Resolution Status Admit Date Osteoarthritis of right knee acute April 30, 2025 11:16am [facility] Work Phone: Hospital Discharge instructions No data available for this section [facility] Hospital Discharge instructionsAdditional Instructions Please follow-up with orthopedic surgery to discuss further testing to evaluate your knee pain such as an MRI. Also discuss having your knee joint aspirated as your x-ray today did show a small joint effusion. Continue all of your home medications as directed by your doctor and add the gabapentin for improved pain control. Return to the ER should you have any further concerns [facility] Work Phone: Hospital Discharge instructionsAmbulatory Orders* Physical Therapy Referral Location: None Selected [facility] Work Phone: Progress note No data available for this section [facility] Reason for referral (narrative)No reason for referral [facility] Work [facility]: Assessments Diagnosis Left knee pain, unspecified chronicity [...] March 19, 2019 1 0:58am Power of Conduit Helper No March 19, 2019 10:58am Advance Directive Response Recorded Date/ Time Advance Directives No February 03 2:01pm Living Will No February 03, 2022 2 :01pm Power of Conduit Helper No February 03, 2022 2:01pm Advance Directive Response Recorded Date/ Time Advance Directives No February 03 2:01pm Living Will No February 16, 2022 2 :28am Power of Conduit Helper No February 16, 2022 2:28am Advance Directive Response Recorded Date/ Time Advance Directives No February 03 2:01pm Living Will No June 01, 2022 7:02pm Power of Conduit Helper No May 7:02pm Advance Directive Response Recorded Date/ Time Advance Directives No February 03 1:01pm Living Will No June 27 6:28pm Power of Conduit Helper No June 27, 2022 6:28pm Advance Directive Response Recorded Date/ Time Advance Directives No February 03 2:01pm Living Will No June 27 7:28pm Power of Conduit Helper No June 27, 2022 7:28pm Advance Directive Response Recorded Date/ Time Do you have a Healthcare Power of Conduit Helper? No April 27, 2025 2:51am Advance Directives No February 03 2:01pm Advance Directive Response Recorded Date/ Time Advance Directives No April 28, 2025 9:22am Do you have a Healthcare Power of Conduit Helper? No April 27, 2025 2:51am Chief Complaint and Reason for Visit Chief Complaint RE-ESTAB WITH [facility] CHEST PAIN CHEST PAIN pain Palpitations [...] elsewhere Cardiac dysrhythmia Essential hypertension Pure hypercholesterolemia Chief Complaint Admit Date RLE pain April 27, 2025 2: 47am Chief Complaint Admit Date RLE pain April 27, 2025 2: 47am RIGHT KNEE April 30, 2025 11 :16am Reason for Visit Admit Date Osteoarthritis of right knee April 11:16am Additional Source Comments INFORMATION SOURCE (unrecogn ized section and content) DATE CREATED [facility] DATE CREATED AUTHOR AUTHOR'S ORGANIZ ATION 03/09/2018 [facility] DATE CREATED AUTHOR AUTHOR'S ORGANIZ ATION 03/13/2018 [facility] DATE CREATED AUTHOR AUTHOR'S ORGANIZ ATION 10/15/2023 [facility] ([place]) DATE CREATED AUTHOR AUTHOR'S ORGANIZ ATION 01/21/2025 [facility] DATE CREATED AUTHOR AUTHOR'S ORGANIZ ATION 05/05/2025 [facility] DATE CREATED AUTHOR AUTHOR'S ORGANIZ ATION 05/17/2025 [facility] Goals (unrecognized section and content) Goals may be documented in a n alternate sectionGoals may be documented in an alternate sectionGoals may be documented in an alternate sectionGoals may be documented in an alternate sectionGoals may be documented in an alternate sectionGoals may be documented in an alternate section No data available for this sectionGoals may be documented in an alternate sectionGoals may be documented in an alternate section Care Teams (unrecognized sec tion and content) Team Status: Active Member Role Status Dates Dr. Frankie Santiago MD Family Provider Active [facility] Primary Care Provider A ctive Team Status: Inactive Member Role Status Dates [facility] Primary Care Provider, Referring Provider Active LEA Stern Attending Provider Active Team Status: Inactive Member Role Status Dates [facility] Primary Care Provider A ctive LEA Stern Attending Provider, Referr ing Provider Active [employer] Relationship Specialty Start Date [place] [address] Referring Orthopedics 08/08/17 Team Status: Active Member Role/Relationship Status Dates Dr. Chuy INGRAM MD Primary Care Provider Active Team Status: Inactive Member Role/Relationship Status Dates Dr. Geoff Marte DO Emergency Provider Active Start: April 27, 2025 End: April 27, 2025 Dr. Chuy INGRAM MD Primary Care Provider Active Start: April 27, 2025 End: April 27, 2025 Team Status: Inactive Member Role/Relationship Status Dates Dr. Chuy INGRAM MD Primary Care Provider Active Start: April 30, 2025 End: April 30, 2025 Dr. Chuy INGRAM MD Referring Provider Active Start: April 30, 2025 End: April 30, 2025 SAM Luque Attending Provider Active Start: April 30, 2025 End: April 30, 2025 Source Comments (unrecognize d section and content) In the event this informatio n is protected by the Federal Confidentiality of Alcohol and Drug Abuse Patient Records regulations: The Federal rules restrict any use of the information to criminally investigate or prosecute any alcohol or drug abuse patient.[facility] Reason for Visit (unrecogniz ed section and [...] BE BASED ON THE PRIMARY CLINICAL RECORDS. [facility] [employer] [facility]. provides no warranty or guarantee of the accuracy or completeness of information in this document.
[2025-05-17 02:34] VITALS: BP 118/58; PULSE 78; RESP 16; O2SAT 100
--- NOTE | 2025-05-17 03:06 | EX.ED.DYSGE1 ---
HPI History of Present Illness Chief Complaint: Lower Extremity Injury Narrative Narrative: Chief complaint and HPI: Right knee pain. 65-year-old female with past medical history of COPD, HTN, HLD, bipolar disorder, chronic right knee pain presents for evaluation of right knee pain. Patient states that she is had chronic knee problems for several years. She follows with pain management as well as orthopedic surgery. States they currently want to try gel injections before MRI and discussing surgery. Patient states that she has intermittent flares of her right knee pain the last being earlier this month. She denies any trauma. She states she was out this evening doing karaoke when the pain became so severe she had difficulty ambulating. She denies any fever, chills, nausea, vomiting. Denies any weakness or numbness or tingling. Review of systems: See HPI Medications: As listed on the chart Allergies: As listed on the chart PFSH: Per chart Vital signs: As listed on the chart. Reviewed. Physical exam: Gen: A&O x3, NAD Head: Normocephalic, atraumatic Eyes: No sclera icterus, conjunctiva clear ENT: Moist mucous membranes CV: Regular rate Resp: Nonlabored respirations Musc: Full range of motion of all the extremities except limited in the right lower extremity secondary to knee pain with passive and active range of motion, no deformity, there is soft tissue swelling to the anterior aspect of the right knee without overlying erythema, warmth, crepitus, lymphatic streaking. Patient states she always has this soft tissue swelling. Patellar tendon intact. No knee instability. Compartments soft. DP/PT pulses +2 bilaterally. Full flexion and extension. Able to bear weight. Sensation intact. Skin: Warm, dry Neuro: Alert, oriented, grossly intact Psych: Cooperative, appropriate mood and affect [facility] Medical History Left knee pain Bilateral primary osteoarthritis of knee Right knee pain Wears dentures History of ulceration Smoker History of edema History of echocardiogram History of stress test Cardiology follow-up encounter History of heart attack History of atrial fibrillation Melena Abdominal pain Seizure History of left heart catheterization (LHC) (~09/04/09) Asthma COPD (chronic obstructive pulmonary disease) Cardiomyopathy in disease classified elsewhere Essential hypertension Chest pain GERD (gastroesophageal reflux disease) Tobacco use Pure hypercholesterolemia Old myocardial infarct HTN (hypertension) Cardiac dysrhythmia Bipolar disorder Home Medications ?Medication ?Instructions ?Recorded ?Last Taken ?Type lamotrigine 25 mg tablet 50 mg PO BID seizures 04/13/17 07/13/17 History atorvastatin 20 mg tablet 20 mg PO QHS #90 tabs 12/12/22 Unknown Rx duloxetine 60 mg capsule,delayed 90 mg PO DAILY 12/15/22 Unknown History release carvedilol 25 mg tablet 25 mg PO BID #180 tabs 05/02/24 Unknown Rx pantoprazole 40 mg tablet,delayed 40 mg PO BID 3 months #180 tabs 01/09/25 Unknown Rx release clonidine HCl 0.1 mg tablet 0.05 mg PO BID PRN PRN anxiety 04/27/25 Unknown History gabapentin 300 mg capsule 300 mg PO TID 30 days #90 caps 04/27/25 Unknown Rx Allergy/AdvReac Type Severity Reaction Status Date / Time NSAIDS (Non-Steroidal AdvReac Diarrhea Verified 04/30/25 11:21 Anti-Inflamma tramadol HCl (From Ultram) AdvReac Diarrhea Verified 04/30/25 11:21 Family History Mother Diabetes Cancer Father COPD (chronic obstructive pulmonary disease) Diabetes Sister Diabetes Surgical History History of partial hysterectomy History of bilateral cataract extraction History of total left knee replacement History of carpal tunnel release History of shoulder surgery History of foot surgery History of arthroscopy of both knees History of cholecystectomy History of hysterectomy Social History Smoking Status: Current every day smoker tobacco type: cigarettes alcohol intake: current details: occasional substance use type: does not use EXAM Physical Exam Const Vital Signs: 05/17/25 00:35 05/17/25 02:34 Temperature 98 F Temperature Source Oral Pulse Rate 79 78 Respiratory Rate 18 16 Blood Pressure 124/83 H 118/58 L Blood Pressure Mean 96 78 Pulse Ox 100 100 Oxygen Delivery Method Room Air Room Air MDM MDM MDM Narrative Medical decision making narrative: 65-year-old female with past medical history of COPD, HTN, HLD, bipolar disorder, chronic right knee pain presents for evaluation of acute on chronic right knee pain. Follows with pain management and orthopedics. Patient denies any swelling or infectious symptoms. Differential diagnosis includes but is not limited to osteoarthritis for sprain. Physical exam is not consistent with septic joint. Patient was seen on 04/27/2025 for the same symptom. Physical exam is similar with the soft tissue swelling per the note. She had a CBC, ESR, lactic acid, CRP performed at that time which was unremarkable. Given that patient states this feels like her typical acute on chronic flare and that the soft tissue swelling is chronic, I have low suspicion for any infectious etiology. I do not think any infectious labs are needed. Patient confirmed understanding. Suspect more osteoarthritis. Will treat her pain with lidocaine patch and IM morphine. Patient did have an x-ray performed in triage per protocol. I did personally review and interpreted the x-ray no fracture or dislocation. Arthritis present. Radiology in agreement. I do think she would benefit from MRI and further evaluation with orthopedics outpatient given the chronic pain. Patient refuses lidocaine patch. On reevaluation, patient's knee pain has improved however it is still present. I did recommend her having the lidocaine patch. She did accept the second time. Given patient's pain, I did discuss admission for pain control with PT/OT evaluation and possibly rehab. Patient declined. She states she would like to discharge home and follow-up with her physicians. She was able to ambulate. Patient stable to discharge home. Impression: 1 Acute on chronic right knee pain. 2. Osteoarthritis of the right knee Radiography Diagnostic Testing: Clinical Impression(s) from Imaging Studies Knee X-Ray 05/17/25 01:30 IMPRESSION: Mild tricompartmental changes of degenerative joint disease, more prominent in the medial tibiofemoral compartment. Findings are unchanged. No radiographic evidence of an acute abnormality. [facility] T[facility] Chief Complaint: Lower Extremity Injury ED Provider: Kevin Gómez Dx/Rx/DC Orders Clinical Impression: Chronic pain of right knee Instructions: ED Arthralgia Prescriptions: No Action duloxetine 60 mg capsule,delayed release(DR/EC) 90 mg PO DAILY Patient Comments: DEPRESSION lamotrigine 25 MG tablet 50 mg PO BID clonidine HCl 0.1 mg tablet 0.05 mg PO BID PRN PRN (Reason: anxiety) gabapentin 300 mg capsule 300 mg PO TID 30 Days Qty: 90 0RF atorvastatin 20 mg tablet 20 mg PO QHS Qty: 90 3RF carvedilol 25 mg tablet 25 mg PO BID Qty: 180 3RF Rx Instructions: must administer with a meal/food pantoprazole 40 mg tablet,delayed release (DR/EC) 40 mg PO BID 90 Days Qty: 180 1RF Primary Care Provider: Chuy Meng Referrals: Chuy Meng MD [Primary Care Provider] - 3-5 Days Activity Restrictions/Additional Instructions: Follow-up with your orthopedic physician, pain management, primary care physician. Return back to the ED symptoms change or worsen. Print Language: Arabic Disposition Disposition: Home, Self Care
[2025-05-17] MEDS: Lidocaine 5% Patch 1 PATCH TOPICAL (03:35)
[2025-05-17 03:41] VITALS: BP 116/67; PULSE 77; RESP 16; TEMP 36.7; O2SAT 97
== END 2025-05-17 03:42 | disposition home or self-care (01) ==
PROVIDERS: Emergency Provider Surgery; PCP Family Medicine; Visit Provider Surgery
DX: G89.29 Other chronic pain (principal); J44.9 Chronic obstructive pulmonary disease, unspecified; I48.91 Unspecified atrial fibrillation; R56.9 Unspecified convulsions; I10 Essential (primary) hypertension; E78.00 Pure hypercholesterolemia, unspecified; M25.561 Pain in right knee; M17.11 Unilateral primary osteoarthritis, right knee; I25.2 Old myocardial infarction; Z79.899 Other long term (current) drug therapy; K21.9 Gastro-esophageal reflux disease without esophagitis; Z90.710 Acquired absence of both cervix and uterus; Z98.41 Cataract extraction status, right eye; Z98.42 Cataract extraction status, left eye; Z96.652 Presence of left artificial knee joint; Z90.49 Acquired absence of other specified parts of digestive tract; F17.210 Nicotine dependence, cigarettes, uncomplicated; X58.XXXA Exposure to other specified factors, initial encounter; Y93.89 Activity, other specified
CPT/HCPCS: 73564; 96372; 99285

== ENCOUNTER 2025-07-12 23:50 | Emergency (ER) | payer MEDICAID, SELFPAY ==
[2025-07-12 23:51] VITALS: BP 103/81; PULSE 85; RESP 20; TEMP 36.9; O2SAT 99; BMI 26.2
--- NOTE | 2025-07-12 23:58 | ED.VIS.LOWEX ---
HPI History of Present Illness HPI Narrative: Patient presents with a right knee injury that occurred today. Patient states she was walking home from a bar where she was singing karaoke. Patient states she did not see a hole and stepped on it. Patient states this caused her to fall. Patient states her pain is worse over her right knee. Patient describes it as sharp. Patient admits to some tingling around her right knee. Patient states nothing makes her pain worse and nothing makes it better. Patient denies any weakness. Patient states she has a history of chronic knee pain in her right knee. Chief Complaint: Lower Extremity Injury Informant: patient Occured/Mechanism Mechanism/Context: Yes fall Onset/Context/Timing Onset: Today Context: Sudden Onset Timing: Continuous Quality of Pain: Sharp Location: Right knee Worsened by: Nothing Relieved by: Nothing Associated Symptoms Associated Symptoms: Positive for Parasthesia; Negative for Weakness or Loss of Funtion [facility] Medical History Left knee pain Bilateral primary osteoarthritis of knee Right knee pain Wears dentures History of ulceration Smoker History of edema History of echocardiogram History of stress test Cardiology follow-up encounter History of heart attack History of atrial fibrillation Melena Abdominal pain Seizure History of left heart catheterization (LHC) (~09/04/09) Asthma COPD (chronic obstructive pulmonary disease) Cardiomyopathy in disease classified elsewhere Essential hypertension Chest pain GERD (gastroesophageal reflux disease) Tobacco use Pure hypercholesterolemia Old myocardial infarct HTN (hypertension) Cardiac dysrhythmia Bipolar disorder Home Medications ?Medication ?Instructions ?Recorded ?Last Taken ?Type lamotrigine 25 mg tablet 50 mg PO BID seizures 04/13/17 07/13/17 History atorvastatin 20 mg tablet 20 mg PO QHS #90 tabs 12/12/22 Unknown Rx duloxetine 60 mg capsule,delayed 90 mg PO DAILY 12/15/22 Unknown History release carvedilol 25 mg tablet 25 mg PO BID #180 tabs 05/02/24 Unknown Rx clonidine HCl 0.1 mg tablet 0.05 mg PO BID PRN PRN anxiety 04/27/25 Unknown History gabapentin 300 mg capsule 300 mg PO TID 30 days #90 caps 04/27/25 Unknown Rx pantoprazole 40 mg tablet,delayed 40 mg PO BID 3 months #180 tabs 06/30/25 Unknown Rx release buprenorphine 15 mcg/hour weekly 1 patch transdermal QWEEK 07/12/25 Unknown History transdermal patch (Butrans) Held on 07/12/25. Instructions: states her sister lost them Allergy/AdvReac Type Severity Reaction Status Date / Time NSAIDS (Non-Steroidal AdvReac Diarrhea Verified 07/12/25 23:51 Anti-Inflamma tramadol HCl (From Ultram) AdvReac Diarrhea Verified 07/12/25 23:51 Family History Mother Diabetes Cancer Father COPD (chronic obstructive pulmonary disease) Diabetes Sister Diabetes Surgical History History of partial hysterectomy History of bilateral cataract extraction History of total left knee replacement History of carpal tunnel release History of shoulder surgery History of foot surgery History of arthroscopy of both knees History of cholecystectomy History of hysterectomy Social History Smoking Status: Current every day smoker tobacco type: cigarettes alcohol intake: current details: occasional substance use type: does not use ROS ROS ED Constitutional Constitutional ED: Denies chills or fever(s) Eyes Eyes: Denies blurry vision or change in vision ENT ENT ED: Denies rhinorrhea or sore throat Cardiovascular Cardiovascular: Denies chest pain or palpitations Respiratory/Chest Respiratory/Chest: Denies cough or dyspnea Gastrointestinal Gastrointestinal: Denies nausea or vomiting Genitourinary Genitourinary ED: Denies dysuria or hematuria Musculoskeletal Musculoskeletal: Denies back pain or neck pain Integumentary Denies abscess or rash Neurologic Neurologic: Denies headache(s) or weakness Allergic/Immunologic Allergic/Immunologic ED: Denies mouth swelling or urticaria EXAM Physical Exam Const Vital Signs: 07/12/25 23:51 Temperature 98.4 F Temperature Source Oral Pulse Rate 85 Respiratory Rate 20 H Blood Pressure 103/81 H Blood Pressure Mean 88 Pulse Ox 99 Positive well nourished and well developed Constitutional Narrative: BMI is 26.2. General Appearance ED: well developed and NAD HEENT Reports moist mucous membranes Neck full ROM and supple Extremity Extremity Narrative: There is tenderness and mild effusion over the right knee. Range of motion was limited in all motions of the right knee secondary to pain. There is guarding on examination. There is no bony crepitance or step-off. There is no obvious deformity noted. Extensor mechanism is intact. Strength is 5/5 bilaterally in lower extremities. There are no sensory deficits noted. Neuro oriented x3, CN's II-XII intact bilaterally, moves all extremities and no sensory deficits noted Sensorium / Orientation: alert Motor Exam: strength 5/5 throughout Psych mental status grossly normal MDM MDM MDM Narrative Medical decision making narrative: Differential diagnose include sprain, fracture, and contusion. X-rays of the right knee will be obtained to assess for fracture. History & Record Review Additional record(s) reviewed:: Prior outpatient record, Prior ED visit and Prior labs Radiography Diagnostic Testing: X-rays of the right knee were obtained. There are 4 views. On my independent interpretation, there is no acute fracture. There are some degenerative changes noted. Radiologist also interpreted the x-rays and agrees. Treatment and Re-Evaluation Narrative: Patient was given injection of morphine here. Patient was advised of her findings. Patient was instructed to ice and elevate the right knee. Patient was instructed to continue her pain medications as previously prescribed. Patient was instructed to follow-up with her primary care physician in 5 to 7 days. Patient understood and was agreeable with the plan. All questions were answered. Discharge Plan Triage Chief Complaint: Lower Extremity Injury ED Provider: Chuy Irving Dx/Rx/DC Orders Clinical Impression: Right knee sprain, Tobacco use Instructions: ED Knee Sprain Prescriptions: No Action duloxetine 60 mg capsule,delayed release(DR/EC) 90 mg PO DAILY Patient Comments: DEPRESSION lamotrigine 25 MG tablet 50 mg PO BID clonidine HCl 0.1 mg tablet 0.05 mg PO BID PRN PRN (Reason: anxiety) gabapentin 300 mg capsule 300 mg PO TID 30 Days Qty: 90 0RF buprenorphine [Butrans] 15 mcg/hour patch weekly 1 patch transdermal QWEEK atorvastatin 20 mg tablet 20 mg PO QHS Qty: 90 3RF carvedilol 25 mg tablet 25 mg PO BID Qty: 180 3RF Rx Instructions: must administer with a meal/food pantoprazole 40 mg tablet,delayed release (DR/EC) 40 mg PO BID 90 Days Qty: 180 1RF Primary Care Provider: Chuy Meng Referrals: Chuy Meng MD [Primary Care Provider, Family Practice] - 5-7 Days Print Language: Georgian Disposition Disposition: Home, Self Care
--- OUTSIDE RECORDS SUMMARY | 2025-07-13 00:13 | XMS RPT_ITS | CCD ---
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 Comment on above: Order Comment: Y Performed By: #### L 101.9900, L503.6005, L100.0100, L501.6710 #### [facility] [address] [place], [address] MCV (mean corpuscular volume ) determinationOrdered By: Geoff Marte on 04-27-2025 MCV (RBC) [Entitic vol] 86.1 fL 81-99 [facility] Mean corpuscular hemoglobin (MCH) determinationOrdered By: Geoff Marte on 04-27-2025 MCH (RBC) [Entitic mass] 29.6 pg 27.0-32.0 [facility] Mean corpuscular hemoglobin concentration (MCHC) determinationOrdered By: Geoff Marte on 04-27-2025 MCHC (RBC) [Mass/Vol] 34.3 g/dL 32-36 [facility] Mean platelet volume determi nationOrdered By: Geoff Marte on 04-27-2025 Platelet mean volume (Bld) [Entitic vol] 9.8 fL 6.2-12.0 [facility] Monocyte percentageOrdered B y: Geoff Marte on 04-27-2025 Monocytes/100 WBC (Bld) 6.5 % 0-10 [facility] Neutrophil percentageOrdered By: Geoff Marte on 04-27-2025 Neutrophils/100 WBC (Bld) 43.5 % Low 47-70 [facility] Nucleated red blood cell per centageOrdered By: Geoff Marte on 04-27-2025 Nucleated RBC/100 WBC (Bld) [Ratio] 0 % 0-5 [facility] Platelet countOrdered By: Elizabeth Marte on 04-27-2025 Platelets (Bld) [#/Vol] 394 10*3/uL 150-450 [facility] RBC Auto (Bld) [#/Vol]Ordere d By: Geoff Marte on 04-27-2025 RBC (Bld) [#/Vol] 4.67 10*6/uL 4.2-5.4 [facility] Serum or plasma C reactive p rotein measurement (mass/volume)Ordered By: Geoff Marte on 04-27-2025 CRP [Mass/Vol] mg/L 0.0-3.0 [facility] White blood cell (WBC) count Ordered By: Geoff Marte on 04-27-2025 WBC (Bld) [#/Vol] 9.4 10*3/uL 4.4-11.[address] [facility] [address] [facility] CNCOon 01-16-2025 CNCO Letter Text Normal [facility] CNPNon 11-12-2024 CNPN Telephone (PODIWS) MARILU GUNTER ([id number]) 1960 F Date Time Provider Department 11/12/24 CARYN ROE During your visit today, we recorded the following information about you: Luis Alberto Horan, RN 11/12/2024 12:10 PM Signed Pt reports [...] Reports pain management, Dr. Rush (ph # [phone]) took an xray of her foot yesterday. Pt has not received the results yet. Dr. 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 Ara Hatfiled LPN 11/12/2024 3:22 PM Signed 's office [...] by Luis Alberto HORAN on 11/22/24 Normal [facility] XR Foot Left complete 3 plus viewson [...] RICARDO MEZA DO, MD Date: 11/12/2024 10:33 [facility] Basophil percentageon 2021 Chloride [Moles/Vol] 108 mmol/L 98-107 [facility] Work Phone: Glucose [Mass/Vol] 118 mg/dL 74-106 [facility] Work Phone: [phone] Comment on above: Fasting Glucose resu lt from 100 to 125 mg/dL suggests IMPAIRED HOMEOSTASIS per A.D.A. criteria. Potassium [Moles/Vol] 3.8 mmol/L 3.5-5.1 [facility] Work Phone: [phone] Sodium [Moles/Vol] 142 mmol/L 136-145 [facility] Work Phone: [phone] WBC (Bld) [#/Vol] 8.0 10*3/uL 4.4-11.0 [facility] Work Phone: [phone] Blood erythrocytes count (nu mber/volume)on 08-09-2022 RBC (Bld) [#/Vol] 4.39 10*6/uL 4.2-5.4 [facility] Work Phone: [phone] Blood hemoglobin measurement (mass/volume)on 08-09-2022 Hemoglobin (Bld) [Mass/Vol] 12.2 g/dL 12.0-15.0 [facility] Work Phone: [phone] Blood platelet mean volumeon 08-09-2022 Platelet mean volume (Bld) [Entitic vol] 9.4 fL 6.2-12.0 [facility] Work Phone: [phone] Determination of erythrocyte mean corpuscular volume (MCV)on 08-09-2022 MCV (RBC) [Entitic vol] 85.6 fL 81-99 [facility] Work Phone: [phone] Hematocrit Auto (Bld) [Volum e fraction]on 08-09-2022 Hematocrit (Bld) [Volume fraction] 37.6 % 37-47 [facility] Work Phone: [phone] Laboratory - Chemistry and C hemistry - challengeon 08-09-2022 CO2 [Moles/Vol] 30.0 mmol/L 21.0-32.0 [facility] Work Phone: Magnesium [Mass/Vol] 2.3 mg/dL 1.6-2.6 [facility] Work Phone: Urea nitrogen/Creatinine [Mass ratio] 9.7 mg/mg 10-20 [facility] Work Phone: [phone] Laboratory - Hematology and Cell countson 08-09-2022 Erythrocyte distribution width (RBC) [Entitic vol] 42.9 fL 35.1-43.9 [facility] Work Phone: Erythrocyte distribution width (RBC) [Ratio] 13.8 % 11.6-14.6 [facility] Work Phone: MCH (RBC) [Entitic mass] 27.8 pg 27.0-32.0 [facility] Work Phone: MCHC Auto (RBC) [Mass/Vol]on 08-09-2022 MCHC (RBC) [Mass/Vol] 32.4 g/dL 32-36 [facility] Work Phone: No Panel Informationon 08-09 Estimated GFR (MDRD) Amer 90 mL/min >60 [facility] Work Phone: Comment on above: GFR Calc Estimated GFR (MDRD) Non-Af Amer 75 mL/min >60 [facility] Work Phone: Comment on above: Non- GFR Calc Platelets bldon 08-09-2022 Platelets (Bld) [#/Vol] 314 10*3/uL 150-450 [facility] Work Phone: Serum or plasma calcium anupam urement (mass/volume)on 08-09-2022 Calcium [Mass/Vol] 9.1 mg/dL 8.5-10.1 [facility] Work Phone: [phone] Serum or plasma creatinine m easurement (mass/volume)on 08-09-2022 Creatinine [Mass/Vol] 0.83 mg/dL 0.55-1.02 [facility] Work Phone: Comment on above: The validity of the calculated GFR & GFRAA in patients over 70 years has not been determined. Clinical correlation is essential. Serum or plasma urea nitroge n measurement (mass/volume)on 08-09-2022 Urea nitrogen [Mass/Vol] 8 mg/dL 7-18 [facility] Work Phone: Thin prep Papanicolaou smear with manual screeningon 08-09-2022 Thin prep Papanicolaou smear with manual screening 4 5-15 [facility] Work Phone: Absolute lymphocyte counton 02-16-2022 Lymphocytes Auto (Unsp spec) [#/Vol] 5.30 10*3/uL 0.83-4.51 [facility] Work Phone: Basophil percentageon 2021 Basophils/100 WBC (Bld) 0.4 % 0-1 [facility] Work Phone: Chloride [Moles/Vol] 103 mmol/L 98-107 [facility] Work Phone: Eosinophils/100 WBC (Bld) 1.4 % 0-5 [facility] Work Phone: Glucose [Mass/Vol] 133 mg/dL 74-106 [facility] Work Phone: Comment on above: Fasting Glucose resu lt greater than or equal to 126 mg/dL suggests DIABETES MELLITUS per A.D.A. criteria. Neutrophils (Bld) [#/Vol] 3.8 10*3/uL 2.0-7.7 [facility] Work Phone: Neutrophils/100 WBC (Bld) 38.4 % 47-70 [facility] Work Phone: Potassium [Moles/Vol] 3.7 mmol/L 3.5-5.1 [facility] Work Phone: Sodium [Moles/Vol] 135 mmol/L 136-145 [facility] Work Phone: WBC (Bld) [#/Vol] 10.0 10*3/uL 4.4-11.0 [facility] Work Phone: [phone] Blood erythrocytes count (nu mber/volume)on 02-16-2022 RBC (Bld) [#/Vol] 4.47 10*6/uL 4.2-5.4 [facility] Work Phone: [phone] Blood hemoglobin measurement (mass/volume)on 02-16-2022 Hemoglobin (Bld) [Mass/Vol] 12.5 g/dL 12.0-15.0 [facility] Work Phone: [phone] Blood lymphocytes/100 leukoc yteson 02-16-2022 Lymphocytes/100 WBC (Bld) 52.9 % 19-41 [facility] Work Phone: [phone] Blood monocytes/100 leukocyt eson 02-16-2022 Monocytes/100 WBC (Bld) 6.6 % 0-10 [facility] Work Phone: [phone] Blood platelet mean volumeon 02-16-2022 Platelet mean volume (Bld) [Entitic vol] 9.8 fL 6.2-12.0 [facility] Work Phone: [phone] Determination of erythrocyte mean corpuscular volume (MCV)on 02-16-2022 MCV (RBC) [Entitic vol] 85.9 fL 81-99 [facility] Work Phone: [phone] Hematocrit Auto (Bld) [Volum e fraction]on 02-16-2022 Hematocrit (Bld) [Volume fraction] 38.4 % 37-47 [facility] Work Phone: [phone] Laboratory - Chemistry and C hemistry - challengeon 02-16-2022 CO2 [Moles/Vol] 26.0 mmol/L 21.0-32.0 [facility] Work Phone: [phone] Magnesium [Mass/Vol] 1.9 mg/dL 1.6-2.6 [facility] Work Phone: [phone] Urea nitrogen/Creatinine [Mass ratio] 12.1 mg/mg 10-20 [facility] Work Phone: [phone] Laboratory - Hematology and Cell countson 02-16-2022 Erythrocyte distribution width (RBC) [Entitic vol] 39.9 fL 35.1-43.9 [facility] Work Phone: [phone] Erythrocyte distribution width (RBC) [Ratio] 12.8 % 11.6-14.6 [facility] Work Phone: [phone] Immature granulocytes/100 WBC (Bld) 0.300 % 0.0-0.9 [facility] Work Phone: [phone] Comment on above: IG% - Immature Granu locytes (promyelocytes, myelocytes and metamyelocytes) > 1% indicates that a LEFT SHIFT is Present. MCH (RBC) [Entitic mass] 28.0 pg 27.0-32.0 [facility] Work Phone: [phone] Nucleated RBC/100 WBC (Bld) [Ratio] 0 % 0-5 [facility] Work Phone: [phone] MCHC Auto (RBC) [Mass/Vol]on 02-16-2022 MCHC (RBC) [Mass/Vol] 32.6 g/dL 32-36 [facility] Work Phone: [phone] No Panel Informationon 02-16 Troponin I High Sensitivity < 3 pg/mL 3.0-54.0 [facility] Work Phone: [phone] Comment on above: Please Note: New Poppy t Units and Gender Specific Reference Ranges. For more information see Policy Stat Procedure Duff High Sensitivity Troponin (TNIH) and attachments. Atypical Lymphocytes 1+ % [facility] Work Phone: [phone] D-Dimer Quantitative (PE/DVT) < 0.27 FEU/ug/m 0.27-0.49 [facility] Work Phone: [phone] Comment on above: NORMAL D-Dimer level (<0.50) indicates no DVT or PE. Estimated Creatinine Clearance Calc 59.16 ml/min [facility] Work Phone: [phone] Estimated GFR (MDRD) Amer 81 mL/min >60 [facility] Work Phone: [phone] Comment on above: GFR Calc Estimated GFR (MDRD) Non-Af Amer 67 mL/min >60 [facility] Work Phone: Comment on above: Non- GFR Calc Thyroid Stimulating Hormone (TSH) 2.02 uIU/mL 0.358-3.74 [facility] Work Phone: Platelets bldon 02-16-2022 Platelets (Bld) [#/Vol] 395 10*3/uL 150-450 [facility] Work Phone: Serum or plasma calcium anupam urement (mass/volume)on 02-16-2022 Calcium [Mass/Vol] 9.2 mg/dL 8.5-10.1 [facility] Work Phone: Serum or plasma creatinine m easurement (mass/volume)on 02-16-2022 Creatinine [Mass/Vol] 0.91 mg/dL 0.55-1.02 [facility] Work Phone: Comment on above: The validity of the calculated GFR & GFRAA in patients over 70 years has not been determined. Clinical correlation is essential. Serum or plasma urea nitroge n measurement (mass/volume)on 02-16-2022 Urea nitrogen [Mass/Vol] 11 mg/dL 7-18 [facility] Work Phone: Thin prep Papanicolaou smear with manual screeningon 02-16-2022 Thin prep Papanicolaou smear with manual screening 6 5-15 [facility] Work Phone: Absolute lymphocyte counton 10-06-2021 Lymphocytes Auto (Unsp spec) [#/Vol] 2.86 10*3/uL 0.83-4.51 [facility] Work Phone: Basophil percentageon 2021 Basophils/100 WBC (Bld) 0.7 % 0-1 [facility] Work Phone: Eosinophils/100 WBC (Bld) 1.2 % 0-5 [facility] Work Phone: Neutrophils (Bld) [#/Vol] 3.7 10*3/uL 2.0-7.7 [facility] Work Phone: Neutrophils/100 WBC (Bld) 51.7 % 47-70 [facility] Work Phone: [phone] WBC (Bld) [#/Vol] 7.3 10*3/uL 4.4-11.0 [facility] Work Phone: Bilirubin [Mass/Vol] 0.20 mg/dL 0.20-1.00 [facility] Work Phone: [phone] Comment on above: For patients on eltr ombopag therapy, use of Dimension Duff TBIL is not recommended. Chloride [Moles/Vol] 104 mmol/L 98-107 [facility] Work Phone: Cholesterol [Mass/Vol] 243 mg/dL <200 [facility] Work Phone: Comment on above: <200 mg/dL Desirable 200-240 mg/dL Borderline >240 mg/dL High Risk Glucose [Mass/Vol] 114 mg/dL 74-106 [facility] Work Phone: Comment on above: Fasting Glucose resu lt from 100 to 125 mg/dL suggests IMPAIRED HOMEOSTASIS per A.D.A. criteria. Potassium [Moles/Vol] 3.6 mmol/L 3.5-5.1 [facility] Work Phone: [phone] Protein [Mass/Vol] 7.6 g/dL 6.4-8.2 [facility] Work Phone: Sodium [Moles/Vol] 137 mmol/L 136-145 [facility] Work Phone: Triglyceride [Mass/Vol] 117 mg/dL [facility] Work Phone: Comment on above: The drugs N-Acetylcy steine and Metamizole may falsely depress this assay.Serum Triglycerides Reference Interval Normal <150 mg/dL Borderline high 150 - 199 mg/dL High 200 - 499 mg/dL Very High > or = 500 mg/dL Blood erythrocytes count (nu mber/volume)on 10-06-2021 RBC (Bld) [#/Vol] 4.25 10*6/uL 4.2-5.4 [facility] Work Phone: Blood hemoglobin measurement (mass/volume)on 10-06-2021 Hemoglobin (Bld) [Mass/Vol] 11.6 g/dL 12.0-15.0 [facility] Work [phone] Blood lymphocytes/100 leukoc yteson 10-06-2021 Lymphocytes/100 WBC (Bld) 39.4 % 19-41 [facility] Work Phone: [phone] Blood monocytes/100 leukocyt eson 10-06-2021 Monocytes/100 WBC (Bld) 6.6 % 0-10 [facility] Work Phone: [phone] Blood platelet mean volumeon 10-06-2021 Platelet mean volume (Bld) [Entitic vol] 9.1 fL 6.2-12.0 [facility] Work Phone: [phone] Determination of erythrocyte mean corpuscular volume (MCV)on 10-06-2021 MCV (RBC) [Entitic vol] 85.2 fL 81-99 [facility] Work Phone: Direct bilirubinon Bilirubin.direct [Mass/Vol] mg/dL 0.00-0.30 [facility] Work Phone: [phone] Hematocrit Auto (Bld) [Volum e fraction]on 10-06-2021 Hematocrit (Bld) [Volume fraction] 36.2 % 37-47 [facility] Work Phone: [phone] Laboratory - Chemistry and C hemistry - challengeon 10-06-2021 ALP [Catalytic activity/Vol] 114 U/L 45-117 [facility] Work Phone: [phone] ALT [Catalytic activity/Vol] 13 U/L 13-56 [facility] Work Phone: [phone] CO2 [Moles/Vol] 28.0 mmol/L 21.0-32.0 [facility] Work Phone: [phone] Globulin (S) [Mass/Vol] 4.2 g/dL 2.2-4.2 [facility] Work Phone: [phone] Urea nitrogen/Creatinine [Mass ratio] 8.7 mg/mg 10-20 [facility] Work Phone: [phone] Laboratory - Hematology and Cell countson 10-06-2021 Erythrocyte distribution width (RBC) [Entitic vol] 42.6 fL 35.1-43.9 [facility] Work Phone: [phone] Erythrocyte distribution width (RBC) [Ratio] 13.7 % 11.6-14.6 [facility] Work Phone: [phone] Immature granulocytes/100 WBC (Bld) 0.400 % 0.0-0.9 [facility] Work Phone: [phone] Comment on above: IG% - Immature Granu locytes (promyelocytes, myelocytes and metamyelocytes) > 1% indicates that a LEFT SHIFT is Present. MCH (RBC) [Entitic mass] 27.3 pg 27.0-32.0 [facility] Work Phone: [phone] Nucleated RBC/100 WBC (Bld) [Ratio] 0 % 0-5 [facility] Work Phone: [phone] MCHC Auto (RBC) [Mass/Vol]on 10-06-2021 MCHC (RBC) [Mass/Vol] 32.0 g/dL 32-36 [facility] Work Phone: No Panel Informationon 10-06 Estimated GFR (MDRD) Amer 81 mL/min >60 [facility] Work Phone: [phone] Comment on above: GFR Calc Estimated GFR (MDRD) Non-Af Amer 67 mL/min >60 [facility] Work Phone: [phone] Comment on above: Non- GFR Calc Thyroid Stimulating Hormone (TSH) 1.22 uIU/mL 0.358-3.74 [facility] Work Phone: Platelets bldon 10-06-2021 Platelets (Bld) [#/Vol] 357 10*3/uL 150-450 [facility] Work Phone: [phone] Serum or plasma albumin anupam urement (mass/volume)on 10-06-2021 Albumin [Mass/Vol] 3.4 g/dL 3.2-5.0 [facility] Work Phone: Serum or plasma albumin/glob ulin mass ratioon 10-06-2021 Albumin/Globulin [Mass ratio] 0.8 {ratio} 0.9-2.4 [facility] Work Phone: Serum or plasma calcium anupam urement (mass/volume)on 10-06-2021 Calcium [Mass/Vol] 8.5 mg/dL 8.5-10.1 [facility] Work Phone: Serum or plasma cholesterol in HDL measurement (mass/volume)on 10-06-2021 Cholesterol in HDL [Mass/Vol] 70 mg/dL [facility] Work Phone: Comment on above: The drugs N-Acetylcy steine and Metamizole may falsely depress this assay. Reference Range HDL <40 mg/dL Low HDL Cholesterol HDL >or= 60 mg/dL High HDL Cholesterol Serum or plasma cholesterol in VLDL measurement (mass/volume)on 10-06-2021 Cholesterol in VLDL [Mass/Vol] 23 mg/dL 5-40 [facility] Work Phone: Serum or plasma creatinine m easurement (mass/volume)on 10-06-2021 Creatinine [Mass/Vol] 0.92 mg/dL 0.55-1.02 [facility] Work Phone: Comment on above: The validity of the calculated GFR & GFRAA in patients over 70 years has not been determined. Clinical correlation is essential. Serum or plasma low density lipoprotein (LDL) cholesterol measurement (mass/volume)on 10-06-2021 Cholesterol in LDL [Mass/Vol] 150 mg/dL 0-130 [facility] Work Phone: Serum or plasma urea nitroge n measurement (mass/volume)on 10-06-2021 Urea nitrogen [Mass/Vol] 8 mg/dL 7-18 [facility] Work Phone: Thin prep Papanicolaou smear with manual screeningon 10-06-2021 Thin prep Papanicolaou smear with manual screening 9 U/L 1537 [facility] Work Phone: Thin prep Papanicolaou smear with manual screening 5 5-15 [facility] Work Phone: PROGRESSon 01-15-2018 [facility] NOTES Normal [facility] XR KNEE LEFT 4+ VIEWS (SPECI FY [...] MonAug 02, 2017 5:04:03 PM EST Normal [facility] XR Knee Left 4+ Views (Note in Comments)on 08-02-2017 XR Knee Left 4+ Views (Note in Comments) 4 views left knee reveals a patella fracture near the superior pole about 25% from the top is nondisplaced and minimal degenerative arthritis only Invalid Interpretation Code FUJI SYNAPSE [facility] Vital Signs Date Time Vital Sign Value Performing Clinician Facility 05-17-2025 03:41-0400 Body temperature 98.1 [degF] Dr. Geoff Marte DO Work Phone: [facility] 05-17-2025 03:41-0400 Diastolic blood pressure 67 mm[Hg] Dr. Geoff Marte DO Work Phone: [facility] 05-17-2025 03:41-0400 Heart rate 77 /min Dr. Geoff Marte DO Work Phone: [facility] 05-17-2025 03:41-0400 Respiratory rate 16 /min Dr. Geoff Marte DO Work Phone: [facility] 05-17-2025 03:41-0400 SaO2% (BldA) [Mass fraction] 97 % Dr. Geoff Marte DO Work Phone: [facility] 05-17-2025 03:41-0400 Systolic blood pressure 116 mm[Hg] Dr. Geoff Marte DO Work Phone: [facility] 05-17-2025 00:35-0400 Body height 165.[address] Geoff Marte DO Work Phone: [phone] [place] [address] 05-17-2025 00:35-0400 Body mass index (BMI) [Ratio] 26.2 kg/m2 Dr. Geoff Marte DO Work Phone: [phone] [place] [address] 05-17-2025 00:35-0400 Body weight 71.[address] Geoff Marte DO Work Phone: [phone] [place] [address] 04-30-2025 11:21-0400 Body height 165.[address] Geoff Marte DO Work Phone: [phone] [place] [address] 04-30-2025 11:21-0400 Body mass index (BMI) [Ratio] 25.7 kg/m2 Dr. Geoff Marte DO Work Phone: [phone] [place] [address] 04-30-2025 11:21-0400 Body weight 70.[address] Geoff Marte DO Work Phone: [phone] [place] [address] 04-27-2025 05:44-0400 Body temperature 98.9 [degF] Dr. Geoff Marte DO Work Phone: [phone] [place] [address] 04-27-2025 05:44-0400 Diastolic blood pressure 83 mm[Hg] Dr. Geoff Marte DO Work Phone: [phone])969-921170 [place] [address] 04-27-2025 05:44-0400 Heart rate 88 /min Dr. Geoff Marte DO Work Phone: [phone] [place] [address] 04-27-2025 05:44-0400 Respiratory rate 16 /min Dr. Geoff Marte DO Work Phone: [phone] [place] [address] 04-27-2025 05:44-0400 SaO2% (BldA) [Mass fraction] 100 % Dr. Geoff Marte DO Work Phone: [phone] [place] [address] 04-27-2025 05:44-0400 Systolic blood pressure 133 mm[Hg] Dr. Geoff Marte DO Work Phone: [facility] 04-27-2025 02:48-0400 Body height 165.[address] Geoff Marte DO Work Phone: [facility] 04-27-2025 02:48-0400 Body mass index (BMI) [Ratio] 25.8 kg/m2 Dr. Geoff Marte DO Work Phone: [facility] 04-27-2025 02:48-0400 Body weight 70.[address] Geoff Marte DO Work Phone: [facility] 12-15-2022 09:06-0400 Body height 165.1 cm [facility] Work Phone: [phone] [address] 12-15-2022 09:00-0400 Body mass index (BMI) [Ratio] 28.4 kg/m2 [facility] Work Phone: [phone] [place] [address] 12-15-2022 09:00-0400 Body weight 77.56 kg [facility] Work Phone: [phone] [place] [address] 12-15-2022 09:00-0400 Diastolic blood pressure 63 mm[Hg] [facility] Work Phone: [phone] [place] [address] 12-15-2022 09:00-0400 Heart rate 76 /min [facility] Work Phone: [phone] [place] [address] 12-15-2022 09:00-0400 Respiratory rate 18 /min [facility] Work Phone: [phone] [place] [address] 12-15-2022 09:00-0400 SaO2% (BldA) [Mass fraction] 98 % [facility] Work Phone: [phone] [place] [address] 12-15-2022 09:00-0400 Systolic blood pressure 104 mm[Hg] [facility] Work Phone: [phone])296-345989 [place] [address] 06-27-2022 19:18-0400 Body height 165.1 cm [facility] Work Phone: [facility] Work Phone: 06-27-2022 19:18-0400 Body mass index (BMI) [Ratio] 27.2 kg/m2 [facility] Work Phone: [facility] Work Phone: 06-27-2022 19:18-0400 Body temperature 96.4 [degF] [facility] Work Phone: [facility] Work Phone: 06-27-2022 19:18-0400 Body weight 74.3 kg [facility] Work Phone: [facility] Work Phone: 06-27-2022 19:18-0400 Diastolic blood pressure 79 mm[Hg] [facility] Work Phone: [facility] Work Phone: 06-27-2022 19:18-0400 Heart rate 78 /min [facility] Work Phone: [facility] Work Phone: 06-27-2022 19:18-0400 Respiratory rate 16 /min [facility] Work Phone: [facility] Work Phone: 06-27-2022 19:18-0400 SaO2% (BldA) [Mass fraction] 100 % [facility] Work Phone: [facility] Work Phone: 06-27-2022 19:18-0400 Systolic blood pressure 150 mm[Hg] [facility] Work Phone: [facility] Work Phone: 06-01-2022 17:50-0400 Body height 165.1 cm [facility] Work Phone: [facility] Work Phone: 06-01-2022 17:50-0400 Body mass index (BMI) [Ratio] 26.4 kg/m2 [facility] Work Phone: [facility] Work Phone: 06-01-2022 17:50-0400 Body temperature 97.8 [degF] [facility] Work Phone: [facility] Work Phone: 06-01-2022 17:50-0400 Body weight 72 kg [facility] Work Phone: [facility] Work Phone: 06-01-2022 17:50-0400 Diastolic blood pressure 80 mm[Hg] [facility] Work Phone: [facility] Work Phone: 06-01-2022 17:50-0400 Heart rate 82 /min [facility] Work Phone: [facility] Work Phone: 06-01-2022 17:50-0400 Respiratory rate 17 /min [facility] Work Phone: [facility] Work Phone: 06-01-2022 17:50-0400 SaO2% (BldA) [Mass fraction] 100 % [facility] Work Phone: [facility] Work Phone: 06-01-2022 17:50-0400 Systolic blood pressure 121 mm[Hg] [facility] Work Phone: [facility] Work Phone: 02-16-2022 06:00-0400 Diastolic blood pressure 78 mm[Hg] [facility] Work Phone: [facility] Work Phone: 02-16-2022 06:00-0400 Heart rate 78 /min [facility] Work Phone: [facility] Work Phone: 02-16-2022 06:00-0400 Respiratory rate 16 /min [facility] Work Phone: [facility] Work Phone: 02-16-2022 06:00-0400 SaO2% (BldA) [Mass fraction] 96 % [facility] Work Phone: [facility] Work Phone: 02-16-2022 06:00-0400 Systolic blood pressure 126 mm[Hg] [facility] Work Phone: [facility] Work Phone: 02-16-2022 02:16-0400 Body height 165.1 cm [facility] Work Phone: [facility] Work Phone: 02-16-2022 02:16-0400 Body mass index (BMI) [Ratio] 26.6 kg/m2 [facility] Work Phone: [facility] Work Phone: 02-16-2022 02:16-0400 Body temperature 98.1 [degF] [facility] Work Phone: [facility] Work Phone: 02-16-2022 02:16-0400 Body weight 72.6 kg [facility] Work Phone: [facility] Work Phone: 09-23-2021 13:03-0500 Body height 165.1 cm No Primary Care Physician [facility] Work Phone: 09-23-2021 13:03-0500 Body mass index (BMI) [Ratio] 23.9 kg/m2 No Primary Care Physician [facility] Work Phone: 09-23-2021 13:03-0500 Body weight 65.31 kg No Primary Care Physician [facility] Work Phone: 09-23-2021 13:03-0500 Diastolic blood pressure 60 mm[Hg] No Primary Care Physician [facility] Work Phone: 09-23-2021 13:03-0500 Heart rate 84 /min No Primary Care Physician [facility] Work Phone: 09-23-2021 13:03-0500 Respiratory rate 20 /min No Primary Care Physician [facility] Work Phone: 09-23-2021 13:03-0500 Systolic blood pressure 130 mm[Hg] No Primary Care Physician [facility] Work Phone: 08-02-2017 14:15-0500 BMI (Body Mass Index) 25.79 kg/m2 Torey Flores [facility] Work Phone: 08-02-2017 14:15-0500 Height 165.1 cm Torey Flores [facility] Work Phone: 08-02-2017 14:15-0500 Weight 70.31 kg Torey Flores [facility] Work Phone: Encounters Encounter Date Encounter Type Care Provider Facility Start: 07-15-2025 ambulatory GANGA CLARKE MD~[id number] [facility] Start: 05-28-2025 End: 05-28-2025 ambulatory GANGA SCHULER MD~[id number] [facility] Start: 05-17-2025 End: 05-17-2025 Emergency department patient visit Dr. Geoff Marte DO Work Phone: -Emergency Department Work Phone: Start: 05-16-2025 ambulatory Chuy Meng [facility] Facility [facility] Start: 04-30-2025 End: 04-30-[address] Geoff Marte DO Work Phone: -[facility] Start: 04-30-2025 End: 04-30-2025 Patient encounter procedure [facility] Work Phone: Start: 04-27-2025 End: 04-27-2025 Emergency department patient visit Dr. Geoff Marte DO Work Phone: -Emergency Department Work Phone: Start: 01-29-2025 End: 01-29-2025 ambulatory TABATHA MAYS MD~[id number] [facility] Start: 01-23-2025 ambulatory GANGA CLARKE MD~[id number] [facility] Start: 01-14-2025 ambulatory Suniat Richard Steve ty:[facility] Start: 11-27-2024 End: 11-27-2024 ambulatory GANGA SCHULER MD~[id number] [facility] Start: 11-12-2024 End: 11-22-2024 Telephone encounter Caryn Roe Work Phone: Podiatry Comment on above: Patient Update Start: 11-11-2024 End: 11-11-2024 ambulatory NO PCP AA NO PCP [facility] Start: 09-09-2024 ambulatory Carlos Mollison Facility :[facility] Start: 08-01-2024 ambulatory Carlos Mollison Facility :[facility] Start: 07-23-2024 End: 07-23-2024 ambulatory Carlos Mollison Facility:[facility] Start: 10-20-2023 End: 10-20-2023 Patient encounter procedure HAYDEE ESCOTO MD [facility] Start: 10-13-2023 ambulatory HAYDEE ESCOTO MD Facility :[facility] Start: 02-09-2023 End: 02-09-2023 ambulatory [facility] Work Phone: [facility] Work Phone: Start: 02-09-2023 End: 02-09-2023 Patient encounter procedure [facility] Work Phone: [facility]-Pulmonary Services/Neurology Start: 12-15-2022 End: 12-15-2022 Patient encounter procedure [facility] Work Phone: [facility] Start: 08-09-2022 End: 08-09-2022 ambulatory [facility] Work Phone: [facility] Work Phone: Start: 08-09-2022 End: 08-09-2022 Patient encounter procedure [facility] Work Phone: [facility]-Laboratory Start: 08-04-2022 Patient encounter procedure [facility] Work Phone: [facility]-P[facility] Services/Neurology Start: 07-12-2022 Non-patient / Non-visit [facility] Work Phone: [facility] Start: 06-27-2022 End: 06-27-2022 Emergency department patient visit [facility] Work Phone: [facility]-Emergency Department Start: 06-01-2022 End: 06-01-2022 Emergency department patient visit [facility] Work Phone: [facility]-Emergency Department Start: 03-31-2022 End: 03-31-2022 Patient encounter procedure [facility] Work Phone: [facility] Start: 02-16-2022 End: 02-16-2022 Emergency department patient visit [facility] Work Phone: [facility]-Emergency Department Start: 02-07-2022 End: 02-07-2022 Patient encounter procedure [facility] Work Phone: [facility]-Cardiovascular Services Start: 01-13-2022 Non-patient / Non-visit No Primary Care Physician [facility] Start: 01-13-2022 End: 01-13-2022 Patient encounter procedure No Primary Care Physician [facility]-Cardiovascular Services Start: 11-23-2021 End: 11-23-2021 Patient encounter procedure No Primary Care Physician [facility] Start: 10-26-2021 Non-patient / Non-visit No Primary Care Physician [facility] Start: 10-26-2021 End: 10-26-2021 Patient encounter procedure No Primary Care Physician [facility]-Cardiovascular Services Start: 10-06-2021 End: 10-06-2021 Patient encounter procedure No Primary Care Physician [facility]-Laboratory Start: 09-23-2021 End: 09-23-2021 Patient encounter procedure No Primary Care Physician [facility] Start: 01-15-2018 Ambulatory [facility] Start: 11-15-2017 End: 11-15-2017 Ambulatory Cisco Murillo Facility:[facility] Start: 10-03-2017 End: 10-04-2017 Ambulatory Cisco Murillo Facility:[facility] Start: 09-22-2017 End: 09-23-2017 Ambulatory Cisco Murillo Facility:[facility] Start: 08-19-2017 End: 08-19-2017 Ambulatory Cisco Murillo Facility:[facility] Start: 08-03-2017 Ambulatory CELY GA [facility] Ambulatory Start: 08-02-2017 End: 08-02-2017 Ambulatory TOREY FLORES [facility] Ambulato ry Start: 08-02-2017 Office outpatient ne w 30 minutes Torey Flores Work Phone: [facility] Procedures Date Procedure Procedure Detail Performing Clinician Start: 04-27-2025 X-ray of knee, four or more views Dr. Geoff Marte DO Work Phone: Start: 06-27-2022 Plain x-ray of hand [facility] Work Phone: Start: 06-01-2022 End: 06-01-2022 Radiologic examination of knee [facility] Work Phone: Start: 02-16-2022 Plain chest X-ray [facility] Work Phone: Start: 11-23-2021 CT of [...] RSV Vaccine (1 - 1-dose 75+ series) [facility] Start: 05-17-2025 [facility] Start: 05-17-2025 Knee 4 or More Views Knee 4 or More Views [facility] Start: 05-17-2025 XR Knee GE 4 Views [facility] Start: 04-27-2025 [facility] Start: 11-26-2024 End: 11-26-2024 Patient encounter procedure 11/26/2024 9:15 AM EDT Office Visit Podiatry [address] [place] [address] Caryn Roe [address] [address] Left Foot/Ankle pain, previous surgery on foot Podiatry Comment on above: Left Foot/Ankle pain , previous surgery on foot Start: 05-19-2024 Covid-19 Vaccine ( season) Covid-19 Vaccine () [facility] Start: 05-19-2024 Influenza vaccination Influenza Vacc ine (#1) [facility] Start: 02-16-2022 [facility] Work Phone: Start: 03-22-2021 Diabetes Screening Diabetes Screenin g [facility] Start: 05-19-2017 Influenza vaccination SEQUENTI AL INFLUENZA VACCINE (#1) [facility] Work Phone: Start: 05-02-2015 Pneumococcal Vaccine : 50+ (2 of 2 - PCV) Pneumococcal Vaccine: 50+ (2 of 2 - PCV) [facility] Start: 05-23-2013 Screening for malign ant neoplasm of colon [facility] Start: 02-06-2012 Shingrix Vaccine (1 of 2) Shingrix Vaccine (1 of 2) [facility] Start: 07-19-2009 Screening for malign ant neoplasm of breast Mammogram Screening [facility] Start: 2007 Lipid panel Lipid Screening [facility] Start: 2007 Screening for malign ant neoplasm of colon [facility] Start: 1981 Urine microalbumin profile DTaP,Tdap,Td Vaccine (1 - Tdap) [facility] Start: 02-06-1980 Anxiety Screening Anxiety Screening [facility] Start: 02-06-1980 Depression Screening Depression Scre ening [facility] Start: 02-06-1980 Hepatitis C screening Hepatitis C [facility] Start: 02-06-1980 HIV screening HIV Screening [facility] Start: 1960 HEPATITIS C SCREENING HEPATITIS C SC EVA [facility] Work Phone: Start: 1960 Screening colonoscopy COLONOSCOPY [facility] Work Phone: Start: 1960 Screening for malign ant neoplasm of cervix PAP SMEAR [facility] Work Phone: Start: 1960 Tetanus vaccination TETANUS EVERY 10 YR [facility] Work Phone: Patient Education [facility] Work Phone: Patient referral [facility] Work Phone: Payers Date Payer Category Payer Self-pay [id number] 2022 Medicaid [employer] [id number] 2017 Unknown 2013 Medicaid [id number] 1962 Unknown [id number] 1962 Unknown [id number] 1962 Unknown [id number] [id number] 1962 Unknown [id number] [id number] 1962 Unknown [id number] [id number] 1962 Unknown [id number] [id number] 1962 Unknown [id number] [id number] 1959 Medicaid [id number] Unknown [id number] Unknown [id number] [id number] Unknown [id number] [id number] Unknown [id number] [id number] Unknown [id number] [id number] Unknown [id number] [id number] Unknown [id number] [id number] Unknown [id number] Social History Date Type Detail Facility Start: 08-02-2017 End: 05-17-2025 Tobacco smoking status NHIS Current every day smoker [facility] Start: 1960 Sex Assigned At Not on file [facility] Work Phone: Start: 09-23-2021 End: 12-15-2022 Tobacco smoking status KYIS Unknown if ever smoked [facility] Start: 07-14-2017 Heavy [facility] Start: 07-14-2017 None [facility] Start: 07-14-2017 Alone [facility] Start: 06-21-2021 Cigarettes [facility] Start: 1960 Sex Assigned At Female W [facility] Tobacco smoking status No Smokin g Status Entered [facility] History of tobacco use Cigarette Smoker C [facility] Start: 03-09-2018 End: 11-21-2024 Cigarettes smoked current (pack per day) - Reported 1 [facility] Start: 03-09-2018 Tobacco use and exposure Smokeless tobacco non-user [facility] Start: 03-22-2018 Alcoholic beverage intake Current drinker of alcohol (finding) [facility] Start: 03-22-2018 End: 11-21-2024 Tobacco use panel [facility] National Score (1-10 0), lower number is lower risk 89 [facility] Mental Status Date Assessment Result Facility 02-16-2022 Cognitive function Awake;Alert;A ppropriate;Fol lows Commands [facility] Work Phone: Clinical Notes 10-20-2023 to 05-17-2025 Note Date & Type Note Facility 05-17-2025 Discharge summary [facility] 05-17-2025 Radiology Diagnostic study note [facility] Imaging Services [address] [place] [address] Knee 4 or More Views MR#: [id number] Acct: [id number] Name: MARILU GUNTER Rep #: [id number] : 1960 F 65 From: Sadie Salazar MD PCP: Chuy Meng MD Status: REG ER Study:Knee 4 or More Views Date of Exam: 05/17/25 Exam# [id number] Ordering Dr: Kevin Hayes DO PROCEDURE: KNEE 4 OR MORE VIEWS 05/17/2025 REASON FOR EXAM: PAIN TECHNIQUE: Procedure Code: RADKN Modality: DX Procedure: KNEE 4 OR MORE VIEWS Laterality: RIGHT COMPARISON: 04/27/2025. FINDINGS: Mild osteopenia of the visualized bones. Degenerative joint disease. No fracture or dislocation is seen. No lytic or blastic bone lesion is noted. RAD/Knee 4 or More Views IMPRESSION: Mild tricompartmental changes of degenerative joint disease, more prominent in the medial tibiofemoral compartment. Findings are unchanged. No radiographic evidence of an acute abnormality. [facility] CC: Dr. Kevin Gómez DO; Chuy Meng MD ~ Senior Brand Manager: Signed [facility] 04-30-2025 Evaluation note Diagnosis Onset Date Resolution Osteoarthritis of right knee acute April 30 11:16am [facility] Work Phone: 1(904) 769-628908-10-2025 Radiology Diagnostic study note [facility] Imaging Services [address] [place], [place] [address] Knee 4 or More Views MR#: [id number] Acct: [id number] Name: MARILU GUNTER Rep #: [id number] : 1960 F 65 From: Princess Samayoa MD PCP: Chuy Meng MD Status: REG ER Study:Knee 4 or More Views Date of Exam: 04/27/25 Exam# [id number] Ordering Dr: Elizabeth Marte DO PROCEDURE: KNEE [...] IMPRESSION: Mild right knee osteoarthritis. Reading Location: [facility] CC: Chuy Meng MD; Geoff Marte DO ~ Senior Brand Manager: Signed [facility]02-27-2025 Telephone encounter Note* Telephone Encounter - Sonam Love RN - 11/14/2024 3:35 PM EST Called patient to inform her that at this time we do not have appointments available prior to her scheduled one next . Patient did not answer, left message for patient to call office back. Wecan place patient on a waitlist incase something sooner does open up. If she is experiencing concerning symptoms she can present to urgent care. Spoke with Dr. Roe about previous message. He is not able to see her tomorrow as he needs to leave the office by 11am and schedule is fully booked prior to. [facility]02-27-2025 Miscellaneous Notes* Telephone Encounter - Sonam Love RN - 11/14/2024 3:35 PM EST Called patient to inform her that at this time we do not have appointments available prior to her scheduled one next . Patient did not answer, left message for patient to call office back. Wecan place patient on a waitlist incase something sooner does open up. If she is experiencing concerning symptoms she can present to urgent care. Spoke with Dr. Roe about previous message. He is not able to see her tomorrow as he needs to leave the office by 11am and schedule is fully booked prior to. * Telephone Encounter - Bev Meng LPN - 11/13/2024 1:54 PM EST Report of xrays has been received. Bev Meng LPN * Telephone Encounter - Ara Hatfield LPN - 11/12/2024 3:11 PM EST 's office calling and is sending foot xray to office. Ara Hatfield LPN * Telephone Encounter - Luis Alberto Horan RN - 11/12/2024 11:58 AM EST Pt reports she has appt with Dr. [...] to walk but has to limp due topain. Reports she had left knee replacement surgery 6-7 years ago that didn't work out. 2 years ago her knee was still popping, and had to have surgery again to remove a piece that was moving around- it was too small. Reports pain management, Dr. Rush (ph # [phone]) took an xray of her foot yesterday. Pt has not received the results yet. Dr. 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 [facility] Telephone encounter Note * Telephone Encounter - Bev Meng LPN - 11/13/2024 1:54 PM EST Report of xrays has been received. Bev Meng LPN [facility] Work Phone: 1(434) 966-468702-25-2025 Telephone encounter Note* Telephone Encounter - Ara Hatfield LPN - 11/12/2024 3:11 PM EST 's office calling and is sending foot xray to office. Ara Hatfield LPN [facility]02-25-2025 Telephone encounter Note* Telephone Encounter - Luis Alberto Horan RN - 11/12/2024 11:58 AM EST Pt reports she has appt with Dr. [...] to walk but has to limp due topain. Reports she had left knee replacement surgery 6-7 years ago that didn't work out. 2 years ago her knee was still popping, and had to have surgery again to remove a piece that was moving around- it was too small. Reports pain management, Dr. Rush (ph # [phone]) took an xray of her foot yesterday. Pt has not received the results yet. Dr. 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 [facility]02-02-2024 Note ORIGINAL EXAMINATION: MRI OF THE BRAIN [...] Sign Date: 10/20/2023 7:28:20 PM Ordering Provider: [facility] summary Author Kevin Alasgett [facility] Note Date/Time May 17, 2025 3: 38am [facility] Medical Records Department [address] [place] [address] Emergency Department Summary 05/17/25 MR#: [id number] Acct: [id number] Name: MARILU GUNTER Rep #:[id number] : 1960 65 From: Kevin Patton ggett DO PCP: Chuy Meng MD Status:REG ER Location: ED HPI History of Present Illness Chief Complaint: Lower Extremity Injury Narrative Narrative: Chief complaint and HPI: Right knee pain. 65-year-old female with past medical history of COPD, HTN, HLD, bipolar disorder, chronic right knee pain presents for evaluation of right knee pain. Patient states that she is had chronic knee problems for several years. She follows with pain management as well as orthopedic surgery. States they currently want to try gel injections before MRIand discussing surgery. Patient states that she has intermittent flares of her right knee pain the last being earlier this month. She denies any trauma. She states she was out this evening doing karaoke when the pain became so severe shehad difficulty ambulating. She denies any fever, chills, nausea, vomiting. Denies any weakness or numbness or tingling. Review of systems: See HPI Medications: As listed on the chart Allergies: As listed on the chart PFSH: Per chart Vital signs: As listed on the chart. Reviewed. Physical exam: Gen: A&O x3, NAD Head: Normocephalic, atraumatic Eyes: No sclera icterus, conjunctiva clear ENT: Moist mucous membranes CV: Regular rate Resp: Nonlabored respirations Musc: Full range of motion of all the extremities except limited in the right lower extremity secondary to knee pain with passive and active range of motion, no deformity, there is soft tissue swelling to the anterior aspect of the right knee without overlying erythema, warmth, crepitus, lymphatic streaking. Patientstates she always has this soft tissue swelling. Patellar tendon intact. No knee instability. Compartments soft. DP/PT pulses +2 bilaterally. Full flexion and extension. Able to bear weight. Sensation intact. Skin: Warm, dry Neuro: Alert, oriented, grossly intact Psych: Cooperative, appropriate mood and affect [facility] Medical History Left knee pain Bilateral primary osteoarthritis of knee Right knee pain Wears dentures History of ulceration Smoker History of edema History of echocardiogram History of stress test Cardiology follow-up encounter History of heart attack History of atrial fibrillation Melena Abdominal pain Seizure History of left heart catheterization (LHC) (~09/04/09) Asthma COPD (chronic obstructive pulmonary disease) Cardiomyopathy in disease classified elsewhere Essential hypertension Chest pain GERD (gastroesophageal reflux disease) Tobacco use Pure hypercholesterolemia Old myocardial infarct HTN (hypertension) Cardiac dysrhythmia Bipolar disorder Home Medications ?Medication ?Instructions ?Recorded ?Last Taken ?Type lamotrigine 25 mg tablet 50 mg PO BID seizures 07/13/17 History atorvastatin 20 mg tablet 20 mg PO QHS #90 tabs Unknown Rx duloxetine 60 mg capsule,delayed 90 mg PO DAILY Unknown History release carvedilol 25 mg tablet 25 mg PO BID #180 tabs 05/02 Unknown Rx pantoprazole 40 mg tablet,delayed 40 mg PO BID 3 month s #180 tabs 01/09/25 Unknown Rx release clonidine HCl 0.1 mg tablet 0.05 mg PO BID PRN PRN anx iety 04/27/25 Unknown History gabapentin 300 mg capsule 300 mg PO TID 30 days #90 ca ps 04/27/25 Unknown Rx Allergy/AdvReac Type Severity Reaction Status Date / Time NSAIDS (Non-Steroidal AdvReac Diarrhea Verified 04/30/25 11:21 Anti-Inflamma tramadol HCl (From Ultram) AdvReac Diarrhea Verified 04/30/25 11:21 Family History Mother Diabetes Cancer Father COPD [...] use EXAM Physical Exam Const Vital Signs: 05/17/25 00:35 05/17/25 02:34 Temperature 98 F Temperature Source Oral Pulse Rate 79 78 Respiratory Rate 18 16 Blood Pressure 124/83 H 118/58 L Blood Pressure Mean 96 78 Pulse Ox 100 100 Oxygen Delivery Method Room Air Room Air MDM MDM MDM Narrative Medical decision making narrative: 65-year-old female with past medical history of COPD, HTN, HLD, bipolar disorder, chronic right knee pain presents for evaluation of acute on chronic right knee pain. Follows with pain management and orthopedics. Patient denies any swelling or infectious symptoms. Differential diagnosis includes but is notlimited to osteoarthritis for sprain. Physical exam is not consistent with septic joint. Patient was seen on 04/27/2025 for the same symptom. Physical exam is similar with the soft tissue swelling per the note. She had a CBC, ESR,lactic acid, CRP performed at that time which was unremarkable. Given that patient states this feels like her typical acute on chronic flare and that the soft tissue swelling is chronic, I have low suspicion for any infectious etiology. I do not think any infectious labs are needed. Patient confirmed understanding. Suspect more osteoarthritis. Will treat her pain with lidocaine patch and IM morphine. Patient did have an x-ray performed in triage per protocol. I did personally review and interpreted the x-ray no fracture or dislocation. Arthritis present. Radiology in agreement. I do think she would benefit from MRI and further evaluation with orthopedics outpatient given the chronic pain. Patient refuses lidocaine patch. On reevaluation, patient's kneepain has improved however it is still present. I did recommend her having the lidocaine patch. She did accept the second time. Given patient's pain, I did discuss admission for pain control with PT/OT evaluation and possibly rehab. Patient declined. She states she would like to discharge home and follow-up with her physicians. She was able to ambulate. Patient stable to discharge home. Impression: 1 Acute on chronic right knee pain. 2. Osteoarthritis of the right knee Radiography Diagnostic Testing: Clinical Impression(s) from Imaging Studies Knee X-Ray 05/17/25 01:30 IMPRESSION: Mild tricompartmental changes of degenerative joint disease, more prominent in the medial tibiofemoral compartment. Findings are unchanged. No radiographic evidence of an acute abnormality. Reading [facility] Discharge Plan Triage Chief Complaint: Lower Extremity Injury ED Provider: Kevin Gómez Dx/Rx/DC Orders Clinical Impression: Chronic pain of right knee Instructions: ED Arthralgia Prescriptions: No Action duloxetine 60 mg capsule,delayed release(DR/EC) 90 mg PO DAILY Patient Comments: DEPRESSION lamotrigine 25 MG tablet 50 mg PO BID clonidine HCl 0.1 mg tablet 0.05 mg PO BID PRN PRN (Reason: anxiety) gabapentin 300 mg capsule 300 mg PO TID 30 Days Qty: 90 0RF atorvastatin 20 mg tablet 20 mg PO QHS Qty: 90 3RF carvedilol 25 mg tablet 25 mg PO BID Qty: 180 3RF Rx Instructions: must administer with a meal/food pantoprazole 40 mg tablet,delayed release (DR/EC) 40 mg PO BID 90 Days Qty: 180 1RF Primary Care Provider: Chuy Meng Referrals: Chuy Meng MD [Primary Care Provider] - 3-5 Days Activity Restrictions/Additional Instructions: Follow-up with your orthopedic physician, pain management, primary care physician. Return back to the ED symptoms change or worsen. Print Language: Uruguayan Disposition Disposition: Home, Self Care What to do if you have Problems For any increased pain, shortness of breath, bleeding, nausea or vomiting, chestpain, or any unexpected problems, contact your Primary Care Provider. Call [facility] ([phone]) or report to the closest Emergency Room. Call 911 if necessary. 05/17/25 [id number] <Electronically signed by Kevin Gómez DO> Cosigner Signature (if applicable): CC: Chuy Meng MD ~ Signed [facility] Work Phone: Evaluation + Plan note No data available for this section [facility] Evaluation note* Diagnosis Onset Date Resolution Status Cardiomyopathy in disease classified elsewhere acute Chest pain acute Cardiac dysrhythmia chronic Essential hypertension chron ic Pure hypercholesterolemia [facility] Work Phone: Evaluation noteNo assessment information available [facility] Work Phone: Evaluation note* Diagnosis Onset Date Resolution Status Abdominal pain acute GERD (gastroesophageal reflux disease) chronic [facility] Work Phone: Evaluation note* Diagnosis Onset Date Resolution Status Cardiomyopathy in disease classified elsewhere acute Cardiac dysrhythmia chronic Essential hypertension chron ic Pure hypercholesterolemia [facility] Work Phone: Evaluation note* Diagnosis Onset Date Resolution Status Admit Date Osteoarthritis of right knee acute April 30, 2025 11:16am [facility] Work Phone: Hospital Discharge instructions No data available for this section [facility] Hospital Discharge instructionsAdditional Instructions Please follow-up [...] ER should you have any further concerns [facility] Work Phone: Hospital Discharge instructionsAmbulatory Orders* Physical Therapy Referral Location: None Selected [facility] Work Phone: Hospital Discharge instructionsAdditional Instructions Follow-up with your orthopedic physician, pain management, primary care physician. Return back to the ED symptoms change or worsen.[facility] Work Phone: Progress note No data available for this section [facility] Reason for referral (narrative)No reason for referral information [facility] Work Phone: Assessments Diagnosis Left knee pain, [...] March 19, 2019 1 0:58am Power of Public Affairs Director No March 19, 2019 10:58am Advance Directive Response Recorded Date/ Time Advance Directives No February 03 2 2:01pm Living Will No February 03, 2022 2 :01pm Power of Public Affairs Director No February 03, 2022 2:01pm Advance Directive Response Recorded Date/ Time Advance Directives No February 03 2:01pm Living Will No February 16, 2022 2 :28am Power of Public Affairs Director No February 16, 2022 2:28am Advance Directive Response Recorded Date/ Time Advance Directives No February 03 2:01pm Living Will No June 01, 2022 7:02pm Power of Public Affairs Director No May 7:02pm Advance Directive Response Recorded Date/ Time Advance Directives No February 03 1:01pm Living Will No June 27 6:28pm Power of Public Affairs Director No June 27, 2022 6:28pm Advance Directive Response Recorded Date/ Time Advance Directives No February 03 2:01pm Living Will No June 27 7:28pm Power of Public Affairs Director No June 27, 2022 7:28pm Advance Directive Response Recorded Date/ Time Do you have a Healthcare Power of Public Affairs Director? No April 27, 2025 2:51am Advance Directives No February 03 2:01pm Advance Directive Response Recorded Date/ Time Advance Directives No April 28, 2025 9:22am Do you have a Healthcare Power of Public Affairs Director? No April 27, 2025 2:51am Advance Directive Response Recorded Date/ Time Advance Directives No April 28, 2025 9:22am Do you have a Healthcare Power of Public Affairs Director? No April 27, 2025 2:51am Do you have a Healthcare Power of Public Affairs Director? No May 17, 2025 12:38am Chief Complaint and Reason for Visit Chief Complaint RE-ESTAB WITH P[facility]/EORDERS CHEST PAIN CHEST PAIN pain Palpitations Reason for Visit Cardiomyopathy in [place] [facility] [place] classified elsewhere Chest pain Cardiac dysrhythmia Essential [...] COLLAPSE Reason for Visit Cardiomyopathy in [place] [facility] [place] classified elsewhere Cardiac dysrhythmia Essential hypertension Pure hypercholesterolemia Chief Complaint Admit Date RLE pain April 27, 2025 2: 47am Chief Complaint Admit Date RLE pain April 27, 2025 2: 47am RIGHT KNEE April 30, 2025 11 :16am Reason for Visit Admit Date Osteoarthritis of right knee April 11:16am Chief Complaint Admit Date RLE pain April 27, 2025 2: 47am RIGHT KNEE April 30, 2025 11 :16am KNEE PAIN May 17, 2025 12 :34am Additional Source Comments INFORMATION SOURCE (unrecogn ized section and content) DATE CREATED AUTHOR 03/08/2018 [facility] DATE CREATED AUTHOR AUTHOR'S ORGANIZ ATION 03/09/2018 [facility] DATE CREATED AUTHOR AUTHOR'S ORGANIZ ATION 03/13/2018 [facility] DATE CREATED AUTHOR AUTHOR'S ORGANIZ ATION 10/15/2023 [facility] ([place]) DATE CREATED AUTHOR AUTHOR'S ORGANIZ ATION 01/21/2025 [facility] DATE CREATED AUTHOR AUTHOR'S ORGANIZ ATION 05/24/2025 [facility] DATE CREATED AUTHOR AUTHOR'S ORGANIZ ATION 07/07/2025 [facility] Goals (unrecognized section and content) Goals [...] Dr. Frankie Santiago MD Family Provider Active [facility] Primary Care Provider A ctive Team Status: Inactive Member Role Status Dates [facility] Primary Care Provider, Referring Provider Active DONG Stern Attending Provider Active Team Status: Inactive Member Role Status Dates [facility] Primary Care Provider A ctive DONG Stern Attending Provider, Referr ing Provider Active Applications Manager Relationship Specialty Start Date End Date Torey Flores [address] [place] [address] Referring Orthopedics 08/08/17 Team Status: Active Member [...] April 30, 2025 End: April 30, 2025 Team Status: Inactive Member Role/Relationship Status Dates Dr. Geoff Marte DO Attending Provider Active Start: April 27, 2025 End: April 27, 2025 Dr. Geoff Marte DO Emergency Provider Active Start: April 27, 2025 End: April 27, 2025 Dr. Chuy INGRAM MD Primary Care Provider Active Start: April 27, 2025 End: April 27, 2025 Team Status: Inactive Member Role/Relationship Status Dates Dr. Chuy INGRAM MD Primary Care Provider Active Start: May 17, 2025 End: May 17, 2025 Dr. Kevin Gómez DO Emergency Provider Activ e Start: May 17, 2025 End: May 17, 2025 Source Comments (unrecognize d section and content) In the event this informatio n is protected by the Federal Confidentiality of Alcohol and Drug Abuse Patient Records regulations: The Federal rules restrict any use of the information to criminally investigate or prosecute any alcohol or drug abuse patient.[facility] Reason for Visit (unrecogniz ed section and [...] BE BASED ON THE PRIMARY CLINICAL RECORDS. [employer] provides no warranty or guarantee of the accuracy or completeness of information in this document.
--- NOTE | 2025-07-13 00:25 | RAD_ITS ---
PROCEDURE: KNEE 4 OR MORE VIEWS 07/13/2025 REASON FOR EXAM: INJURY/PAIN TECHNIQUE: Procedure Code: RADKN Modality: DX Procedure: KNEE 4 OR MORE VIEWS Laterality: RIGHT COMPARISON: 05/17/2025. FINDINGS: Periarticular soft tissue edema and swelling. Mild suprapatellar knee joint effusion. Mild osteopenia of the visualized bones. Degenerative joint disease. No fracture or dislocation is seen. No lytic or blastic bone lesion is noted. RAD/Knee 4 or More Views IMPRESSION: Mild tricompartmental changes of degenerative joint disease, more prominent in the medial tibiofemoral compartment. Joint effusion. Periarticular soft tissue edema and swelling. Reading Location: [facility]
== END 2025-07-13 01:26 | disposition home or self-care (01) ==
PROVIDERS: Emergency Provider Emergency Medicine; PCP Family Medicine; Visit Provider Emergency Medicine
DX: S83.91XA Sprain of unspecified site of right knee, initial encounter (principal); F31.9 Bipolar disorder, unspecified; J44.9 Chronic obstructive pulmonary disease, unspecified; I48.91 Unspecified atrial fibrillation; E78.00 Pure hypercholesterolemia, unspecified; I10 Essential (primary) hypertension; W17.2XXA Fall into hole, initial encounter; Y93.01 Activity, walking, marching and hiking; I25.2 Old myocardial infarction; Z79.899 Other long term (current) drug therapy; K21.9 Gastro-esophageal reflux disease without esophagitis; Z90.710 Acquired absence of both cervix and uterus; Z98.41 Cataract extraction status, right eye; Z98.42 Cataract extraction status, left eye; Z96.652 Presence of left artificial knee joint; Z90.49 Acquired absence of other specified parts of digestive tract; F17.210 Nicotine dependence, cigarettes, uncomplicated
CPT/HCPCS: 73564; 96372; 99284

== ENCOUNTER 2025-08-17 00:26 | Observation (INO) | payer MEDICAID, SELFPAY ==
[2025-08-17] VITALS (11 sets, daily range): BP systolic 96–147; BP diastolic 54–82; PULSE 70–93; RESP 14–22; TEMP 36.4–37.2; O2SAT 93–100; BMI 25.4; BMI 24.3
--- NOTE | 2025-08-17 00:35 | EKG12_ITS ---
Test Reason : CP ADMISSION Blood Pressure : */* mmHG Vent. Rate : 70 BPM Atrial Rate : 70 BPM P-R Int : 142 ms QRS Dur : 80 ms QT Int : 436 ms P-R-T Axes : 40 -3 -10 degrees QTcB Int : 470 ms Normal sinus rhythm T wave abnormality, consider anterior ischemia Prolonged QT Abnormal ECG When compared with ECG of 17-Aug-2025 00:45, MANUAL COMPARISON REQUIRED DATA IS UNCONFIRMED Confirmed by Anthony Marroquin ([id number]), news assignment editor MELISSA RIBEIRO ([id number]) on 08/18/2025 8:56:54 AM Referred By: Confirmed By: Anthony Marroquin
--- NOTE | 2025-08-17 00:36 | ED.VIS.CHEST ---
HPI History of Present Illness Chief Complaint: Chest Pain Detail of Chief Complaint: Chest pain Informant: patient Narrative Narrative: Patient presents with complaint chest pain that started this evening. She states that she was at the bar doing karaoke when she developed chest discomfort that was sharp and then at times heavy. She has some discomfort into her left arm. She has history of heart attack in the 90s but no stenting. She follows up with cardiology locally and states that she was supposed to go in and have a repeat stress test and maybe heart cath but has not followed up. Patient currently not anticoagulated. She has been drinking tonight. She denies recent travel or surgery. She denies recent illness. EMS gave aspirin and 1 nitro but the nitro really did not seem to help very much. [facility] Medical History Left knee pain Bilateral primary osteoarthritis of knee Right knee pain Wears dentures History of ulceration Smoker History of edema History of echocardiogram History of stress test Cardiology follow-up encounter History of heart attack History of atrial fibrillation Melena Abdominal pain Seizure History of left heart catheterization (LHC) (~09/04/09) Asthma COPD (chronic obstructive pulmonary disease) Cardiomyopathy in disease classified elsewhere Essential hypertension Chest pain GERD (gastroesophageal reflux disease) Tobacco use Pure hypercholesterolemia Old myocardial infarct HTN (hypertension) Cardiac dysrhythmia Bipolar disorder Home Medications ?Medication ?Instructions ?Recorded ?Last Taken ?Type lamotrigine 25 mg tablet 50 mg PO BID seizures 04/13/17 07/13/17 History atorvastatin 20 mg tablet 20 mg PO QHS #90 tabs 12/12/22 Unknown Rx duloxetine 60 mg capsule,delayed 90 mg PO DAILY 12/15/22 Unknown History release carvedilol 25 mg tablet 25 mg PO BID #180 tabs 05/02/24 Unknown Rx clonidine HCl 0.1 mg tablet 0.05 mg PO BID PRN PRN anxiety 04/27/25 Unknown History pantoprazole 40 mg tablet,delayed 40 mg PO BID 3 months #180 tabs 06/30/25 Unknown Rx release buprenorphine 15 mcg/hour weekly 1 patch transdermal QWEEK 07/12/25 Unknown History transdermal patch (Butrans) duloxetine 30 mg capsule,delayed 30 mg PO DAILY 08/17/25 Unknown History release Allergy/AdvReac Type Severity Reaction Status Date / Time NSAIDS (Non-Steroidal AdvReac Diarrhea Verified 08/17/25 00:34 Anti-Inflamma tramadol HCl (From Ultram) AdvReac Diarrhea Verified 08/17/25 00:34 Family History Mother Diabetes Cancer Father COPD (chronic obstructive pulmonary disease) Diabetes Sister Diabetes Surgical History History of partial hysterectomy History of bilateral cataract extraction History of total left knee replacement History of carpal tunnel release History of shoulder surgery History of foot surgery History of arthroscopy of both knees History of cholecystectomy History of hysterectomy Social History Smoking Status: Current every day smoker tobacco type: cigarettes alcohol intake: current details: occasional substance use type: does not use ROS ROS ED Review of Systems ROS Unobtainable: other Constitutional Constitutional ED: Reports lethargy; Denies chills, fever(s), sweats or weight loss Eyes Eyes: Denies blurry vision, change in vision or diplopia ENT ENT ED: Denies rhinorrhea or sore throat Cardiovascular Cardiovascular: Reports chest pain; Denies orthopnea or racing heartbeat Respiratory/Chest Respiratory/Chest: Denies cough, dyspnea, dyspnea on exertion, orthopnea or sputum Gastrointestinal Gastrointestinal: Denies abdominal pain, diarrhea, nausea or vomiting Genitourinary Genitourinary ED: Denies dysuria, hematuria or urinary frequency Musculoskeletal Musculoskeletal: Denies arthralgias, back pain, myalgias or neck pain Integumentary Denies abscess, Abrasions or rash Neurologic Neurologic: Denies headache(s) or weakness Psychiatric Psychiatric: Denies anxiety, depression or suicidal thoughts Endocrine Endocrinology: Denies polydipsia, polyphagia or polyuria Hematologic/Lymphatic Hematologic/Lymphatic: Denies easy bleeding, easy bruising or lymphadenopathy Allergic/Immunologic Allergic/Immunologic ED: Denies mouth swelling, tongue swelling or urticaria EXAM Physical Exam Const Vital Signs: 08/17/25 00:27 08/17/25 00:32 08/17/25 00:37 Temperature 98.8 F Temperature Source Oral Pulse Rate 93 Respiratory Rate 18 Respiratory Effort Normal Blood Pressure 147/82 H Blood Pressure Mean 103 Pulse Ox 100 100 Oxygen Delivery Method Room Air Room Air 08/17/25 02:27 08/17/25 03:05 08/17/25 03:10 Temperature 98 F Temperature Source Pulse Rate 79 83 84 Respiratory Rate 22 H 16 Respiratory Effort Blood Pressure 140/75 H 133/72 H 133/72 H Blood Pressure Mean 96 92 Pulse Ox 93 99 Oxygen Delivery Method Room Air Positive well nourished and well developed General Appearance ED: well developed and NAD HEENT Reports TM's clear and moist mucous membranes normocephalic and atraumatic; Negative for trauma or tenderness Tympanic Membrane ED: Yes TM's clear Eyes PERRL and EOMs intact bilaterally General Eye ED: Negative for pale conjunctiva or scleral icterus Neck no lymphadenopathy, supple and no JVD General: Negative for tenderness Chest Wall inspection of chest normal and palpation of chest normal Chest: Negative for tenderness Resp normal respiratory effort and clear to auscultation bilaterally Effort and Inspection: Negative for respiratory distress or pain with movement Auscultation: Negative for rhonchi, wheezes or diminished lung sounds Cardio regular rate, regular rhythm, S1 normal heart sound, S2 normal heart sound and no murmurs Peripheral Pulses: pulses 2+ throughout GI normal to inspection, nondistended, normoactive bowel sounds, soft to palpation, non-tender, non-distended and no masses Back/Spine no CVA tenderness and no thoracic nor lumbar tenderness Extremity normal to inspection General Extremety ED: Negative for edema General Extremity: Negative for edema Neuro oriented x3, CN's II-XII intact bilaterally, no sensory deficits noted and gait normal Sensorium / Orientation: awake, alert, oriented to person, oriented to place and oriented to time Motor Exam: strength 5/5 throughout and strength abnormal Psych mental status grossly normal Skin no rashes or lesions noted and no wounds Heart Score History: Moderately Suspicious ECG: Nonspecific Repolarization Age: >45 - <65 years Risk Factors: >/= 3 Risk Factors or History of CAD Troponin: </= Normal Limit Score: 5 MDM MDM MDM Narrative Medical decision making narrative: Patient presents with chest pain that started this evening. Describes pressure at times rating to her left arm. She also had a sharp component. EKG obtained showed sinus rhythm with rate of 77 bpm with flipped T waves in leads V1 and V2 as well as V3. When compared with prior EKG from April 27, 2025 this also is in similar appearance. CBC with differential obtained showed white count 11.0 with hemoglobin 14.5 and platelet count of 366. Chemistries unremarkable. D-dimer is 0.55 and considered normal when corrected for age. Troponin was normal at 9. Alcohol was 137. Initially squad gave patient aspirin and 1 nitro which did not help with pain therefore gave her 4 mg of morphine and 4 mg of Zofran in the emergency department. She continues to have some discomfort. Heart score here is 5 given her prior history of heart attack in the 90s although that did not require apparently any type of intervention. Will obtain a delta troponin. She continues to describe discomfort in her chest and we discussed admission for further testing such as stress testing. She really does not want to be admitted as she has a dog at home that she needs to take care of but is agreeing to allow for a delta troponin. Delta troponin also was normal at 8. She continues to have discomfort. I did give her a GI cocktail which did not help her very much. I ordered an inch Nitropaste to the chest wall. Had a long conversation and she is willing to be admitted for further evaluation of her chest pain. She has a heart score of 5 and will discuss with hospitalist to evaluate for admission. Lab Data Attestation: I reviewed the patient's lab results. Labs: Laboratory Results - last 24 hr 08/17/25 08/17/25 08/17/25 00:39 00:40 02:34 WBC 11.0 RBC 4.94 Hgb 14.5 Hct 44.0 MCV 89.1 MCH 29.4 MCHC 33.0 RDW Std Deviation 42.5 RDW Coeff of Kaylyn 13.0 Plt Count 366 MPV 10.6 Immature Gran % (Auto) 0.500 Neut % (Auto) 56.8 Lymph % (Auto) 37.1 Bartholomew % (Auto) 4.6 Eos % (Auto) 0.5 Baso % (Auto) 0.5 Absolute Neuts (auto) 6.2 Absolute Lymphs (auto) 4.09 Nucleated RBC % 0 D-Dimer Quant (PE/DVT) 0.55 H* Sodium 136 Potassium 3.3 Chloride 98 Carbon Dioxide 22.9 Anion Gap 16 H BUN 5 Creatinine 0.72 Estim Creat Clear Calc 78.28 Est GFR (MDRD) Non-Af 94 BUN/Creatinine Ratio 7.2 L Glucose 121 H Calcium 9.7 Troponin T High Sens 9 Troponin T Hi Sens 2 Hr 8 Ethyl Alcohol 137.0 H Radiography Diagnostic Testing: Clinical Impression(s) from Imaging Studies Chest X-Ray 08/17/25 00:58 IMPRESSION: No Acute Findings. Reading Location: [facility] 1 view chest x-ray obtained interpreted by myself as no evidence of infiltrate or pneumothorax or acute disease process. Radiology is in agreement. EKG Initial EKG: Attestation: I personally reviewed and interpreted this EKG as follows: Comments: Sinus rhythm with nonspecific ST changes in leads V1 and V2 and V3 with a ventricular rate of 77 bpm. Prior EKG tracings: available for review Prior: Unchanged Discharge Plan Dx/Rx/DC Orders Clinical Impression: Chest pain, Hypertension Disposition Disposition: Acute Care [facility]
[2025-08-17] MEDS: 0.9% Normal Saline (1000mL) 1,000 ML 150 ML IV ×2 (00:44→08:57)
--- NOTE | 2025-08-17 00:58 | RAD_ITS ---
PROCEDURE: CHEST 1 VIEW (PORTABLE) 08/16/2025 REASON FOR EXAM: CHEST PAIN TECHNIQUE: Frontal view of the chest. COMPARISON: 02/16/2022 FINDINGS: Hardware: None. Heart: The heart size is normal. Lungs: The lungs are clear. No pneumothorax or pleural effusion. Bones: The bones are unremarkable. RAD/Chest 1 View (Portable) IMPRESSION: No Acute Findings. Reading [facility]
--- OUTSIDE RECORDS SUMMARY | 2025-08-17 01:06 | XMS RPT_ITS | CCD ---
Author Organization [facility] CliniSyvt Care Team Providers Care Grease Refiner Operator Name Role Phone No, Physician Unavailable Unavailable BARK, EDUARDO E Unavailable Unavailable BARK, EDUARDO E Unavailable Unavailable MurilloCisco M Unavailable Unavailable MurilloCisco M Unavailable Unavailable MurilloCisco M Unavailable Unavailable No Doctor Assigned, Nodr Unavailable Unavail able MurilloCisco mckinnon M Unavailable Unavailable No Doctor Assigned, Nodr Unavailable Unavail able MurilloCisco mckinnon M Unavailable Unavailable MurilloCisco Unavailable Unavailable No Doctor Assigned, Nodr Unavailable Unavail able TOREY FLORES Unavailable Unavailable NO, PHYSICIAN Unavailable Unavailable CELY GA Unavailable Unavailable NO, PHYSICIAN Unavailable Unavailable Care Physician, No Primary Primary Care Provider Unavailable Care Physician, No Primary Referring Provider Un available Dr. Alonzo Lanza Attending Provider [phone] [facility], Miriam Gore Primary Care Pro vider Dr. Alonzo Lanza Referring Provider [phone] Dr. Alonzo Lanza Other Provider [phone] Dr. Christopher Gilmore Attending Provider Dr. Alonzo Lanza Attending Provider [phone] Yahir TATE, PA Maria Antonia Sahu Referring Provider [facility], Miriam Gore Primary Care Pro vider [facility], Miriam Gore Referring Provid er FriendDr. Castorena Attending Provider [facility], Miriam Gore Primary Care Pro vider FriendDr. Castorena Attending Provider [facility], Miriam Gore Primary Care Pro vider [facility], Miriam Samuelrene Referring Provid er Yahir TATE, PA Maria Antonia Sahu Attending Provider HAYDEE ESCOTO MD Attending Unavailable GEORGINA FLORES Primary Care Unavailable JAQUAN FLORES Primary Care Physician Torey Flores Unavailable Estuardo TURNER, Dr. Tellez Emergency Provider Taqueria SHAFFER, Dr. Vera Primary Care Provider Dr. Chuy Meng MD Referring Provider Glen CARY-CMarino Attending Provider Estuardo TURNER, Dr. Tellez Attending Provider Dr. Kevin Gómez DO Emergency Provider AA NO PCP, NO PCP Primary Care Unavailable GANGA HSAFFER~[id number], GANGA SHAUNA Attending Unavailable GANGA SHAFFER~[id number], SCHULER SHAUNA Admitting Unavailable AA NO PCP, NO PCP Primary Care Unavailable GANGA SHAFFER~[id number], SCHULER SHAUNA Admitting Unavailable GANGA SHAFFER~[id number], SCHULER SHAUNA Attending Unavailable GANGA SHAFFER~[id number], SCHULER SHAUNA Admitting Unavailable AA NO PCP, NO PCP Primary Care Unavailable GANGA SHAFFER~[id number], SCHULER SHAUNA Attending Unavailable AA NO PCP, NO PCP Primary Care Unavailable GANGA SHAFFER~[id number], SCHULER SHAUNA Admitting Unavailable GANGA SHAFFER~[id number], SCHULER SHAUNA Attending Unavailable AA NO PCP, NO PCP Primary Care Unavailable TABATHA SHAFFER~[id number], TABATHA BRAND Admitting Unavailable TABATHA SHAFFER~[id number], TABAHTA BRAND Attending Unavailable AA NO PCP, NO PCP Primary Care Unavailable GANGA SHAFFER~[id number], SCHULER SHAUNA Attending Unavailable GANGA SHAFFER~[id number], SCHULER SHAUNA Admitting Unavailable Emng VSC, Chuy Primary Care Unavailable Taqueria VSC, Chuy Referring Unavailable Marion Carroll Attending Unavailable Taqueria VSC, Chuy Primary Care Unavailable Kevin Gómez Attending UnavailChuy Siegel Attending Unavailable [facility] Primary Care Unavailable [facility] Primary Care Unavailable Geoff Marte Attending Unavailable [facility] Primary Care Unavailable [facility] Referring Unavailable Marion Carroll Attending Unavailable Carlos Lopez Attending Unavailable Carlos Lopez Attending Unavailable Sunita Richard Attending Unavailable Allergies Allergy Classification Reported Allergen(s) Allergy Type Date of Onset Reaction(s) Facility (4 sources) aspirin; Translations: [aspirin] Drug Allergy 3 [facility] Work Phone: (3 sources) ibuprofen; Translations: [IBUPROFEN] Drug Allergy 3 [facility] Work Phone: (1 source) cyclobenzaprine; Translations: [cyclobenzaprine] Drug Allergy [facility] Repository (1 source) NSAIDs; Translations: [NSAIDs] Propensity to adverse reactions to drug (disorder) [facility] Repository (1 source) traMADol; Translations: [TraMADol Hydrochloride ER] Drug Allergy [facility] Repository (11 sources) traMADol; Translations: [tramadol HCl] Drug Allergy 2 GI Upset, Diarrhea [facility] (10 sources) NSAIDS (Non-Steroidal Anti-Inflamma; Translations: [NSAIDS (Non-Steroidal Anti-Inflamma] Propensity to adverse reactions 2 Diarrhea [facility] (2 sources) NSAIDs; Translations: [NSAIDS (Non-Steroidal Anti-Inflammatory Drug)] Drug Allergy 8 Diarrhea [facility] Work Phone: (1 source) predniSONE Drug Allergy 2 GI Upset [facility] Medications Current Medications Medication Drug Class(es) Dates Sig (Normalized) Sig (Original) [id number] 200 actuat albuterol 0.09 mg/actuat metered dose [...] Start: 04-13-2017 take 2 tablets by mo [facility] twice daily Lamotrigine 25 MG tablet Active [...] (18 sources) Opioid Agonist Start: 03-19-2019 End: 01-06-2022 Hydrocodone-Acetami nophen ([place]) 5-325 mg tablet Discontinued 1 {tbl} PO [...] June 29, 2022 12:03am polyethylene glycol 3350 77588 mg powder for oral solution (6 sources) [...] what is going Other aftercare (1 source) watermaster (current) use of opiate analgesic; Translations: [INTERMEDIATE CURRNT USE OPIATE ANALGES] Onset: 06-09-2025 Episodic Other aftercare (1 source) Other long term care administrator (current) drug therapy; Translations: [OTH CIRCUIT BREAKER ASSEMBLER CURRENT DRUG THERAPY] Onset: 06-09-2025 Episodic Other [...] disorders (2 sources) Other chronic pain; Translations: [OTHER CHRONIC PAIN] Onset: 05-22-2025 Chronic Other nervous system disorders (1 source) Other chronic postprocedural pain; Translations: [OTHER CHRONIC POSTPROCEDURAL PAIN] Onset: 06-09-2025 Chronic Other non-traumatic joint disorders (11 sources) Pain in right knee; Translations: [Acute pain of right knee] Onset: 04-30-2025 06-09-2022 Episodic Other non-traumatic joint disorders (3 sources) Effusion [...] Onset: 07-06-2010 07-06-2010 Chronic Sprains and strains (4 sources) Sprain of knee; Translations: [Sprain of unspecified site of unspecified knee, initial encounter] Onset: 07-24-2025 02-14-2024 Episodic Substance-related disorders (1 source) Nicotine [...] of left knee] Onset: 02-20-2012 08-02-2017 Episodic Unclassified (1 source) Left knee pain, unspecified chronicity Results Test Name Value Interpretation Reference Range Facility [facility] Drug Screenon 07-24-2025 PDF . [facility] Comment on above: Order Comment: Perfo rmed at: [employer] [address] [place] [address] [id number] Grading Machine Operator: Dee Noel [facility], Phone: [phone] Performed By: #### P NMUR #### [facility] RESULTS Report Summary FINAL [facility] Comment on above: Order Comment: Perfo rmed at: [employer] [address] [place] [address] [id number] Grading Machine Operator: Dee Morse, Phone: [phone] Result Comment: ====== TOXASSURE COMP DRUG ANALYSIS,UR ====== Test Result Flag Units Drug Present Carboxy-THC 9 ng/mg creat Carboxy-THC is a metabolite of tetrahydrocannabinol (THC). Source of THC is most commonly herbal marijuana or marijuana-based products, but THC is also present in a scheduled prescription medication. Trace amounts of THC can be present in hemp and cannabidiol (CBD) products. This test is not intended to distinguish between omynd-9-euyquwvtxibwqwwraejk, the predominant form of THC in most herbal or marijuana-based products, and jdxff-2-yiucvvezytfccmhscyhb. Morphine 50 ng/mg creat Potential sources of morphine include administration of codeine or morphine, use of heroin, or ingestion of poppy seeds. Hydrocodone 5550 ng/mg creat Hydromorphone 223 ng/mg creat Dihydrocodeine 1023 ng/mg creat Norhydrocodone >4274 ng/mg creat Sources of hydrocodone include scheduled prescription medications. Hydromorphone, dihydrocodeine and norhydrocodone are expected metabolites of hydrocodone. Hydromorphone and dihydrocodeine are also available as scheduled prescription medications. Buprenorphine 46 ng/mg creat Norbuprenorphine 194 ng/mg creat Source of buprenorphine is a scheduled prescription medication. Norbuprenorphine is an expected metabolite of buprenorphine. Lamotrigine PRESENT Duloxetine PRESENT Acetaminophen PRESENT ====== Test Result Flag Units Ref Range Creatinine 117 mg/dL >=20 ====== Declared Medications: Medication list was not provided. ====== For clinical consultation, please call . ====== Performed By: #### P NMUR #### [facility] RESULTS Knee 4 or More Viewson 07-13 Knee 4 or More Views [facility] Imaging Services [address] [place] [address] [id number] Knee 4 or More Views MR#: [id number] Acct: [id number] Name: MARILU GUNTER Rep #: [id number] : 1960 F 65 From: Jose Alejandro henley MD PCP: Chuy Meng MD Status: DEP ER Study: Knee 4 or More Views Date of Exam: 07/13/25 Exam# [id number] Ordering Dr: Chuy Irving DO PROCEDURE: KNEE 4 OR MORE VIEWS 07/13/2025 REASON FOR EXAM: INJURY/PAIN TECHNIQUE: Procedure Code: RADKN Modality: DX Procedure: KNEE 4 OR MORE VIEWS Laterality: RIGHT COMPARISON: 05/17/2025. FINDINGS: Periarticular soft tissue edema and swelling. Mild suprapatellar knee joint effusion. Mild osteopenia of the visualized bones. Degenerative joint disease. No fracture or dislocation is seen. No lytic or blastic bone lesion is noted. RAD/Knee 4 or More Views IMPRESSION: Mild tricompartmental changes of degenerative joint disease, more prominent in the medial tibiofemoral compartment. Joint effusion. Periarticular soft tissue edema and swelling. Reading Location: [place] [address] CC: Dr. Chuy Irving DO; Chuy Meng MD Inverted Block Operator: Signed Normal [facility] Emergency Department Summary on 07-12-2025 Emergency Department Summary [facility] Medical Records Department [address] [place] [address] Emergency Department Summary 07/12/25 MR#: [id number] Acct: [id number] Name: MARILU GUNTER Rep #: [id number] : 1960 65 From: Chuy Irving DO PCP: Chuy Meng MD Status:DEP ER Location: ED HPI History of Present Illness HPI Narrative: Patient presents with a right knee injury that occurred today. Patient states she was walking home from a bar where she was singing karaoke. Patient states she did not see a hole and stepped on it. Patient states this caused her to fall. Patient states her pain is worse over her right knee. Patient describes it as sharp. Patient admits to some tingling around her right knee. Patient states nothing makes her pain worse and nothing makes it better. Patient denies any weakness. Patient states she has a history of chronic knee pain in her right knee. Chief Complaint: Lower Extremity Injury Informant: patient Occured/Mechanism Mechanism/Context: Yes fall Onset/Context/Timing Onset: Today Context: Sudden Onset Timing: Continuous Quality of Pain: Sharp Location: Right knee Worsened by: Nothing Relieved by: Nothing Associated Symptoms Associated Symptoms: Positive for Parasthesia; Negative for Weakness or Loss of Funtion [facility] Medical History Left knee pain Bilateral primary [...] BID #180 tabs 05/02/24 Un known Rx clonidine HCl 0.1 mg tablet 0.05 mg PO BID PRN PRN anxiety 07/12 Unknown History gabapentin 300 mg capsule 300 mg PO TID 30 days #90 caps 07/12 Unknown Rx pantoprazole 40 mg tablet,delayed 40 mg PO BID 3 months #180 tabs 1 Unknown Rx release buprenorphine 15 mcg/hour weekly 1 patch transdermal QWEEK 07/12/25 Unknown History transdermal patch (Butrans) Held on 07/12/25. Instructions: states her sister lost them Allergy/AdvReac Type Severity Reaction Status Date / Time NSAIDS (Non-Steroidal AdvReac Diarrhea Verified 07/12/25 23:51 Anti-Inflamma tramadol HCl (From Ultram) AdvReac Diarrhea Verified 07/12/25 23:51 Family History Mother Diabetes Cancer Father COPD [...] Constitutional Constitutional ED: Denies chills or fever(s) Eyes Eyes: Denies blurry vision or change in vision ENT ENT ED: Denies rhinorrhea or sore throat Cardiovascular Cardiovascular: Denies chest pain or palpitations Respiratory/Chest Respiratory/Chest: Denies cough or dyspnea Gastrointestinal Gastrointestinal: Denies nausea or vomiting Genitourinary Genitourinary ED: Denies dysuria or hematuria Musculoskeletal Musculoskeletal: Denies back pain or neck pain Integumentary Denies abscess or rash Neurologic Neurologic: Denies headache(s) or weakness Allergic/Immunologic Allergic/Immunologic ED: Denies mouth swelling or urticaria EXAM Physical Exam Const Vital Signs: 07/12/25 23:51 Temperature 98.4 F Temperature Source Oral Pulse Rate 85 Respiratory Rate 20 H Blood Pressure 103/81 H Blood Pressure Mean 88 Pulse Ox 9 (more content not included)... Normal [facility] Emergency Department Summary on 05-17-2025 Emergency Department Summary [facility] Medical Records Department [address] [place] [id number] Emergency Department Summary 05/17/25 MR#: [id number] Acct: [id number] Name: MARILU GUNTER Rep #: [id number] : 1960 65 From: Kevin Gómez DO PCP: Chuy Meng MD Status:REG ER Location: ED HPI History of Present Illness Chief Complaint: Lower Extremity Injury Narrative Narrative: Chief complaint and HPI: Right knee pain. 65-year-old female with past medical history of COPD, HTN, HLD, bipolar disorder, chronic right knee pain presents for evaluation of right knee pain. Lea condon states that she is had chronic [...] intact Psych: Cooperative, appropriate mood and [facility] Left knee pain Bilateral primary [...] 100 100 (more content not included)... Normal [facility] Knee 4 or More Viewson 05-17 Knee 4 or More Views [facility] Imaging Services [address] [place], [place] [id number] Knee 4 or More Views MR#: [id number] Acct: [id number] Name: MARILU GUNTER Rep #: [id number] : 1960 F 65 From: Jose Alejandro henley MD PCP: Chuy Meng MD Status: REG ER Study: Knee 4 or More Views Date of Exam: 05/17/25 Exam# [id number] Ordering Dr: Kevin Gómez DO PROCEDURE: KNEE [...] evidence of an acute abnormality. [facility] CC: Dr. Kevin Gómez DO; Chuy Meng MD Inverted Block Operator: Signed Normal [facility] Orthopedic Visit Reporton Orthopedic Visit Report [facility] [address] [place] [address] [address] [place] [address] OFFICE VISIT Date of Service: 04/30/25 MR#: [id number] Acct: [id number] Name: MARILU GUNTER Rep #: [id number] : 1960 Provider: SAM kelsey Age/Sex: 65/F Location: [facility] Status: Signed Intake Vital Signs 04/27/25 02:48 04/28/25 09:22 04/30/25 11:21 Height 5 ft 5 in 5 ft 5 in 5 ft 5 in Weight: 155 lb BMI 25.7 Intake Visit Reasons: RIGHT KNEE Is patient in pain?: Yes Pain scale (1-10): 10 Allergies NSAIDS (Non-Steroidal Anti-Inflamma Adverse Reaction (Verified 04/30/25 11:21) Diarrhea tramadol HCl (From [facility]) Adverse Reaction (Verified 04/30/25 11:21) Diarrhea [...] PO BID 3 months #180 tabs 0 4/24/25 08/13/25 Rx release clonidine HCl 0.1 mg tablet [...] the decisions made by me, Marion Carroll SENIOR SALES EXECUTIVE-C 04/30/25 9497. Part of today???s visit was documented by [...] 3-4 days (more content not included)... Normal [facility] 12 Lead EKGon 04-27-2025 12 Lead EKG [facility] Cardiovascular Services [address] [place] [address] 12 Lead EKG 04/27/25 0258 MR#: [id number] Acct: [id number] Name: MARILU GUNTER Rep #: [id number] : 1960 65 From: Gianluca Trevino MD [...] Abnormal ECG Confirmed by SHANNON SHAFFER, GIANLUCA ([id number]), hospice care consultant MELISSA RIBEIRO ([id number]) on 04/28/2025 1:13:52 PM Referred By: PHIL Confirmed By: GIANLUCA TREVINO MD 04/28/25 1313 Date Gianluca Trevino MD CC: Chuy Meng MD; Geoff Marte DO Signed Normal [facility] Absolute lymphocyte countOrd ered By: Geoff Marte on 04-27-2025 Lymphocytes Auto (Unsp spec) [#/Vol] 4.51 10*3/uL 0.83-4.51 [facility] Absolute neutrophil countOrd ered By: Geoff Marte on 04-27-2025 Neutrophils (Bld) [#/Vol] 4.1 10*3/uL 2.0-7.7 [facility] Automated lymphocyte count a s percentage of total leukocytesOrdered By: Geoff Marte on 04-27-2025 Lymphocytes/100 WBC Auto (Unsp spec) 48.0 % High 19-41 [facility] Basophil percentageOrdered B y: Geoff Marte on 04-27-2025 Basophils/100 WBC (Bld) 0.4 % 0-1 [facility] Blood manual differential co mment interpretation (narrative result)Ordered By: Geoff Marte on 04-27-2025 Manual differential comment Wilder (Bld) [Interp] SCANNED [facility] CBC W/Diff, Automatedon 04-18 SMEAR COMMENT SCANNED Normal [facility] Comment on above: Performed By: #### L 101.9900, L503.6005, L100.0100, L501.6710 #### [facility] [address] [place], [place], [id number] CRPon 04-27-2025 C-REACTIVE PROT < 3.00 Normal 0.0-3.0 [facility] Comment on above: Performed By: #### L 101.9900, L503.6005, L100.0100, L501.6710 #### [facility] [address] [place], [address] Emergency Department Summary on 04-27-2025 Emergency Department Summary [facility] Medical Records Department [address] [place] [address] Emergency Department Summary 04/27/25 MR#: [id number] Acct: [id number] Name: MARILU GUNTER Rep #: [id number] : 1960 65 From: Geoff Marte DO [...] denies any recent injury or excessive activity. [facility] Medical History (Updated 04/29/25 @ 00:[address] Geoff Marte DO) Left knee pain Bilateral primary osteoarthritis [...] auscultation bila (more content not included)... Normal [facility] Eosinophil percentageOrdered By: Geoff Marte on 04-27-2025 Eosinophils/100 WBC (Bld) 1.1 % 0-5 [facility] Erythrocyte Sed Rateon 04-27 SED RATE 22 mm/hr Normal 0-30 [facility] Comment on above: Performed By: #### L 101.9900, L503.6005, L100.0100, L501.6710 #### [facility] [address] [place], [address] Erythrocyte distribution wid th ratioOrdered By: Geoff Marte on 04-27-2025 Erythrocyte distribution width (RBC) [Ratio] 13.2 % 11.6-14.6 [facility] Erythrocyte distribution wid th standard deviationOrdered By: Geoff Marte on 04-27-2025 Erythrocyte distribution width (RBC) [Ratio] 40.8 fl 35.1-43.9 [facility] Erythrocyte sedimentation ra teOrdered By: Geoff Marte on 04-27-2025 ESR (Bld) [Velocity] 22 mm/h 0-30 [facility] Hematocrit Auto (Bld) [Volum e fraction]Ordered By: Geoff Marte on 04-27-2025 Hematocrit (Bld) [Volume fraction] 40.2 % 37-47 [facility] Hemoglobin measurementOrdere d By: Geoff Marte on 04-27-2025 Hemoglobin (Bld) [Mass/Vol] 13.8 g/dL 12.0-15.0 [facility] Immature granulocytes/100 WB C Auto (Bld)Ordered By: Geoff Marte on 04-27-2025 Immature granulocytes/100 WBC (Bld) 0.500 % 0.0-0.9 [facility] Comment on above: IG% - Immature Granu locytes (promyelocytes, myelocytes and metamyelocytes) > 1% indicates that a LEFT SHIFT is Present. Knee 4 or More Viewson 04-27 Knee 4 or More Views [facility] Imaging Services [address] [place], [place] [address] Knee 4 or More Views MR#: [id number] Acct: [id number] Name: MARILU GUNTER Rep #: [id number] : 1960 F 65 From: Keith Leonard MD PCP: Chuy Meng MD Status: [facility] ER Study: Knee 4 or More Views Date of Exam: 04/27/25 Exam# [id number] Ordering Dr: Geoff Marte DO PROCEDURE: KNEE [...] IMPRESSION: Mild right knee osteoarthritis. Reading Location: [place] [address] CC: Chuy Meng MD; Geoff Marte DO Inverted Block Operator: Signed Normal [facility] Lactic acid measurementOrder ed By: Geoff Marte on 04-27-2025 Lactate [Moles/Vol] 1.9 mmol/L Normal 0.0-2.0 [facility] Comment on above: Order Comment: Y Performed By: #### L 101.9900, L503.6005, L100.0100, L501.6710 #### [facility] [address] [place], [address] MCV (mean corpuscular volume ) determinationOrdered By: Geoff Marte on 04-27-2025 MCV (RBC) [Entitic vol] 86.1 fL 81-99 [facility] Mean corpuscular hemoglobin (MCH) determinationOrdered By: Geoff Marte on 04-27-2025 MCH (RBC) [Entitic mass] 29.6 pg 27.0-32.0 [facility] Mean corpuscular hemoglobin concentration (MCHC) determinationOrdered By: Geoff Marte on 04-27-2025 MCHC (RBC) [Mass/Vol] 34.3 g/dL 32-36 [facility] Mean platelet volume determi nationOrdered By: Geoff Marte on 04-27-2025 Platelet mean volume (Bld) [Entitic vol] 9.8 fL 6.2-12.0 [facility] Monocyte percentageOrdered B y: Geoff Marte on 04-27-2025 Monocytes/100 WBC (Bld) 6.5 % 0-10 [facility] Neutrophil percentageOrdered By: Geoff Marte on 04-27-2025 Neutrophils/100 WBC (Bld) 43.5 % Low 47-70 [facility] Nucleated red blood cell per centageOrdered By: Geoff Marte on 04-27-2025 Nucleated RBC/100 WBC (Bld) [Ratio] 0 % 0-5 [facility] Platelet countOrdered By: Elizabeth Marte on 04-27-2025 Platelets (Bld) [#/Vol] 394 10*3/uL 150-450 [facility] RBC Auto (Bld) [#/Vol]Ordere d By: Geoff Marte on 04-27-2025 RBC (Bld) [#/Vol] 4.67 10*6/uL 4.2-5.4 [facility] Serum or plasma C reactive p rotein measurement (mass/volume)Ordered By: Geoff Marte on 04-27-2025 CRP [Mass/Vol] mg/L 0.0-3.0 [facility] White blood cell (WBC) count Ordered By: Geoff Marte on 04-27-2025 WBC (Bld) [#/Vol] 9.4 10*3/uL 4.4-11.0 [facility] CNCOon 01-16-2025 CNCO Letter Text Normal [facility] Jean Claude 11-12-2024 AMOSN Telephone (PODS) MARILU GUNTER ([id number]) 1960 F Date Time Provider Department 11/12/24 [...] or , when she was in the [employer]. She stepped into a deep hole [...] Reports pain management, Dr. Rush (ph # [phone]) took an xray of her foot yesterday. Pt has not received the results yet. Dr. 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 Ara Hatfield LPN 11/12/2024 3:22 PM Signed 's office calling and is sending foot xray to office. [place] Bautista Amelia, LPN 11/13/2024 1:54 PM Signed Report of xrays has been received. [place] Machado Amanda, BRAD 11/14/2024 3:40 PM Signed Called patient to [...] by Luis Alberto HORAN on 11/22/24 Normal [facility] XR Foot Left complete 3 plus [...] MEZA DO, MD Date: 11/12/2024 10:33 Normal [facility] Basophil percentageon 2021 Chloride [Moles/Vol] 108 mmol/L 98-107 [facility] Work Phone: Glucose [Mass/Vol] 118 mg/dL 74-106 [facility] Work Phone: Comment on above: Fasting Glucose resu lt from 100 to 125 mg/dL suggests IMPAIRED HOMEOSTASIS per A.D.A. criteria. Potassium [Moles/Vol] 3.8 mmol/L 3.5-5.1 [facility] Work Phone: Sodium [Moles/Vol] 142 mmol/L 136-145 [facility] Work Phone: WBC (Bld) [#/Vol] 8.0 10*3/uL 4.4-11.0 [facility] Work Phone: Blood erythrocytes count (nu mber/volume)on 08-09-2022 RBC (Bld) [#/Vol] 4.39 10*6/uL 4.2-5.4 [facility] Work Phone: Blood hemoglobin measurement (mass/volume)on 08-09-2022 Hemoglobin (Bld) [Mass/Vol] 12.2 g/dL 12.0-15.0 [facility] Work Phone: Blood platelet mean volumeon 08-09-2022 Platelet mean volume (Bld) [Entitic vol] 9.4 fL 6.2-12.0 [facility] Work Phone: Determination of erythrocyte mean corpuscular volume (MCV)on 08-09-2022 MCV (RBC) [Entitic vol] 85.6 fL 81-99 [facility] Work Phone: [phone] Hematocrit Auto (Bld) [Volum e fraction]on 08-09-2022 Hematocrit (Bld) [Volume fraction] 37.6 % 37-47 [facility] Work Phone: Laboratory - Chemistry and C hemistry - challengeon 08-09-2022 CO2 [Moles/Vol] 30.0 mmol/L 21.0-32.0 [facility] Work Phone: Magnesium [Mass/Vol] 2.3 mg/dL 1.6-2.6 [facility] Work Phone: [phone] Urea nitrogen/Creatinine [Mass ratio] 9.7 mg/mg 10-20 [facility] Work Phone: [phone] Laboratory - Hematology and Cell countson 08-09-2022 Erythrocyte distribution width (RBC) [Entitic vol] 42.9 fL 35.1-43.9 [facility] Work Phone: [phone] Erythrocyte distribution width (RBC) [Ratio] 13.8 % 11.6-14.6 [facility] Work Phone: [phone] MCH (RBC) [Entitic mass] 27.8 pg 27.0-32.0 [facility] Work Phone: MCHC Auto (RBC) [Mass/Vol]on 08-09-2022 MCHC (RBC) [Mass/Vol] 32.4 g/dL 32-36 [facility] Work Phone: No Panel Informationon 08-09 Estimated GFR (MDRD) Amer 90 mL/min >60 [facility] Work Phone: Comment on above: GFR Calc Estimated GFR (MDRD) Non-Af Amer 75 mL/min >60 [facility] Work Phone: [phone] Comment on above: Non- GFR Calc Platelets bldon 08-09-2022 Platelets (Bld) [#/Vol] 314 10*3/uL 150-450 [facility] Work Phone: [phone] Serum or plasma calcium anupam urement (mass/volume)on 08-09-2022 Calcium [Mass/Vol] 9.1 mg/dL 8.5-10.1 [facility] Work Phone: [phone] Serum or plasma creatinine m easurement (mass/volume)on 08-09-2022 Creatinine [Mass/Vol] 0.83 mg/dL 0.55-1.02 [facility] Work Phone: [phone] Comment on above: The validity of the calculated GFR & GFRAA in patients over 70 years has not been determined. Clinical correlation is essential. Serum or plasma urea nitroge n measurement (mass/volume)on 08-09-2022 Urea nitrogen [Mass/Vol] 8 mg/dL 7-18 [facility] Work Phone: [phone] Thin prep Papanicolaou smear with manual screeningon 08-09-2022 Thin prep Papanicolaou smear with manual screening 4 5-15 [facility] Work Phone: [phone] Absolute lymphocyte counton 02-16-2022 Lymphocytes Auto (Unsp spec) [#/Vol] 5.30 10*3/uL 0.83-4.51 [facility] Work Phone: [phone] Basophil percentageon 2021 Basophils/100 WBC (Bld) 0.4 % 0-1 [facility] Work Phone: [phone] Chloride [Moles/Vol] 103 mmol/L 98-[address] [facility] Work [facility]: Eosinophils/100 WBC (Bld) 1.4 % 0-5 [facility] Work Phone: Glucose [Mass/Vol] 133 mg/dL 74-106 [facility] Work Phone: Comment on above: Fasting Glucose resu lt greater than or equal to 126 mg/dL suggests DIABETES MELLITUS per A.D.A. criteria. Neutrophils (Bld) [#/Vol] 3.8 10*3/uL 2.0-7.7 [facility] Work Phone: Neutrophils/100 WBC (Bld) 38.4 % 47-70 [facility] Work Phone: Potassium [Moles/Vol] 3.7 mmol/L 3.5-5.1 [facility] Work Phone: Sodium [Moles/Vol] 135 mmol/L 136-145 [facility] Work Phone: WBC (Bld) [#/Vol] 10.0 10*3/uL 4.4-11.0 [facility] Work Phone: Blood erythrocytes count (nu mber/volume)on 02-16-2022 RBC (Bld) [#/Vol] 4.47 10*6/uL 4.2-5.4 [facility] Work Phone: Blood hemoglobin measurement (mass/volume)on 02-16-2022 Hemoglobin (Bld) [Mass/Vol] 12.5 g/dL 12.0-15.0 [facility] Work Phone: Blood lymphocytes/100 leukoc yteson 02-16-2022 Lymphocytes/100 WBC (Bld) 52.9 % 19-41 [facility] Work Phone: Blood monocytes/100 leukocyt eson 02-16-2022 Monocytes/100 WBC (Bld) 6.6 % 0-10 [facility] Work Phone: Blood platelet mean volumeon 02-16-2022 Platelet mean volume (Bld) [Entitic vol] 9.8 fL 6.2-12.0 [facility] Work Phone: [phone] Determination of erythrocyte mean corpuscular volume (MCV)on 02-16-2022 MCV (RBC) [Entitic vol] 85.9 fL 81-99 [facility] Work Phone: [phone] Hematocrit Auto (Bld) [Volum e fraction]on 02-16-2022 Hematocrit (Bld) [Volume fraction] 38.4 % 37-47 [facility] Work Phone: [phone] Laboratory - Chemistry and C hemistry - challengeon 02-16-2022 CO2 [Moles/Vol] 26.0 mmol/L 21.0-32.0 [facility] Work Phone: [phone] Magnesium [Mass/Vol] 1.9 mg/dL 1.6-2.6 [facility] Work Phone: [phone] Urea nitrogen/Creatinine [Mass ratio] 12.1 mg/mg 10-20 [facility] Work Phone: [phone] Laboratory - Hematology and Cell countson 02-16-2022 Erythrocyte distribution width (RBC) [Entitic vol] 39.9 fL 35.1-43.9 [facility] Work Phone: [phone] Erythrocyte distribution width (RBC) [Ratio] 12.8 % 11.6-14.6 [facility] Work Phone: [phone] Immature granulocytes/100 WBC (Bld) 0.300 % 0.0-0.9 [facility] Work Phone: [phone] Comment on above: IG% - Immature Granu locytes (promyelocytes, myelocytes and metamyelocytes) > 1% indicates that a LEFT SHIFT is Present. MCH (RBC) [Entitic mass] 28.0 pg 27.0-32.0 [facility] Work Phone: [phone] Nucleated RBC/100 WBC (Bld) [Ratio] 0 % 0-5 [facility] Work Phone: [phone] MCHC Auto (RBC) [Mass/Vol]on 02-16-2022 MCHC (RBC) [Mass/Vol] 32.6 g/dL 32-36 [facility] Work Phone: No Panel Informationon 02-16 Troponin I High Sensitivity < 3 pg/mL 3.0-54.0 [facility] Work Phone: Comment on above: Please Note: New Poppy t Units and Gender Specific Reference Ranges. For more information see Policy Stat Procedure Haslett High Sensitivity Troponin (TNIH) and attachments. Atypical Lymphocytes 1+ % [facility] Work Phone: [phone] D-Dimer Quantitative (PE/DVT) < 0.27 FEU/ug/m 0.27-0.49 [facility] Work Phone: Comment on above: NORMAL D-Dimer level (<0.50) indicates no DVT or PE. Estimated Creatinine Clearance Calc 59.16 ml/min [facility] Work Phone: [phone] Estimated GFR (MDRD) Amer 81 mL/min >60 [facility] Work Phone: Comment on above: GFR Calc Estimated GFR (MDRD) Non-Af Amer 67 mL/min >60 [facility] Work Phone: Comment on above: Non- GFR Calc Thyroid Stimulating Hormone (TSH) 2.02 uIU/mL 0.358-3.74 [facility] Work Phone: [phone] Platelets bldon 02-16-2022 Platelets (Bld) [#/Vol] 395 10*3/uL 150-450 [facility] Work Phone: [phone] Serum or plasma calcium anupam urement (mass/volume)on 02-16-2022 Calcium [Mass/Vol] 9.2 mg/dL 8.5-10.1 [facility] Work Phone: [phone] Serum or plasma creatinine m easurement (mass/volume)on 02-16-2022 Creatinine [Mass/Vol] 0.91 mg/dL 0.55-1.02 [facility] Work Phone: [phone] Comment on above: The validity of the calculated GFR & GFRAA in patients over 70 years has not been determined. Clinical correlation is essential. Serum or plasma urea nitroge n measurement (mass/volume)on 02-16-2022 Urea nitrogen [Mass/Vol] 11 mg/dL 7-18 [facility] Work Phone: Thin prep Papanicolaou smear with manual screeningon 02-16-2022 Thin prep Papanicolaou smear with manual screening 6 5-15 [facility] Work Phone: Absolute lymphocyte counton 10-06-2021 Lymphocytes Auto (Unsp spec) [#/Vol] 2.86 10*3/uL 0.83-4.51 [facility] Work Phone: Basophil percentageon 2021 Basophils/100 WBC (Bld) 0.7 % 0-1 [facility] Work Phone: Eosinophils/100 WBC (Bld) 1.2 % 0-5 [facility] Work Phone: Neutrophils (Bld) [#/Vol] 3.7 10*3/uL 2.0-7.7 [facility] Work Phone: Neutrophils/100 WBC (Bld) 51.7 % 47-70 [facility] Work Phone: WBC (Bld) [#/Vol] 7.3 10*3/uL 4.4-11.0 [facility] Work Phone: Bilirubin [Mass/Vol] 0.20 mg/dL 0.20-1.00 [facility] Work Phone: Comment on above: For patients on eltr ombopag therapy, use of Dimension Haslett TBIL is not recommended. Chloride [Moles/Vol] 104 mmol/L 98-107 [facility] Work Phone: Cholesterol [Mass/Vol] 243 mg/dL <200 [facility] Work Phone: Comment on above: <200 mg/dL Desirable 200-240 mg/dL Borderline >240 mg/dL High Risk Glucose [Mass/Vol] 114 mg/dL 74-106 [facility] Work Phone: [phone] Comment on above: Fasting Glucose resu lt from 100 to 125 mg/dL suggests IMPAIRED HOMEOSTASIS per A.D.A. criteria. Potassium [Moles/Vol] 3.6 mmol/L 3.5-5.1 [facility] Work Phone: [phone] Protein [Mass/Vol] 7.6 g/dL 6.4-8.2 [facility] Work Phone: [phone] Sodium [Moles/Vol] 137 mmol/L 136-145 [facility] Work Phone: [phone] Triglyceride [Mass/Vol] 117 mg/dL [facility] Work Phone: [phone] Comment on above: The drugs N-Acetylcy steine and Metamizole may falsely depress this assay.Serum Triglycerides Reference Interval Normal <150 mg/dL Borderline high 150 - 199 mg/dL High 200 - 499 mg/dL Very High > or = 500 mg/dL Blood erythrocytes count (nu mber/volume)on 10-06-2021 RBC (Bld) [#/Vol] 4.25 10*6/uL 4.2-5.4 [facility] Work Phone: [phone] Blood hemoglobin measurement (mass/volume)on 10-06-2021 Hemoglobin (Bld) [Mass/Vol] 11.6 g/dL 12.0-15.0 [facility] Work Phone: [phone] Blood lymphocytes/100 leukoc yteson 10-06-2021 Lymphocytes/100 WBC (Bld) 39.4 % 19-41 [facility] Work Phone: [phone] Blood monocytes/100 leukocyt eson 10-06-2021 Monocytes/100 WBC (Bld) 6.6 % 0-10 [facility] Work Phone: [phone] Blood platelet mean volumeon 10-06-2021 Platelet mean volume (Bld) [Entitic vol] 9.1 fL 6.2-12.0 [facility] Work Phone: [phone] Determination of erythrocyte mean corpuscular volume (MCV)on 10-06-2021 MCV (RBC) [Entitic vol] 85.2 fL 81-99 [facility] Work Phone: [phone] Direct bilirubinon Bilirubin.direct [Mass/Vol] mg/dL 0.00-0.30 [facility] Work Phone: [phone] Hematocrit Auto (Bld) [Volum e fraction]on 10-06-2021 Hematocrit (Bld) [Volume fraction] 36.2 % 37-47 [facility] Work Phone: [phone] Laboratory - Chemistry and C hemistry - challengeon 10-06-2021 ALP [Catalytic activity/Vol] 114 U/L 45-117 [facility] Work Phone: [phone] ALT [Catalytic activity/Vol] 13 U/L 13-56 [facility] Work Phone: [phone] CO2 [Moles/Vol] 28.0 mmol/L 21.0-32.0 [facility] Work Phone: [phone] Globulin (S) [Mass/Vol] 4.2 g/dL 2.2-4.2 [facility] Work Phone: [phone] Urea nitrogen/Creatinine [Mass ratio] 8.7 mg/mg 10-20 [facility] Work Phone: [phone] Laboratory - Hematology and Cell countson 10-06-2021 Erythrocyte distribution width (RBC) [Entitic vol] 42.6 fL 35.1-43.9 [facility] Work Phone: [phone] Erythrocyte distribution width (RBC) [Ratio] 13.7 % 11.6-14.6 [facility] Work Phone: [phone] Immature granulocytes/100 WBC (Bld) 0.400 % 0.0-0.9 [facility] Work Phone: [phone] Comment on above: IG% - Immature Granu locytes (promyelocytes, myelocytes and metamyelocytes) > 1% indicates that a LEFT SHIFT is Present. MCH (RBC) [Entitic mass] 27.3 pg 27.0-32.0 [facility] Work Phone: [phone] Nucleated RBC/100 WBC (Bld) [Ratio] 0 % 0-5 [facility] Work Phone: MCHC Auto (RBC) [Mass/Vol]on 10-06-2021 MCHC (RBC) [Mass/Vol] 32.0 g/dL 32-36 [facility] Work Phone: No Panel Informationon 10-06 Estimated GFR (MDRD) Amer 81 mL/min >60 [facility] Work Phone: Comment on above: GFR Calc Estimated GFR (MDRD) Non-Af Amer 67 mL/min >60 [facility] Work Phone: Comment on above: Non- GFR Calc Thyroid Stimulating Hormone (TSH) 1.22 uIU/mL 0.358-3.74 [facility] Work Phone: Platelets bldon 10-06-2021 Platelets (Bld) [#/Vol] 357 10*3/uL 150-450 [facility] Work Phone: [phone] Serum or plasma albumin anupam urement (mass/volume)on 10-06-2021 Albumin [Mass/Vol] 3.4 g/dL 3.2-5.0 [facility] Work Phone: Serum or plasma albumin/glob ulin mass ratioon 10-06-2021 Albumin/Globulin [Mass ratio] 0.8 {ratio} 0.9-2.4 [facility] Work Phone: [phone] Serum or plasma calcium anupam urement (mass/volume)on 10-06-2021 Calcium [Mass/Vol] 8.5 mg/dL 8.5-10.1 [facility] Work Phone: [phone] Serum or plasma cholesterol in HDL measurement (mass/volume)on 10-06-2021 Cholesterol in HDL [Mass/Vol] 70 mg/dL [facility] Work Phone: Comment on above: The drugs N-Acetylcy steine and Metamizole may falsely depress this assay. Reference Range HDL <40 mg/dL Low HDL Cholesterol HDL >or= 60 mg/dL High HDL Cholesterol Serum or plasma cholesterol in VLDL measurement (mass/volume)on 10-06-2021 Cholesterol in VLDL [Mass/Vol] 23 mg/dL 5-40 [facility] Work Phone: Serum or plasma creatinine m easurement (mass/volume)on 10-06-2021 Creatinine [Mass/Vol] 0.92 mg/dL 0.55-1.02 [facility] Work Phone: Comment on above: The validity of the calculated GFR & GFRAA in patients over 70 years has not been determined. Clinical correlation is essential. Serum or plasma low density lipoprotein (LDL) cholesterol measurement (mass/volume)on 10-06-2021 Cholesterol in LDL [Mass/Vol] 150 mg/dL 0-130 [facility] Work Phone: Serum or plasma urea nitroge n measurement (mass/volume)on 10-06-2021 Urea nitrogen [Mass/Vol] 8 mg/dL 7-18 [facility] Work Phone: Thin prep Papanicolaou smear with manual screeningon 10-06-2021 Thin prep Papanicolaou smear with manual screening 9 U/L 15-37 [facility] Work Phone: Thin prep Papanicolaou smear with manual screening 5 5-15 [facility] Work Phone: PROGRESSon 01-15-2018 [facility] NOTES Normal [facility] XR KNEE LEFT 4+ VIEWS (SPECI FY [...] MonAug 02, 2017 5:04:03 PM EST Normal [facility] XR Knee Left 4+ Views (Note in Comments)on 08-02-2017 XR Knee Left 4+ Views (Note in Comments) 4 views left knee reveals a patella fracture near the superior pole about 25% from the top is nondisplaced and minimal degenerative arthritis only Invalid Interpretation Code FUJI [facility]NAP[facility] Vital Signs Date Time Vital Sign Value Performing Clinician Facility 05-17-2025 03:41-0400 Body temperature 98.1 [degF] Dr. Geoff Marte DO Work Phone: [phone] [place] [address] 05-17-2025 03:41-0400 Diastolic blood pressure 67 mm[Hg] Dr. Geoff Marte DO Work Phone: [phone])435-894504 [place] [address] 05-17-2025 03:41-0400 Heart rate 77 /min Dr. Geoff Marte DO Work Phone: [phone] [place] [address] 05-17-2025 03:41-0400 Respiratory rate 16 /min Dr. Geoff Marte DO Work Phone: [phone] [place] [address] 05-17-2025 03:41-0400 SaO2% (BldA) [Mass fraction] 97 % Dr. Geoff Marte DO Work Phone: [phone])[phone] [place] [address] 05-17-2025 03:41-0400 Systolic blood pressure 116 mm[Hg] Dr. Geoff Marte DO Work Phone: [phone])665-852204 [place] [address] 05-17-2025 00:35-0400 Body height 165.[address] Geoff Marte DO Work Phone: [phone] [place] [address] 05-17-2025 00:35-0400 Body mass index (BMI) [Ratio] 26.2 kg/m2 Dr. Geoff Marte DO Work Phone: [phone])417-442504 [place] [address] 05-17-2025 00:35-0400 Body weight 71.[address] Geoff Marte DO Work Phone: [phone] [place] [address] 04-30-2025 11:21-0400 Body height 165.[address] Geoff Marte DO Work Phone: [phone] [place] [address] 04-30-2025 11:21-0400 Body mass index (BMI) [Ratio] 25.7 kg/m2 Dr. Geoff Marte DO Work Phone: [phone] [place] [address] 04-30-2025 11:21-0400 Body weight 70.[address] Geoff Marte DO Work Phone: [facility] 04-27-2025 05:44-0400 Body temperature 98.9 [degF] Dr. Geoff Marte DO Work Phone: [facility] 04-27-2025 05:44-0400 Diastolic blood pressure 83 mm[Hg] Dr. Geoff Marte DO Work Phone: [facility] 04-27-2025 05:44-0400 Heart rate 88 /min Dr. Geoff Marte DO Work Phone: [phone] [place] [address] 04-27-2025 05:44-0400 Respiratory rate 16 /min Dr. Geoff Marte DO Work Phone: [facility] 04-27-2025 05:44-0400 SaO2% (BldA) [Mass fraction] 100 % Dr. Geoff Marte DO Work Phone: [phone] [place] [address] 04-27-2025 05:44-0400 Systolic blood pressure 133 mm[Hg] Dr. Geoff Marte DO Work Phone: [facility] 04-27-2025 02:48-0400 Body height 165.[address] Geoff Marte DO Work Phone: [phone] [place] [address] 04-27-2025 02:48-0400 Body mass index (BMI) [Ratio] 25.8 kg/m2 Dr. Geoff Marte DO Work Phone: [facility] 04-27-2025 02:48-0400 Body weight 70.[address] Geoff Marte DO Work Phone: [facility] 12-15-2022 09:06-0400 Body height 165.1 cm [facility] Work Phone: [facility] 12-15-2022 09:00-0400 Body mass index (BMI) [Ratio] 28.4 kg/m2 [facility] Work Phone: [facility] 12-15-2022 09:00-0400 Body weight 77.56 kg [facility] Work Phone: [phone])244-370184 [place] [address] 12-15-2022 09:00-0400 Diastolic blood pressure 63 mm[Hg] [facility] Work Phone: [phone])[phone] [address] 12-15-2022 09:00-0400 Heart rate 76 /min [facility] Work Phone: [phone])448-528474 [place] [address] 12-15-2022 09:00-0400 Respiratory rate 18 /min [facility] Work Phone: [phone] [address] 12-15-2022 09:00-0400 SaO2% (BldA) [Mass fraction] 98 % [facility] Work Phone: [phone] [place] [address] 12-15-2022 09:00-0400 Systolic blood pressure 104 mm[Hg] [facility] Work Phone: [phone])[phone] [address] 06-27-2022 19:18-0400 Body height 165.1 cm [facility] Work Phone: [phone] [place] [address] Work Phone: 06-27-2022 19:18-0400 Body mass index (BMI) [Ratio] 27.2 kg/m2 [facility] Work Phone: [phone] [place] [address] Work Phone: 06-27-2022 19:18-0400 Body temperature 96.4 [degF] [facility] Work Phone: [facility] Work Phone: 06-27-2022 19:18-0400 Body weight 74.3 kg [facility] Work Phone: [facility] Work Phone: 06-27-2022 19:18-0400 Diastolic blood pressure 79 mm[Hg] [facility] Work Phone: [phone])091-068584 [place] [address] Work Phone: 06-27-2022 19:18-0400 Heart rate 78 /min [facility] Work Phone: [phone] [place] [address] Work Phone: 06-27-2022 19:18-0400 Respiratory rate 16 /min [facility] Work Phone: [facility] Work Phone: 06-27-2022 19:18-0400 SaO2% (BldA) [Mass fraction] 100 % [facility] Work Phone: [facility] Work Phone: 06-27-2022 19:18-0400 Systolic blood pressure 150 mm[Hg] [facility] Work Phone: [facility] Work Phone: 06-01-2022 17:50-0400 Body height 165.1 cm [facility] Work Phone: [facility] Work Phone: 06-01-2022 17:50-0400 Body mass index (BMI) [Ratio] 26.4 kg/m2 [facility] Work Phone: [facility] Work Phone: 06-01-2022 17:50-0400 Body temperature 97.8 [degF] [facility] Work Phone: [facility] Work Phone: 06-01-2022 17:50-0400 Body weight 72 kg [facility] Work Phone: [facility] Work Phone: 06-01-2022 17:50-0400 Diastolic blood pressure 80 mm[Hg] [facility] Work Phone: [facility] Work Phone: 06-01-2022 17:50-0400 Heart rate 82 /min [facility] Work Phone: [facility] Work Phone: 06-01-2022 17:50-0400 Respiratory rate 17 /min [facility] Work Phone: [facility] Work Phone: 06-01-2022 17:50-0400 SaO2% (BldA) [Mass fraction] 100 % [facility] Work Phone: [facility] Work Phone: 06-01-2022 17:50-0400 Systolic blood pressure 121 mm[Hg] [facility] Work Phone: [facility] Work Phone: 02-16-2022 06:00-0400 Diastolic blood pressure 78 mm[Hg] [facility] Work Phone: [facility] Work Phone: 02-16-2022 06:00-0400 Heart rate 78 /min [facility] Work Phone: [facility] Work Phone: 02-16-2022 06:00-0400 Respiratory rate 16 /min [facility] Work Phone: [facility] Work Phone: 02-16-2022 06:00-0400 SaO2% (BldA) [Mass fraction] 96 % [facility] Work Phone: [facility] Work Phone: 02-16-2022 06:00-0400 Systolic blood pressure 126 mm[Hg] [facility] Work Phone: [facility] Work Phone: 02-16-2022 02:16-0400 Body height 165.1 cm [facility] Work Phone: [facility] Work Phone: 02-16-2022 02:16-0400 Body mass index (BMI) [Ratio] 26.6 kg/m2 [facility] Work Phone: [facility] Work Phone: 02-16-2022 02:16-0400 Body temperature 98.1 [degF] [facility] Work Phone: [facility] Work Phone: 02-16-2022 02:16-0400 Body weight 72.6 kg [facility] Work Phone: [facility] Work Phone: 09-23-2021 13:03-0500 Body height 165.1 cm No Primary Care Physician [facility] Work Phone: 09-23-2021 13:03-0500 Body mass index (BMI) [Ratio] 23.9 kg/m2 No Primary Care Physician [facility] Work Phone: 09-23-2021 13:03-0500 Body weight 65.31 kg No Primary Care Physician [facility] Work Phone: 09-23-2021 13:03-0500 Diastolic blood pressure 60 mm[Hg] No Primary Care Physician [facility] Work Phone: 09-23-2021 13:03-0500 Heart rate 84 /min No Primary Care Physician [facility] Work Phone: 09-23-2021 13:03-0500 Respiratory rate 20 /min No Primary Care Physician [facility] Work Phone: 09-23-2021 13:03-0500 Systolic blood pressure 130 mm[Hg] No Primary Care Physician [facility] Work Phone: 08-02-2017 14:15-0500 BMI (Body Mass Index) 25.79 kg/m2 Torey Flores [facility] Work Phone: 08-02-2017 14:15-0500 Height 165.1 cm Torey Flores [facility] Work Phone: 08-02-2017 14:15-0500 Weight 70.31 kg Torey Flores [facility] Work Phone: Encounters Encounter Date Encounter Type Care Provider Facility Start: 07-15-2025 End: 07-15-2025 ambulatory NO PCP AA NO PCP [facility] Start: 07-12-2025 End: 07-13-2025 Emergency department patient visit Chuy Irving Facility:[facility] Start: 05-28-2025 End: 05-28-2025 ambulatory NO PCP AA NO PCP [facility] Start: 05-17-2025 End: 05-17-2025 Emergency department patient visit Dr. Geoff Marte DO Work Phone: -Emergency Department Work Phone: Start: 05-16-2025 ambulatory Chuy Meng [facility] Facility :[facility] Start: 04-30-2025 End: 04-30-[address] Geoff Marte DO Work Phone: -[facility] Start: 04-30-2025 End: 04-30-2025 Patient encounter procedure Marion Carroll [employer] -[facility] Work Phone: Start: 04-27-2025 End: 04-27-2025 Emergency department patient visit Dr. Geoff Marte DO Work Phone: -Emergency Department Work Phone: Start: 01-29-2025 End: 01-29-2025 ambulatory NO PCP AA NO PCP [facility] Start: 01-23-2025 ambulatory GANGA CLARKE MD~[id number] [facility] Start: 01-14-2025 ambulatory Sunita Hammondsi ty:[facility] Start: 11-27-2024 End: 11-27-2024 ambulatory NO PCP AA NO PCP [facility] Start: 11-12-2024 End: 11-22-2024 Telephone encounter Caryn Roe Work Phone: Podiatry Comment on above: Patient Update Start: 11-11-2024 End: 11-11-2024 ambulatory NO PCP AA NO PCP [facility] Start: 09-09-2024 ambulatory Carlos Mollison Facility :[facility] Start: 08-01-2024 ambulatory Carlos Mollison Facility :[facility] Start: 10-20-2023 End: 10-20-2023 Patient encounter procedure HAYDEE ESCOTO MD [facility] Start: 10-13-2023 ambulatory HAYDEE ESCOTO MD Facility :[facility] Start: 02-09-2023 End: 02-09-2023 ambulatory [facility] Work Phone: [facility] Work Phone: Start: 02-09-2023 End: 02-09-2023 Patient encounter procedure [facility] Work Phone: [facility]-Pulmonary Services/Neurology Start: 12-15-2022 End: 12-15-2022 Patient encounter procedure [facility] Work Phone: [facility] Start: 08-09-2022 End: 08-09-2022 ambulatory [facility] Work Phone: [facility] Work Phone: Start: 08-09-2022 End: 08-09-2022 Patient encounter procedure [facility] Work Phone: [facility] Start: 08-04-2022 Patient encounter procedure [facility] Work Phone: [facility]/Neurology Start: 07-12-2022 Non-patient / Non-visit [facility] Work Phone: [facility] Start: 06-27-2022 End: 06-27-2022 Emergency department patient visit [facility] Work Phone: [facility] Start: 06-01-2022 End: 06-01-2022 Emergency department patient visit [facility] Work Phone: [facility] Start: 03-31-2022 End: 03-31-2022 Patient encounter procedure [facility] Work Phone: [facility] Gastroenterology Start: 02-16-2022 End: 02-16-2022 Emergency department patient visit [facility] Work Phone: [facility] Start: 02-07-2022 End: 02-07-2022 Patient encounter procedure [facility] Work Phone: [facility] Start: 01-13-2022 Non-patient / Non-visit No Primary Care Physician [facility] Start: 01-13-2022 End: 01-13-2022 Patient encounter procedure No Primary Care Physician [facility] Start: 11-23-2021 End: 11-23-2021 Patient encounter procedure No Primary Care Physician [facility] Start: 10-26-2021 Non-patient / Non-visit No Primary Care Physician [facility] Start: 10-26-2021 End: 10-26-2021 Patient encounter procedure No Primary Care Physician [facility] Start: 10-06-2021 End: 10-06-2021 Patient encounter procedure No Primary Care Physician [facility] Start: 09-23-2021 End: 09-23-2021 Patient encounter procedure No Primary Care Physician [facility] Start: 01-15-2018 Ambulatory [facility] Start: 11-15-2017 End: 11-15-2017 Ambulatory Cisco Murillo Facility:[facility] Start: 10-03-2017 End: 10-04-2017 Ambulatory Cisco Murillo Facility:[facility] Start: 09-22-2017 End: 09-23-2017 Ambulatory Cisco Murillo Facility:[facility] Start: 08-19-2017 End: 08-19-2017 Ambulatory Cisco Murillo Facility:[facility] Start: 08-03-2017 Ambulatory CELY [facility] Start: 08-02-2017 End: 08-02-2017 Ambulatory TOREY FLORES [facility] Amb[facility] Start: 08-02-2017 Office outpatient ne w 30 minutes Torey Flores Work Phone: [facility] Procedures Date Procedure Procedure Detail Performing Clinician Start: 04-27-2025 X-ray of knee, four or more views Dr. Geoff Marte DO Work Phone: Start: 06-27-2022 Plain x-ray of hand [facility] Work Phone: Start: 06-01-2022 End: 06-01-2022 Radiologic examination of knee [facility] Work Phone: Start: 02-16-2022 Plain chest X-ray [facility] Work Phone: Start: 11-23-2021 CT of [...] RSV Vaccine (1 - 1-dose 75+ series) [facility] Start: 05-17-2025 [facility] Start: 05-17-2025 Knee 4 or More Views Knee 4 or More Views [facility] Start: 05-17-2025 XR Knee GE 4 Views [facility] Start: 04-27-2025 [facility] Start: 11-26-2024 End: 11-26-2024 Patient encounter procedure 11/26/2024 9:15 AM EDT Office Visit Podiatry [address] [place] [address] Caryn Roe [address] [address] Left Foot/Ankle pain, previous surgery on foot Podiatry Comment on above: Left Foot/Ankle pain , previous surgery on foot Start: 05-19-2024 Covid-19 Vaccine ( season) Covid-19 Vaccine ( season) [facility] Start: 05-19-2024 Influenza vaccination Influenza Vacc ine (#1) [facility] Start: 02-16-2022 [facility] Work Phone: Start: 03-22-2021 Diabetes Screening Diabetes Screenin g [facility] Start: 05-19-2017 Influenza vaccination SEQUENTI AL INFLUENZA VACCINE (#1) [facility] Work Phone: Start: 05-02-2015 Pneumococcal Vaccine : 50+ (2 of 2 - PCV) Pneumococcal Vaccine: 50+ (2 of 2 - PCV) [facility] Start: 05-23-2013 Screening for malign ant neoplasm of colon [facility] Start: 02-06-2012 Shingrix Vaccine (1 of 2) Shingrix Vaccine (1 of 2) [facility] Start: 07-19-2009 Screening for malign ant neoplasm of breast Mammogram Screening [facility] Start: 2007 Lipid panel Lipid Screening [facility] Start: 2007 Screening for malign ant neoplasm of colon [facility] Start: 1981 Urine microalbumin profile DTaP,Tdap,Td Vaccine (1 - Tdap) [facility] Start: 02-06-1980 Anxiety Screening Anxiety Screening [facility] Start: 02-06-1980 Depression Screening Depression Scre ing [facility] Start: 02-06-1980 Hepatitis C screening Hepatitis C [facility] Start: 02-06-1980 HIV screening HIV Screening [facility] Start: 1960 HEPATITIS C SCREENING HEPATITIS C [facility] Work Phone: Start: 1960 Screening colonoscopy COLONOSCOPY O [facility] Work Phone: Start: 1960 Screening for malign ant neoplasm of cervix PAP SMEAR [facility] Work Phone: Start: 1960 Tetanus vaccination TETANUS EVERY 10 YR [facility] Work Phone: Patient Education [facility] Work Phone: Patient referral [facility] Work Phone: Payers Date Payer Category Payer Self-pay [id number] 2022 Medicaid [employer] [id number] 2017 Unknown 2013 Medicaid [id number] 1962 Unknown [id number] 1962 Unknown [id number] 1962 Unknown [id number] 1962 Unknown [id number] [id number] 1962 Unknown [id number] 1962 Unknown [id number] 1959 Medicaid [id number] Unknown [id number] Unknown [id number] Unknown [id number] [id number] Unknown [id number] [id number] Unknown [id number] [id number] Unknown [id number] [id number] Unknown [id number] [id number] Unknown [id number] Social History Date Type Detail Facility Start: 08-02-2017 End: 05-17-2025 Tobacco smoking status NHIS Current every day smoker [facility] Start: 1960 Sex Assigned At Not on file [facility] Work Phone: Start: 09-23-2021 End: 12-15-2022 Tobacco smoking status PRIS Unknown if ever smoked [facility] Start: 07-14-2017 Heavy [facility] Start: 07-14-2017 None [facility] Start: 07-14-2017 Alone [facility] Start: 06-21-2021 Cigarettes [facility] Start: 1960 Sex Assigned At Female [facility] Tobacco smoking status No Smokin g Status Entered [facility] History of tobacco use Cigarette Smoker C [facility] Start: 03-09-2018 End: 11-21-2024 Cigarettes smoked current (pack per day) - Reported 1 [facility] Start: 03-09-2018 Tobacco use and exposure Smokeless tobacco non-user [facility] Start: 03-22-2018 Alcoholic beverage intake Current drinker of alcohol (finding) [facility] Start: 03-22-2018 End: 11-21-2024 Tobacco use panel [facility] National Score (1-10 0), lower number is lower risk 89 [facility] Mental Status Date Assessment Result Facility 02-16-2022 Cognitive function Awake;Alert;A ppropriate;Fol lows Commands [facility] Work Phone: Clinical Notes 10-20-2023 to 05-17-2025 Note Date & Type Note Facility 05-17-2025 Discharge summary [facility] 05-17-2025 Radiology Diagnostic study note [facility] Imaging Services [address] [place], [place] [id number] Knee 4 or More Views MR#: [id number] Acct: [id number] Name: MARILU GUNTER Rep #: [id number] : 1960 F 65 From: Sadie Salazar MD PCP: Chuy Meng MD Status: REG ER Study:Knee 4 or More Views Date of Exam: 05/17/25 Exam# [id number] Ordering Dr: Kevin Hayes DO PROCEDURE: KNEE [...] evidence of an acute abnormality. [facility] CC: Dr. Kevin Gómez DO; Chuy Meng MD ~ Inverted Block Operator: Signed [facility] 04-30-2025 Evaluation note Diagnosis Onset Date Resolution Osteoarthritis of right knee acute April 30 11:16am [facility] Work Phone: 1(692) 245-193308-10-2025 Radiology Diagnostic study note [facility] Imaging Services [address] [place] [id number] Knee 4 or More Views MR#: [id number] Acct: [id number] Name: MARILU GUNTER Rep #: [id number] : 1960 F 65 From: Princess Leonard MD PCP: Chuy Meng MD Status: REG ER Study:Knee 4 or More Views Date of Exam: 04/27/25 Exam# [id number] Ordering Dr: Elizabeth Marte DO PROCEDURE: KNEE [...] IMPRESSION: Mild right knee osteoarthritis. Reading Location: [place] [address] CC: Chuy Meng MD; DO Eddie Youssef Inverted Block Operator: Signed [facility]02-27-2025 Telephone encounter Note* Telephone Encounter - Sonam Love, BRAD - 11/14/2024 3:35 PM EST Called patient [...] and schedule is fully booked prior to. [facility]02-27-2025 Miscellaneous Notes* Telephone Encounter - Sonam Love [...] Reports pain management, Dr. Rush (ph # [phone]) took an xray of her foot yesterday. Pt has not received the results yet. Dr. 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 [facility] Telephone encounter Note * Telephone Encounter - Bev Meng LPN - 11/13/2024 1:54 PM EST Report of xrays has been received. Bev Meng LPN [facility] Work Phone: 1(857) 958-855702-25-2025 Telephone encounter Note* Telephone Encounter - Ara Hatfield LPN - 11/12/2024 3:11 PM EST 's office calling and is sending foot xray to office. Ara Hatfield LPN [facility]02-25-2025 Telephone encounter Note* Telephone Encounter - Luis [...] Reports pain management, Dr. Rush (ph # [phone]) took an xray of her foot yesterday. Pt has not received the results yet. Dr. 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 [facility]02-02-2024 Note ORIGINAL EXAMINATION: MRI OF THE BRAIN [...] Sign Date: 10/20/2023 7:28:20 PM Ordering Provider: [facility] summary [facility] Date/Time May 17, 2025 3: 38am [facility] Medical Records Department [address] [place] [address] Emergency Department Summary 05/17/25 MR#: [id number] Acct: [id number] Name: MARILU GUNTER Rep #:[id number] : 1960 65 From: Kevin Patton ggett DO PCP: Chuy Meng MD Status:[facility] ER Location: ED HPI History of Present [...] intact Psych: Cooperative, appropriate mood and affect [facility] Medical History Left knee pain Bilateral primary [...] evidence of an acute abnormality. [facility] Triage Chief Complaint: Lower Extremity [...] ED symptoms change or worsen. Print Language: Gibraltarian Disposition Disposition: Home, Self Care What to do if you have Problems For any increased pain, shortness of breath, bleeding, nausea or vomiting, chestpain, or any unexpected problems, contact your Primary Care Provider. Call [facility] ([phone]) or report to the closest Emergency Room. Call 911 if necessary. 05/17/25 0338 <Electronically signed by Kevin Gómez DO> Cosigner Signature (if applicable): CC: Chuy Meng MD ~ Signed [facility] Work Phone: Evaluation + Plan note No data available for this section [facility] Evaluation note* Diagnosis Onset Date Resolution Status Cardiomyopathy in disease classified elsewhere acute Chest pain acute Cardiac dysrhythmia chronic Essential hypertension chron ic Pure hypercholesterolemia [facility] Work Phone: Evaluation noteNo assessment information available [facility] Work Phone: Evaluation note* Diagnosis Onset Date Resolution Status Abdominal pain acute GERD (gastroesophageal reflux disease) chronic [facility] Work Phone: Evaluation note* Diagnosis Onset Date Resolution Status Cardiomyopathy in disease classified elsewhere acute Cardiac dysrhythmia chronic Essential hypertension chron ic Pure hypercholesterolemia [facility] Work Phone: Evaluation note* Diagnosis Onset Date Resolution Status Admit Date Osteoarthritis of right knee acute April 30, 2025 11:16am [facility] Work Phone: Hospital Discharge instructions No data available for this section [facility] Hospital Discharge instructionsAdditional Instructions Please follow-up [...] ER should you have any further concerns [facility] Work Phone: Hospital Discharge instructionsAmbulatory Orders* Physical Therapy Referral Location: None Selected [facility] Work Phone: Hospital Discharge instructionsAdditional Instructions Follow-up with your orthopedic physician, pain management, primary care physician. Return back to the ED symptoms change or worsen.[facility] Work Phone: Progress note No data available for this section [facility] Reason for referral (narrative)No reason for referral [facility] Work Phone: Assessments Diagnosis Left knee [...] March 19, 2019 1 0:58am Power of Patient Financial Rep No March 19, 2019 10:58am Advance Directive Response Recorded Date/ Time Advance Directives No February 03 2 2:01pm Living Will No February 03, 2022 2 :01pm Power of Patient Financial Rep No February 03, 2022 2:01pm Advance Directive Response Recorded Date/ Time Advance Directives No February 03 2 2:01pm Living Will No February 16, 2022 2 :28am Power of Patient Financial Rep No February 16, 2022 2:28am Advance Directive Response Recorded Date/ Time Advance Directives No February 03 2 2:01pm Living Will No June 01, 2022 7:02pm Power of Patient Financial Rep No May 7:02pm Advance Directive Response Recorded Date/ Time Advance Directives No February 03 1:01pm Living Will No June 27 6:28pm Power of Patient Financial Rep No June 27, 2022 6:28pm Advance Directive Response Recorded Date/ Time Advance Directives No February 03 2:01pm Living Will No June 27 7:28pm Power of Patient Financial Rep No June 27, 2022 7:28pm Advance Directive Response Recorded Date/ Time Do you have a Healthcare Power of Patient Financial Rep? No April 27, 2025 2:51am Advance Directives No February 03 2:01pm Advance Directive Response Recorded Date/ Time Advance Directives No April 28, 2025 9:22am Do you have a Healthcare Power of Patient Financial Rep? No April 27, 2025 2:51am Advance Directive Response Recorded Date/ Time Advance Directives No April 28, 2025 9:22am Do you have a Healthcare Power of Patient Financial Rep? No April 27, 2025 2:51am Do you have a Healthcare Power of Patient Financial Rep? No May 17, 2025 12:38am Chief Complaint and Reason for Visit Chief Complaint RE-ESTAB WITH [facility] CHEST PAIN CHEST PAIN pain Palpitations Reason for Visit Cardiomyopathy in [facility] classified elsewhere Chest pain Cardiac dysrhythmia Essential [...] AND COLLAPSE Reason for Visit Cardiomyopathy in [facility] classified elsewhere Cardiac dysrhythmia Essential hypertension Pure [...] and content) DATE CREATED AUTHOR 03/08/2018 [facility] DATE CREATED AUTHOR AUTHOR'S ORGANIZ ATION 03/09/[address] [facility] DATE CREATED AUTHOR AUTHOR'S ORGANIZ ATION 03/13/2018 [facility] DATE CREATED AUTHOR AUTHOR'S ORGANIZ ATION 10/15/2023 [facility] DATE CREATED AUTHOR AUTHOR'S ORGANIZ ATION 01/21/2025 [facility] DATE CREATED AUTHOR AUTHOR'S ORGANIZ ATION 07/26/2025 [facility] DATE CREATED AUTHOR AUTHOR'S ORGANIZ ATION 07/26/2025 [facility] Goals (unrecognized section and content) Goals [...] Dr. 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 [employer] [facility]. provides no warranty or guarantee of the accuracy or completeness of information in this document.
[2025-08-17 01:11] LABS: Hematocrit 44.0 % (37-47); Hemoglobin 14.5 g/dL (12.0-15.0); Immature Granulocytes Count 0.050 X10^3/uL (0.0-0.0); Mean Corp Hgb Conc 33.0 g/dL (32-36); Mean Corpuscular Volume 89.1 fL (81-99); Mean Platelet Vol. 10.6 fl (6.2-12.0); NRBC Flagged by Analyzer 0 % (0-5); Platelet Count 366 K/mm3 (150-450); RBC Distribution Width CV 13.0 % (11.6-14.6); RBC Distribution Width SD 42.5 fl (35.1-43.9); Red Blood Count 4.94 M/mm3 (4.2-5.4); White Blood Count 11.0 K/mm3 (4.4-11.0)
[2025-08-17 01:30] LABS: D-Dimer Quantitative (DVT/PE) 0.55 FEU/ug/m (0.27-0.49)
[2025-08-17 01:39] LABS: Anion Gap 16 (5-15); BUN 5 mg/dL (4-19); BUN/Creat Ratio 7.2 RATIO (10-20); Calcium,Total 9.7 mg/dL (7.6-11.0); Carbon Dioxide 22.9 mmol/L (21.0-32.0); Chloride 98 mmol/L (98-108); Estimated Creatinine Clearance 78.28 ml/min (50-250); Glucose 121 mg/dL (70-99); Potassium 3.3 mmol/L (3.3-5.1); Troponin T High Sensitivity 9 ng/L (<=14)
[2025-08-17 01:39] LABS: Alcohol, Blood (Medical)-Serum 137.0 mg/dL (<=10.0)
[2025-08-17] MEDS: Lidocaine 2% Viscous15 ML UDC 15 ML PO (02:32)
[2025-08-17 02:57] LABS: Troponin T High Sens 2 HR 8 ng/L (<=14)
[2025-08-17] MEDS: Nitroglycerin Oint 1 INCH PACKET TD (03:10)
--- NOTE | 2025-08-17 03:30 | PCM.HP.STD ---
HPI - General General Date of Admission: 08/17/25 Date of Service: 08/17/25 Chief Complaint: Chest pain HPI Narrative MARY DOWD, is a 65 F who presents chest pain over the past couple weeks that became worse last night. Patient has a medical history of nonischemic stress-induced cardiomyopathy that resolved, last echo in 2021 showed EF 55%, hypertension and multiple ectopics including PACs and PVCs who states that she has been going through a lot of personal and family stress lately and started developing intermittent chest pain over the last couple weeks that became more severe last night. Chest pain is left-sided radiates to the left arm and felt as dull aching sensation, not relieved by nitrates and nonexertional (except for the stress as mentioned). She states she collapsed outside the bar while waiting for EMS to arrive, but per EMS report she was seated on the ground with bystanders. Last stress test in 2021 was normal. She had at least 2 Holter monitors last one was in January 2023 showed much fewer ectopics (supraventricular or ventricular) than the Holter in 2021. Only 1 episode of ectopy correlated with chest pain but the rest of ectopies did not correlate with any symptoms. Patient states that she called her cardiology at [facility] few months ago because of ongoing chest pains and they recommended a stress test but she did not follow-up. In the ED patient was hemodynamically stable. She felt relief only after morphine but did not last long. 2 troponins came back negative. Age-adjusted D-dimer is negative and she has no risk factors for PE. EKG was sinus rhythm, unchanged T inversions in V1 and V2, apparently new T inversions in V3 and V4, but this appears most likely from inaccurate lead positioning as both have a positive QRS and and her prior EKG those 2 leads were isoelectric or negative. ED attempted discharging patient home but patient insisted on staying as she was concerned about her chest pain. Patient was tearful during my interview [facility] Medical History Left knee pain Bilateral primary osteoarthritis of knee Right knee pain Wears dentures History of ulceration Smoker History of edema History of echocardiogram History of stress test Cardiology follow-up encounter History of heart attack History of atrial fibrillation Melena Abdominal pain Seizure History of left heart catheterization (LHC) (~09/04/09) Asthma COPD (chronic obstructive pulmonary disease) Cardiomyopathy in disease classified elsewhere Essential hypertension Chest pain GERD (gastroesophageal reflux disease) Tobacco use Pure hypercholesterolemia Old myocardial infarct HTN (hypertension) Cardiac dysrhythmia Bipolar disorder Home Medications ?Medication ?Instructions ?Recorded ?Last Taken ?Type lamotrigine 25 mg tablet 50 mg PO BID seizures 04/13/17 07/13/17 History atorvastatin 20 mg tablet 20 mg PO QHS #90 tabs 12/12/22 Unknown Rx duloxetine 60 mg capsule,delayed 90 mg PO DAILY 12/15/22 Unknown History release carvedilol 25 mg tablet 25 mg PO BID #180 tabs 05/02/24 Unknown Rx clonidine HCl 0.1 mg tablet 0.05 mg PO BID PRN PRN anxiety 04/27/25 Unknown History pantoprazole 40 mg tablet,delayed 40 mg PO BID 3 months #180 tabs 06/30/25 Unknown Rx release buprenorphine 15 mcg/hour weekly 1 patch transdermal QWEEK 07/12/25 Unknown History transdermal patch (Butrans) duloxetine 30 mg capsule,delayed 30 mg PO DAILY 08/17/25 Unknown History release Allergy/AdvReac Type Severity Reaction Status Date / Time NSAIDS (Non-Steroidal AdvReac Diarrhea Verified 08/17/25 00:34 Anti-Inflamma tramadol HCl (From Ultram) AdvReac Diarrhea Verified 08/17/25 00:34 Family History Mother Diabetes Cancer Father COPD (chronic obstructive pulmonary disease) Diabetes Sister Diabetes Surgical History History of partial hysterectomy History of bilateral cataract extraction History of total left knee replacement History of carpal tunnel release History of shoulder surgery History of foot surgery History of arthroscopy of both knees History of cholecystectomy History of hysterectomy Social History Smoking Status: Current every day smoker tobacco type: cigarettes alcohol intake: current details: occasional substance use type: does not use ROS Constitutional Constitutional: Denies fever(s) or poor appetite ENT HEENT: Reports none Cardiovascular Cardiovascular: Reports chest pain; Denies dyspnea Respiratory/Chest Respiratory/Chest: Denies cough or wheezing Gastrointestinal Gastrointestinal: Denies abdominal pain or change in bowel habits Genitourinary Genitourinary: Denies change in urinary stream or dysuria Musculoskeletal Musculoskeletal: Denies arthralgias or myalgias Integumentary Integumentary: Reports none Neurologic Neurologic: Denies abnormal speech, dizziness, focal weakness, loss of vision or numbness Hematologic/Lymphatic Hematologic/Lymphatic: Reports none Vital Signs Vital Signs Vital Signs: 08/17/25 00:27 08/17/25 00:32 08/17/25 00:37 Temperature 98.8 F Temperature Source Oral Pulse Rate 93 Respiratory Rate 18 Respiratory Effort Normal Blood Pressure 147/82 H Blood Pressure Mean 103 Pulse Ox 100 100 Oxygen Delivery Method Room Air Room Air 08/17/25 02:27 08/17/25 03:05 08/17/25 03:10 Temperature 98 F Temperature Source Pulse Rate 79 83 84 Respiratory Rate 22 H 16 Respiratory Effort Blood Pressure 140/75 H 133/72 H 133/72 H Blood Pressure Mean 96 92 Pulse Ox 93 99 Oxygen Delivery Method Room Air Weight Weight: 69.5 kg Body Mass Index (BMI) 25.4 Physical Exam Const alert and oriented x3 HEENT normocephalic and head/scalp atraumatic Eyes EOMs intact bilaterally; Negative for no scleral icterus Neck supple Resp normal respiratory effort and clear to auscultation bilaterally Cardio regular rate and regular rhythm; Negative for no murmurs GI normal to inspection, nondistended, normoactive bowel sounds; Negative for non-tender no CVA tenderness Extremity no joint enlargement and no pedal edema Skin no rashes or lesions noted Neuro oriented x3 and moves all extremities Results Lab / Micro Data 08/17/25 00:39 08/17/25 00:39 Labs: Laboratory Results - last 24 hr 08/17/25 00:39: WBC 11.0, RBC 4.94, Hgb 14.5, Hct 44.0, MCV 89.1, MCH 29.4, MCHC 33.0, RDW Std Deviation 42.5, RDW Coeff of Kaylyn 13.0, Plt Count 366, MPV 10.6, Immature Gran % (Auto) 0.500, Neut % (Auto) 56.8, Lymph % (Auto) 37.1, [place] % (Auto) 4.6, Eos % (Auto) 0.5, Baso % (Auto) 0.5, Absolute Neuts (auto) 6.2, Absolute Lymphs (auto) 4.09, Nucleated RBC % 0, D-Dimer Quant (PE/DVT) 0.55 H*, Sodium 136, Potassium 3.3, Chloride 98, Carbon Dioxide 22.9, Anion Gap 16 H, BUN 5, Creatinine 0.72, Estim Creat Clear Calc 78.28, Est GFR (MDRD) Non-Af 94, BUN/Creatinine Ratio 7.2 L, Glucose 121 H, Calcium 9.7, Troponin T High Sens 9 08/17/25 00:40: Ethyl Alcohol 137.0 H 08/17/25 02:34: Troponin T Hi Sens 2 Hr 8 Imaging Radiology Impression Chest X-Ray 08/17/25 00:58 IMPRESSION: No Acute Findings. Reading Location: [facility] Assessment & Plan Assessment/Plan (1) Chest pain: QUALIFIERS: Chest pain type: unspecified Qualified Code(s): R07.9 - Chest pain, unspecified (2) Abnormal EKG: (3) Hypertension: QUALIFIERS: Hypertension type: primary hypertension Qualified Code(s): I10 - Essential (primary) hypertension (4) Non-ischemic cardiomyopathy: (5) Extrasystoles: (6) Depression: QUALIFIERS: Depression Type: unspecified Qualified Code(s): F32.A - Depression, unspecified PLAN: Plan 65-year-old female comes in with atypical chest pain, placing under observation with telemetry. Chest pain: 2 negative troponins, no new changes on EKG. Was supposed to get a stress test but never followed up. Will have cardiology evaluation to determine whether needed as inpatient. Of note, she had a history of stress-induced cardiomyopathy and currently admits to life stressors correlated with her chest pain Abnormal EKG: V3 and V4 showed new T inversions compared to prior EKG, but likely lead positioning (showing negative QRS representing V2 position). In April 2025, all V3 to V6 had positive QRS with upright T waves Hypertension, extrasystoles: All controlled with Coreg. Last Holter showed very few supraventricular and ventricular ectopies, only 1 episode correlated with symptoms Nonischemic cardiomyopathy: Resolved. No CHF symptoms Depression: Remains tearful, on Cymbalta was increased to 90 mg recently. On lamotrigine Charges/Coding Visit Charges OBSV E&M: 76690 Observ/hosp same date L2
--- OUTSIDE RECORDS SUMMARY | 2025-08-17 04:05 | XMS RPT_ITS | CCD ---
Author Organization [facility] CliniSyaz Care Team Providers Care Organ Installer Name Role Phone No, Physician Unavailable Unavailable [...] available Dr. Alonzo Lanza Attending Provider [phone] [facility], Miriam Gore Primary Care Pro vider Dr. Alonzo Lanza Referring Provider [phone] Dr. Alonzo Lanza Other Provider [phone] Dr. Christopher Gilmore Attending Provider Dr. Alonzo Lanza Attending Provider [phone] Yahir TATE, PA Maria Antonia Sahu Referring Provider [facility], Miriam Gore Primary Care Pro vider [facility], Miriam Gore Referring Provid er FriendDr. Castorena Attending Provider [facility], Miriam Gore Primary Care Pro vider FriendDr. Castorena Attending Provider [facility], Miriam Gore Primary Care Pro vider [facility], Miriam Samuelrene Referring Provid er Yahir TATE, PA Maria Antonia Sahu Attending Provider HAYDEE ESCOTO MD Attending Unavailable GEORGINA FLORES Primary Care Unavailable JAQUAN FLORES Primary Care Physician Torey Flores Unavailable Estuardo TURNER, Dr. Tellez Emergency Provider Taqueria SHAFFER, Dr. Vera Primary Care Provider Dr. Chuy Meng MD Referring Provider Glen CARY-CMarion Attending Provider Estuardo TURNER, Dr. Tellez Attending Provider Dr. Kevin Gómez DO Emergency Provider AA NO PCP, NO PCP Primary Care Unavailable GANGA SHAFFER~[id number], GANGA SHAUNA Attending Unavailable GANGA SAHFFER~[id number], SCHULER SHAUNA Admitting Unavailable AA NO PCP, NO PCP Primary Care Unavailable GANGA SHAFFER~[id number], SCHULER SHAUNA Admitting Unavailable GANGA SHAFFER~[id number], SCHULER SHAUNA Attending Unavailable GANGA SHAFFER~[id number], SCHULER SHAUNA Admitting Unavailable AA NO PCP, NO PCP Primary Care Unavailable GANGA SHAFFER~[id number], SCHULER SHAUNA Attending Unavailable AA NO PCP, NO PCP Primary Care Unavailable GANGA SHAFFER~[id number], SCHULER SHAUNA Admitting Unavailable GANGA SHAFFER~[id number], SCHULER SHAUNA Attending Unavailable AA NO PCP, NO PCP Primary Care Unavailable TABATHA SHAFFER~[id number], TABATHA BRAND Admitting Unavailable TABATHA SHAFFER~[id number], TABATHA BRAND Attending Unavailable AA NO PCP, NO PCP Primary Care Unavailable GANGA SHAFFER~[id number], SCHULER SHAUNA Attending Unavailable GANGA SHAFFER~[id number], SCHULER SHAUNA Admitting Unavailable Meng VSC, Chuy Primary Care Unavailable Taqueria VSC, Chuy Referring Unavailable Marion Carroll Attending Unavailable Taqueria VSC, Chuy Primary Care Unavailable Kevin Gómez Attending UnavailChuy Siegel Attending Unavailable [facility] Primary Care Unavailable [facility] Primary Care Unavailable Geoff Marte Attending Unavailable [facility] Primary Care Unavailable [facility] Referring Unavailable Marion Carroll Attending Unavailable Carlos Lopez Attending Unavailable Carlos Lopez Attending Unavailable Sunita Richard Attending Unavailable Allergies Allergy Classification Reported Allergen(s) Allergy Type Date of Onset Reaction(s) Facility (4 sources) aspirin; Translations: [aspirin] Drug Allergy 3 [facility] Work Phone: (3 sources) ibuprofen; Translations: [IBUPROFEN] Drug Allergy 3 [facility] Work Phone: (1 source) cyclobenzaprine; Translations: [cyclobenzaprine] Drug Allergy [facility] Repository (1 source) NSAIDs; Translations: [NSAIDs] Propensity to adverse reactions to drug (disorder) [facility] Repository (1 source) traMADol; Translations: [TraMADol Hydrochloride ER] Drug Allergy [facility] Repository (11 sources) traMADol; Translations: [tramadol HCl] Drug Allergy 2 GI Upset, Diarrhea [facility] (10 sources) NSAIDS (Non-Steroidal Anti-Inflamma; Translations: [NSAIDS (Non-Steroidal Anti-Inflamma] Propensity to adverse reactions 2 Diarrhea [facility] (2 sources) NSAIDs; Translations: [NSAIDS (Non-Steroidal Anti-Inflammatory Drug)] Drug Allergy [address] [facility] Work Phone: (1 source) predniSONE Drug Allergy [address] 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 [facility] Comment on above: Order Comment: Perfo rmed at: [employer] [address] [place] [address] [id number] Fly Winder: Dee Noel [facility], Phone: [phone] Performed By: #### P NMUR #### [facility] RESULTS Report Summary FINAL [facility] Comment on above: Order Comment: Perfo rmed at: [employer] [address] [place] [address] [id number] Fly Winder: Dee Morse, Phone: [phone] Result Comment: ====== TOXASSURE COMP DRUG ANALYSIS,UR [...] test is not intended to distinguish between dqvgw-8-yxmknpkwdbebmzhsknqa, the predominant form of THC in most herbal or marijuana-based products, and vpgis-5-teskvnnadextovwywnts. Morphine 50 ng/mg creat Potential sources of [...] Viewson 07-13 Knee 4 or More Views [facility] Imaging Services [address] [place] [id number] Knee 4 or More Views MR#: [id number] Acct: [id number] Name: MARILU GUNTER Rep #: [id number] : 1960 F 65 From: Jose Alejandro henley MD PCP: Chuy Meng MD Status: DEP ER Study: Knee 4 or More Views Date of Exam: 07/13/25 Exam# [id number] Ordering Dr: Chuy Irving DO PROCEDURE: KNEE [...] soft tissue edema and swelling. Reading Location: [place] [address] CC: Dr. Chuy Irving DO; Chuy Meng MD Vice President Financial: Signed Normal [facility] Emergency Department Summary on 07-12-2025 Emergency Department Summary [facility] Medical Records Department [address] [place] [address] Emergency Department Summary 07/12/25 MR#: [id number] Acct: [id number] Name: MARILU GUNTER Rep #: [id number] : 1960 65 From: Chuy Irving DO [...] Negative for Weakness or Loss of Funtion [facility] Medical History Left knee pain Bilateral primary [...] Ox 9 (more content not included)... Normal [facility] Emergency Department Summary on 05-17-2025 Emergency Department Summary [facility] Medical Records Department [address] [place] [address] Emergency Department Summary 05/17/25 MR#: [id number] Acct: [id number] Name: MAIRLU GUNTER Rep #: [id number] : 1960 65 From: Kevin Gómez DO [...] intact Psych: Cooperative, appropriate mood and affect [facility] Left knee pain Bilateral primary [...] 100 100 (more content not included)... Normal [facility] Knee 4 or More Viewson 05-17 Knee 4 or More Views [facility] Imaging Services [address] [place], [place] [id number] Knee 4 or More Views MR#: [id number] Acct: [id number] Name: MARILU GUNTER Rep #: [id number] : 1960 F 65 From: Jose Alejandro henley MD PCP: Chuy Meng MD Status: REG ER Study: Knee 4 or More Views Date of Exam: 05/17/25 Exam# [id number] Ordering Dr: Kevin Gómez DO PROCEDURE: KNEE [...] evidence of an acute abnormality. [facility] CC: Dr. Kevin Gómez DO; Chuy Meng MD Vice President Financial: Signed Normal [facility] Orthopedic Visit Reporton Orthopedic Visit Report [facility] [address] [place] [address] [address] [place] [address] OFFICE VISIT Date of Service: 04/30/25 MR#: [id number] Acct: [id number] Name: MARILU GUNTER Rep #: [id number] : 1960 Provider: SAM kelsey Age/Sex: 65/F Location: [facility] Status: Signed Intake Vital Signs 04/27/25 02:48 04/28/25 09:22 04/30/25 11:21 Height 5 ft 5 in 5 ft 5 in 5 ft 5 in Weight: 155 lb BMI 25.7 Intake Visit Reasons: RIGHT KNEE Is patient in pain?: Yes Pain scale (1-10): 10 Allergies NSAIDS (Non-Steroidal Anti-Inflamma Adverse Reaction (Verified 04/30/25 11:21) Diarrhea tramadol HCl (From [facility]) Adverse Reaction (Verified 04/30/25 11:21) Diarrhea [...] the decisions made by me, Marion Carroll PRODUCT ANALYST-C 04/30/25 4607. Part of today???s visit was documented by [...] 3-4 days (more content not included)... Normal [facility] 12 Lead EKGon 04-27-2025 12 Lead EKG [facility] Cardiovascular Services [address] [place] [address] 12 Lead EKG 04/27/25 0258 MR#: [id number] Acct: [id number] Name: MARILU GUNTER Rep #: [id number] : 1960 65 From: Gianluca Trevino MD [...] ECG Confirmed by SHANNON SHAFFER, GIANLUCA ([id number]), editor & co founder MELISSA RIBEIRO ([id number]) on 04/28/2025 1:13:52 PM Referred By: PHIL Confirmed By: GIANLUCA TREVINO MD 04/28/25 1313 Date Gianluca Trevino MD CC: Chuy Meng MD; Geoff Marte DO Signed Normal [facility] Absolute lymphocyte countOrd ered By: Geoff Marte on 04-27-2025 Lymphocytes Auto (Unsp spec) [#/Vol] 4.51 10*3/uL 0.83-4.51 [facility] Absolute neutrophil countOrd ered By: Geoff Marte on 04-27-2025 Neutrophils (Bld) [#/Vol] 4.1 10*3/uL 2.0-7.7 [facility] Automated lymphocyte count a s percentage of total leukocytesOrdered By: Geoff Marte on 04-27-2025 Lymphocytes/100 WBC Auto (Unsp spec) 48.0 % High 19-41 [facility] Basophil percentageOrdered B y: Geoff Marte on 04-27-2025 Basophils/100 WBC (Bld) 0.4 % 0-1 [facility] Blood manual differential co mment interpretation (narrative result)Ordered By: Geoff Marte on 04-27-2025 Manual differential comment Wilder (Bld) [Interp] SCANNED [facility] CBC W/Diff, Automatedon 04-18 SMEAR COMMENT SCANNED Normal [facility] Comment on above: Performed By: #### L 101.9900, L503.6005, L100.0100, L501.6710 #### [facility] [address] [place], [place], [id number] CRPon 04-27-2025 C-REACTIVE PROT < 3.00 Normal 0.0-3.0 [facility] Comment on above: Performed By: #### L 101.9900, L503.6005, L100.0100, L501.6710 #### [facility] [address] [place], [address] Emergency Department Summary on 04-27-2025 Emergency Department Summary [facility] Medical Records Department [address] [place] [address] Emergency Department Summary 04/27/25 MR#: [id number] Acct: [id number] Name: MARILU GUNTER Rep #: [id number] : 1960 65 From: Geoff Marte DO [...] denies any recent injury or excessive activity. [facility] Medical History (Updated 04/29/25 @ 00:12 by [...] auscultation bila (more content not included)... Normal [facility] Eosinophil percentageOrdered By: Geoff Marte on 04-27-2025 Eosinophils/100 WBC (Bld) 1.1 % 0-5 [facility] Erythrocyte Sed Rateon 04-27 SED RATE 22 mm/hr Normal 0-30 [facility] Comment on above: Performed By: #### L 101.9900, L503.6005, L100.0100, L501.6710 #### [facility] [address] [place], [address] Erythrocyte distribution wid th ratioOrdered By: Geoff Marte on 04-27-2025 Erythrocyte distribution width (RBC) [Ratio] 13.2 % 11.6-14.6 [facility] Erythrocyte distribution wid th standard deviationOrdered By: Geoff Marte on 04-27-2025 Erythrocyte distribution width (RBC) [Ratio] 40.8 fl 35.1-43.9 [facility] Erythrocyte sedimentation ra teOrdered By: Geoff Matre on 04-27-2025 ESR (Bld) [Velocity] 22 mm/h 0-30 [facility] Hematocrit Auto (Bld) [Volum e fraction]Ordered By: Geoff Marte on 04-27-2025 Hematocrit (Bld) [Volume fraction] 40.2 % 37-47 [facility] Hemoglobin measurementOrdere d By: Geoff Marte on 04-27-2025 Hemoglobin (Bld) [Mass/Vol] 13.8 g/dL 12.0-15.0 [facility] Immature granulocytes/100 WB C Auto (Bld)Ordered By: Geoff Marte on 04-27-2025 Immature granulocytes/100 WBC (Bld) 0.500 % 0.0-0.9 [facility] Comment on above: IG% - Immature Granu locytes (promyelocytes, myelocytes and metamyelocytes) > 1% indicates that a LEFT SHIFT is Present. Knee 4 or More Viewson 04-27 Knee 4 or More Views [facility] Imaging Services [address] [place], [place] [address] Knee 4 or More Views MR#: [id number] Acct: [id number] Name: MARILU GUNTER Rep #: [id number] : 1960 F 65 From: Keith Leonard MD PCP: Chuy Meng MD Status: [facility] ER Study: Knee 4 or More Views Date of Exam: 04/27/25 Exam# [id number] Ordering Dr: Geoff Marte DO PROCEDURE: KNEE [...] IMPRESSION: Mild right knee osteoarthritis. Reading Location: [place] [address] CC: Chuy Meng MD; Geoff Marte DO Vice President Financial: Signed Normal [facility] Lactic acid measurementOrder ed By: Geoff Marte on 04-27-2025 Lactate [Moles/Vol] 1.9 mmol/L Normal 0.0-2.0 [facility] Comment on above: Order Comment: Y Performed By: #### L 101.9900, L503.6005, L100.0100, L501.6710 #### [facility] [address] [place], [address] MCV (mean corpuscular volume ) determinationOrdered By: Geoff Marte on 04-27-2025 MCV (RBC) [Entitic vol] 86.1 fL 81-99 [facility] Mean corpuscular hemoglobin (MCH) determinationOrdered By: Geoff Marte on 04-27-2025 MCH (RBC) [Entitic mass] 29.6 pg 27.0-32.0 [facility] Mean corpuscular hemoglobin concentration (MCHC) determinationOrdered By: Geoff Marte on 04-27-2025 MCHC (RBC) [Mass/Vol] 34.3 g/dL 32-36 [facility] Mean platelet volume determi nationOrdered By: Geoff Marte on 04-27-2025 Platelet mean volume (Bld) [Entitic vol] 9.8 fL 6.2-12.0 [facility] Monocyte percentageOrdered B y: Geoff Marte on 04-27-2025 Monocytes/100 WBC (Bld) 6.5 % 0-10 [facility] Neutrophil percentageOrdered By: Geoff Marte on 04-27-2025 Neutrophils/100 WBC (Bld) 43.5 % Low 47-70 [facility] Nucleated red blood cell per centageOrdered By: Geoff Marte on 04-27-2025 Nucleated RBC/100 WBC (Bld) [Ratio] 0 % 0-5 [facility] Platelet countOrdered By: Elizabeth Marte on 04-27-2025 Platelets (Bld) [#/Vol] 394 10*3/uL 150-450 [facility] RBC Auto (Bld) [#/Vol]Ordere d By: Geoff Marte on 04-27-2025 RBC (Bld) [#/Vol] 4.67 10*6/uL 4.2-5.4 [facility] Serum or plasma C reactive p rotein measurement (mass/volume)Ordered By: Geoff Marte on 04-27-2025 CRP [Mass/Vol] mg/L 0.0-3.0 [facility] White blood cell (WBC) count Ordered By: Geoff Marte on 04-27-2025 WBC (Bld) [#/Vol] 9.4 10*3/uL 4.4-11.0 [facility] CNCOon 01-16-2025 CNCO Letter Text Normal [facility] Jean Claude 11-12-2024 AMOSN Telephone (PODS) MARILU GUNTER ([id number]) 1960 F Date Time Provider Department 11/12/24 [...] or , when she was in the [employer]. She stepped into a deep hole [...] Reports pain management, Dr. Rush (ph # [phone]) took an xray of her foot yesterday. Pt has not received the results yet. Dr. Rush also prescribed pain patches for her- she hasn't picked them up yet, will orange picker today. Ara Hatfield LPN 11/12/2024 3:22 [...] by Luis Alberto HORAN on 11/22/24 Normal [facility] XR Foot Left complete 3 plus [...] MEZA DO, MD Date: 11/12/2024 10:33 Normal [facility] Basophil percentageon 2021 Chloride [Moles/Vol] 108 mmol/L 98-107 [facility] Work Phone: Glucose [Mass/Vol] 118 mg/dL 74-106 [facility] Work Phone: Comment on above: Fasting Glucose resu lt from 100 to 125 mg/dL suggests IMPAIRED HOMEOSTASIS per A.D.A. criteria. Potassium [Moles/Vol] 3.8 mmol/L 3.5-5.1 [facility] Work Phone: Sodium [Moles/Vol] 142 mmol/L 136-145 [facility] Work Phone: WBC (Bld) [#/Vol] 8.0 10*3/uL 4.4-11.0 [facility] Work Phone: Blood erythrocytes count (nu mber/volume)on 08-09-2022 RBC (Bld) [#/Vol] 4.39 10*6/uL 4.2-5.4 [facility] Work Phone: Blood hemoglobin measurement (mass/volume)on 08-09-2022 Hemoglobin (Bld) [Mass/Vol] 12.2 g/dL 12.0-15.0 [facility] Work Phone: Blood platelet mean volumeon 08-09-2022 Platelet mean volume (Bld) [Entitic vol] 9.4 fL 6.2-12.0 [facility] Work Phone: Determination of erythrocyte mean corpuscular volume (MCV)on 08-09-2022 MCV (RBC) [Entitic vol] 85.6 fL 81-99 [facility] Work Phone: [phone] Hematocrit Auto (Bld) [Volum e fraction]on 08-09-2022 Hematocrit (Bld) [Volume fraction] 37.6 % 37-47 [facility] Work Phone: Laboratory - Chemistry and C hemistry - challengeon 08-09-2022 CO2 [Moles/Vol] 30.0 mmol/L 21.0-32.0 [facility] Work Phone: Magnesium [Mass/Vol] 2.3 mg/dL 1.6-2.6 [facility] Work Phone: [phone] Urea nitrogen/Creatinine [Mass ratio] 9.7 mg/mg 10-20 [facility] Work Phone: [phone] Laboratory - Hematology and Cell countson 08-09-2022 Erythrocyte distribution width (RBC) [Entitic vol] 42.9 fL 35.1-43.9 [facility] Work Phone: [phone] Erythrocyte distribution width (RBC) [Ratio] 13.8 % 11.6-14.6 [facility] Work Phone: [phone] MCH (RBC) [Entitic mass] 27.8 pg 27.0-32.0 [facility] Work Phone: MCHC Auto (RBC) [Mass/Vol]on 08-09-2022 MCHC (RBC) [Mass/Vol] 32.4 g/dL 32-36 [facility] Work Phone: No Panel Informationon 08-09 Estimated GFR (MDRD) Amer 90 mL/min >60 [facility] Work Phone: Comment on above: GFR Calc Estimated GFR (MDRD) Non-Af Amer 75 mL/min >60 [facility] Work Phone: [phone] Comment on above: Non- GFR Calc Platelets bldon 08-09-2022 Platelets (Bld) [#/Vol] 314 10*3/uL 150-450 [facility] Work Phone: [phone] Serum or plasma calcium anupam urement (mass/volume)on 08-09-2022 Calcium [Mass/Vol] 9.1 mg/dL 8.5-10.1 [facility] Work Phone: [phone] Serum or plasma creatinine m easurement (mass/volume)on 08-09-2022 Creatinine [Mass/Vol] 0.83 mg/dL 0.55-1.02 [facility] Work Phone: [phone] Comment on above: The validity of the calculated GFR & GFRAA in patients over 70 years has not been determined. Clinical correlation is essential. Serum or plasma urea nitroge n measurement (mass/volume)on 08-09-2022 Urea nitrogen [Mass/Vol] 8 mg/dL 7-18 [facility] Work Phone: [phone] Thin prep Papanicolaou smear with manual screeningon 08-09-2022 Thin prep Papanicolaou smear with manual screening 4 5-15 [facility] Work Phone: [phone] Absolute lymphocyte counton 02-16-2022 Lymphocytes Auto (Unsp spec) [#/Vol] 5.30 10*3/uL 0.83-4.51 [facility] Work Phone: [phone] Basophil percentageon 2021 Basophils/100 WBC (Bld) 0.4 % 0-1 [facility] Work Phone: [phone] Chloride [Moles/Vol] 103 mmol/L 98-107 [facility] Work Phone: Eosinophils/100 WBC (Bld) 1.4 % 0-5 [facility] Work Phone: Glucose [Mass/Vol] 133 mg/dL 74-106 [facility] Work Phone: Comment on above: Fasting Glucose resu lt greater than or equal to 126 mg/dL suggests DIABETES MELLITUS per A.D.A. criteria. Neutrophils (Bld) [#/Vol] 3.8 10*3/uL 2.0-7.7 [facility] Work Phone: Neutrophils/100 WBC (Bld) 38.4 % 47-70 [facility] Work Phone: Potassium [Moles/Vol] 3.7 mmol/L 3.5-5.1 [facility] Work Phone: Sodium [Moles/Vol] 135 mmol/L 136-145 [facility] Work Phone: WBC (Bld) [#/Vol] 10.0 10*3/uL 4.4-11.0 [facility] Work Phone: Blood erythrocytes count (nu mber/volume)on 02-16-2022 RBC (Bld) [#/Vol] 4.47 10*6/uL 4.2-5.4 [facility] Work Phone: Blood hemoglobin measurement (mass/volume)on 02-16-2022 Hemoglobin (Bld) [Mass/Vol] 12.5 g/dL 12.0-15.0 [facility] Work Phone: Blood lymphocytes/100 leukoc yteson 02-16-2022 Lymphocytes/100 WBC (Bld) 52.9 % 19-41 [facility] Work Phone: Blood monocytes/100 leukocyt eson 02-16-2022 Monocytes/100 WBC (Bld) 6.6 % 0-10 [facility] Work Phone: Blood platelet mean volumeon 02-16-2022 Platelet mean volume (Bld) [Entitic vol] 9.8 fL 6.2-12.0 [facility] Work Phone: [phone] Determination of erythrocyte mean corpuscular volume (MCV)on 02-16-2022 MCV (RBC) [Entitic vol] 85.9 fL 81-99 [facility] Work Phone: [phone] Hematocrit Auto (Bld) [Volum e fraction]on 02-16-2022 Hematocrit (Bld) [Volume fraction] 38.4 % 37-47 [facility] Work Phone: [phone] Laboratory - Chemistry and C hemistry - challengeon 02-16-2022 CO2 [Moles/Vol] 26.0 mmol/L 21.0-32.0 [facility] Work Phone: [phone] Magnesium [Mass/Vol] 1.9 mg/dL 1.6-2.6 [facility] Work Phone: [phone] Urea nitrogen/Creatinine [Mass ratio] 12.1 mg/mg 10-20 [facility] Work Phone: [phone] Laboratory - Hematology and Cell countson 02-16-2022 Erythrocyte distribution width (RBC) [Entitic vol] 39.9 fL 35.1-43.9 [facility] Work Phone: [phone] Erythrocyte distribution width (RBC) [Ratio] 12.8 % 11.6-14.6 [facility] Work Phone: [phone] Immature granulocytes/100 WBC (Bld) 0.300 % 0.0-0.9 [facility] Work Phone: [phone] Comment on above: IG% - Immature Granu locytes (promyelocytes, myelocytes and metamyelocytes) > 1% indicates that a LEFT SHIFT is Present. MCH (RBC) [Entitic mass] 28.0 pg 27.0-32.0 [facility] Work Phone: [phone] Nucleated RBC/100 WBC (Bld) [Ratio] 0 % 0-5 [facility] Work Phone: [phone] MCHC Auto (RBC) [Mass/Vol]on 02-16-2022 MCHC (RBC) [Mass/Vol] 32.6 g/dL 32-36 [facility] Work Phone: No Panel Informationon 02-16 Troponin I High Sensitivity < 3 pg/mL 3.0-54.0 [facility] Work Phone: Comment on above: Please Note: New Poppy t Units and Gender Specific Reference Ranges. For more information see Policy Stat Procedure [place] High Sensitivity Troponin (TNIH) and attachments. Atypical Lymphocytes 1+ % [facility] Work Phone: [phone] D-Dimer Quantitative (PE/DVT) < 0.27 FEU/ug/m 0.27-0.49 [facility] Work Phone: Comment on above: NORMAL D-Dimer level (<0.50) indicates no DVT or PE. Estimated Creatinine Clearance Calc 59.16 ml/min [facility] Work Phone: [phone] Estimated GFR (MDRD) Amer 81 mL/min >60 [facility] Work Phone: Comment on above: GFR Calc Estimated GFR (MDRD) Non-Af Amer 67 mL/min >60 [facility] Work Phone: Comment on above: Non- GFR Calc Thyroid Stimulating Hormone (TSH) 2.02 uIU/mL 0.358-3.74 [facility] Work Phone: [phone] Platelets bldon 02-16-2022 Platelets (Bld) [#/Vol] 395 10*3/uL 150-450 [facility] Work Phone: [phone] Serum or plasma calcium anupam urement (mass/volume)on 02-16-2022 Calcium [Mass/Vol] 9.2 mg/dL 8.5-10.1 [facility] Work Phone: [phone] Serum or plasma creatinine m easurement (mass/volume)on 02-16-2022 Creatinine [Mass/Vol] 0.91 mg/dL 0.55-1.02 [facility] Work Phone: [phone] Comment on above: The validity of the calculated GFR & GFRAA in patients over 70 years has not been determined. Clinical correlation is essential. Serum or plasma urea nitroge n measurement (mass/volume)on 02-16-2022 Urea nitrogen [Mass/Vol] 11 mg/dL 7-18 [facility] Work Phone: Thin prep Papanicolaou smear with manual screeningon 02-16-2022 Thin prep Papanicolaou smear with manual screening 6 5-15 [facility] Work Phone: Absolute lymphocyte counton 10-06-2021 Lymphocytes Auto (Unsp spec) [#/Vol] 2.86 10*3/uL 0.83-4.51 [facility] Work Phone: Basophil percentageon 2021 Basophils/100 WBC (Bld) 0.7 % 0-1 [facility] Work Phone: Eosinophils/100 WBC (Bld) 1.2 % 0-5 [facility] Work Phone: Neutrophils (Bld) [#/Vol] 3.7 10*3/uL 2.0-7.7 [facility] Work Phone: Neutrophils/100 WBC (Bld) 51.7 % 47-70 [facility] Work Phone: WBC (Bld) [#/Vol] 7.3 10*3/uL 4.4-11.0 [facility] Work Phone: Bilirubin [Mass/Vol] 0.20 mg/dL 0.20-1.00 [facility] Work Phone: Comment on above: For patients on eltr ombopag therapy, use of Dimension Aurora TBIL is not recommended. Chloride [Moles/Vol] 104 mmol/L 98-107 [facility] Work Phone: Cholesterol [Mass/Vol] 243 mg/dL <200 [facility] Work Phone: Comment on above: <200 mg/dL Desirable 200-240 mg/dL Borderline >240 mg/dL High Risk Glucose [Mass/Vol] 114 mg/dL 74-106 [facility] Work Phone: [phone] Comment on above: Fasting Glucose resu lt from 100 to 125 mg/dL suggests IMPAIRED HOMEOSTASIS per A.D.A. criteria. Potassium [Moles/Vol] 3.6 mmol/L 3.5-5.1 [facility] Work Phone: [phone] Protein [Mass/Vol] 7.6 g/dL 6.4-8.2 [facility] Work Phone: [phone] Sodium [Moles/Vol] 137 mmol/L 136-145 [facility] Work Phone: [phone] Triglyceride [Mass/Vol] 117 mg/dL [facility] Work Phone: [phone] Comment on above: The drugs N-Acetylcy steine and Metamizole may falsely depress this assay.Serum Triglycerides Reference Interval Normal <150 mg/dL Borderline high 150 - 199 mg/dL High 200 - 499 mg/dL Very High > or = 500 mg/dL Blood erythrocytes count (nu mber/volume)on 10-06-2021 RBC (Bld) [#/Vol] 4.25 10*6/uL 4.2-5.4 [facility] Work Phone: [phone] Blood hemoglobin measurement (mass/volume)on 10-06-2021 Hemoglobin (Bld) [Mass/Vol] 11.6 g/dL 12.0-15.0 [facility] Work Phone: [phone] Blood lymphocytes/100 leukoc yteson 10-06-2021 Lymphocytes/100 WBC (Bld) 39.4 % 19-41 [facility] Work Phone: [phone] Blood monocytes/100 leukocyt eson 10-06-2021 Monocytes/100 WBC (Bld) 6.6 % 0-10 [facility] Work Phone: [phone] Blood platelet mean volumeon 10-06-2021 Platelet mean volume (Bld) [Entitic vol] 9.1 fL 6.2-12.0 [facility] Work Phone: [phone] Determination of erythrocyte mean corpuscular volume (MCV)on 10-06-2021 MCV (RBC) [Entitic vol] 85.2 fL 81-99 [facility] Work Phone: [phone] Direct bilirubinon Bilirubin.direct [Mass/Vol] mg/dL 0.00-0.30 [facility] Work Phone: [phone] Hematocrit Auto (Bld) [Volum e fraction]on 10-06-2021 Hematocrit (Bld) [Volume fraction] 36.2 % 37-47 [facility] Work Phone: [phone] Laboratory - Chemistry and C hemistry - challengeon 10-06-2021 ALP [Catalytic activity/Vol] 114 U/L 45-117 [facility] Work Phone: [phone] ALT [Catalytic activity/Vol] 13 U/L 13-56 [facility] Work Phone: [phone] CO2 [Moles/Vol] 28.0 mmol/L 21.0-32.0 [facility] Work Phone: [phone] Globulin (S) [Mass/Vol] 4.2 g/dL 2.2-4.2 [facility] Work Phone: [phone] Urea nitrogen/Creatinine [Mass ratio] 8.7 mg/mg 10-20 [facility] Work Phone: [phone] Laboratory - Hematology and Cell countson 10-06-2021 Erythrocyte distribution width (RBC) [Entitic vol] 42.6 fL 35.1-43.9 [facility] Work Phone: [phone] Erythrocyte distribution width (RBC) [Ratio] 13.7 % 11.6-14.6 [facility] Work Phone: [phone] Immature granulocytes/100 WBC (Bld) 0.400 % 0.0-0.9 [facility] Work Phone: [phone] Comment on above: IG% - Immature Granu locytes (promyelocytes, myelocytes and metamyelocytes) > 1% indicates that a LEFT SHIFT is Present. MCH (RBC) [Entitic mass] 27.3 pg 27.0-32.0 [facility] Work Phone: [phone] Nucleated RBC/100 WBC (Bld) [Ratio] 0 % 0-5 [facility] Work Phone: MCHC Auto (RBC) [Mass/Vol]on 10-06-2021 MCHC (RBC) [Mass/Vol] 32.0 g/dL 32-36 [facility] Work Phone: No Panel Informationon 10-06 Estimated GFR (MDRD) Amer 81 mL/min >60 [facility] Work Phone: Comment on above: GFR Calc Estimated GFR (MDRD) Non-Af Amer 67 mL/min >60 [facility] Work Phone: Comment on above: Non- GFR Calc Thyroid Stimulating Hormone (TSH) 1.22 uIU/mL 0.358-3.74 [facility] Work Phone: Platelets bldon 10-06-2021 Platelets (Bld) [#/Vol] 357 10*3/uL 150-450 [facility] Work Phone: [phone] Serum or plasma albumin anupam urement (mass/volume)on 10-06-2021 Albumin [Mass/Vol] 3.4 g/dL 3.2-5.0 [facility] Work Phone: Serum or plasma albumin/glob ulin mass ratioon 10-06-2021 Albumin/Globulin [Mass ratio] 0.8 {ratio} 0.9-2.4 [facility] Work Phone: [phone] Serum or plasma calcium anupam urement (mass/volume)on 10-06-2021 Calcium [Mass/Vol] 8.5 mg/dL 8.5-10.1 [facility] Work Phone: [phone] Serum or plasma cholesterol in HDL measurement (mass/volume)on 10-06-2021 Cholesterol in HDL [Mass/Vol] 70 mg/dL [facility] Work Phone: Comment on above: The drugs N-Acetylcy steine and Metamizole may falsely depress this assay. Reference Range HDL <40 mg/dL Low HDL Cholesterol HDL >or= 60 mg/dL High HDL Cholesterol Serum or plasma cholesterol in VLDL measurement (mass/volume)on 10-06-2021 Cholesterol in VLDL [Mass/Vol] 23 mg/dL 5-40 [facility] Work Phone: Serum or plasma creatinine m easurement (mass/volume)on 10-06-2021 Creatinine [Mass/Vol] 0.92 mg/dL 0.55-1.02 [facility] Work Phone: Comment on above: The validity of the calculated GFR & GFRAA in patients over 70 years has not been determined. Clinical correlation is essential. Serum or plasma low density lipoprotein (LDL) cholesterol measurement (mass/volume)on 10-06-2021 Cholesterol in LDL [Mass/Vol] 150 mg/dL 0-130 [facility] Work Phone: Serum or plasma urea nitroge n measurement (mass/volume)on 10-06-2021 Urea nitrogen [Mass/Vol] 8 mg/dL 7-18 [facility] Work Phone: Thin prep Papanicolaou smear with manual screeningon 10-06-2021 Thin prep Papanicolaou smear with manual screening 9 U/L 15-37 [facility] Work Phone: Thin prep Papanicolaou smear with manual screening 5 5-15 [facility] Work Phone: PROGRESSon 01-15-2018 [facility] NOTES Normal [facility] XR KNEE LEFT 4+ [...] MonAug 02, 2017 5:04:03 PM EST Normal [facility] XR Knee Left 4+ Views (Note in Comments)on 08-02-2017 XR Knee Left 4+ Views (Note in Comments) 4 views left knee reveals a patella fracture near the superior pole about 25% from the top is nondisplaced and minimal degenerative arthritis only Invalid Interpretation Code FUJI SYNAPSE [facility] Vital Signs Date Time Vital Sign Value Performing Clinician Facility 05-17-2025 03:41-0400 Body temperature 98.1 [degF] Dr. Geoff Marte DO Work Phone: [phone] [place] [address] 05-17-2025 03:41-0400 Diastolic blood pressure 67 mm[Hg] Dr. Geoff Marte DO Work Phone: [phone])897-165270 [place] [address] 05-17-2025 03:41-0400 Heart rate 77 /min Dr. Geoff Marte DO Work Phone: [phone])830-877870 [place] [address] 05-17-2025 03:41-0400 Respiratory rate 16 /min Dr. Geoff Marte DO Work Phone: [phone])294-013270 [place] [address] 05-17-2025 03:41-0400 SaO2% (BldA) [Mass fraction] 97 % Dr. Geoff Marte DO Work Phone: [phone])588-110070 [place] [address] 05-17-2025 03:41-0400 Systolic blood pressure 116 mm[Hg] Dr. Geoff Marte DO Work Phone: [phone])964-884170 [place] [address] 05-17-2025 00:35-0400 Body height 165.[address] Geoff Marte DO Work Phone: [phone])231-628370 [place] [address] 05-17-2025 00:35-0400 Body mass index (BMI) [Ratio] 26.2 kg/m2 Dr. Geoff Marte DO Work Phone: 5(825)128-989870 [place] [address] 05-17-2025 00:35-0400 Body weight 71.[address] Geoff Marte DO Work Phone: [phone])764-064170 [place] [address] 04-30-2025 11:21-0400 Body height 165.[address] Geoff Marte DO Work Phone: [phone])203-940870 [place] [address] 04-30-2025 11:21-0400 Body mass index (BMI) [Ratio] 25.7 kg/m2 Dr. Geoff Marte DO Work Phone: [phone])683-179370 [place] [address] 04-30-2025 11:21-0400 Body weight 70.[address] Geoff Marte DO Work Phone: [facility] 04-27-2025 05:44-0400 Body temperature 98.9 [degF] Dr. Geoff Marte DO Work Phone: [facility] 04-27-2025 05:44-0400 Diastolic blood pressure 83 mm[Hg] Dr. Geoff Marte DO Work Phone: [facility] 04-27-2025 05:44-0400 Heart rate 88 /min Dr. Geoff Marte DO Work Phone: [phone])284-739740 [place] [address] 04-27-2025 05:44-0400 Respiratory rate 16 /min Dr. Geoff Marte DO Work Phone: [facility] 04-27-2025 05:44-0400 SaO2% (BldA) [Mass fraction] 100 % Dr. Geoff Marte DO Work Phone: [phone])166-451140 [place] [address] 04-27-2025 05:44-0400 Systolic blood pressure 133 mm[Hg] Dr. Geoff Marte DO Work Phone: [facility] 04-27-2025 02:48-0400 Body height 165.[address] Geoff Marte DO Work Phone: [phone])478-370140 [place] [address] 04-27-2025 02:48-0400 Body mass index (BMI) [Ratio] 25.8 kg/m2 Dr. Geoff Marte DO Work Phone: [facility] 04-27-2025 02:48-0400 Body weight 70.[address] Geoff Marte DO Work Phone: [facility] 12-15-2022 09:06-0400 Body height 165.1 cm [facility] Work Phone: [facility] 12-15-2022 09:00-0400 Body mass index (BMI) [Ratio] 28.4 kg/m2 [facility] Work Phone: [facility] 12-15-2022 09:00-0400 Body weight 77.56 kg [facility] Work Phone: 8(046)498-234265 [place] [address] 12-15-2022 09:00-0400 Diastolic blood pressure 63 mm[Hg] [facility] Work Phone: 0(716)193-498693 [address] 12-15-2022 09:00-0400 Heart rate 76 /min [facility] Work Phone: [phone])931-163834 [place] [address] 12-15-2022 09:00-0400 Respiratory rate 18 /min [facility] Work Phone: [phone])619-959693 [address] 12-15-2022 09:00-0400 SaO2% (BldA) [Mass fraction] 98 % [facility] Work Phone: [phone])182-557534 [place] [address] 12-15-2022 09:00-0400 Systolic blood pressure 104 mm[Hg] [facility] Work Phone: [phone])381-554593 [address] 06-27-2022 19:18-0400 Body height 165.1 cm [facility] Work Phone: [phone])206-888565 [place] [address] Work Phone: 06-27-2022 19:18-0400 Body mass index (BMI) [Ratio] 27.2 kg/m2 [facility] Work Phone: [phone])320-657065 [place] [address] Work Phone: 06-27-2022 19:18-0400 Body temperature 96.4 [degF] [facility] Work Phone: [facility] Work Phone: 06-27-2022 19:18-0400 Body weight 74.3 kg [facility] Work Phone: [facility] Work Phone: 06-27-2022 19:18-0400 Diastolic blood pressure 79 mm[Hg] [facility] Work Phone: 0(745)550-681565 [place] [address] Work Phone: 06-27-2022 19:18-0400 Heart rate 78 /min [facility] Work Phone: [phone])989-162365 [place] [address] Work Phone: 06-27-2022 19:18-0400 Respiratory rate 16 /min [facility] Work Phone: [facility] Work Phone: 06-27-2022 19:18-0400 SaO2% (BldA) [Mass fraction] 100 % [facility] Work Phone: [facility] Work Phone: 06-27-2022 19:18-0400 Systolic blood pressure 150 mm[Hg] [facility] Work Phone: [facility] Work Phone: 06-01-2022 17:50-0400 Body height 165.1 cm [facility] Work Phone: [facility] Work Phone: 06-01-2022 17:50-0400 Body mass index (BMI) [Ratio] 26.4 kg/m2 [facility] Work Phone: [facility] Work Phone: 06-01-2022 17:50-0400 Body temperature 97.8 [degF] [facility] Work Phone: [facility] Work Phone: 06-01-2022 17:50-0400 Body weight 72 kg [facility] Work Phone: [facility] Work Phone: 06-01-2022 17:50-0400 Diastolic blood pressure 80 mm[Hg] [facility] Work Phone: [facility] Work Phone: 06-01-2022 17:50-0400 Heart rate 82 /min [facility] Work Phone: [facility] Work Phone: 06-01-2022 17:50-0400 Respiratory rate 17 /min [facility] Work Phone: [facility] Work Phone: 06-01-2022 17:50-0400 SaO2% (BldA) [Mass fraction] 100 % [facility] Work Phone: [facility] Work Phone: 06-01-2022 17:50-0400 Systolic blood pressure 121 mm[Hg] [facility] Work Phone: [facility] Work Phone: 02-16-2022 06:00-0400 Diastolic blood pressure 78 mm[Hg] [facility] Work Phone: [facility] Work Phone: 02-16-2022 06:00-0400 Heart rate 78 /min [facility] Work Phone: [facility] Work Phone: 02-16-2022 06:00-0400 Respiratory rate 16 /min [facility] Work Phone: [facility] Work Phone: 02-16-2022 06:00-0400 SaO2% (BldA) [Mass fraction] 96 % [facility] Work Phone: [facility] Work Phone: 02-16-2022 06:00-0400 Systolic blood pressure 126 mm[Hg] [facility] Work Phone: [facility] Work Phone: 02-16-2022 02:16-0400 Body height 165.1 cm [facility] Work Phone: [facility] Work Phone: 02-16-2022 02:16-0400 Body mass index (BMI) [Ratio] 26.6 kg/m2 [facility] Work Phone: [facility] Work Phone: 02-16-2022 02:16-0400 Body temperature 98.1 [degF] [facility] Work Phone: [facility] Work Phone: 02-16-2022 02:16-0400 Body weight 72.6 kg [facility] Work Phone: [facility] Work Phone: 09-23-2021 13:03-0500 Body height 165.1 cm No Primary Care Physician [facility] Work Phone: 09-23-2021 13:03-0500 Body mass index (BMI) [Ratio] 23.9 kg/m2 No Primary Care Physician [facility] Work Phone: 09-23-2021 13:03-0500 Body weight 65.31 kg No Primary Care Physician [facility] Work Phone: 09-23-2021 13:03-0500 Diastolic blood pressure 60 mm[Hg] No Primary Care Physician [facility] Work Phone: 09-23-2021 13:03-0500 Heart rate 84 /min No Primary Care Physician [facility] Work Phone: 09-23-2021 13:03-0500 Respiratory rate 20 /min No Primary Care Physician [facility] Work Phone: 09-23-2021 13:03-0500 Systolic blood pressure 130 mm[Hg] No Primary Care Physician [facility] Work Phone: 08-02-2017 14:15-0500 BMI (Body Mass Index) 25.79 kg/m2 Torey Flores [facility] Work Phone: 08-02-2017 14:15-0500 Height 165.1 cm Torey Flores [facility] Work Phone: 08-02-2017 14:15-0500 Weight 70.31 kg Torey Flores [facility] Work Phone: Encounters Encounter Date Encounter Type Care Provider Facility Start: 07-15-2025 End: 07-15-2025 ambulatory NO PCP AA NO PCP [facility] Start: 07-12-2025 End: 07-13-2025 Emergency department patient visit Chuy Irving Facility:[facility] Start: 05-28-2025 End: 05-28-2025 ambulatory NO PCP AA NO PCP [facility] Start: 05-17-2025 End: 05-17-2025 Emergency department patient visit Dr. Geoff Marte DO Work Phone: -Emergency Department Work Phone: Start: 05-16-2025 ambulatory Chuy Meng [facility] Facility :[facility] Start: 04-30-2025 End: 04-30-[address] Geoff Marte DO Work Phone: -[facility] Start: 04-30-2025 End: 04-30-2025 Patient encounter procedure Marion Carroll PRODUCT ANALYST-C -[facility] Work Phone: Start: 04-27-2025 End: 04-27-2025 Emergency department patient visit Dr. Geoff Marte DO Work Phone: -Emergency Department Work Phone: Start: 01-29-2025 End: 01-29-2025 ambulatory NO PCP AA NO PCP [facility] Start: 01-23-2025 ambulatory GANGA CLARKE MD~[id number] [facility] Start: 01-14-2025 ambulatory Sunita Hammondsi ty:[facility] Start: 11-27-2024 End: 11-27-2024 ambulatory NO PCP AA NO PCP [facility] Start: 11-12-2024 End: 11-22-2024 Telephone encounter Caryn Roe Work Phone: Podiatry Comment on above: Patient Update Start: 11-11-2024 End: 11-11-2024 ambulatory NO PCP AA NO PCP [facility] Start: 09-09-2024 ambulatory Carlos Mollison Facility :[facility] Start: 08-01-2024 ambulatory Carlos Mollison Facility :[facility] Start: 10-20-2023 End: 10-20-2023 Patient encounter procedure HAYDEE ESCOTO MD [facility] Start: 10-13-2023 ambulatory HAYDEE ESCOTO MD Facility :[facility] Start: 02-09-2023 End: 02-09-2023 ambulatory [facility] Work Phone: [facility] Work Phone: Start: 02-09-2023 End: 02-09-2023 Patient encounter procedure [facility] Work Phone: [facility]Pulmonary Services/Neurology Start: 12-15-2022 End: 12-15-2022 Patient encounter procedure [facility] Work Phone: [facility] Start: 08-09-2022 End: 08-09-2022 ambulatory [facility] Work Phone: [facility] Work Phone: Start: 08-09-2022 End: 08-09-2022 Patient encounter procedure [facility] Work Phone: [facility]Laboratory Start: 08-04-2022 Patient encounter procedure [facility] Work Phone: [facility] Services/Neurology Start: 07-12-2022 Non-patient / Non-visit [facility] Work Phone: [facility] Start: 06-27-2022 End: 06-27-2022 Emergency department patient visit [facility] Work Phone: [facility]Emergency Department Start: 06-01-2022 End: 06-01-2022 Emergency department patient visit [facility] Work Phone: [facility]Emergency Department Start: 03-31-2022 End: 03-31-2022 Patient encounter procedure [facility] Work Phone: [facility] Start: 02-16-2022 End: 02-16-2022 Emergency department patient visit [facility] Work Phone: [facility]Emergency Department Start: 02-07-2022 End: 02-07-2022 Patient encounter procedure [facility] Work Phone: [facility]Cardiovascular Services Start: 01-13-2022 Non-patient / Non-visit No Primary Care Physician [facility] Start: 01-13-2022 End: 01-13-2022 Patient encounter procedure No Primary Care Physician [facility] Start: 11-23-2021 End: 11-23-2021 Patient encounter procedure No Primary Care Physician [facility] Start: 10-26-2021 Non-patient / Non-visit No Primary Care Physician [facility] Start: 10-26-2021 End: 10-26-2021 Patient encounter procedure No Primary Care Physician [facility] Start: 10-06-2021 End: 10-06-2021 Patient encounter procedure No Primary Care Physician [facility] Start: 09-23-2021 End: 09-23-2021 Patient encounter procedure No Primary Care Physician [facility] Start: 01-15-[address] [facility] Start: 11-15-2017 End: 11-15-2017 Ambulatory Cisco Murillo Facility:[facility] Start: 10-03-2017 End: 10-04-2017 Ambulatory Cisco Murillo Facility:[facility] Start: 09-22-2017 End: 09-23-2017 Ambulatory Cisco Murillo Facility:[facility] Start: 08-19-2017 End: 08-19-2017 Ambulatory Cisco Murillo Facility:[facility] Start: 08-03-2017 Ambulatory CELY GA [facility] Start: 08-02-2017 End: 08-02-2017 Ambulatory TOREY FLORES [facility] Start: 08-02-2017 Office outpatient ne w 30 minutes Torey Flores Work Phone: [facility] Procedures Date Procedure Procedure Detail Performing Clinician Start: 04-27-2025 X-ray of knee, four or more views [address] Geoff Marte DO Work Phone: Start: 06-27-2022 Plain x-ray of hand [facility] Work Phone: Start: 06-01-2022 End: 06-01-2022 Radiologic examination of knee [facility] Work Phone: Start: 02-16-2022 Plain chest X-ray [facility] Work Phone: Start: 11-23-2021 CT of abdomen and pe lvis without contrast No Primary Care Physician Start: 10-26-2021 Radionuclide imaging of perfusion of myocardium under exercise stress No Primary Care Physician Start: 05-23-2012 Colonoscopy Caryn Luz Work Phone: Plan of Treatment Date Care Activity Detail Author Start: 2037 RSV Vaccine (1 - 1-d ose 75+ series) RSV Vaccine (1 - 1-dose 75+ series) [facility] Start: 05-17-2025 [facility] Start: 05-17-2025 Knee 4 or More Views Knee 4 or More Views [facility] Start: 05-17-2025 XR Knee GE 4 Views [facility] Start: 04-27-2025 [facility] Start: 11-26-2024 End: 11-26-2024 Patient encounter procedure 11/26/2024 9:15 AM EDT Office Visit Podiatry [address] [place] [address] Caryn Roe [address] [address] Left Foot/Ankle pain, previous surgery on foot Podiatry Comment on above: Left Foot/Ankle pain , previous surgery on foot Start: 05-19-2024 Covid-19 Vaccine ( season) Covid-19 Vaccine ( season) [facility] Start: 05-19-2024 Influenza vaccination Influenza Vacc ine (#1) [facility] Start: 02-16-2022 [facility] Work Phone: Start: 03-22-2021 Diabetes Screening Diabetes Screenin g [facility] Start: 05-19-2017 Influenza vaccination SEQUENTI AL INFLUENZA VACCINE (#1) [facility] Work Phone: Start: 05-02-2015 Pneumococcal Vaccine : 50+ (2 of 2 - PCV) Pneumococcal Vaccine: 50+ (2 of 2 - PCV) [facility] Start: 05-23-2013 Screening for malign ant neoplasm of colon [facility] Start: 02-06-2012 Shingrix Vaccine (1 of 2) Shingrix Vaccine (1 of 2) [facility] Start: 07-19-2009 Screening for malign ant neoplasm of breast Mammogram Screening [facility] Start: 2007 Lipid panel Lipid Screening [facility] Start: 2007 Screening for malign ant neoplasm of colon [facility] Start: 1981 Urine microalbumin profile DTaP,Tdap,Td Vaccine (1 - Tdap) [facility] Start: 02-06-1980 Anxiety Screening Anxiety Screening [facility] Start: 02-06-1980 Depression Screening Depression Scre ing [facility] Start: 02-06-1980 Hepatitis C screening Hepatitis C [facility] Start: 02-06-1980 HIV screening HIV Screening [facility] Start: 1960 HEPATITIS C SCREENING HEPATITIS C [facility] Work Phone: Start: 1960 Screening colonoscopy COLONOSCOPY O [facility] Work Phone: Start: 1960 Screening for malign ant neoplasm of cervix PAP SMEAR [facility] Work Phone: Start: 1960 Tetanus vaccination TETANUS EVERY 10 YR [facility] Work Phone: Patient Education [facility] Work Phone: Patient referral [facility] Work Phone: Payers Date Payer Category Payer Self-pay [id number] 2022 Medicaid [employer] [id number] 2017 Unknown 2013 Medicaid [id number] 1962 Unknown [id number] [id number] 1962 Unknown [id number] 2.16.840.1.499340.3.579.2.598 1962 Unknown [id number] 2.16.840.1.646685.3.579.2.598 1962 Unknown [id number] 2.16.840.1.698769.3.579.2.598 1962 Unknown [id number] 2.16.840.1.445054.3.579.2.598 1962 Unknown [id number] 2.16.840.1.161700.3.579.2.598 1959 Medicaid [id number] Unknown [id number] [id number] Unknown [id number] 2.16.840.1.404449.3.579.2.462 Unknown [id number] 2.16.840.1.501845.3.579.2.462 Unknown [id number] 2.16.840.1.939928.3.579.2.462 Unknown [id number] 2.16.840.1.330063.3.579.2.462 Unknown [id number] 2.16.840.1.317915.3.579.2.462 Unknown [id number] 2.16.840.1.123781.3.579.2.462 Unknown [id number] [id number] Social History Date Type Detail Facility Start: 08-02-2017 End: 05-17-2025 Tobacco smoking status NHIS Current every day smoker [facility] Start: 1960 Sex Assigned At Not on file O [facility] Work Phone: Start: 09-23-2021 End: 12-15-2022 Tobacco smoking status MNIS Unknown if ever smoked [facility] Start: 07-14-2017 Heavy [facility] Start: 07-14-2017 None [facility] Start: 07-14-2017 Alone [facility] Start: 06-21-2021 Cigarettes [facility] Start: 1960 Sex Assigned At Female [facility] Tobacco smoking status No Smokin g Status Entered [facility] History of tobacco use Cigarette Smoker C [facility] Start: 03-09-2018 End: 11-21-2024 Cigarettes smoked current (pack per day) - Reported [address] [facility] Start: 03-09-2018 Tobacco use and exposure Smokeless tobacco non-user [facility] Start: 03-22-2018 Alcoholic beverage intake Current drinker of alcohol (finding) [facility] Start: 03-22-2018 End: 11-21-2024 Tobacco use panel [facility] National Score (1-10 0), lower number is lower risk [address] [facility] Mental Status Date Assessment Result Facility 02-16-2022 Cognitive function Awake;Alert;A ppropriate;Fol lows Commands [facility] Work Phone: Clinical Notes 10-20-2023 to 05-17-2025 Note Date & Type Note Facility 05-17-2025 Discharge summary [facility] 05-17-2025 Radiology Diagnostic study note [facility] Imaging Services [address] [place], [place] [address] Knee 4 or More Views MR#: [id number] Acct: [id number] Name: MARILU GUNTER Rep #: [id number] : 1960 F 65 From: Sadie Salazar MD PCP: Chuy Meng MD Status: REG ER Study:Knee 4 or More Views Date of Exam: 05/17/25 Exam# [id number] Ordering Dr: Kevin Hayes DO PROCEDURE: KNEE [...] evidence of an acute abnormality. [facility] CC: Dr. Kevin Gómez DO; Chuy Meng MD ~ Vice President Financial: Signed [facility] 04-30-2025 Evaluation note Diagnosis Onset Date Resolution Osteoarthritis of right knee acute April 30 11:16am [facility] Work Phone: 1(720) 426-118908-10-2025 Radiology Diagnostic study note [facility] Imaging Services [address] [place] [id number] Knee 4 or More Views MR#: [id number] Acct: [id number] Name: MARILU GUNTER Rep #: [id number] : 1960 F 65 From: Princess Leonard MD PCP: Chuy Meng MD Status: REG ER Study:Knee 4 or More Views Date of Exam: 04/27/25 Exam# [id number] Ordering Dr: Elizabeth Marte DO PROCEDURE: KNEE [...] IMPRESSION: Mild right knee osteoarthritis. Reading Location: [place] [address] CC: Chuy Meng MD; DO Eddie Youssef Vice President Financial: Signed [facility]02-27-2025 Telephone encounter Note* Telephone Encounter - Sonam [...] and schedule is fully booked prior to. [facility]02-27-2025 Miscellaneous Notes* Telephone Encounter - [...] Reports pain management, Dr. Rush (ph # [phone]) took an xray of her foot yesterday. Pt has not received the results yet. Dr. Rush also prescribed pain patches for her- she hasn't picked them up yet, will orange picker today. [facility] Telephone encounter Note * Telephone Encounter - Bev Meng LPN - 11/13/2024 1:54 PM EST Report of xrays has been received. Bev Meng LPN [facility] Work Phone: 1(887) 379-986402-25-2025 Telephone encounter Note* Telephone Encounter - Ara Hatfield LPN - 11/12/2024 3:11 PM EST 's office calling and is sending foot xray to office. Ara Hatfield LPN [facility]02-25-2025 Telephone encounter Note* Telephone Encounter - [...] Reports pain management, Dr. Rush (ph # [phone]) took an xray of her foot yesterday. Pt has not received the results yet. Dr. Rush also prescribed pain patches for her- she hasn't picked them up yet, will orange picker today. [facility]02-02-2024 Note ORIGINAL EXAMINATION: MRI OF THE [...] Sign Date: 10/20/2023 7:28:20 PM Ordering Provider: [facility] summary Author [facility] Note Date/Time May 17, 2025 3: 38am [facility] Medical Records Department [address] [place] [address] Emergency Department Summary 05/17/25 MR#: [id number] Acct: [id number] Name: MARILU GUNTER Rep #:[id number] : 1960 65 From: Kevin Patton ggett DO PCP: Chuy Megn MD Status:[facility] ER Location: ED HPI History of [...] intact Psych: Cooperative, appropriate mood and affect [facility] Medical History Left knee pain Bilateral primary [...] evidence of an acute abnormality. Reading [facility] Dis[facility] Plan Triage Chief Complaint: Lower Extremity [...] ED symptoms change or worsen. Print Language: Cook Islander Disposition Disposition: Home, Self Care What to do if you have Problems For any increased pain, shortness of breath, bleeding, nausea or vomiting, chestpain, or any unexpected problems, contact your Primary Care Provider. Call [facility] ([phone]) or report to the closest Emergency Room. Call 911 if necessary. 05/17/25 0338 <Electronically signed by Kevin Gómez DO> Cosigner Signature (if applicable): CC: Chuy Meng MD ~ Signed [facility] Work Phone: Evaluation + Plan note No data available for this section [facility] Evaluation note* Diagnosis Onset Date Resolution Status Cardiomyopathy in disease classified elsewhere acute Chest pain acute Cardiac dysrhythmia chronic Essential hypertension chron ic Pure hypercholesterolemia [facility] Work Phone: Evaluation noteNo assessment information available [facility] Work Phone: Evaluation note* Diagnosis Onset Date Resolution Status Abdominal pain acute GERD (gastroesophageal reflux disease) chronic [facility] Work Phone: Evaluation note* Diagnosis Onset Date Resolution Status Cardiomyopathy in disease classified elsewhere acute Cardiac dysrhythmia chronic Essential hypertension chron ic Pure hypercholesterolemia [facility] Work Phone: Evaluation note* Diagnosis Onset Date Resolution Status Admit Date Osteoarthritis of right knee acute April 30, 2025 11:16am [facility] Work Phone: Hospital Discharge instructions No data available for this section [facility] Hospital Discharge instructionsAdditional Instructions Please follow-up [...] ER should you have any further concerns [facility] Work Phone: Hospital Discharge instructionsAmbulatory Orders* Physical Therapy Referral Location: None Selected [facility] Work Phone: Hospital Discharge instructionsAdditional Instructions Follow-up with your orthopedic physician, pain management, primary care physician. Return back to the ED symptoms change or worsen.[facility] Work Phone: Progress note No data available for this section [facility] Reason for referral (narrative)No reason for referral [facility] Work Phone: Assessments Diagnosis Left knee [...] March 19, 2019 1 0:58am Power of Welfare Worker No March 19, 2019 10:58am Advance Directive Response Recorded Date/ Time Advance Directives No February 03 2 2:01pm Living Will No February 03, 2022 2 :01pm Power of Welfare Worker No February 03, 2022 2:01pm Advance Directive Response Recorded Date/ Time Advance Directives No February 03 2 2:01pm Living Will No February 16, 2022 2 :28am Power of Welfare Worker No February 16, 2022 2:28am Advance Directive Response Recorded Date/ Time Advance Directives No February 03 2 2:01pm Living Will No June 01, 2022 7:02pm Power of Welfare Worker No May 7:02pm Advance Directive Response Recorded Date/ Time Advance Directives No February 03 1:01pm Living Will No June 27 6:28pm Power of Welfare Worker No June 27, 2022 6:28pm Advance Directive Response Recorded Date/ Time Advance Directives No February 03 2:01pm Living Will No June 27 7:28pm Power of Welfare Worker No June 27, 2022 7:28pm Advance Directive Response Recorded Date/ Time Do you have a Healthcare Power of Welfare Worker? No April 27, 2025 2:51am Advance Directives No February 03 2:01pm Advance Directive Response Recorded Date/ Time Advance Directives No April 28, 2025 9:22am Do you have a Healthcare Power of Welfare Worker? No April 27, 2025 2:51am Advance Directive Response Recorded Date/ Time Advance Directives No April 28, 2025 9:22am Do you have a Healthcare Power of Welfare Worker? No April 27, 2025 2:51am Do you have a Healthcare Power of Welfare Worker? No May 17, 2025 12:38am Chief Complaint and Reason for Visit Chief Complaint RE-ESTAB WITH [facility] CHEST PAIN CHEST PAIN pain Palpitations Reason for Visit Cardiomyopathy in [facility] classified elsewhere Chest pain Cardiac dysrhythmia Essential [...] AND COLLAPSE Reason for Visit Cardiomyopathy in [facility] classified elsewhere Cardiac dysrhythmia Essential hypertension Pure [...] and content) DATE CREATED AUTHOR 03/08/2018 [facility] DATE CREATED AUTHOR AUTHOR'S ORGANIZ ATION 03/09/2018 [facility] DATE CREATED AUTHOR AUTHOR'S ORGANIZ ATION 03/13/2018 [facility] DATE CREATED AUTHOR AUTHOR'S ORGANIZ ATION 10/15/2023 [facility] ([place] DATE CREATED AUTHOR AUTHOR'S ORGANIZ ATION 01/21/2025 [facility] DATE CREATED AUTHOR AUTHOR'S ORGANIZ ATION 07/26/2025 [facility] DATE CREATED AUTHOR AUTHOR'S ORGANIZ ATION 07/26/2025 [facility] Goals (unrecognized section and content) Goals [...] Dr. Frankie Santiago MD Family Provider Active [facility] Primary Care Provider A ctive Team Status: Inactive Member Role Status Dates [facility] Primary Care Provider, Referring Provider Active Maria Antonia TATE PA Attending Provider Active Team Status: Inactive Member Role Status Dates [facility] Primary Care Provider A ctive LEA Stern Attending Provider, Referr ing Provider Active Organ Installer Relationship Specialty Start Date End Date Torey Flores [address] [place] [id number] Referring Orthopedics 08/08/17 Team Status: Active Member [...] or prosecute any alcohol or drug abuse patient.[facility] Reason for Visit (unrecogniz ed [...] BE BASED ON THE PRIMARY CLINICAL RECORDS. [employer] [facility]. provides no warranty or guarantee of the accuracy or completeness of information in this document.
--- OUTSIDE RECORDS SUMMARY | 2025-08-17 04:53 | XMS RPT_ITS | CCD ---
Author Organization [facility] CliniSyde Care Team Providers Care Mining Support Worker Name Role Phone No, Physician Unavailable Unavailable BARK, EDUARDO E Unavailable Unavailable BARK, EDUARDO E Unavailable Unavailable MurilloCisco M Unavailable Unavailable MurilloCisco M Unavailable Unavailable MurilloCsico M Unavailable Unavailable No Doctor Assigned, Nodr [...] Primary Referring Provider Un available Dr. Alonzo Lazna Attending Provider [phone] [facility], Miriam Gore Primary Care Pro vider Dr. Alonzo Lanza Referring Provider [phone] Dr. Alonzo Lanza Other Provider [phone] Dr. Christopher Gilmore Attending Provider Dr. Alonzo Lanza Attending Provider [phone] Yahir TATE, PA Maria Antonia Sahu Referring Provider [facility], Miriam Gore Primary Care Pro vider [facility], Miriam Gore Referring Provid er FriendDr. Castorena Attending Provider [facility], Miriam Gore Primary Care Pro vider FriendDr. Castorena Attending Provider [facility], Miriam Gore Primary Care Pro vider [facility], Miriam Samuelrene Referring Provid er Yahir TATE, [...] PCP, NO PCP Primary Care Unavailable GANGA SHAFFER~[id number], GANGA SHAUNA Attending Unavailable GANGA SHAFFER~[id number], SCHULER SHAUNA Admitting Unavailable AA NO PCP, NO PCP Primary Care Unavailable GANGA SHAFFER~[id number], SCHULER SHAUNA Admitting Unavailable GANGA SHAFFER~[id number], SCHULER SHAUNA Attending Unavailable GANGA SHAFFER~[id number], SCHULER SHAUNA Admitting Unavailable AA NO PCP, NO PCP Primary Care Unavailable GANGA SHAFFER~[id number], SCHULER SHAUNA Attending Unavailable AA NO PCP, NO PCP Primary Care Unavailable GANGA SHAFFER~[id number], SCHULER SHAUNA Admitting Unavailable GANGA SHAFFER~[id number], SCHULER SHAUNA Attending Unavailable AA NO PCP, NO PCP Primary Care Unavailable TABATHA SHAFFER~[id number], TABATHA BRAND Admitting Unavailable TABATHA SHAFFER~[id number], TABATHA BRAND Attending Unavailable AA NO PCP, NO PCP Primary Care Unavailable GANGA SHAFFER~[id number], SCHULER SHAUNA Attending Unavailable GANGA SHAFFER~[id number], SCHULER SHAUNA Admitting Unavailable Meng VSC, Chuy Primary Care Unavailable Taqueria VSC, Chuy Referring Unavailable Marion Carroll Attending Unavailable Taqueria VSC, Chuy Primary Care Unavailable Kevin Gómez Attending UnavailChuy Siegel Attending Unavailable [facility] Primary Care Unavailable [facility] Primary Care Unavailable Geoff Marte Attending Unavailable [facility] Primary Care Unavailable [facility] Referring Unavailable Marion Carroll Attending Unavailable Carlos Lopez Attending Unavailable Carlos Lopez Attending Unavailable Sunita Richard Attending Unavailable Allergies Allergy Classification Reported Allergen(s) Allergy Type Date of Onset Reaction(s) Facility (4 sources) aspirin; Translations: [aspirin] Drug Allergy 3 [facility] Work Phone: (3 sources) ibuprofen; Translations: [IBUPROFEN] Drug Allergy 3 [facility] Work Phone: (1 source) cyclobenzaprine; Translations: [cyclobenzaprine] Drug Allergy [facility] Repository (1 source) NSAIDs; Translations: [NSAIDs] Propensity to adverse reactions to drug (disorder) [facility] Repository (1 source) traMADol; Translations: [TraMADol Hydrochloride ER] Drug Allergy [facility] Repository (11 sources) traMADol; Translations: [tramadol HCl] Drug Allergy 2 GI Upset, Diarrhea [facility] (10 sources) NSAIDS (Non-Steroidal Anti-Inflamma; Translations: [NSAIDS (Non-Steroidal Anti-Inflamma] Propensity to adverse reactions 2 Diarrhea [facility] (2 sources) NSAIDs; Translations: [NSAIDS (Non-Steroidal Anti-Inflammatory Drug)] Drug Allergy 8 Diarrhea [facility] Work Phone: (1 source) predniSONE Drug Allergy 2 GI Upset [facility] Medications Current Medications Medication Drug Class(es) Dates Sig (Normalized) Sig (Original) [id number] 200 actuat albuterol 0.09 mg/actuat metered dose [...] Start: 04-13-2017 take 2 tablets by mo [facility] twice daily Lamotrigine 25 MG tablet [...] Agonist Start: 03-19-2019 End: 01-06-2022 Hydrocodone-Acetami nophen ([place]) 5-325 mg tablet Discontinued 1 {tbl} PO [...] June 29, 2022 12:03am polyethylene glycol 3350 23066 mg powder for oral solution (6 sources) [...] what is going Other aftercare (1 source) manager intermediate (current) use of opiate analgesic; Translations: [LONG-TERM CURRNT USE OPIATE ANALGES] Onset: 06-09-2025 Episodic Other aftercare (1 source) 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 [facility] Comment on above: Order Comment: Perfo rmed at: [employer] [address] [place] [address] [id number] Co Founder And Ceo: Dee Noel [facility], Phone: [phone] Performed By: #### P NMUR #### [facility] RESULTS Report Summary FINAL [facility] Comment on above: Order Comment: Perfo rmed at: [employer] [address] [place] [address] [id number] Co Founder And Ceo: Dee Morse, Phone: [phone] Result Comment: ====== TOXASSURE COMP DRUG ANALYSIS,UR [...] test is not intended to distinguish between vbawv-3-rgsfcjttwtkhfrffcuyi, the predominant form of THC in most herbal or marijuana-based products, and misga-3-utrnsguxrtmooqopriad. Morphine 50 ng/mg creat Potential sources of [...] Viewson 07-13 Knee 4 or More Views [facility] Imaging Services [address] [place] [id number] Knee 4 or More Views MR#: [id number] Acct: [id number] Name: MARILU GUNTER Rep #: [id number] : 1960 F 65 From: Jose Alejandro henley MD PCP: Chuy Meng MD Status: DEP ER Study: Knee 4 or More Views Date of Exam: 07/13/25 Exam# [id number] Ordering Dr: Chuy Irving DO PROCEDURE: KNEE [...] soft tissue edema and swelling. Reading Location: [place] [address] CC: Dr. 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 Normal [facility] Emergency Department Summary on 05-17-2025 Emergency Department Summary [facility] Medical Records Department [address] [place] [address] Emergency Department Summary 05/17/25 MR#: [id number] Acct: [id number] Name: MARILU GUNTER Rep #: [id number] : 1960 65 From: Kevin Gómez DO [...] intact Psych: Cooperative, appropriate mood and affect [facility] Left knee pain [...] 100 100 (more content not included)... Normal [facility] Knee 4 or More Viewson 05-17 Knee 4 or More Views [facility] Imaging Services [address] [place], [place] [id number] Knee 4 or More Views MR#: [id number] Acct: [id number] Name: MARILU GUNTER Rep #: [id number] : 1960 F 65 From: Jose Alejandro henley MD PCP: Chuy Meng MD Status: REG ER Study: Knee 4 or More Views Date of Exam: 05/17/25 Exam# [id number] Ordering Dr: Kevin Gómez DO PROCEDURE: KNEE [...] evidence of an acute abnormality. [facility] CC: Dr. 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 Normal [facility] Orthopedic Visit Reporton Orthopedic Visit Report [facility] [address] [place] [address] [address] [place] [address] OFFICE VISIT Date of Service: 04/30/25 MR#: [id number] Acct: [id number] Name: MARILU GUNTER Rep #: [id number] : 1960 Provider: SAM kelsey Age/Sex: 65/F Location: [facility] Status: Signed Intake Vital Signs 04/27/25 02:48 04/28/25 09:22 04/30/25 11:21 Height 5 ft 5 in 5 ft 5 in 5 ft 5 in Weight: 155 lb BMI 25.7 Intake Visit Reasons: RIGHT KNEE Is patient in pain?: Yes Pain scale (1-10): 10 Allergies NSAIDS (Non-Steroidal Anti-Inflamma Adverse Reaction (Verified 04/30/25 11:21) Diarrhea tramadol HCl (From [facility]) Adverse Reaction (Verified 04/30/25 11:21) Diarrhea Medications [...] the decisions made by me, Marion Carroll BINITROTOLUENE OPERATOR-C 04/30/25 1147. Part of today???s visit was documented by [...] 3-4 days (more content not included)... Normal [facility] 12 Lead EKGon 04-27-2025 12 Lead EKG [facility] Cardiovascular Services [address] [place] [address] 12 Lead EKG 04/27/25 0258 MR#: [id number] Acct: [id number] Name: MARILU GUNTER Rep #: [id number] : 1960 65 From: Gianluca Trevino MD [...] ECG Confirmed by SHANNON SHAFFER, GIANLUCA ([id number]), food editor MELISSA RIBEIRO ([id number]) on 04/28/2025 1:13:52 PM Referred By: PHIL Confirmed By: GIANLUCA TREVINO MD 04/28/25 1313 Date Gianluca Trevino MD CC: Chuy Meng MD; Geoff Marte DO Signed Normal [facility] Absolute lymphocyte countOrd ered By: Geoff Marte on 04-27-2025 Lymphocytes Auto (Unsp spec) [#/Vol] 4.51 10*3/uL 0.83-4.51 [facility] Absolute neutrophil countOrd ered By: Geoff Marte on 04-27-2025 Neutrophils (Bld) [#/Vol] 4.1 10*3/uL 2.0-7.7 [facility] Automated lymphocyte count a s percentage of total leukocytesOrdered By: Geoff Marte on 04-27-2025 Lymphocytes/100 WBC Auto (Unsp spec) 48.0 % High 19-41 [facility] Basophil percentageOrdered B y: Geoff Marte on 04-27-2025 Basophils/100 WBC (Bld) 0.4 % 0-1 [facility] Blood manual differential co mment interpretation (narrative result)Ordered By: Geoff Marte on 04-27-2025 Manual differential comment Wilder (Bld) [Interp] SCANNED [facility] CBC W/Diff, Automatedon 04-18 SMEAR COMMENT SCANNED Normal [facility] Comment on above: Performed By: #### L 101.9900, L503.6005, L100.0100, L501.6710 #### [facility] Laboratory [address] [place], [place], [id number] CRPon 04-27-2025 C-REACTIVE PROT < 3.00 Normal 0.0-3.0 [facility] Comment on above: Performed By: #### L 101.9900, L503.6005, L100.0100, L501.6710 #### [facility] [address] [place], [address] Emergency Department Summary on 04-27-2025 Emergency Department Summary [facility] Medical Records Department [address] [place] [address] Emergency Department Summary 04/27/25 MR#: [id number] Acct: [id number] Name: MARILU GUNTER Rep #: [id number] : 1960 65 From: Geoff Marte DO [...] denies any recent injury or excessive activity. [facility] Medical History (Updated 04/29/25 @ 00:12 by [...] auscultation bila (more content not included)... Normal [facility] Eosinophil percentageOrdered By: Geoff Marte on 04-27-2025 Eosinophils/100 WBC (Bld) 1.1 % 0-5 [facility] Erythrocyte Sed Rateon 04-27 SED RATE 22 mm/hr Normal 0-30 [facility] Comment on above: Performed By: #### L 101.9900, L503.6005, L100.0100, L501.6710 #### [facility] [address] [place], [address] Erythrocyte distribution wid th ratioOrdered By: Geoff Marte on 04-27-2025 Erythrocyte distribution width (RBC) [Ratio] 13.2 % 11.6-14.6 [facility] Erythrocyte distribution wid th standard deviationOrdered By: Geoff Marte on 04-27-2025 Erythrocyte distribution width (RBC) [Ratio] 40.8 fl 35.1-43.9 [facility] Erythrocyte sedimentation ra teOrdered By: Geoff Marte on 04-27-2025 ESR (Bld) [Velocity] 22 mm/h 0-30 [facility] Hematocrit Auto (Bld) [Volum e fraction]Ordered By: Geoff Marte on 04-27-2025 Hematocrit (Bld) [Volume fraction] 40.2 % 37-47 [facility] Hemoglobin measurementOrdere d By: Geoff Marte on 04-27-2025 Hemoglobin (Bld) [Mass/Vol] 13.8 g/dL 12.0-15.0 [facility] Immature granulocytes/100 WB C Auto (Bld)Ordered By: Geoff Marte on 04-27-2025 Immature granulocytes/100 WBC (Bld) 0.500 % 0.0-0.9 [facility] Comment on above: IG% - Immature Granu locytes (promyelocytes, myelocytes and metamyelocytes) > 1% indicates that a LEFT SHIFT is Present. Knee 4 or More Viewson 04-27 Knee 4 or More Views [facility] Imaging Services [address] [place], [place] [address] Knee 4 or More Views MR#: [id number] Acct: [id number] Name: MARILU GUNTER Rep #: [id number] : 1960 F 65 From: Keith Leonard MD PCP: Chuy Meng MD Status: [facility] ER Study: Knee 4 or More Views Date of Exam: 04/27/25 Exam# [id number] Ordering Dr: Geoff Marte DO PROCEDURE: KNEE [...] IMPRESSION: Mild right knee osteoarthritis. 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 Comment on above: Order Comment: Y Performed By: #### L 101.9900, L503.6005, L100.0100, L501.6710 #### [facility] [address] [place], [address] MCV (mean corpuscular volume ) determinationOrdered By: Geoff Marte on 04-27-2025 MCV (RBC) [Entitic vol] 86.1 fL 81-99 [facility] Mean corpuscular hemoglobin (MCH) determinationOrdered By: Geoff Marte on 04-27-2025 MCH (RBC) [Entitic mass] 29.6 pg 27.0-32.0 [facility] Mean corpuscular hemoglobin concentration (MCHC) determinationOrdered By: Geoff Marte on 04-27-2025 MCHC (RBC) [Mass/Vol] 34.3 g/dL 32-36 [facility] Mean platelet volume determi nationOrdered By: Geoff Marte on 04-27-2025 Platelet mean volume (Bld) [Entitic vol] 9.8 fL 6.2-12.0 [facility] Monocyte percentageOrdered B y: Geoff Marte on 04-27-2025 Monocytes/100 WBC (Bld) 6.5 % 0-10 [facility] Neutrophil percentageOrdered By: Geoff Marte on 04-27-2025 Neutrophils/100 WBC (Bld) 43.5 % Low 47-70 [facility] Nucleated red blood cell per centageOrdered By: Geoff Marte on 04-27-2025 Nucleated RBC/100 WBC (Bld) [Ratio] 0 % 0-5 [facility] Platelet countOrdered By: Elizabeth Marte on 04-27-2025 Platelets (Bld) [#/Vol] 394 10*3/uL 150-450 [facility] RBC Auto (Bld) [#/Vol]Ordere d By: Geoff Marte on 04-27-2025 RBC (Bld) [#/Vol] 4.67 10*6/uL 4.2-5.4 [facility] Serum or plasma C reactive p rotein measurement (mass/volume)Ordered By: Geoff Marte on 04-27-2025 CRP [Mass/Vol] mg/L 0.0-3.0 [facility] White blood cell (WBC) count Ordered By: Geoff Marte on 04-27-2025 WBC (Bld) [#/Vol] 9.4 10*3/uL 4.4-11.0 [facility] CNCOon 01-16-2025 CNCO Letter Text Normal [facility] Jean Claude 11-12-2024 AMOSN Telephone (PODS) MARILU GUNTER ([id number]) 1960 F Date Time Provider Department 11/12/24 [...] or , when she was in the [employer]. She stepped into a deep hole [...] Reports pain management, Dr. Rush (ph # [phone]) took an xray of her foot yesterday. Pt has not received the results yet. Dr. 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 Ara Hatfiedl LPN 11/12/2024 3:22 PM Signed 's office [...] by Luis Alberto HORAN on 11/22/24 Normal [facility] XR Foot Left complete 3 [...] MEZA DO, MD Date: 11/12/2024 10:[address] [facility] Basophil percentageon 2021 Chloride [Moles/Vol] 108 mmol/L 98-107 [facility] Work Phone: Glucose [Mass/Vol] 118 mg/dL 74-106 [facility] Work Phone: Comment on above: Fasting Glucose resu lt from 100 to 125 mg/dL suggests IMPAIRED HOMEOSTASIS per A.D.A. criteria. Potassium [Moles/Vol] 3.8 mmol/L 3.5-5.1 [facility] Work Phone: Sodium [Moles/Vol] 142 mmol/L 136-145 [facility] Work Phone: WBC (Bld) [#/Vol] 8.0 10*3/uL 4.4-11.0 [facility] Work Phone: Blood erythrocytes count (nu mber/volume)on 08-09-2022 RBC (Bld) [#/Vol] 4.39 10*6/uL 4.2-5.4 [facility] Work Phone: Blood hemoglobin measurement (mass/volume)on 08-09-2022 Hemoglobin (Bld) [Mass/Vol] 12.2 g/dL 12.0-15.0 [facility] Work Phone: Blood platelet mean volumeon 08-09-2022 Platelet mean volume (Bld) [Entitic vol] 9.4 fL 6.2-12.0 [facility] Work Phone: Determination of erythrocyte mean corpuscular volume (MCV)on 08-09-2022 MCV (RBC) [Entitic vol] 85.6 fL 81-99 [facility] Work Phone: [phone] Hematocrit Auto (Bld) [Volum e fraction]on 08-09-2022 Hematocrit (Bld) [Volume fraction] 37.6 % 37-47 [facility] Work Phone: Laboratory - Chemistry and C hemistry - challengeon 08-09-2022 CO2 [Moles/Vol] 30.0 mmol/L 21.0-32.0 [facility] Work Phone: Magnesium [Mass/Vol] 2.3 mg/dL 1.6-2.6 [facility] Work Phone: [phone] Urea nitrogen/Creatinine [Mass ratio] 9.7 mg/mg 10-20 [facility] Work Phone: [phone] Laboratory - Hematology and Cell countson 08-09-2022 Erythrocyte distribution width (RBC) [Entitic vol] 42.9 fL 35.1-43.9 [facility] Work Phone: [phone] Erythrocyte distribution width (RBC) [Ratio] 13.8 % 11.6-14.6 [facility] Work Phone: [phone] MCH (RBC) [Entitic mass] 27.8 pg 27.0-32.0 [facility] Work Phone: MCHC Auto (RBC) [Mass/Vol]on 08-09-2022 MCHC (RBC) [Mass/Vol] 32.4 g/dL 32-36 [facility] Work Phone: No Panel Informationon 08-09 Estimated GFR (MDRD) Amer 90 mL/min >60 [facility] Work Phone: Comment on above: GFR Calc Estimated GFR (MDRD) Non-Af Amer 75 mL/min >60 [facility] Work Phone: [phone] Comment on above: Non- GFR Calc Platelets bldon 08-09-2022 Platelets (Bld) [#/Vol] 314 10*3/uL 150-450 [facility] Work Phone: [phone] Serum or plasma calcium anupam urement (mass/volume)on 08-09-2022 Calcium [Mass/Vol] 9.1 mg/dL 8.5-10.1 [facility] Work Phone: [phone] Serum or plasma creatinine m easurement (mass/volume)on 08-09-2022 Creatinine [Mass/Vol] 0.83 mg/dL 0.55-1.02 [facility] Work Phone: [phone] Comment on above: The validity of the calculated GFR & GFRAA in patients over 70 years has not been determined. Clinical correlation is essential. Serum or plasma urea nitroge n measurement (mass/volume)on 08-09-2022 Urea nitrogen [Mass/Vol] 8 mg/dL 7-18 [facility] Work Phone: [phone] Thin prep Papanicolaou smear with manual screeningon 08-09-2022 Thin prep Papanicolaou smear with manual screening 4 5-15 [facility] Work Phone: [phone] Absolute lymphocyte counton 02-16-2022 Lymphocytes Auto (Unsp spec) [#/Vol] 5.30 10*3/uL 0.83-4.51 [facility] Work Phone: [phone] Basophil percentageon 2021 Basophils/100 WBC (Bld) 0.4 % 0-1 [facility] Work Phone: [phone] Chloride [Moles/Vol] 103 mmol/L 98-107 [facility] Work [facility]: Eosinophils/100 WBC (Bld) 1.4 % 0-5 [facility] Work Phone: Glucose [Mass/Vol] 133 mg/dL 74-106 [facility] Work Phone: Comment on above: Fasting Glucose resu lt greater than or equal to 126 mg/dL suggests DIABETES MELLITUS per A.D.A. criteria. Neutrophils (Bld) [#/Vol] 3.8 10*3/uL 2.0-7.7 [facility] Work Phone: Neutrophils/100 WBC (Bld) 38.4 % 47-70 [facility] Work Phone: Potassium [Moles/Vol] 3.7 mmol/L 3.5-5.1 [facility] Work Phone: Sodium [Moles/Vol] 135 mmol/L 136-145 [facility] Work Phone: WBC (Bld) [#/Vol] 10.0 10*3/uL 4.4-11.0 [facility] Work Phone: Blood erythrocytes count (nu mber/volume)on 02-16-2022 RBC (Bld) [#/Vol] 4.47 10*6/uL 4.2-5.4 [facility] Work Phone: Blood hemoglobin measurement (mass/volume)on 02-16-2022 Hemoglobin (Bld) [Mass/Vol] 12.5 g/dL 12.0-15.0 [facility] Work Phone: Blood lymphocytes/100 leukoc yteson 02-16-2022 Lymphocytes/100 WBC (Bld) 52.9 % 19-41 [facility] Work Phone: Blood monocytes/100 leukocyt eson 02-16-2022 Monocytes/100 WBC (Bld) 6.6 % 0-10 [facility] Work Phone: Blood platelet mean volumeon 02-16-2022 Platelet mean volume (Bld) [Entitic vol] 9.8 fL 6.2-12.0 [facility] Work Phone: [phone] Determination of erythrocyte mean corpuscular volume (MCV)on 02-16-2022 MCV (RBC) [Entitic vol] 85.9 fL 81-99 [facility] Work Phone: [phone] Hematocrit Auto (Bld) [Volum e fraction]on 02-16-2022 Hematocrit (Bld) [Volume fraction] 38.4 % 37-47 [facility] Work Phone: [phone] Laboratory - Chemistry and C hemistry - challengeon 02-16-2022 CO2 [Moles/Vol] 26.0 mmol/L 21.0-32.0 [facility] Work Phone: [phone] Magnesium [Mass/Vol] 1.9 mg/dL 1.6-2.6 [facility] Work Phone: [phone] Urea nitrogen/Creatinine [Mass ratio] 12.1 mg/mg 10-20 [facility] Work Phone: [phone] Laboratory - Hematology and Cell countson 02-16-2022 Erythrocyte distribution width (RBC) [Entitic vol] 39.9 fL 35.1-43.9 [facility] Work Phone: [phone] Erythrocyte distribution width (RBC) [Ratio] 12.8 % 11.6-14.6 [facility] Work Phone: [phone] Immature granulocytes/100 WBC (Bld) 0.300 % 0.0-0.9 [facility] Work Phone: [phone] Comment on above: IG% - Immature Granu locytes (promyelocytes, myelocytes and metamyelocytes) > 1% indicates that a LEFT SHIFT is Present. MCH (RBC) [Entitic mass] 28.0 pg 27.0-32.0 [facility] Work Phone: [phone] Nucleated RBC/100 WBC (Bld) [Ratio] 0 % 0-5 [facility] Work Phone: [phone] MCHC Auto (RBC) [Mass/Vol]on 02-16-2022 MCHC (RBC) [Mass/Vol] 32.6 g/dL 32-36 [facility] Work Phone: No Panel Informationon 02-16 Troponin I High Sensitivity < 3 pg/mL 3.0-54.0 [facility] Work Phone: Comment on above: Please Note: New Poppy t Units and Gender Specific Reference Ranges. For more information see Policy Stat Procedure [place] High Sensitivity Troponin (TNIH) and attachments. Atypical Lymphocytes 1+ % [facility] Work Phone: [phone] D-Dimer Quantitative (PE/DVT) < 0.27 FEU/ug/m 0.27-0.49 [facility] Work Phone: Comment on above: NORMAL D-Dimer level (<0.50) indicates no DVT or PE. Estimated Creatinine Clearance Calc 59.16 ml/min [facility] Work Phone: [phone] Estimated GFR (MDRD) Amer 81 mL/min >60 [facility] Work Phone: Comment on above: GFR Calc Estimated GFR (MDRD) Non-Af Amer 67 mL/min >60 [facility] Work Phone: Comment on above: Non- GFR Calc Thyroid Stimulating Hormone (TSH) 2.02 uIU/mL 0.358-3.74 [facility] Work Phone: [phone] Platelets bldon 02-16-2022 Platelets (Bld) [#/Vol] 395 10*3/uL 150-450 [facility] Work Phone: [phone] Serum or plasma calcium anupam urement (mass/volume)on 02-16-2022 Calcium [Mass/Vol] 9.2 mg/dL 8.5-10.1 [facility] Work Phone: [phone] Serum or plasma creatinine m easurement (mass/volume)on 02-16-2022 Creatinine [Mass/Vol] 0.91 mg/dL 0.55-1.02 [facility] Work Phone: [phone] Comment on above: The validity of the calculated GFR & GFRAA in patients over 70 years has not been determined. Clinical correlation is essential. Serum or plasma urea nitroge n measurement (mass/volume)on 02-16-2022 Urea nitrogen [Mass/Vol] 11 mg/dL 7-18 [facility] Work Phone: Thin prep Papanicolaou smear with manual screeningon 02-16-2022 Thin prep Papanicolaou smear with manual screening 6 5-15 [facility] Work Phone: Absolute lymphocyte counton 10-06-2021 Lymphocytes Auto (Unsp spec) [#/Vol] 2.86 10*3/uL 0.83-4.51 [facility] Work Phone: Basophil percentageon 2021 Basophils/100 WBC (Bld) 0.7 % 0-1 [facility] Work Phone: Eosinophils/100 WBC (Bld) 1.2 % 0-5 [facility] Work Phone: Neutrophils (Bld) [#/Vol] 3.7 10*3/uL 2.0-7.7 [facility] Work Phone: Neutrophils/100 WBC (Bld) 51.7 % 47-70 [facility] Work Phone: WBC (Bld) [#/Vol] 7.3 10*3/uL 4.4-11.0 [facility] Work Phone: Bilirubin [Mass/Vol] 0.20 mg/dL 0.20-1.00 [facility] Work Phone: Comment on above: For patients on eltr ombopag therapy, use of Dimension [place] TBIL is not recommended. Chloride [Moles/Vol] 104 mmol/L 98-107 [facility] Work Phone: Cholesterol [Mass/Vol] 243 mg/dL <200 [facility] Work Phone: Comment on above: <200 mg/dL Desirable 200-240 mg/dL Borderline >240 mg/dL High Risk Glucose [Mass/Vol] 114 mg/dL 74-106 [facility] Work Phone: [phone] Comment on above: Fasting Glucose resu lt from 100 to 125 mg/dL suggests IMPAIRED HOMEOSTASIS per A.D.A. criteria. Potassium [Moles/Vol] 3.6 mmol/L 3.5-5.1 [facility] Work Phone: [phone] Protein [Mass/Vol] 7.6 g/dL 6.4-8.2 [facility] Work Phone: [phone] Sodium [Moles/Vol] 137 mmol/L 136-145 [facility] Work Phone: [phone] Triglyceride [Mass/Vol] 117 mg/dL [facility] Work Phone: [phone] Comment on above: The drugs N-Acetylcy steine and Metamizole may falsely depress this assay.Serum Triglycerides Reference Interval Normal <150 mg/dL Borderline high 150 - 199 mg/dL High 200 - 499 mg/dL Very High > or = 500 mg/dL Blood erythrocytes count (nu mber/volume)on 10-06-2021 RBC (Bld) [#/Vol] 4.25 10*6/uL 4.2-5.4 [facility] Work Phone: [phone] Blood hemoglobin measurement (mass/volume)on 10-06-2021 Hemoglobin (Bld) [Mass/Vol] 11.6 g/dL 12.0-15.0 [facility] Work Phone: [phone] Blood lymphocytes/100 leukoc yteson 10-06-2021 Lymphocytes/100 WBC (Bld) 39.4 % 19-41 [facility] Work Phone: [phone] Blood monocytes/100 leukocyt eson 10-06-2021 Monocytes/100 WBC (Bld) 6.6 % 0-10 [facility] Work Phone: [phone] Blood platelet mean volumeon 10-06-2021 Platelet mean volume (Bld) [Entitic vol] 9.1 fL 6.2-12.0 [facility] Work Phone: [phone] Determination of erythrocyte mean corpuscular volume (MCV)on 10-06-2021 MCV (RBC) [Entitic vol] 85.2 fL 81-99 [facility] Work Phone: [phone] Direct bilirubinon Bilirubin.direct [Mass/Vol] mg/dL 0.00-0.30 [facility] Work Phone: [phone] Hematocrit Auto (Bld) [Volum e fraction]on 10-06-2021 Hematocrit (Bld) [Volume fraction] 36.2 % 37-47 [facility] Work Phone: [phone] Laboratory - Chemistry and C hemistry - challengeon 10-06-2021 ALP [Catalytic activity/Vol] 114 U/L 45-117 [facility] Work Phone: [phone] ALT [Catalytic activity/Vol] 13 U/L 13-56 [facility] Work Phone: [phone] CO2 [Moles/Vol] 28.0 mmol/L 21.0-32.0 [facility] Work Phone: [phone] Globulin (S) [Mass/Vol] 4.2 g/dL 2.2-4.2 [facility] Work Phone: [phone] Urea nitrogen/Creatinine [Mass ratio] 8.7 mg/mg 10-20 [facility] Work Phone: [phone] Laboratory - Hematology and Cell countson 10-06-2021 Erythrocyte distribution width (RBC) [Entitic vol] 42.6 fL 35.1-43.9 [facility] Work Phone: [phone] Erythrocyte distribution width (RBC) [Ratio] 13.7 % 11.6-14.6 [facility] Work Phone: [phone] Immature granulocytes/100 WBC (Bld) 0.400 % 0.0-0.9 [facility] Work Phone: [phone] Comment on above: IG% - Immature Granu locytes (promyelocytes, myelocytes and metamyelocytes) > 1% indicates that a LEFT SHIFT is Present. MCH (RBC) [Entitic mass] 27.3 pg 27.0-32.0 [facility] Work Phone: [phone] Nucleated RBC/100 WBC (Bld) [Ratio] 0 % 0-5 [facility] Work Phone: MCHC Auto (RBC) [Mass/Vol]on 10-06-2021 MCHC (RBC) [Mass/Vol] 32.0 g/dL 32-36 [facility] Work Phone: No Panel Informationon 10-06 Estimated GFR (MDRD) Amer 81 mL/min >60 [facility] Work Phone: Comment on above: GFR Calc Estimated GFR (MDRD) Non-Af Amer 67 mL/min >60 [facility] Work Phone: Comment on above: Non- GFR Calc Thyroid Stimulating Hormone (TSH) 1.22 uIU/mL 0.358-3.74 [facility] Work Phone: Platelets bldon 10-06-2021 Platelets (Bld) [#/Vol] 357 10*3/uL 150-450 [facility] Work Phone: [phone] Serum or plasma albumin anupam urement (mass/volume)on 10-06-2021 Albumin [Mass/Vol] 3.4 g/dL 3.2-5.0 [facility] Work Phone: Serum or plasma albumin/glob ulin mass ratioon 10-06-2021 Albumin/Globulin [Mass ratio] 0.8 {ratio} 0.9-2.4 [facility] Work Phone: [phone] Serum or plasma calcium anupam urement (mass/volume)on 10-06-2021 Calcium [Mass/Vol] 8.5 mg/dL 8.5-10.1 [facility] Work Phone: [phone] Serum or plasma cholesterol in HDL measurement (mass/volume)on 10-06-2021 Cholesterol in HDL [Mass/Vol] 70 mg/dL [facility] Work Phone: Comment on above: The drugs N-Acetylcy steine and Metamizole may falsely depress this assay. Reference Range HDL <40 mg/dL Low HDL Cholesterol HDL >or= 60 mg/dL High HDL Cholesterol Serum or plasma cholesterol in VLDL measurement (mass/volume)on 10-06-2021 Cholesterol in VLDL [Mass/Vol] 23 mg/dL 5-40 [facility] Work Phone: Serum or plasma creatinine m easurement (mass/volume)on 10-06-2021 Creatinine [Mass/Vol] 0.92 mg/dL 0.55-1.02 [facility] Work Phone: Comment on above: The validity of the calculated GFR & GFRAA in patients over 70 years has not been determined. Clinical correlation is essential. Serum or plasma low density lipoprotein (LDL) cholesterol measurement (mass/volume)on 10-06-2021 Cholesterol in LDL [Mass/Vol] 150 mg/dL 0-130 [facility] Work Phone: Serum or plasma urea nitroge n measurement (mass/volume)on 10-06-2021 Urea nitrogen [Mass/Vol] 8 mg/dL 7-18 [facility] Work Phone: Thin prep Papanicolaou smear with manual screeningon 10-06-2021 Thin prep Papanicolaou smear with manual screening 9 U/L 15-37 [facility] Work Phone: Thin prep Papanicolaou smear with manual screening 5 5-15 [facility] Work Phone: PROGRESSon 01-15-2018 [facility] NOTES Normal [facility] XR KNEE LEFT 4+ VIEWS (SPECI [...] MonAug 02, 2017 5:04:03 PM EST Normal [facility] XR Knee Left 4+ Views (Note in Comments)on 08-02-2017 XR Knee Left 4+ Views (Note in Comments) 4 views left knee reveals a patella fracture near the superior pole about 25% from the top is nondisplaced and minimal degenerative arthritis only Invalid Interpretation Code FUJI SYNAPSE [facility] Vital Signs Date Time Vital Sign Value Performing Clinician Facility 05-17-2025 03:41-0400 Body temperature 98.1 [degF] Dr. Geoff Marte DO Work Phone: [phone])380-998327 [place] [address] 05-17-2025 03:41-0400 Diastolic blood pressure 67 mm[Hg] Dr. Geoff Marte DO Work Phone: 6(614)297-650427 [place] [address] 05-17-2025 03:41-0400 Heart rate 77 /min Dr. Geoff Marte DO Work Phone: 3([phone])474-837327 [place] [address] 05-17-2025 03:41-0400 Respiratory rate 16 /min Dr. Geoff Marte DO Work Phone: [phone])872-061327 [place] [address] 05-17-2025 03:41-0400 SaO2% (BldA) [Mass fraction] 97 % Dr. Geoff Marte DO Work Phone: 1(706)134-917527 [place] [address] 05-17-2025 03:41-0400 Systolic blood pressure 116 mm[Hg] Dr. Geoff Marte DO Work Phone: 6(521)978-514427 [place] [address] 05-17-2025 00:35-0400 Body height 165.[address] Geoff Marte DO Work Phone: 6(781)630-134327 [place] [address] 05-17-2025 00:35-0400 Body mass index (BMI) [Ratio] 26.2 kg/m2 Dr. Geoff Marte DO Work Phone: 1(359)142-181227 [place] [address] 05-17-2025 00:35-0400 Body weight 71.[address] Geoff Marte DO Work Phone: 3(661)892-434227 [place] [address] 04-30-2025 11:21-0400 Body height 165.[address] Geoff Marte DO Work Phone: 3(912)362-525227 [place] [address] 04-30-2025 11:21-0400 Body mass index (BMI) [Ratio] 25.7 kg/m2 Dr. Geoff Marte DO Work Phone: 8(384)173-290627 [place] [address] 04-30-2025 11:21-0400 Body weight 70.[address] Geoff Marte DO Work Phone: [facility] 04-27-2025 05:44-0400 Body temperature 98.9 [degF] Dr. Geoff Marte DO Work Phone: [facility] 04-27-2025 05:44-0400 Diastolic blood pressure 83 mm[Hg] Dr. Geoff Marte DO Work Phone: [facility] 04-27-2025 05:44-0400 Heart rate 88 /min Dr. Geoff Maret DO Work Phone: 1(884)312-989665 [place] [address] 04-27-2025 05:44-0400 Respiratory rate 16 /min Dr. Geoff Marte DO Work Phone: [facility] 04-27-2025 05:44-0400 SaO2% (BldA) [Mass fraction] 100 % Dr. Geoff Marte DO Work Phone: 2(572)024-596165 [place] [address] 04-27-2025 05:44-0400 Systolic blood pressure 133 mm[Hg] Dr. Geoff Marte DO Work Phone: [facility] 04-27-2025 02:48-0400 Body height 165.[address] Geoff Marte DO Work Phone: 9([phone])700-690365 [place] [address] 04-27-2025 02:48-0400 Body mass index (BMI) [Ratio] 25.8 kg/m2 Dr. Geoff Marte DO Work Phone: [facility] 04-27-2025 02:48-0400 Body weight 70.[address] Geoff Marte DO Work Phone: [facility] 12-15-2022 09:06-0400 Body height 165.1 cm [facility] Work Phone: [facility] 12-15-2022 09:00-0400 Body mass index (BMI) [Ratio] 28.4 kg/m2 [facility] Work Phone: [facility] 12-15-2022 09:00-0400 Body weight 77.56 kg [facility] Work Phone: 0(853)022-562648 [place] [address] 12-15-2022 09:00-0400 Diastolic blood pressure 63 mm[Hg] [facility] Work Phone: 7(271)898-237332 [address] 12-15-2022 09:00-0400 Heart rate 76 /min [facility] Work Phone: 0(754)838-703722 [place] [address] 12-15-2022 09:00-0400 Respiratory rate 18 /min [facility] Work Phone: 9(395)651-384832 [address] 12-15-2022 09:00-0400 SaO2% (BldA) [Mass fraction] 98 % [facility] Work Phone: 8(343)152-012822 [place] [address] 12-15-2022 09:00-0400 Systolic blood pressure 104 mm[Hg] [facility] Work Phone: 7(256)581-013732 [address] 06-27-2022 19:18-0400 Body height 165.1 cm [facility] Work Phone: 5(060)423-524648 [place] [address] Work Phone: 06-27-2022 19:18-0400 Body mass index (BMI) [Ratio] 27.2 kg/m2 [facility] Work Phone: 9(151)392-544948 [place] [address] Work Phone: 06-27-2022 19:18-0400 Body temperature 96.4 [degF] [facility] Work Phone: [facility] Work Phone: 06-27-2022 19:18-0400 Body weight 74.3 kg [facility] Work Phone: [facility] Work Phone: 06-27-2022 19:18-0400 Diastolic blood pressure 79 mm[Hg] [facility] Work Phone: 8(871)602-025648 [place] [address] Work Phone: 06-27-2022 19:18-0400 Heart rate 78 /min [facility] Work Phone: 5(406)554-451548 [place] [address] Work Phone: 06-27-2022 19:18-0400 Respiratory rate 16 /min [facility] Work Phone: [facility] Work Phone: 06-27-2022 19:18-0400 SaO2% (BldA) [Mass fraction] 100 % [facility] Work Phone: [facility] Work Phone: 06-27-2022 19:18-0400 Systolic blood pressure 150 mm[Hg] [facility] Work Phone: [facility] Work Phone: 06-01-2022 17:50-0400 Body height 165.1 cm [facility] Work Phone: [facility] Work Phone: 06-01-2022 17:50-0400 Body mass index (BMI) [Ratio] 26.4 kg/m2 [facility] Work Phone: [facility] Work Phone: 06-01-2022 17:50-0400 Body temperature 97.8 [degF] [facility] Work Phone: [facility] Work Phone: 06-01-2022 17:50-0400 Body weight 72 kg [facility] Work Phone: [facility] Work Phone: 06-01-2022 17:50-0400 Diastolic blood pressure 80 mm[Hg] [facility] Work Phone: [facility] Work Phone: 06-01-2022 17:50-0400 Heart rate 82 /min [facility] Work Phone: [facility] Work Phone: 06-01-2022 17:50-0400 Respiratory rate 17 /min [facility] Work Phone: [facility] Work Phone: 06-01-2022 17:50-0400 SaO2% (BldA) [Mass fraction] 100 % [facility] Work Phone: [facility] Work Phone: 06-01-2022 17:50-0400 Systolic blood pressure 121 mm[Hg] [facility] Work Phone: [facility] Work Phone: 02-16-2022 06:00-0400 Diastolic blood pressure 78 mm[Hg] [facility] Work Phone: [facility] Work Phone: 02-16-2022 06:00-0400 Heart rate 78 /min [facility] Work Phone: [facility] Work Phone: 02-16-2022 06:00-0400 Respiratory rate 16 /min [facility] Work Phone: [facility] Work Phone: 02-16-2022 06:00-0400 SaO2% (BldA) [Mass fraction] 96 % [facility] Work Phone: [facility] Work Phone: 02-16-2022 06:00-0400 Systolic blood pressure 126 mm[Hg] [facility] Work Phone: [facility] Work Phone: 02-16-2022 02:16-0400 Body height 165.1 cm [facility] Work Phone: [facility] Work Phone: 02-16-2022 02:16-0400 Body mass index (BMI) [Ratio] 26.6 kg/m2 [facility] Work Phone: [facility] Work Phone: 02-16-2022 02:16-0400 Body temperature 98.1 [degF] [facility] Work Phone: [facility] Work Phone: 02-16-2022 02:16-0400 Body weight 72.6 kg [facility] Work Phone: [facility] Work Phone: 09-23-2021 13:03-0500 Body height 165.1 cm No Primary Care Physician [facility] Work Phone: 09-23-2021 13:03-0500 Body mass index (BMI) [Ratio] 23.9 kg/m2 No Primary Care Physician [facility] Work Phone: 09-23-2021 13:03-0500 Body weight 65.31 kg No Primary Care Physician [facility] Work Phone: 09-23-2021 13:03-0500 Diastolic blood pressure 60 mm[Hg] No Primary Care Physician [facility] Work Phone: 09-23-2021 13:03-0500 Heart rate 84 /min No Primary Care Physician [facility] Work Phone: 09-23-2021 13:03-0500 Respiratory rate 20 /min No Primary Care Physician [facility] Work Phone: 09-23-2021 13:03-0500 Systolic blood pressure 130 mm[Hg] No Primary Care Physician [facility] Work Phone: 08-02-2017 14:15-0500 BMI (Body Mass Index) 25.79 kg/m2 Torey Flores [facility] Work Phone: 08-02-2017 14:15-0500 Height 165.1 cm Torey Flores [facility] Work Phone: 08-02-2017 14:15-0500 Weight 70.31 kg Torey Flores [facility] Work Phone: Encounters Encounter Date Encounter Type Care Provider Facility Start: 07-15-2025 End: 07-15-2025 ambulatory NO PCP AA NO PCP [facility] Start: 07-12-2025 End: 07-13-2025 Emergency department patient visit Chuy Irving Facility:[facility] Start: 05-28-2025 End: 05-28-2025 ambulatory NO PCP AA NO PCP [facility] Start: 05-17-2025 End: 05-17-2025 Emergency department patient visit Dr. Geoff Marte DO Work Phone: -Emergency Department Work Phone: Start: 05-16-2025 ambulatory Chuy Meng [facility] Facility :[facility] Start: 04-30-2025 End: 04-30-[address] 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 Geoff Marte DO Work Phone: -Emergency Department Work Phone: Start: 01-29-2025 End: 01-29-2025 ambulatory NO PCP AA NO PCP [facility] Start: 01-23-2025 ambulatory GANGA CLARKE MD~[id number] [facility] Start: 01-14-2025 ambulatory Sunita Hammondsi ty:[facility] Start: 11-27-2024 End: 11-27-2024 ambulatory NO PCP AA NO PCP [facility] Start: 11-12-2024 End: 11-22-2024 Telephone encounter Caryn Roe Work Phone: Podiatry Comment on above: Patient Update Start: 11-11-2024 End: 11-11-2024 ambulatory NO PCP AA NO PCP [facility] Start: 09-09-2024 ambulatory Carlos Mollison Facility :[facility] Start: 08-01-2024 ambulatory Carlos Mollison Facility :[facility] Start: 10-20-2023 End: 10-20-2023 Patient encounter procedure HAYDEE ESCOTO MD [facility] Start: 10-13-2023 ambulatory HAYDEE ESCOTO MD Facility :[facility] Start: 02-09-2023 End: 02-09-2023 ambulatory [facility] Work Phone: [facility] Work Phone: Start: 02-09-2023 End: 02-09-2023 Patient encounter procedure [facility] Work Phone: [facility]-Pulmonary Services/Neurology Start: 12-15-2022 End: 12-15-2022 Patient encounter procedure [facility] Work Phone: [facility] Start: 08-09-2022 End: 08-09-2022 ambulatory [facility] Work Phone: [facility] Work Phone: Start: 08-09-2022 End: 08-09-2022 Patient encounter procedure [facility] Work Phone: [facility]-Laboratory Start: 08-04-2022 Patient encounter procedure [facility] Work Phone: [facility]-Pulmonary Services/Neurology Start: 07-12-2022 Non-patient / Non-visit [facility] Work Phone: [facility] Start: 06-27-2022 End: 06-27-2022 Emergency department patient visit [facility] Work Phone: [facility]-Emergency Department Start: 06-01-2022 End: 06-01-2022 Emergency department patient visit [facility] Work Phone: [facility]-Emergency Department Start: 03-31-2022 End: 03-31-2022 Patient encounter procedure [facility] Work Phone: [facility] Start: 02-16-2022 End: 02-16-2022 Emergency department patient visit [facility] Work Phone: [facility]-Emergency Department Start: 02-07-2022 End: 02-07-2022 Patient encounter procedure [facility] Work Phone: [facility]-Cardiovascular Services Start: 01-13-2022 Non-patient / Non-visit No Primary Care Physician [facility] Start: 01-13-2022 End: 01-13-2022 Patient encounter procedure No Primary Care Physician [facility]-Cardiovascular Services Start: 11-23-2021 End: 11-23-2021 Patient encounter procedure No Primary Care Physician [facility] Start: 10-26-2021 Non-patient / Non-visit No Primary Care Physician [facility] Start: 10-26-2021 End: 10-26-2021 Patient encounter procedure No Primary Care Physician [facility]-Cardiovascular Services Start: 10-06-2021 End: 10-06-2021 Patient encounter procedure No Primary Care Physician [facility]-Laboratory Start: 09-23-2021 End: 09-23-2021 Patient encounter procedure No Primary Care Physician [facility] Start: 01-15-2018 Ambulatory [facility] Start: 11-15-2017 End: 11-15-2017 Ambulatory Cisco Murillo Facility:[facility] Start: 10-03-2017 End: 10-04-2017 Ambulatory Cisco Murillo Facility:[facility] Start: 09-22-2017 End: 09-23-2017 Ambulatory Cisco Murillo Facility:[facility] Start: 08-19-2017 End: 08-19-2017 Ambulatory Cisco Murillo Facility:[facility] Start: 08-03-2017 Ambulatory CELY GA [facility] Start: 08-02-2017 End: 08-02-2017 Ambulatory TOREY FLORES [facility] Start: 08-02-2017 Office outpatient ne w 30 minutes oTrey Flores Work Phone: [facility] Procedures Date Procedure Procedure Detail Performing Clinician Start: 04-27-2025 X-ray of knee, four or more views Dr[address] Geoff Marte DO Work Phone: Start: 06-27-2022 Plain x-ray of hand [facility] Work Phone: Start: 06-01-2022 End: 06-01-2022 Radiologic examination of knee [facility] Work Phone: Start: 02-16-2022 Plain chest X-ray [facility] Work Phone: Start: 11-23-2021 CT of [...] RSV Vaccine (1 - 1-dose 75+ series) [facility] Start: 05-17-2025 [facility] Start: 05-17-2025 Knee 4 or More Views Knee 4 or More Views [facility] Start: 05-17-2025 XR Knee GE 4 Views [facility] Start: 04-27-2025 [facility] Start: 11-26-2024 End: 11-26-2024 Patient encounter procedure 11/26/2024 9:15 AM EDT Office Visit Podiatry [address] [place] [address] Caryn Roe [address] [address] Left Foot/Ankle pain, previous surgery on foot Podiatry Comment on above: Left Foot/Ankle pain , previous surgery on foot Start: 05-19-2024 Covid-19 Vaccine ( season) Covid-19 Vaccine ( season) [facility] Start: 05-19-2024 Influenza vaccination Influenza Vacc ine (#1) [facility] Start: 02-16-2022 [facility] Work Phone: Start: 03-22-2021 Diabetes Screening Diabetes Screenin g [facility] Start: 05-19-2017 Influenza vaccination SEQUENTI AL INFLUENZA VACCINE (#1) [facility] Work Phone: Start: 05-02-2015 Pneumococcal Vaccine : 50+ (2 of 2 - PCV) Pneumococcal Vaccine: 50+ (2 of 2 - PCV) [facility] Start: 05-23-2013 Screening for malign ant neoplasm of colon [facility] Start: 02-06-2012 Shingrix Vaccine (1 of 2) Shingrix Vaccine (1 of 2) [facility] Start: 07-19-2009 Screening for malign ant neoplasm of breast Mammogram Screening [facility] Start: 2007 Lipid panel Lipid Screening [facility] Start: 2007 Screening for malign ant neoplasm of colon [facility] Start: 1981 Urine microalbumin profile DTaP,Tdap,Td Vaccine (1 - Tdap) [facility] Start: 02-06-1980 Anxiety Screening Anxiety Screening [facility] Start: 02-06-1980 Depression Screening Depression Scre ing [facility] Start: 02-06-1980 Hepatitis C screening Hepatitis C [facility] Start: 02-06-1980 HIV screening HIV Screening [facility] Start: 1962 HEPATITIS C SCREENING HEPATITIS C [facility] Work Phone: Start: 1962 Screening colonoscopy COLONOSCOPY [facility] Work Phone: Start: 1962 Screening for malign ant neoplasm of cervix PAP SMEAR [facility] Work Phone: Start: 1962 Tetanus vaccination TETANUS EVERY 10 YR [facility] Work Phone: Patient Education [facility] Work Phone: Patient referral [facility] Work Phone: Payers Date Payer Category Payer Self-pay [id number] 2022 Medicaid [employer] [id number] 2017 Unknown 2013 Medicaid [id number] 1962 Unknown [id number] 1962 Unknown [id number] 1962 Unknown [id number] 1962 Unknown [id number] 1962 Unknown [id number] 1962 Unknown [id number] 1959 Medicaid [id number] Unknown [id number] Unknown [id number] [id number] Unknown [id number] Unknown [id number] Unknown [id number] Unknown [id number] Unknown [id number] Unknown [id number] Social History Date Type Detail Facility Start: 08-02-2017 End: 05-17-2025 Tobacco smoking status NHIS Current every day smoker [facility] Start: 1960 Sex Assigned At Not on file [facility] Work Phone: Start: 09-23-2021 End: 12-15-2022 Tobacco smoking status CAIS Unknown if ever smoked [facility] Start: 07-14-2017 Heavy [facility] Start: 07-14-2017 None [facility] Start: 07-14-2017 Alone [facility] Start: 06-21-2021 Cigarettes [facility] Start: 1960 Sex Assigned At Female [facility] Tobacco smoking status No Smokin g Status Entered [facility] History of tobacco use Cigarette Smoker C [facility] Start: 03-09-2018 End: 11-21-2024 Cigarettes smoked current (pack per day) - Reported 1 [facility] Start: 03-09-2018 Tobacco use and exposure Smokeless tobacco non-user [facility] Start: 03-22-2018 Alcoholic beverage intake Current drinker of alcohol (finding) [facility] Start: 03-22-2018 End: 11-21-2024 Tobacco use panel [facility] National Score (1-10 0), lower number is lower risk 89 [facility] Mental Status Date Assessment Result Facility 02-16-2022 Cognitive function Awake;Alert;A ppropriate;Fol lows Commands [facility] Work Phone: Clinical Notes 10-20-2023 to 05-17-2025 Note Date & Type Note Facility 05-17-2025 Discharge summary [facility] 05-17-2025 Radiology Diagnostic study note [facility] Imaging Services [address] [place], [place] [id number] Knee 4 or More Views MR#: [id number] Acct: [id number] Name: MARILU GUNTER Rep #: [id number] : 1960 F 65 From: Sadie Salazar MD PCP: Chuy Meng MD Status: REG ER Study:Knee 4 or More Views Date of Exam: 05/17/25 Exam# [id number] Ordering Dr: Kevin Hayes DO PROCEDURE: KNEE [...] evidence of an acute abnormality. [facility] CC: Dr. 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.] IMPRESSION: Mild right knee osteoarthritis. 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 [facility]02-27-2025 Miscellaneous Notes* Telephone Encounter - [...] Reports pain management, Dr. Rush (ph # [phone]) took an xray of her foot yesterday. Pt has not received the results yet. Dr. 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 [facility] Telephone encounter Note * Telephone Encounter - Bev Meng LPN - 11/13/2024 1:54 PM EST Report of xrays has been received. Bev Meng LPN [facility] Work Phone: 1(988) 891-598402-25-2025 Telephone encounter Note* Telephone Encounter - Ara Hatfield LPN - 11/12/2024 3:11 PM EST 's office calling and is sending foot xray to office. Ara Hatfield LPN [facility]02-25-2025 Telephone encounter Note* Telephone Encounter - [...] Reports pain management, Dr. Rush (ph # [phone]) took an xray of her foot yesterday. Pt has not received the results yet. Dr. 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 [facility]02-02-2024 Note ORIGINAL EXAMINATION: MRI OF THE [...] the right frontoparietal junction. Interpreted by: Riaz Livingstno Preliminary Report By: Riaz Livingston Electronically signed By Riaz Livingston Dictated Date: 10/20/2023 7:24:15 PM Prelim Date: 10/20/2023 7:28:20 PM Sign Date: 10/20/2023 7:28:20 PM Ordering Provider: [facility] summary Author [facility] Date/Time May 17, 2025 3: 38am [facility] Medical Records Department [address] [place] [address] Emergency Department Summary 05/17/25 MR#: [id number] Acct: [id number] Name: MARILU GUNTER Rep #:[id number] : 1960 65 From: Kevin Patton ggett DO PCP: Chuy Meng MD Status:[facility] ER Location: ED HPI History of [...] intact Psych: Cooperative, appropriate mood and affect [facility] Medical History Left knee pain Bilateral primary [...] evidence of an acute abnormality. Reading [facility] Discharge Plan Triage Chief Complaint: Lower [...] ED symptoms change or worsen. Print Language: Citizen [place] Disposition Disposition: Home, Self Care What to do if you have Problems For any increased pain, shortness of breath, bleeding, nausea or vomiting, chestpain, or any unexpected problems, contact your Primary Care Provider. Call [facility] ([phone]) or report to the closest Emergency Room. Call 911 if necessary. 05/17/25 [id number] <Electronically signed by Kevin Gómez DO> Cosigner Signature (if applicable): CC: Chuy Meng MD ~ Signed [facility] Work Phone: Evaluation + Plan note No data available for this section [facility] Evaluation note* Diagnosis Onset Date Resolution Status Cardiomyopathy in disease classified elsewhere acute Chest pain acute Cardiac dysrhythmia chronic Essential hypertension chron ic Pure hypercholesterolemia [facility] Work Phone: Evaluation noteNo assessment information available [facility] Work Phone: Evaluation note* Diagnosis Onset Date Resolution Status Abdominal pain acute GERD (gastroesophageal reflux disease) chronic [facility] Work Phone: Evaluation note* Diagnosis Onset Date Resolution Status Cardiomyopathy in disease classified elsewhere acute Cardiac dysrhythmia chronic Essential hypertension chron ic Pure hypercholesterolemia [facility] Work Phone: Evaluation note* Diagnosis Onset Date Resolution Status Admit Date Osteoarthritis of right knee acute April 30, 2025 11:16am [facility] Work Phone: Hospital Discharge instructions No data available for this section [facility] Hospital Discharge instructionsAdditional Instructions Please follow-up with [...] ER should you have any further concerns [facility] Work Phone: Hospital Discharge instructionsAmbulatory Orders* Physical Therapy Referral Location: None Selected [facility] Work Phone: Hospital Discharge instructionsAdditional Instructions Follow-up with your orthopedic physician, pain management, primary care physician. Return back to the ED symptoms change or worsen.[facility] Work Phone: Progress note No data available for this section [facility] Reason for referral (narrative)No reason for referral [facility] Work Phone: Assessments Diagnosis Left knee [...] March 19, 2019 1 0:58am Power of Data Coordinator No March 19, 2019 10:58am Advance Directive Response Recorded Date/ Time Advance Directives No February 03 2 2:01pm Living Will No February 03, 2022 2 :01pm Power of Data Coordinator No February 03, 2022 2:01pm Advance Directive Response Recorded Date/ Time Advance Directives No February 03 2 2:01pm Living Will No February 16, 2022 2 :28am Power of Data Coordinator No February 16, 2022 2:28am Advance Directive Response Recorded Date/ Time Advance Directives No February 03 2 2:01pm Living Will No June 01, 2022 7:02pm Power of Data Coordinator No May 7:02pm Advance Directive Response Recorded Date/ Time Advance Directives No February 03 1:01pm Living Will No June 27 6:28pm Power of Data Coordinator No June 27, 2022 6:28pm Advance Directive Response Recorded Date/ Time Advance Directives No February 03 2:01pm Living Will No June 27 7:28pm Power of Data Coordinator No June 27, 2022 7:28pm Advance Directive Response Recorded Date/ Time Do you have a Healthcare Power of Data Coordinator? No April 27, 2025 2:51am Advance Directives No February 03 2:01pm Advance Directive Response Recorded Date/ Time Advance Directives No April 28, 2025 9:22am Do you have a Healthcare Power of Data Coordinator? No April 27, 2025 2:51am Advance Directive Response Recorded Date/ Time Advance Directives No April 28, 2025 9:22am Do you have a Healthcare Power of Data Coordinator? No April 27, 2025 2:51am Do you have a Healthcare Power of Data Coordinator? No May 17, 2025 12:38am Chief Complaint and Reason for Visit Chief Complaint RE-ESTAB WITH [facility] CHEST PAIN CHEST PAIN pain Palpitations [facility] for Visit [facility] Chest pain Cardiac dysrhythmia [...] AND COLLAPSE Reason for Visit [facility] Cardiac dysrhythmia Essential hypertension [...] and content) DATE CREATED AUTHOR 03/08/2018 [facility] DATE CREATED AUTHOR AUTHOR'S ORGANIZ ATION 03/09/2018 [facility] DATE CREATED AUTHOR AUTHOR'S ORGANIZ ATION 03/13/2018 [facility] DATE CREATED AUTHOR AUTHOR'S ORGANIZ ATION 10/15/2023 [facility] ([place]) DATE CREATED AUTHOR AUTHOR'S ORGANIZ ATION 01/21/2025 [facility] DATE CREATED AUTHOR AUTHOR'S ORGANIZ ATION 07/26/2025 [facility] DATE CREATED AUTHOR AUTHOR'S ORGANIZ ATION 07/26/2025 [facility] Goals (unrecognized section and content) Goals [...] Dr. 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 [employer] [facility]. provides no warranty or guarantee of the accuracy or completeness of information in this document.
--- NOTE | 2025-08-17 04:55 | EKG12_ITS ---
Test Reason : CP Blood Pressure : */* mmHG Vent. Rate : 77 BPM Atrial Rate : 77 BPM P-R Int : 130 ms QRS Dur : 78 ms QT Int : 416 ms P-R-T Axes : 31 -3 24 degrees QTcB Int : 470 ms Normal sinus rhythm ST & T wave abnormality, consider anterior ischemia Prolonged QT Abnormal ECG Confirmed by ITALIA BELTRAN ([id number]), assistant production editor MELISSA RIBEIRO ([id number]) on 08/18/2025 6:40:23 AM Referred By: Confirmed By: ITALIA BELTRAN
[2025-08-17 06:03] LABS: Troponin T High Sens 4 HR 8 ng/L (<=14)
--- NOTE | 2025-08-17 10:24 | PCM.HOSP.N ---
Hospitalist Note Pain is improving, no other new acute complaints. Echo and stress are ordered and will be done tomorrow, continue to monitor on telemetry, continue aspirin and statin.
--- NOTE | 2025-08-17 10:59 | PCM.CONS.C ---
Assessment & Plan Assessment/Plan (1) Chest pain: QUALIFIERS: Chest pain type: unspecified Qualified Code(s): R07.9 - Chest pain, unspecified (2) Abnormal EKG: (3) Bilateral primary osteoarthritis of knee: (4) Old myocardial infarct: (5) Palpitations: PLAN: 65-year-old patient presented to the ED complaining of symptoms of chest pain. Symptoms have been ongoing for couple of weeks recently got worse and last night her chest pain was worse She had a history of hypertension prior monitoring by Holter showed evidence of ectopies involving PACs and PVCs. She had a history of nonischemic cardiomyopathy and last echocardiogram here reviewed in the system showed EF around 55% Patient has history of smoking she continues to smoke. I reviewed the current evaluation here in the hospital Cardiac exam essentially normal. I reviewed all the current evaluation including the rest of the lab test the imaging studies the EKG and the secured entrance monitor. Patient has been on medical therapy with aspirin atorvastatin and carvedilol. Cardiac care plan; Abnormal EKG with T wave abnormality noted in the anterior lead V1 V2 V3 sinus rhythm. Based on her clinical presentation series of cardiac marker has been checked which within normal troponin levels Patient was more anxious and concerned about ongoing symptoms of chest pain and a previous cardiac history I scheduled this patient for Lexiscan sestamibi and echocardiogram the morning and will base further plan and her clinical progression and results of cardiac tests. This was explained detail to the patient as well as to the nursing staff. Joselo Ashley MD, [facility], [facility] park interpretive ranger HPI Consult Data Date of Consult: 08/17/25 HPI Narrative Reason for Consultation: Chest pain/unstable angina HPI Narrative: MARY DOWD, is a 65 F who presents [ ] [facility] Medical History Left knee pain Bilateral primary osteoarthritis of knee Right knee pain Wears dentures History of ulceration Smoker History of edema History of echocardiogram History of stress test Cardiology follow-up encounter History of heart attack History of atrial fibrillation Melena Abdominal pain Seizure History of left heart catheterization (LHC) (~09/04/09) Asthma COPD (chronic obstructive pulmonary disease) Cardiomyopathy in disease classified elsewhere Essential hypertension Chest pain GERD (gastroesophageal reflux disease) Tobacco use Pure hypercholesterolemia Old myocardial infarct HTN (hypertension) Cardiac dysrhythmia Bipolar disorder Home Medications ?Medication ?Instructions ?Recorded ?Last Taken ?Type lamotrigine 25 mg tablet 50 mg PO BID seizures 04/13/17 07/13/17 History atorvastatin 20 mg tablet 20 mg PO QHS #90 tabs 12/12/22 08/16/25 Rx duloxetine 60 mg capsule,delayed 90 mg PO DAILY 12/15/22 Unknown History release carvedilol 25 mg tablet 25 mg PO BID #180 tabs 05/02/24 Unknown Rx clonidine HCl 0.1 mg tablet 0.05 mg PO BID PRN PRN anxiety 04/27/25 Unknown History pantoprazole 40 mg tablet,delayed 40 mg PO BID 3 months #180 tabs 06/30/25 Unknown Rx release duloxetine 30 mg capsule,delayed 30 mg PO DAILY 08/17/25 Unknown History release Allergy/AdvReac Type Severity Reaction Status Date / Time NSAIDS (Non-Steroidal AdvReac Diarrhea Verified 08/17/25 00:34 Anti-Inflamma tramadol HCl (From Ultram) AdvReac Diarrhea Verified 08/17/25 00:34 Family History Mother Diabetes Cancer Father COPD (chronic obstructive pulmonary disease) Diabetes Sister Diabetes Surgical History History of partial hysterectomy History of bilateral cataract extraction History of total left knee replacement History of carpal tunnel release History of shoulder surgery History of foot surgery History of arthroscopy of both knees History of cholecystectomy History of hysterectomy Social History Smoking Status: Current every day smoker tobacco type: cigarettes alcohol intake: current details: occasional substance use type: does not use Physical Exam Cardio Cardio Narrative: Patient seen and evaluated and examined at bedside Lying 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 Objective Data Vital Signs: Vital Signs Temp Pulse Resp BP Pulse Ox O2 Del Method 97.6 F L 73 14 96/54 L 95 Room Air 08/17/25 10:39 08/17/25 10:39 08/17/25 10:39 08/17/25 10:39 08/17/25 10:39 08/17/25 10:39 Oxygen Delivery Method Room Air Weight: 146 lb 9.718 oz Body Mass Index (BMI) 24.3 Intake & Output: Intake and Output for Last 24 Hours 08/15/25 08/16/25 08/17/25 23:59 23:59 23:59 Intake Total 1222.5 / 1222.5 Balance 1222.5 / 1222.5 Lab / Micro Data 08/17/25 00:39 08/17/25 00:39 Labs: Laboratory Results - last 24 hr 08/17/25 00:39: WBC 11.0, RBC 4.94, Hgb 14.5, Hct 44.0, MCV 89.1, MCH 29.4, MCHC 33.0, RDW Std Deviation 42.5, RDW Coeff of Kaylyn 13.0, Plt Count 366, MPV 10.6, Immature Gran % (Auto) 0.500, Neut % (Auto) 56.8, Lymph % (Auto) 37.1, [place] % (Auto) 4.6, Eos % (Auto) 0.5, Baso % (Auto) 0.5, Absolute Neuts (auto) 6.2, Absolute Lymphs (auto) 4.09, Nucleated RBC % 0, D-Dimer Quant (PE/DVT) 0.55 H*, Sodium 136, Potassium 3.3, Chloride 98, Carbon Dioxide 22.9, Anion Gap 16 H, BUN 5, Creatinine 0.72, Estim Creat Clear Calc 78.28, Est GFR (MDRD) Non-Af 94, BUN/Creatinine Ratio 7.2 L, Glucose 121 H, Calcium 9.7, Troponin T High Sens 9 08/17/25 00:40: Ethyl Alcohol 137.0 H 08/17/25 02:34: Troponin T Hi Sens 2 Hr 8 08/17/25 05:11: Troponin T Hi Sens 4Hr 8 Cardiology Labs/Tests 08/17/25 00:39: WBC 11.0, RBC 4.94, Hgb 14.5, Hct 44.0, MCV 89.1, MCH 29.4, MCHC 33.0, Plt Count 366, MPV 10.6, Immature Gran % (Auto) 0.500, Neut % (Auto) 56.8, Lymph % (Auto) 37.1, [place] % (Auto) 4.6, Eos % (Auto) 0.5, Baso % (Auto) 0.5, Absolute Neuts (auto) 6.2, Nucleated RBC % 0, D-Dimer Quant (PE/DVT) 0.55 H*, Sodium 136, Potassium 3.3, Chloride 98, Carbon Dioxide 22.9, Anion Gap 16 H, BUN 5, Creatinine 0.72, Est GFR (MDRD) Non-Af 94, BUN/Creatinine Ratio 7.2 L, Glucose 121 H, Calcium 9.7 Rhythm: EKG: ECHO: Stress Test: Cardiac Cath: PCI: CT Surgery: Holter monitor: EPS: PPM: CXR: Chest CT Scan: Radiography Diagnostic Testing: Radiology Impression Chest X-Ray 08/17/25 00:58 IMPRESSION: No Acute Findings. Reading Location: [facility] Risk Score for UA/STEMI Assesmment (YES = 1) Risk Stratification Applicable: No
[2025-08-18 02:00] VITALS: PULSE 60
[2025-08-18 02:20] VITALS: BP 110/73; PULSE 64; RESP 15; TEMP 36.5; O2SAT 97
[2025-08-18 03:56] LABS: Hematocrit 36.6 % (37-47); Hemoglobin 11.9 g/dL (12.0-15.0); Mean Corp Hgb Conc 32.5 g/dL (32-36); Mean Corpuscular Volume 89.5 fL (81-99); Mean Platelet Vol. 10.2 fl (6.2-12.0); Platelet Count 269 K/mm3 (150-450); RBC Distribution Width CV 13.0 % (11.6-14.6); RBC Distribution Width SD 42.4 fl (35.1-43.9); Red Blood Count 4.09 M/mm3 (4.2-5.4); White Blood Count 6.7 K/mm3 (4.4-11.0)
[2025-08-18 04:36] LABS: Anion Gap 8 (5-15); BUN 7 mg/dL (4-19); BUN/Creat Ratio 9.8 RATIO (10-20); Calcium,Total 8.7 mg/dL (7.6-11.0); Carbon Dioxide 25.6 mmol/L (21.0-32.0); Chloride 103 mmol/L (98-108); Estimated Creatinine Clearance 76.20 ml/min (50-250); Glucose 96 mg/dL (70-99); Potassium 4.3 mmol/L (3.3-5.1)
--- NOTE | 2025-08-18 05:55 | EKG12_ITS ---
Test Reason : PRE CI Blood Pressure : */* mmHG Vent. Rate : 57 BPM Atrial Rate : 57 BPM P-R Int : 140 ms QRS Dur : 82 ms QT Int : 458 ms P-R-T Axes : 22 -7 14 degrees QTcB Int : [address] & T wave abnormality, consider anterior ischemia Abnormal ECG When compared with ECG of 17-Aug-2025 05:41, MANUAL COMPARISON REQUIRED DATA IS UNCONFIRMED Confirmed by Anthony Marroquin ([id number]), advertising editor MELISSA RIBEIRO ([id number]) on 08/18/2025 8:56:12 AM Referred By: Confirmed By: Anthony Marroquin
[2025-08-18 11:06] VITALS: BP 119/79; PULSE 62; RESP 18; TEMP 36.2; O2SAT 100
--- NOTE | 2025-08-18 11:23 | STRESSREP ---
Stress Test Report Date: 08/18/2025 Procedure: Pharmacologic stress nuclear imaging study Indications: Chest pain Consent: Per the patient Procedure: The patient was initially ordered an exercise stress Myoview however she could not exercise more than 3 minutes on the treadmill on account of severe knee pain. The test was therefore switched to Lexiscan. The patient underwent pharmacologic (Regadenoson 0.4mg ) evaluation with a peak heart rate of 76 beats per minute (48%predicted maximal heart rate) and a peak blood pressure of 140/70 mmHg. The baseline ECG demonstrated sinus rhythm with nonspecific T wave changes. The peak pharmacologic ECG was nondiagnostic secondary to baseline abnormality. There were no cardiac dysrhythmias pretest, during pharmacologic infusion, or recovery. Patient had baseline chest pain which remained unchanged. The patient was injected with 10.6 millicuries of technetium 99m Cardiolite and subsequently rest SPECT Cardiolite nuclear imaging was obtained in the horizontal long, vertical long, and short axis views. The patient underwent pharmacologic (Regadenoson) evaluation. The patient was injected with 29.6 millicuries of technetium 99m Cardiolite and subsequently stress SPECT Cardiolite nuclear imaging was obtained in the horizontal long, vertical long, and short axis views. A gated Cardiolite study at peak stress was obtained. The examination was stopped secondary to completion of protocol. Rest and stress SPECT Cardiolite nuclear imaging status post realignment, normalization, and attenuation correction demonstrate a small reversible defect of the basal septum that may denote ischemia. There is end systolic thickening and brightening. The gated Cardiolite study demonstrates myocardial thickening and inward wall motion. The reported LVEF is 67%. Impression: 1. Pharmacologic (Regadenoson) evaluation 2. Peak pharmacologic ECG was nondiagnostic secondary to baseline abnormalities. 3. There were no cardiac dysrhythmias pretest, during pharmacologic infusion, or recovery. 5. Small area of hypoperfusion post pharmacological stress in the basal septum, this may denote ischemia. 6. The gated Cardiolite study reports an LVEF of 67%. This note was generated with Fididelation software. It may contain incorrect words, spelling, and punctuation that were not noted in checking the note before signing.
--- NOTE | 2025-08-18 12:04 | PCM.PN.CARD ---
Subjective Subjective Patient is resting comfortably in the bed. She is up and about in her room without restrictions. She does report that she has had episodes of the left-sided chest discomfort radiating across to her right shoulder. And at other times they remain in the left side of her chest. 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 Telemetry shows normal sinus rhythm at 65 bpm Objective Data Vital Signs: Vital Signs Temp Pulse Resp BP Pulse Ox O2 Del Method 97.2 F L 62 18 119/79 100 Room Air 08/18/25 11:06 08/18/25 11:06 08/18/25 11:06 08/18/25 11:06 08/18/25 11:06 08/18/25 11:06 Oxygen Delivery Method Room Air Weight: 146 lb 9.718 oz Body Mass Index (BMI) 24.3 Intake & Output: Intake and Output for Last 24 Hours 08/16/25 08/17/25 08/18/25 23:59 23:59 23:59 Intake Total 1222.5 / 1222.5 Balance 1222.5 / 1222.5 Lab / Micro Data Attestation: I reviewed the patient's lab results. 08/18/25 03:25 08/18/25 03:26 Labs: Laboratory Results - last 24 hr 08/18/25 03:25: WBC 6.7, RBC 4.09 L, Hgb 11.9 L, Hct 36.6 L, MCV 89.5, MCH 29.1, MCHC 32.5, RDW Std Deviation 42.4, RDW Coeff of Kaylyn 13.0, Plt Count 269, MPV 10.2 08/18/25 03:26: Sodium 137, Potassium 4.3, Chloride 103, Carbon Dioxide 25.6, Anion Gap 8, BUN 7, Creatinine 0.68 L, Estim Creat Clear Calc 76.20, Est GFR (MDRD) Non-Af 98, BUN/Creatinine Ratio 9.8 L, Glucose 96, Calcium 8.7 Rhythm Strip Rhythm Strip: Sinus Rhythm Rate: 65 Cardiology Labs/Tests 08/18/25 03:25: WBC 6.7, RBC 4.09 L, Hgb 11.9 L, Hct 36.6 L, MCV 89.5, MCH 29.1, MCHC 32.5, Plt Count 269, MPV 10.2 08/18/25 03:26: Sodium 137, Potassium 4.3, Chloride 103, Carbon Dioxide 25.6, Anion Gap 8, BUN 7, Creatinine 0.68 L, Est GFR (MDRD) Non-Af 98, BUN/Creatinine Ratio 9.8 L, Glucose 96, Calcium 8.7 Rhythm: EKG: ECHO: Stress Test: Cardiac Cath: PCI: CT Surgery: Holter monitor: EPS: PPM: CXR: Chest CT Scan: Physical Exam Const alert and oriented x3 HEENT normocephalic Eyes EOMs intact bilaterally Neck no JVD and no carotid bruits Chest inspection of chest normal Resp normal respiratory effort and clear to auscultation bilaterally Cardio Rate: regular rate Rhythm: regular rhythm Heart Sounds: S1 normal and S2 normal; Negative for click, gallop or murmur Extremity no pedal edema Neuro Neuro Narrative: Alert and Oriented X3 Psych mental status grossly normal Assessment & Plan Assessment/Plan (1) Abnormal EKG: PLAN: Patient's ECG at rest shows normal sinus rhythm with nonspecific inverted T waves in the anterior leads V2?V3. (2) Non-ischemic cardiomyopathy: PLAN: Patient has a history of a nonischemic cardiomyopathy last echocardiogram done showed her EF had recovered to 55%. There is a question whether this was a Takotsubo stress-induced cardiomyopathy. (3) Hypertension: QUALIFIERS: Hypertension type: primary hypertension Qualified Code(s): I10 - Essential (primary) hypertension PLAN: Patient's blood pressure is well-controlled in the hospital on her current medical therapy. (4) Chest pain: QUALIFIERS: Chest pain type: unspecified Qualified Code(s): R07.9 - Chest pain, unspecified PLAN: Patient's chest discomfort does not sound cardiac in etiology. It has been episodic migratory and not associated with any definitive new ECG changes. 3 troponins were normal at 9, 8, and 8. The patient's nuclear stress test showed a small area in the inferior basilar area that was possibly ischemic. There was no evidence of ischemia in the anterior wall. The patient's echocardiogram shows that her LV function is normal with an EF of 60%. There is no significant valvular disease and her structural chambers are normal size. I do not feel that further invasive evaluation is indicated at this point in time the patient should be able to be discharged to home and follow-up with the [facility] in the next 4 to 6 weeks. PLAN: Plan 1. From a cardiovascular standpoint the patient can be discharged to home. 2. The patient should follow-up with the [facility] in 4-6 weeks and as needed. Charges/Coding Visit Charges Inpatient E&M: 28073 Subs Hosp L2
--- NOTE | 2025-08-18 16:07 | PCM.DC.SUM ---
Providers Date of Admission: 08/17/25 Primary Care Physician: Chuy Meng MD Consultations 08/17/25 04:00 Consult: Cardiology Routine Consulting Provider: [facility] Reason for Consult: Chest pain, she needed a stress test but did not follow-up EMERGENT Consult: No MD Notified: Yes Date Notified: 08/17/25 Time Notified: 06:47 Method of Notification: Verbal Reason For Visit: CHEST PAIN Diagnosis Discharge Diagnosis (1) Abnormal EKG: Status: Acute Code(s): R94.31 - Abnormal electrocardiogram [ECG] [EKG] (2) Non-ischemic cardiomyopathy: Status: Acute Code(s): I42.8 - Other cardiomyopathies (3) Hypertension: Status: Chronic Code(s): I10 - Essential (primary) hypertension Qualifiers: Hypertension type: primary hypertension Qualified Code(s): I10 - Essential (primary) hypertension (4) Chest pain: Status: Acute Code(s): R07.9 - Chest pain, unspecified Qualifiers: Chest pain type: unspecified Qualified Code(s): R07.9 - Chest pain, unspecified Medications at Discharge Home Medications lamotrigine 25 mg tablet 50 mg PO BID seizures 04/13/17 atorvastatin 20 mg tablet 20 mg PO QHS #90 tabs 12/12/22 duloxetine 60 mg capsule,delayed release 90 mg PO DAILY 12/15/22 carvedilol 25 mg tablet 25 mg PO BID #180 tabs 05/02/24 clonidine HCl 0.1 mg tablet 0.05 mg PO BID PRN PRN anxiety 04/27/25 pantoprazole 40 mg tablet,delayed release 40 mg PO BID 3 months #180 tabs 06/30/25 duloxetine 30 mg capsule,delayed release 30 mg PO DAILY 08/17/25 Hospital Course Procedures 2-D Echocardiogram, EKG, Stress test and - (Chest x-ray) Summary of Care Provided Minutes Spent on Discharge: 38 Hospital Course: Ms. Gunter is a 65-year-old white female who presents emergency department [facility] on 08/17/2025 with a chief complaint of chest pain that had been ongoing for about 2 weeks but became acutely worse tonight prior to presentation. Patient does have a known history of Takotsubo cardiomyopathy. Patient indicated she had been undergoing a lot of personal stress lately and developed intermittent chest pain. She indicated her pain was on the left side and radiated to her left arm. She stated was dull and aching in sensation not relieved with nitrates. It was nonexertional. Patient indicated she collapsed outside of a bar by EMS was arriving. She did not sustain injury and was lowered to the ground with bystanders. EKG in the emergency department was overtly unchanged other than new T wave inversions in V3 and V4 however it looked like lead positioning rather than actual change. Emergency department attempted to discharge patient home however she insisted on staying as she was concerned about her chest pain. Vital signs on presentation showed a temperature of 98.8, heart rate 93, respiratory is 18, blood pressure was 147/82 and pulse ox was 100% on room air. CBC was overtly unremarkable. Chemistry panel was overtly unremarkable. Her D-dimer was negative once a contracted at 0.55. Alcohol level was 137 on presentation. Troponin were negative x 3. Chest x-ray showed no acute findings. She was admitted as an observation status to the PCU. Cardiology was consulted. Stress test and echocardiogram were ordered by cardiology. Stress test did show some abnormality that was small in the inferior basal area that was noted to be possibly ischemic but likely related to breast tissue. Echocardiogram showed that she had preserved ejection fraction with an EF of 60%, no valvular abnormalities and no wall motion normalities. Cardiology did not feel any further invasive evaluation was indicated at this point and she should discharge home with follow-up weeks with the [facility] in the next 4-6. No medication changes were made and patient was discharged home in stable condition on 08/18/2025. Discharge diagnoses: Chest pain Abnormal EKG-suspect lead placement History of Takotsubo cardiomyopathy Acute alcohol intoxication Mild normocytic anemia Hyperlipidemia History of paroxysmal atrial fibrillation COPD Essential hypertension History of seizure disorder GERD Bipolar disorder Tobacco abuse Physical Exam Const alert, oriented x3, no apparent distress, average body habitus, no limitations and well nourished; Negative for healthy appearing Constitutional Narrative: Upper middle-aged, white female, sitting up in bed, watching television, appears older than stated age, appears comfortable, nontoxic General Appearance: cooperative, comfortable, well kempt and well developed HEENT normocephalic, head/scalp atraumatic and moist oral mucous membranes HEENT Narrative: Dentures in place, Mallampati 2, no thrush Neck supple Neck Narrative: Trachea midline, neck veins are flat Resp normal respiratory effort, no retractions, no use of accessory muscles and clear to auscultation bilaterally Resp Narrative: Diffusely diminished but clear Auscultation: Negative for crackles, rhonchi or wheezes Cardio regular rate, regular rhythm, S1 normal heart sound, S2 normal heart sound, no murmurs, no rub, no gallops and no clicks GI normal to inspection, nondistended, normoactive bowel sounds, soft to palpation and non-tender Extremity Extremity Narrative: 2+ pedal and radial pulses, mild clubbing, no cyanosis, no significant edema Neuro moves all extremities and no focal motor deficits Speech: speech normal Psych affect normal Psych Narrative: Eye contact is good, patient interacts appropriately, pleasant, appreciative of care Weight / BMI Weight Weight: 66.5 kg Body Mass Index (BMI) 24.3 ABG / Lab / Microbiology Data 08/18/25 03:25 08/18/25 03:26 Laboratory: Laboratory Results - last 24 hr 08/18/25 03:25: WBC 6.7, RBC 4.09 L, Hgb 11.9 L, Hct 36.6 L, MCV 89.5, MCH 29.1, MCHC 32.5, RDW Std Deviation 42.4, RDW Coeff of Kaylyn 13.0, Plt Count 269, MPV 10.2 08/18/25 03:26: Sodium 137, Potassium 4.3, Chloride 103, Carbon Dioxide 25.6, Anion Gap 8, BUN 7, Creatinine 0.68 L, Estim Creat Clear Calc 76.20, Est GFR (MDRD) Non-Af 98, BUN/Creatinine Ratio 9.8 L, Glucose 96, Calcium 8.7 D/C Instructions Discharge Activity: Return to Normal Activity DC O2, CPAP, BIPAP Needs Home O2 Discharge instructions: No DC home with Oxygen: No Meaningful Use Info Meaningful Use Meaningful Use Diagnoses (Choose all that apply): None applicable Discharge Plan Admission Admit Date/Time: 08/17/25 03:48 Primary Reason for Your Visit: Chest pain Attending Provider: Yen Nava Primary Care Provider: Chuy Meng Dimple Consulting Providers: Hakeem Solitario; Tommy Howell; Satya Malin; Benito Krishna; Gunner Flores; Scott Rudd; Stanford Denise; Gianluca Trevino; Cisco Staton; Joselo Ashley; Anthony Marroquin; Robert Madera; Mike Guevara; Janes Subramanian; Ramone Richards; Jose M Jonas NP; Maria Antonia Sinclair PA; Himanshu Andrews; Lacey Rodrigues; Migdalia Aguilar Instructions Additional Instructions / Restrictions: 1. Chest pain does not seem to be attributed to cardiac disease 2. Continue home medications as prescribed 3. Please call the cardiology office as noted below and ask for an appointment to be seen in the next 4 to 6 weeks after discharge. Discharge Orders/Prescriptions Prescriptions: Continued duloxetine 60 mg capsule,delayed release(DR/EC) 90 mg PO DAILY Patient Comments: DEPRESSION lamotrigine 25 MG tablet 50 mg PO BID clonidine HCl 0.1 mg tablet 0.05 mg PO BID PRN PRN (Reason: anxiety) duloxetine 30 mg capsule,delayed release(DR/EC) 30 mg PO DAILY atorvastatin 20 mg tablet 20 mg PO QHS Qty: 90 3RF carvedilol 25 mg tablet 25 mg PO BID Qty: 180 3RF Rx Instructions: must administer with a meal/food pantoprazole 40 mg tablet,delayed release (DR/EC) 40 mg PO BID 90 Days Qty: 180 1RF Referrals / Follow Up: Anthony Marroquin MD [Med Staff - Active Staff, Cardiology] Referral Note: 4 to 6-week follow-up Chuy Meng MD [Primary Care Provider, Family Practice] - Within 1 Month Disposition Disposition (needs filled in before D/C Order can be placed): Home, Self Care Charges/Coding Visit Charges Inpatient E&M: 62584 Disch Hosp >30min
--- NOTE | 2025-08-18 16:16 | PHA.DC.MR.R ---
Pharmacy [place] Med Reconciliation Pharmacy Service has performed discharge medication reconciliation for this patient. The patient's discharge medication list was reviewed for discrepancies and discrepancies were resolved. Medications at Discharge Home Medications lamotrigine 25 mg tablet 50 mg PO BID seizures 04/13/17 atorvastatin 20 mg tablet 20 mg PO QHS #90 tabs 12/12/22 duloxetine 60 mg capsule,delayed release 90 mg PO DAILY 12/15/22 carvedilol 25 mg tablet 25 mg PO BID #180 tabs 05/02/24 clonidine HCl 0.1 mg tablet 0.05 mg PO BID PRN PRN anxiety 04/27/25 pantoprazole 40 mg tablet,delayed release 40 mg PO BID 3 months #180 tabs 06/30/25 duloxetine 30 mg capsule,delayed release 30 mg PO DAILY 08/17/25
--- NOTE | 2025-08-18 16:28 | CASEMGMT ---
Patient has order for discharge. RN CM to discuss needs at discharge. Patient denies needs or help at discharge. Patient had no further questions or concerns.
== END 2025-08-18 16:49 | disposition home or self-care (01) ==
LOC: ED 03:07 → PCU 04:51
PROVIDERS: Internal Medicine; Admitting Provider Internal Medicine; Emergency Provider Emergency Medicine; PCP Family Medicine; Visit Provider Internal Medicine
DX: R07.89 Other chest pain (principal); F31.9 Bipolar disorder, unspecified; J44.89 Other specified chronic obstructive pulmonary disease; I48.0 Paroxysmal atrial fibrillation; R94.31 Abnormal electrocardiogram [ECG] [EKG]; M17.0 Bilateral primary osteoarthritis of knee; E78.00 Pure hypercholesterolemia, unspecified; F10.129 Alcohol abuse with intoxication, unspecified; I49.3 Ventricular premature depolarization; M79.602 Pain in left arm; I51.81 Takotsubo syndrome; I10 Essential (primary) hypertension; K21.9 Gastro-esophageal reflux disease without esophagitis; I25.2 Old myocardial infarction; D64.9 Anemia, unspecified; Z79.899 Other long term (current) drug therapy; F17.210 Nicotine dependence, cigarettes, uncomplicated
CPT/HCPCS: 36415; 71045; 78452; 80048; 82077; 84484; 85025; 85027; 85379; 93005; 93017; 93306; 96361; 96374; 96375; 99221; 99285; A9500; A4216; G0378; J2405; J2785

== ENCOUNTER 2025-09-04 23:27 | Emergency (ER) | payer MEDICAID, SELFPAY ==
[2025-09-04 23:28] VITALS: BP 132/65; PULSE 88; RESP 14; TEMP 36.8; O2SAT 100; BMI 25.0
--- NOTE | 2025-09-04 23:32 | EKG12_ITS ---
Test Reason : CP Blood Pressure : */* mmHG Vent. Rate : 71 BPM Atrial Rate : 71 BPM P-R Int : 142 ms QRS Dur : 90 ms QT Int : 428 ms P-R-T Axes : 31 -8 20 degrees QTcB Int : 465 ms Normal sinus rhythm Nonspecific T wave abnormality Abnormal ECG Reconfirmed by Satya Malin ([id number]), video news editor MELISSA RIBEIRO ([id number]) on 09/08/2025 10:13:03 AM Also confirmed by Satya Malin ([id number]), video news editor MELISSA RIBEIRO ([id number]) on 09/09/2025 8:11:37 AM Referred By: RICKI Confirmed By: Satya Malin
[2025-09-04] MEDS: 0.9% Normal Saline (1000mL) 1,000 ML 999 ML IV (23:41)
--- NOTE | 2025-09-04 23:50 | RAD_ITS ---
PROCEDURE: CHEST 1 VIEW (PORTABLE) 09/04/2025 REASON FOR EXAM: CHEST PAIN TECHNIQUE: Frontal view of the chest. COMPARISON: 08/17/2025 FINDINGS: Hardware: None. Heart: The heart size is normal. Lungs: The lungs are clear. No pneumothorax or pleural effusion. Bones: The bones are unremarkable. RAD/Chest 1 View (Portable) IMPRESSION: No Acute Findings. Reading [facility]
--- OUTSIDE RECORDS SUMMARY | 2025-09-04 23:51 | XMS RPT_ITS | CCD ---
Author Organization [facility] CliniSynv Care Team Providers Care E Business Manager Name Role Phone No, Physician Unavailable [...] available Dr. Alonzo Lanza Attending Provider [phone] [facility], Miriam Gore Primary Care Pro vider Dr. Alonzo Lanza Referring Provider [phone] Dr. Alonzo Lanza Other Provider [phone] Dr. Christopher Gilmore Attending Provider Dr. Alonzo Lanza Attending Provider [phone] Yahir TATE, PA Maria Antonia Sahu Referring Provider [facility], Miriam Gore Primary Care Pro vider [facility], Miriam Gore Referring Provid er FriendDr. Castorena Attending Provider [facility], Miriam Gore Primary Care Pro vider FriendDr. Castorena Attending Provider [facility], Miriam Gore Primary Care Pro vider [facility], Miriam Samuelrene Referring Provid er Yahir TATE, PA Maria Antonia Sahu Attending Provider HAYDEE ESCOTO MD Attending Unavailable GEORGINA FLORES Primary Care Unavailable JAQUAN FLORES Primary Care Physician Torey Flores Unavailable [phone] Estuardo TURNER, Dr. Tellez Emergency Provider Taqueria SHAFFER, Dr. Vera Primary Care Provider Dr. Chuy Meng MD Referring Provider Glen CARY-CMarion Attending Provider Estuardo TURNER, Dr. Tellez Attending Provider Dr. Kevin Gómez DO Emergency Provider AA NO PCP, NO PCP Primary Care Unavailable GANGA SHAFFER~[phone], GANGA SHAUNA Attending Unavailable GANGA SHAFFER~[id number], SCHULER SHAUNA Admitting Unavailable AA NO PCP, NO PCP Primary Care Unavailable GANGA SHAFFER~[phone], SCHULER SHAUNA Admitting Unavailable GANGA SHAFFER~[phone], SCHULER SHAUNA Attending Unavailable GANGA SHAFFER~[phone], SCHULER SHAUNA Admitting Unavailable AA NO PCP, NO PCP Primary Care Unavailable GANGA SHAFFER~[id number], SCHULER SHAUNA Attending Unavailable AA NO PCP, NO PCP Primary Care Unavailable GANGA SHAFFER~[phone], SCHULER SHAUNA Admitting Unavailable GANGA SHAFFER~[phone], SCHULER SHAUNA Attending Unavailable AA NO PCP, NO PCP Primary Care Unavailable TABATHA SHAFFER~[phone], TABATHA BRAND Admitting Unavailable TABATHA SHAFFER~[phone], TABATHA BRAND Attending Unavailable AA NO PCP, NO PCP Primary Care Unavailable GANGA SHAFFER~[phone], SCHULER SHAUNA Attending Unavailable GANGA SHAFFER~[phone], SCHULER SHAUNA Admitting Unavailable Meng VSC, Chuy Primary Care Unavailable Taqueria VSC, Chuy Referring Unavailable Marion Carroll Attending Unavailable Taqueria VSC, Chuy Primary Care Unavailable Kevin Gómez Attending UnavailChuy Siegel Attending Unavailable [facility] Primary Care Unavailable [facility] Primary Care Unavailable Geoff Marte Attending Unavailable [facility] Primary Care Unavailable [facility] Referring Unavailable Marion Carroll Attending Unavailable Carlos Lopez Attending Unavailable Carlos Lopez Attending Unavailable Sunita Richard Attending Unavailable Allergies Allergy Classification Reported Allergen(s) Allergy Type Date of Onset Reaction(s) Facility (4 sources) aspirin; Translations: [aspirin] Drug Allergy 3 [facility] Work Phone: (3 sources) ibuprofen; Translations: [IBUPROFEN] Drug Allergy 3 [facility] Work Phone: (1 source) cyclobenzaprine; Translations: [cyclobenzaprine] Drug Allergy [facility] Repository (1 source) NSAIDs; Translations: [NSAIDs] Propensity to adverse reactions to drug (disorder) [facility] Repository (1 source) traMADol; Translations: [TraMADol Hydrochloride ER] Drug Allergy [facility] Repository (11 sources) traMADol; Translations: [tramadol HCl] Drug Allergy 2 GI Upset, Diarrhea [facility] (10 sources) NSAIDS (Non-Steroidal Anti-Inflamma; Translations: [NSAIDS (Non-Steroidal Anti-Inflamma] Propensity to adverse reactions 2 Diarrhea [facility] (2 sources) NSAIDs; Translations: [NSAIDS (Non-Steroidal Anti-Inflammatory Drug)] Drug Allergy 8 Diarrhea [facility] Work Phone: (1 source) predniSONE Drug Allergy 2 GI Upset [facility] Medications Current Medications Medication Drug Class(es) Dates Sig (Normalized) Sig (Original) [id number] 200 actuat albuterol 0.09 mg/actuat metered dose [...] Start: 04-13-2017 take 2 tablets by mo 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 [facility] Comment on above: Order Comment: Perfo rmed at: [employer] [address] [place] [address] [id number] [employer] Emb[employer]ider[employer] Digitizer: Dee Noel [facility], Phone: [phone] Performed By: #### P NMUR #### [facility] RESULTS Report Summary FINAL [facility] Comment on above: Order Comment: Perfo rmed at: [employer] [address] [place] [address] [id number] [employer] Digitizer: Dee Morse, Phone: [phone] Result Comment: ====== TOXASSURE COMP DRUG ANALYSIS,UR [...] test is not intended to distinguish between qqweg-4-lyzbkinvlqhbwkuhauzi, the predominant form of THC in most herbal or marijuana-based products, and mefpk-5-pzyeilasrtxvlwvqmwal. Morphine 50 ng/mg creat Potential sources of [...] Viewson 07-13 Knee 4 or More Views [facility] Imaging Services [address] [place] [address] [id number] Knee 4 or More Views MR#: [id number] Acct: [id number] Name: MARILU GUNTER Rep #: [id number] : 1960 F 65 From: Jose Alejandro henley MD PCP: Chuy Meng MD Status: DEP ER Study: Knee 4 or More Views Date of Exam: 07/13/25 Exam# [id number] Ordering Dr: Chuy Irving DO PROCEDURE: KNEE [...] soft tissue edema and swelling. Reading Location: [place] [address] CC: Dr. Chuy Irving DO; Chuy Meng MD Harness Builder: Signed Normal [facility] Emergency Department Summary on 07-12-2025 Emergency Department Summary [facility] Medical Records Department [address] [place] [address] Emergency Department Summary 07/12/25 MR#: [id number] Acct: [id number] Name: MARILU GUNTER Rep #: [id number] : 1960 65 From: Chuy Irving DO [...] Negative for Weakness or Loss of Funtion [facility] Medical History Left knee pain Bilateral primary [...] Ox 9 (more content not included)... Normal [facility] Emergency Department Summary on 05-17-2025 Emergency Department Summary [facility] Medical Records Department [address] [place] [address] Emergency Department Summary 05/17/25 MR#: [id number] Acct: [id number] Name: MARILU GUNTER Rep #: [id number] : 1960 65 From: Kevin Gómez DO [...] intact Psych: Cooperative, appropriate mood and [facility] History Left knee pain Bilateral [...] 100 100 (more content not included)... Normal [facility] Knee 4 or More Viewson 05-17 Knee 4 or More Views [facility] Imaging Services [address] [place], [place] [id number] Knee 4 or More Views MR#: [id number] Acct: [id number] Name: MARILU GUNTER Rep #: [id number] : 1960 F 65 From: Jose Alejandro henley MD PCP: Chuy Meng MD Status: REG ER Study: Knee 4 or More Views Date of Exam: 05/17/25 Exam# [id number] Ordering Dr: Kevin Gómez DO PROCEDURE: KNEE [...] evidence of an acute abnormality. [facility] CC: Dr. Kevin Gómez DO; Chuy Meng MD Harness Builder: Signed Normal [facility] Orthopedic Visit Reporton Orthopedic Visit Report [facility] [address] [place] [address] [address] [place] [address] OFFICE VISIT Date of Service: 04/30/25 MR#: [id number] Acct: [id number] Name: MARILU GUNTER Rep #: [id number] : 1960 Provider: SAM kelsey Age/Sex: 65/F Location: [facility] Status: Signed Intake Vital Signs 04/27/25 02:48 04/28/25 09:22 04/30/25 11:21 Height 5 ft 5 in 5 ft 5 in 5 ft 5 in Weight: 155 lb BMI 25.7 Intake Visit Reasons: RIGHT KNEE Is patient in pain?: Yes Pain scale (1-10): 10 Allergies NSAIDS (Non-Steroidal Anti-Inflamma Adverse Reaction (Verified 04/30/25 11:21) Diarrhea tramadol HCl (From [facility]) Adverse Reaction (Verified 04/30/25 11:21) Diarrhea Medications [...] the decisions made by me, Marion Carroll DISTRIBUTION ENGINEERING TECHNOLOGIST-C 04/30/25 0747. Part of today???s visit was documented by [...] 3-4 days (more content not included)... Normal [facility] 12 Lead EKGon 04-27-2025 12 Lead EKG [facility] Cardiovascular Services [address] [place] [address] 12 Lead EKG 04/27/25 0258 MR#: [id number] Acct: [id number] Name: MARILU GUNTER Rep #: [id number] : 1960 65 From: Gianluca Trevino MD [...] ECG Confirmed by SHANNON SHAFFER, GIANLUCA ([id number]), international editorial producer MELISSA RIBEIRO ([id number]) on 04/28/2025 1:13:52 PM Referred By: PHIL Confirmed By: GIANLUCA TREVINO MD 04/28/25 1313 Date Gianluca Trevino MD CC: Chuy Meng MD; Geoff Marte DO Signed Normal [facility] Absolute lymphocyte countOrd ered By: Geoff Marte on 04-27-2025 Lymphocytes Auto (Unsp spec) [#/Vol] 4.51 10*3/uL 0.83-4.51 [facility] Absolute neutrophil countOrd ered By: Geoff Marte on 04-27-2025 Neutrophils (Bld) [#/Vol] 4.1 10*3/uL 2.0-7.7 [facility] Automated lymphocyte count a s percentage of total leukocytesOrdered By: Geoff Marte on 04-27-2025 Lymphocytes/100 WBC Auto (Unsp spec) 48.0 % High 19-41 [facility] Basophil percentageOrdered B y: Geoff Marte on 04-27-2025 Basophils/100 WBC (Bld) 0.4 % 0-1 [facility] Blood manual differential co mment interpretation (narrative result)Ordered By: Geoff Marte on 04-27-2025 Manual differential comment Wilder (Bld) [Interp] SCANNED [facility] CBC W/Diff, Automatedon 04-18 SMEAR COMMENT SCANNED Normal [facility] Comment on above: Performed By: #### L 101.9900, L503.6005, L100.0100, L501.6710 #### [facility] Laboratory [address] [place], [place], [id number] CRPon 04-27-2025 C-REACTIVE PROT < 3.00 Normal 0.0-3.0 [facility] Comment on above: Performed By: #### L 101.9900, L503.6005, L100.0100, L501.6710 #### [facility] Laboratory [address] [place], [address] Emergency Department Summary on 04-27-2025 Emergency Department Summary [facility] Medical Records Department [address] [place] [address] Emergency Department Summary 04/27/25 MR#: [id number] Acct: [id number] Name: MARILU GUNTER Rep #: [id number] : 1960 65 From: Geoff Marte DO [...] denies any recent injury or excessive activity. [facility] Medical History (Updated 04/29/25 @ 00:12 by [...] auscultation bila (more content not included)... Normal [facility] Eosinophil percentageOrdered By: Geoff Marte on 04-27-2025 Eosinophils/100 WBC (Bld) 1.1 % 0-5 [facility] Erythrocyte Sed Rateon 04-27 SED RATE 22 mm/hr Normal 0-30 [facility] Comment on above: Performed By: #### L 101.9900, L503.6005, L100.0100, L501.6710 #### [facility] Laboratory [address] [place], [address] Erythrocyte distribution wid th ratioOrdered By: Geoff Marte on 04-27-2025 Erythrocyte distribution width (RBC) [Ratio] 13.2 % 11.6-14.6 [facility] Erythrocyte distribution wid th standard deviationOrdered By: Geoff Marte on 04-27-2025 Erythrocyte distribution width (RBC) [Ratio] 40.8 fl 35.1-43.9 [facility] Erythrocyte sedimentation ra teOrdered By: Geoff Marte on 04-27-2025 ESR (Bld) [Velocity] 22 mm/h 0-30 [facility] Hematocrit Auto (Bld) [Volum e fraction]Ordered By: Geoff Marte on 04-27-2025 Hematocrit (Bld) [Volume fraction] 40.2 % 37-47 [facility] Hemoglobin measurementOrdere d By: Geoff Marte on 04-27-2025 Hemoglobin (Bld) [Mass/Vol] 13.8 g/dL 12.0-15.0 [facility] Immature granulocytes/100 WB C Auto (Bld)Ordered By: Geoff Marte on 04-27-2025 Immature granulocytes/100 WBC (Bld) 0.500 % 0.0-0.9 [facility] Comment on above: IG% - Immature Granu locytes (promyelocytes, myelocytes and metamyelocytes) > 1% indicates that a LEFT SHIFT is Present. Knee 4 or More Viewson 04-27 Knee 4 or More Views [facility] Imaging Services [address] [place], [place] [address] Knee 4 or More Views MR#: [id number] Acct: [id number] Name: MARILU GUNTER Rep #: [id number] : 1960 F 65 From: Keith Leonard MD PCP: Chuy Meng MD Status: [facility] ER Study: Knee 4 or More Views Date of Exam: 04/27/25 Exam# [id number] Ordering Dr: Geoff Marte DO PROCEDURE: KNEE [...] IMPRESSION: Mild right knee osteoarthritis. Reading Location: [place] [address] CC: Chuy Meng MD; Geoff Marte DO Harness Builder: Signed Normal [facility] Lactic acid measurementOrder ed By: Geoff Marte on 04-27-2025 Lactate [Moles/Vol] 1.9 mmol/L Normal 0.0-2.0 [facility] Comment on above: Order Comment: Y Performed By: #### L 101.9900, L503.6005, L100.0100, L501.6710 #### [facility] Laboratory [address] [place], [address] MCV (mean corpuscular volume ) determinationOrdered By: Geoff Marte on 04-27-2025 MCV (RBC) [Entitic vol] 86.1 fL 81-99 [facility] Mean corpuscular hemoglobin (MCH) determinationOrdered By: Geoff Marte on 04-27-2025 MCH (RBC) [Entitic mass] 29.6 pg 27.0-32.0 [facility] Mean corpuscular hemoglobin concentration (MCHC) determinationOrdered By: Geoff Marte on 04-27-2025 MCHC (RBC) [Mass/Vol] 34.3 g/dL 32-36 [facility] Mean platelet volume determi nationOrdered By: Geoff Marte on 04-27-2025 Platelet mean volume (Bld) [Entitic vol] 9.8 fL 6.2-12.0 [facility] Monocyte percentageOrdered B y: Geoff Marte on 04-27-2025 Monocytes/100 WBC (Bld) 6.5 % 0-10 [facility] Neutrophil percentageOrdered By: Geoff Marte on 04-27-2025 Neutrophils/100 WBC (Bld) 43.5 % Low 47-70 [facility] Nucleated red blood cell per centageOrdered By: Geoff Marte on 04-27-2025 Nucleated RBC/100 WBC (Bld) [Ratio] 0 % 0-5 [facility] Platelet countOrdered By: Elizabeth Marte on 04-27-2025 Platelets (Bld) [#/Vol] 394 10*3/uL 150-450 [facility] RBC Auto (Bld) [#/Vol]Ordere d By: Geoff Marte on 04-27-2025 RBC (Bld) [#/Vol] 4.67 10*6/uL 4.2-5.4 [facility] Serum or plasma C reactive p rotein measurement (mass/volume)Ordered By: Geoff Marte on 04-27-2025 CRP [Mass/Vol] mg/L 0.0-3.0 [facility] White blood cell (WBC) count Ordered By: Geoff Marte on 04-27-2025 WBC (Bld) [#/Vol] 9.4 10*3/uL 4.4-11.0 [facility] CNCOon 01-16-2025 CNCO Letter Text Normal [facility] Jean Claude 11-12-2024 AMOSN Telephone (PODS) MARILU GUNTER ([id number]) 1960 F Date Time Provider Department 11/12/24 [...] or , when she was in the [employer]. She stepped into a deep hole [...] Reports pain management, Dr. Rush (ph # [phone]) took an xray of her foot yesterday. Pt has not received the results yet. Dr. Rush also prescribed pain patches for her- she hasn't picked them up yet, will pick up man today. Ara Hatfield LPN 11/12/2024 3:22 PM [...] by Luis Alberto HORAN on 11/22/24 Normal [facility] XR Foot Left complete 3 [...] MEZA DO, MD Date: 11/12/2024 10:33 Normal [facility] Basophil percentageon 2021 Chloride [Moles/Vol] 108 mmol/L 98-107 [facility] Work Phone: Glucose [Mass/Vol] 118 mg/dL 74-106 [facility] Work Phone: Comment on above: Fasting Glucose resu lt from 100 to 125 mg/dL suggests IMPAIRED HOMEOSTASIS per A.D.A. criteria. Potassium [Moles/Vol] 3.8 mmol/L 3.5-5.1 [facility] Work Phone: Sodium [Moles/Vol] 142 mmol/L 136-145 [facility] Work Phone: WBC (Bld) [#/Vol] 8.0 10*3/uL 4.4-11.0 [facility] Work Phone: Blood erythrocytes count (nu mber/volume)on 08-09-2022 RBC (Bld) [#/Vol] 4.39 10*6/uL 4.2-5.4 [facility] Work Phone: Blood hemoglobin measurement (mass/volume)on 08-09-2022 Hemoglobin (Bld) [Mass/Vol] 12.2 g/dL 12.0-15.0 [facility] Work Phone: Blood platelet mean volumeon 08-09-2022 Platelet mean volume (Bld) [Entitic vol] 9.4 fL 6.2-12.0 [facility] Work Phone: Determination of erythrocyte mean corpuscular volume (MCV)on 08-09-2022 MCV (RBC) [Entitic vol] 85.6 fL 81-99 [facility] Work Phone: [phone] Hematocrit Auto (Bld) [Volum e fraction]on 08-09-2022 Hematocrit (Bld) [Volume fraction] 37.6 % 37-47 [facility] Work Phone: Laboratory - Chemistry and C hemistry - challengeon 08-09-2022 CO2 [Moles/Vol] 30.0 mmol/L 21.0-32.0 [facility] Work Phone: Magnesium [Mass/Vol] 2.3 mg/dL 1.6-2.6 [facility] Work Phone: [phone] Urea nitrogen/Creatinine [Mass ratio] 9.7 mg/mg 10-20 [facility] Work Phone: [phone] Laboratory - Hematology and Cell countson 08-09-2022 Erythrocyte distribution width (RBC) [Entitic vol] 42.9 fL 35.1-43.9 [facility] Work Phone: [phone] Erythrocyte distribution width (RBC) [Ratio] 13.8 % 11.6-14.6 [facility] Work Phone: [phone] MCH (RBC) [Entitic mass] 27.8 pg 27.0-32.0 [facility] Work Phone: MCHC Auto (RBC) [Mass/Vol]on 08-09-2022 MCHC (RBC) [Mass/Vol] 32.4 g/dL 32-36 [facility] Work Phone: No Panel Informationon 08-09 Estimated GFR (MDRD) Amer 90 mL/min >60 [facility] Work Phone: Comment on above: GFR Calc Estimated GFR (MDRD) Non-Af Amer 75 mL/min >60 [facility] Work Phone: [phone] Comment on above: Non- GFR Calc Platelets bldon 08-09-2022 Platelets (Bld) [#/Vol] 314 10*3/uL 150-450 [facility] Work Phone: [phone] Serum or plasma calcium anupam urement (mass/volume)on 08-09-2022 Calcium [Mass/Vol] 9.1 mg/dL 8.5-10.1 [facility] Work Phone: [phone] Serum or plasma creatinine m easurement (mass/volume)on 08-09-2022 Creatinine [Mass/Vol] 0.83 mg/dL 0.55-1.02 [facility] Work Phone: [phone] Comment on above: The validity of the calculated GFR & GFRAA in patients over 70 years has not been determined. Clinical correlation is essential. Serum or plasma urea nitroge n measurement (mass/volume)on 08-09-2022 Urea nitrogen [Mass/Vol] 8 mg/dL 7-18 [facility] Work Phone: [phone] Thin prep Papanicolaou smear with manual screeningon 08-09-2022 Thin prep Papanicolaou smear with manual screening 4 5-15 [facility] Work Phone: [phone] Absolute lymphocyte counton 02-16-2022 Lymphocytes Auto (Unsp spec) [#/Vol] 5.30 10*3/uL 0.83-4.51 [facility] Work Phone: [phone] Basophil percentageon 2021 Basophils/100 WBC (Bld) 0.4 % 0-1 [facility] Work Phone: [phone] Chloride [Moles/Vol] 103 mmol/L 98-107 [facility] Work Phone: Eosinophils/100 WBC (Bld) 1.4 % 0-5 [facility] Work Phone: Glucose [Mass/Vol] 133 mg/dL 74-106 [facility] Work Phone: Comment on above: Fasting Glucose resu lt greater than or equal to 126 mg/dL suggests DIABETES MELLITUS per A.D.A. criteria. Neutrophils (Bld) [#/Vol] 3.8 10*3/uL 2.0-7.7 [facility] Work Phone: Neutrophils/100 WBC (Bld) 38.4 % 47-70 [facility] Work Phone: Potassium [Moles/Vol] 3.7 mmol/L 3.5-5.1 [facility] Work Phone: Sodium [Moles/Vol] 135 mmol/L 136-145 [facility] Work Phone: WBC (Bld) [#/Vol] 10.0 10*3/uL 4.4-11.0 [facility] Work Phone: Blood erythrocytes count (nu mber/volume)on 02-16-2022 RBC (Bld) [#/Vol] 4.47 10*6/uL 4.2-5.4 [facility] Work Phone: Blood hemoglobin measurement (mass/volume)on 02-16-2022 Hemoglobin (Bld) [Mass/Vol] 12.5 g/dL 12.0-15.0 [facility] Work Phone: Blood lymphocytes/100 leukoc yteson 02-16-2022 Lymphocytes/100 WBC (Bld) 52.9 % 19-41 [facility] Work Phone: Blood monocytes/100 leukocyt eson 02-16-2022 Monocytes/100 WBC (Bld) 6.6 % 0-10 [facility] Work Phone: Blood platelet mean volumeon 02-16-2022 Platelet mean volume (Bld) [Entitic vol] 9.8 fL 6.2-12.0 [facility] Work Phone: [phone] Determination of erythrocyte mean corpuscular volume (MCV)on 02-16-2022 MCV (RBC) [Entitic vol] 85.9 fL 81-99 [facility] Work Phone: [phone] Hematocrit Auto (Bld) [Volum e fraction]on 02-16-2022 Hematocrit (Bld) [Volume fraction] 38.4 % 37-47 [facility] Work Phone: [phone] Laboratory - Chemistry and C hemistry - challengeon 02-16-2022 CO2 [Moles/Vol] 26.0 mmol/L 21.0-32.0 [facility] Work Phone: [phone] Magnesium [Mass/Vol] 1.9 mg/dL 1.6-2.6 [facility] Work Phone: [phone] Urea nitrogen/Creatinine [Mass ratio] 12.1 mg/mg 10-20 [facility] Work Phone: [phone] Laboratory - Hematology and Cell countson 02-16-2022 Erythrocyte distribution width (RBC) [Entitic vol] 39.9 fL 35.1-43.9 [facility] [facility] Work Phone: [phone] Erythrocyte distribution width (RBC) [Ratio] 12.8 % 11.6-14.6 [facility] Work Phone: [phone] Immature granulocytes/100 WBC (Bld) 0.300 % 0.0-0.9 [facility] Work Phone: [phone] Comment on above: IG% - Immature Granu locytes (promyelocytes, myelocytes and metamyelocytes) > 1% indicates that a LEFT SHIFT is Present. MCH (RBC) [Entitic mass] 28.0 pg 27.0-32.0 [facility] Work Phone: [phone] Nucleated RBC/100 WBC (Bld) [Ratio] 0 % 0-5 [facility] Work Phone: [phone] MCHC Auto (RBC) [Mass/Vol]on 02-16-2022 MCHC (RBC) [Mass/Vol] 32.6 g/dL 32-36 [facility] Work Phone: No Panel Informationon 02-16 Troponin I High Sensitivity < 3 pg/mL 3.0-54.0 [facility] Work Phone: Comment on above: Please Note: New Poppy t Units and Gender Specific Reference Ranges. For more information see Policy Stat Procedure [place] High Sensitivity Troponin (TNIH) and attachments. Atypical Lymphocytes 1+ % [facility] Work Phone: [phone] D-Dimer Quantitative (PE/DVT) < 0.27 FEU/ug/m 0.27-0.49 [facility] Work Phone: Comment on above: NORMAL D-Dimer level (<0.50) indicates no DVT or PE. Estimated Creatinine Clearance Calc 59.16 ml/min [facility] Work Phone: [phone] Estimated GFR (MDRD) Amer 81 mL/min >60 [facility] Work Phone: Comment on above: GFR Calc Estimated GFR (MDRD) Non-Af Amer 67 mL/min >60 [facility] Work Phone: Comment on above: Non- GFR Calc Thyroid Stimulating Hormone (TSH) 2.02 uIU/mL 0.358-3.74 [facility] Work Phone: [phone] Platelets bldon 02-16-2022 Platelets (Bld) [#/Vol] 395 10*3/uL 150-450 [facility] Work Phone: [phone] Serum or plasma calcium anupam urement (mass/volume)on 02-16-2022 Calcium [Mass/Vol] 9.2 mg/dL 8.5-10.1 [facility] Work Phone: [phone] Serum or plasma creatinine m easurement (mass/volume)on 02-16-2022 Creatinine [Mass/Vol] 0.91 mg/dL 0.55-1.02 [facility] Work Phone: [phone] Comment on above: The validity of the calculated GFR & GFRAA in patients over 70 years has not been determined. Clinical correlation is essential. Serum or plasma urea nitroge n measurement (mass/volume)on 02-16-2022 Urea nitrogen [Mass/Vol] 11 mg/dL 7-18 [facility] Work Phone: Thin prep Papanicolaou smear with manual screeningon 02-16-2022 Thin prep Papanicolaou smear with manual screening 6 5-15 [facility] Work Phone: Absolute lymphocyte counton 10-06-2021 Lymphocytes Auto (Unsp spec) [#/Vol] 2.86 10*3/uL 0.83-4.51 [facility] Work Phone: Basophil percentageon 2021 Basophils/100 WBC (Bld) 0.7 % 0-1 [facility] Work Phone: Eosinophils/100 WBC (Bld) 1.2 % 0-5 [facility] Work Phone: Neutrophils (Bld) [#/Vol] 3.7 10*3/uL 2.0-7.7 [facility] Work Phone: Neutrophils/100 WBC (Bld) 51.7 % 47-70 [facility] Work Phone: WBC (Bld) [#/Vol] 7.3 10*3/uL 4.4-11.0 [facility] Work Phone: Bilirubin [Mass/Vol] 0.20 mg/dL 0.20-1.00 [facility] Work Phone: Comment on above: For patients on eltr ombopag therapy, use of Dimension [place] TBIL is not recommended. Chloride [Moles/Vol] 104 mmol/L 98-107 [facility] Work Phone: Cholesterol [Mass/Vol] 243 mg/dL <200 [facility] Work Phone: Comment on above: <200 mg/dL Desirable 200-240 mg/dL Borderline >240 mg/dL High Risk Glucose [Mass/Vol] 114 mg/dL 74-106 [facility] Work Phone: [phone] Comment on above: Fasting Glucose resu lt from 100 to 125 mg/dL suggests IMPAIRED HOMEOSTASIS per A.D.A. criteria. Potassium [Moles/Vol] 3.6 mmol/L 3.5-5.1 [facility] Work Phone: [phone] Protein [Mass/Vol] 7.6 g/dL 6.4-8.2 [facility] Work Phone: [phone] Sodium [Moles/Vol] 137 mmol/L 136-145 [facility] Work Phone: [phone] Triglyceride [Mass/Vol] 117 mg/dL [facility] Work Phone: [phone] Comment on above: The drugs N-Acetylcy steine and Metamizole may falsely depress this assay.Serum Triglycerides Reference Interval Normal <150 mg/dL Borderline high 150 - 199 mg/dL High 200 - 499 mg/dL Very High > or = 500 mg/dL Blood erythrocytes count (nu mber/volume)on 10-06-2021 RBC (Bld) [#/Vol] 4.25 10*6/uL 4.2-5.4 [facility] Work Phone: [phone] Blood hemoglobin measurement (mass/volume)on 10-06-2021 Hemoglobin (Bld) [Mass/Vol] 11.6 g/dL 12.0-15.0 [facility] Work Phone: [phone] Blood lymphocytes/100 leukoc yteson 10-06-2021 Lymphocytes/100 WBC (Bld) 39.4 % 19-41 [facility] Work Phone: [phone] Blood monocytes/100 leukocyt eson 10-06-2021 Monocytes/100 WBC (Bld) 6.6 % 0-10 [facility] Work Phone: [phone] Blood platelet mean volumeon 10-06-2021 Platelet mean volume (Bld) [Entitic vol] 9.1 fL 6.2-12.0 [facility] Work Phone: [phone] Determination of erythrocyte mean corpuscular volume (MCV)on 10-06-2021 MCV (RBC) [Entitic vol] 85.2 fL 81-99 [facility] Work Phone: [phone] Direct bilirubinon Bilirubin.direct [Mass/Vol] mg/dL 0.00-0.30 [facility] Work Phone: [phone] Hematocrit Auto (Bld) [Volum e fraction]on 10-06-2021 Hematocrit (Bld) [Volume fraction] 36.2 % 37-47 [facility] Work Phone: [phone] Laboratory - Chemistry and C hemistry - challengeon 10-06-2021 ALP [Catalytic activity/Vol] 114 U/L 45-117 [facility] Work Phone: [phone] ALT [Catalytic activity/Vol] 13 U/L 13-56 [facility] Work Phone: [phone] CO2 [Moles/Vol] 28.0 mmol/L 21.0-32.0 [facility] Work Phone: [phone] Globulin (S) [Mass/Vol] 4.2 g/dL 2.2-4.2 [facility] Work Phone: [phone] Urea nitrogen/Creatinine [Mass ratio] 8.7 mg/mg 10-20 [facility] Work Phone: [phone] Laboratory - Hematology and Cell countson 10-06-2021 Erythrocyte distribution width (RBC) [Entitic vol] 42.6 fL 35.1-43.9 [facility] Work Phone: [phone] Erythrocyte distribution width (RBC) [Ratio] 13.7 % 11.6-14.6 [facility] Work Phone: [phone] Immature granulocytes/100 WBC (Bld) 0.400 % 0.0-0.9 [facility] Work Phone: [phone] Comment on above: IG% - Immature Granu locytes (promyelocytes, myelocytes and metamyelocytes) > 1% indicates that a LEFT SHIFT is Present. MCH (RBC) [Entitic mass] 27.3 pg 27.0-32.0 [facility] Work Phone: [phone] Nucleated RBC/100 WBC (Bld) [Ratio] 0 % 0-5 [facility] Work Phone: MCHC Auto (RBC) [Mass/Vol]on 10-06-2021 MCHC (RBC) [Mass/Vol] 32.0 g/dL 32-36 [facility] Work Phone: No Panel Informationon 10-06 Estimated GFR (MDRD) Amer 81 mL/min >60 [facility] Work Phone: Comment on above: GFR Calc Estimated GFR (MDRD) Non-Af Amer 67 mL/min >60 [facility] Work Phone: Comment on above: Non- GFR Calc Thyroid Stimulating Hormone (TSH) 1.22 uIU/mL 0.358-3.74 [facility] Work Phone: Platelets bldon 10-06-2021 Platelets (Bld) [#/Vol] 357 10*3/uL 150-450 [facility] Work Phone: [phone] Serum or plasma albumin anupam urement (mass/volume)on 10-06-2021 Albumin [Mass/Vol] 3.4 g/dL 3.2-5.0 [facility] Work Phone: Serum or plasma albumin/glob ulin mass ratioon 10-06-2021 Albumin/Globulin [Mass ratio] 0.8 {ratio} 0.9-2.4 [facility] Work Phone: [phone] Serum or plasma calcium anupam urement (mass/volume)on 10-06-2021 Calcium [Mass/Vol] 8.5 mg/dL 8.5-10.1 [facility] Work Phone: [phone] Serum or plasma cholesterol in HDL measurement (mass/volume)on 10-06-2021 Cholesterol in HDL [Mass/Vol] 70 mg/dL [facility] Work Phone: Comment on above: The drugs N-Acetylcy steine and Metamizole may falsely depress this assay. Reference Range HDL <40 mg/dL Low HDL Cholesterol HDL >or= 60 mg/dL High HDL Cholesterol Serum or plasma cholesterol in VLDL measurement (mass/volume)on 10-06-2021 Cholesterol in VLDL [Mass/Vol] 23 mg/dL 5-40 [facility] Work Phone: Serum or plasma creatinine m easurement (mass/volume)on 10-06-2021 Creatinine [Mass/Vol] 0.92 mg/dL 0.55-1.02 [facility] Work Phone: Comment on above: The validity of the calculated GFR & GFRAA in patients over 70 years has not been determined. Clinical correlation is essential. Serum or plasma low density lipoprotein (LDL) cholesterol measurement (mass/volume)on 10-06-2021 Cholesterol in LDL [Mass/Vol] 150 mg/dL 0-130 [facility] Work Phone: Serum or plasma urea nitroge n measurement (mass/volume)on 10-06-2021 Urea nitrogen [Mass/Vol] 8 mg/dL 7-18 [facility] Work Phone: Thin prep Papanicolaou smear with manual screeningon 10-06-2021 Thin prep Papanicolaou smear with manual screening 9 U/L 15-37 [facility] Work Phone: Thin prep Papanicolaou smear with manual screening 5 5-15 [facility] Work Phone: PROGRESSon 01-15-2018 [facility] NOTES Normal [facility] XR KNEE LEFT 4+ VIEWS [...] MonAug 02, 2017 5:04:03 PM EST Normal [facility] XR Knee Left 4+ Views (Note in Comments)on 08-02-2017 XR Knee Left 4+ Views (Note in Comments) 4 views left knee reveals a patella fracture near the superior pole about 25% from the top is nondisplaced and minimal degenerative arthritis only Invalid Interpretation Code FUJI SYNAPSE [facility] Vital Signs Date Time Vital Sign Value Performing Clinician Facility 05-17-2025 03:41-0400 Body temperature 98.1 [degF] Dr. Geoff Marte DO Work Phone: [phone] [place] [address] 05-17-2025 03:41-0400 Diastolic blood pressure 67 mm[Hg] Dr. Geoff Marte DO Work Phone: [phone] [place] [address] 05-17-2025 03:41-0400 Heart rate 77 /min Dr. Geoff Marte DO Work Phone: [phone] [place] [address] 05-17-2025 03:41-0400 Respiratory rate 16 /min Dr. Geoff Marte DO Work Phone: [phone])883-688008 [place] [address] 05-17-2025 03:41-0400 SaO2% (BldA) [Mass fraction] 97 % Dr. Geoff Marte DO Work Phone: [phone])608-769408 [place] [address] 05-17-2025 03:41-0400 Systolic blood pressure 116 mm[Hg] Dr. Geoff Marte DO Work Phone: [phone])576-402108 [place] [address] 05-17-2025 00:35-0400 Body height 165.[address] Geoff Marte DO Work Phone: [phone] [place] [address] 05-17-2025 00:35-0400 Body mass index (BMI) [Ratio] 26.2 kg/m2 Dr. Geoff Marte DO Work Phone: [phone])970-705308 [place] [address] 05-17-2025 00:35-0400 Body weight 71.[address] Geoff Marte DO Work Phone: [phone])449-344208 [place] [address] 04-30-2025 11:21-0400 Body height 165.[address] Geoff Marte DO Work Phone: [phone] [place] [address] 04-30-2025 11:21-0400 Body mass index (BMI) [Ratio] 25.7 kg/m2 Dr. Geoff Marte DO Work Phone: [phone] [place] [address] 04-30-2025 11:21-0400 Body weight 70.[address] Geoff Marte DO Work Phone: [facility] 04-27-2025 05:44-0400 Body temperature 98.9 [degF] Dr. Geoff Marte DO Work Phone: [facility] 04-27-2025 05:44-0400 Diastolic blood pressure 83 mm[Hg] Dr. Geoff Marte DO Work Phone: [facility] 04-27-2025 05:44-0400 Heart rate 88 /min Dr. Geoff Marte DO Work Phone: [phone])105-972776 [place] [address] 04-27-2025 05:44-0400 Respiratory rate 16 /min Dr. Geoff Marte DO Work Phone: [facility] 04-27-2025 05:44-0400 SaO2% (BldA) [Mass fraction] 100 % Dr. Geoff Marte DO Work Phone: [phone] [place] [address] 04-27-2025 05:44-0400 Systolic blood pressure 133 mm[Hg] Dr. Geoff Marte DO Work Phone: [facility] 04-27-2025 02:48-0400 Body height 165.[address] Geoff Marte DO Work Phone: [phone])304-008876 [place] [address] 04-27-2025 02:48-0400 Body mass index (BMI) [Ratio] 25.8 kg/m2 Dr. Geoff Marte DO Work Phone: [facility] 04-27-2025 02:48-0400 Body weight 70.[address] Geoff Marte DO Work Phone: [facility] 12-15-2022 09:06-0400 Body height 165.1 cm [facility] Work Phone: [facility] 12-15-2022 09:00-0400 Body mass index (BMI) [Ratio] 28.4 kg/m2 [facility] Work Phone: [facility] 12-15-2022 09:00-0400 Body weight 77.56 kg [facility] Work Phone: [phone])405-249210 [place] [address] 12-15-2022 09:00-0400 Diastolic blood pressure 63 mm[Hg] [facility] Work Phone: [phone])236-392385 [address] 12-15-2022 09:00-0400 Heart rate 76 /min [facility] Work Phone: [phone] [place] [address] 12-15-2022 09:00-0400 Respiratory rate 18 /min [facility] Work Phone: [phone] [address] 12-15-2022 09:00-0400 SaO2% (BldA) [Mass fraction] 98 % [facility] Work Phone: [phone] [place] [address] 12-15-2022 09:00-0400 Systolic blood pressure 104 mm[Hg] [facility] Work Phone: [phone])264-968685 [address] 06-27-2022 19:18-0400 Body height 165.1 cm [facility] Work Phone: [phone] [place] [address] Work Phone: 06-27-2022 19:18-0400 Body mass index (BMI) [Ratio] 27.2 kg/m2 [facility] Work Phone: [phone])667-569510 [place] [address] Work Phone: 06-27-2022 19:18-0400 Body temperature 96.4 [degF] [facility] Work Phone: [facility] Work Phone: 06-27-2022 19:18-0400 Body weight 74.3 kg [facility] Work Phone: [facility] Work Phone: 06-27-2022 19:18-0400 Diastolic blood pressure 79 mm[Hg] [facility] Work Phone: [phone])519-74[address] [place] [address] Work Phone: 06-27-2022 19:18-0400 Heart rate 78 /min [facility] Work Phone: [phone])162-438010 [place] [address] Work Phone: 06-27-2022 19:18-0400 Respiratory rate 16 /min [facility] Work Phone: [facility] Work Phone: 06-27-2022 19:18-0400 SaO2% (BldA) [Mass fraction] 100 % [facility] Work Phone: [facility] Work Phone: 06-27-2022 19:18-0400 Systolic blood pressure 150 mm[Hg] [facility] Work Phone: [facility] Work Phone: 06-01-2022 17:50-0400 Body height 165.1 cm [facility] Work Phone: [facility] Work Phone: 06-01-2022 17:50-0400 Body mass index (BMI) [Ratio] 26.4 kg/m2 [facility] Work Phone: [facility] Work Phone: 06-01-2022 17:50-0400 Body temperature 97.8 [degF] [facility] Work Phone: [facility] Work Phone: 06-01-2022 17:50-0400 Body weight 72 kg [facility] Work Phone: [facility] Work Phone: 06-01-2022 17:50-0400 Diastolic blood pressure 80 mm[Hg] [facility] Work Phone: [facility] Work Phone: 06-01-2022 17:50-0400 Heart rate 82 /min [facility] Work Phone: [facility] Work Phone: 06-01-2022 17:50-0400 Respiratory rate 17 /min [facility] Work Phone: [facility] Work Phone: 06-01-2022 17:50-0400 SaO2% (BldA) [Mass fraction] 100 % [facility] Work Phone: [facility] Work Phone: 06-01-2022 17:50-0400 Systolic blood pressure 121 mm[Hg] [facility] Work Phone: [facility] Work Phone: 02-16-2022 06:00-0400 Diastolic blood pressure 78 mm[Hg] [facility] Work Phone: [facility] Work Phone: 02-16-2022 06:00-0400 Heart rate 78 /min [facility] Work Phone: [facility] Work Phone: 02-16-2022 06:00-0400 Respiratory rate 16 /min [facility] Work Phone: [facility] Work Phone: 02-16-2022 06:00-0400 SaO2% (BldA) [Mass fraction] 96 % [facility] Work Phone: [facility] Work Phone: 02-16-2022 06:00-0400 Systolic blood pressure 126 mm[Hg] [facility] Work Phone: [facility] Work Phone: 02-16-2022 02:16-0400 Body height 165.1 cm [facility] Work Phone: [facility] Work Phone: 02-16-2022 02:16-0400 Body mass index (BMI) [Ratio] 26.6 kg/m2 [facility] Work Phone: [facility] Work Phone: 02-16-2022 02:16-0400 Body temperature 98.1 [degF] [facility] Work Phone: [facility] Work Phone: 02-16-2022 02:16-0400 Body weight 72.6 kg [facility] Work Phone: [facility] Work Phone: 09-23-2021 13:03-0500 Body height 165.1 cm No Primary Care Physician [facility] Work Phone: 09-23-2021 13:03-0500 Body mass index (BMI) [Ratio] 23.9 kg/m2 No Primary Care Physician [facility] Work Phone: 09-23-2021 13:03-0500 Body weight 65.31 kg No Primary Care Physician [facility] Work Phone: 09-23-2021 13:03-0500 Diastolic blood pressure 60 mm[Hg] No Primary Care Physician [facility] Work Phone: 09-23-2021 13:03-0500 Heart rate 84 /min No Primary Care Physician [facility] Work Phone: 09-23-2021 13:03-0500 Respiratory rate 20 /min No Primary Care Physician [facility] Work Phone: 09-23-2021 13:03-0500 Systolic blood pressure 130 mm[Hg] No Primary Care Physician [facility] Work Phone: 08-02-2017 14:15-0500 BMI (Body Mass Index) 25.79 kg/m2 Torey Flores [facility] Work Phone: 08-02-2017 14:15-0500 Height 165.1 cm Torey Flores [facility] Work Phone: 08-02-2017 14:15-0500 Weight 70.31 kg Torey Flores [facility] Work Phone: Encounters Encounter Date Encounter Type Care Provider Facility Start: 07-15-2025 End: 07-15-2025 ambulatory NO PCP AA NO PCP [facility] Start: 07-12-2025 End: 07-13-2025 Emergency department patient visit Chuy Irving Facility:[facility] Start: 05-28-2025 End: 05-28-2025 ambulatory NO PCP AA NO PCP [facility] Start: 05-17-2025 End: 05-17-2025 Emergency department patient visit Dr. Geoff Marte DO Work Phone: -Emergency Department Work Phone: Start: 05-16-2025 ambulatory Chuy Meng [facility] Facility :[facility] Start: 04-30-2025 End: 04-30-[address] Geoff Marte DO Work Phone: -[facility] Start: 04-30-2025 End: 04-30-2025 Patient encounter procedure Marion Carroll [employer] -[facility] Work Phone: Start: 04-27-2025 End: 04-27-2025 Emergency department patient visit Dr. Geoff Marte DO Work Phone: -Emergency Department Work Phone: Start: 01-29-2025 End: 01-29-2025 ambulatory NO PCP AA NO PCP [facility] Start: 01-23-2025 ambulatory GANGA CLARKE MD~[id number] [facility] Start: 01-14-2025 ambulatory Sunita Hammondsi ty:[facility] Start: 11-27-2024 End: 11-27-2024 ambulatory NO PCP AA NO PCP [facility] Start: 11-12-2024 End: 11-22-2024 Telephone encounter Caryn Roe Work Phone: Podiatry Comment on above: Patient Update Start: 11-11-2024 End: 11-11-2024 ambulatory NO PCP AA NO PCP [facility] Start: 09-09-2024 ambulatory Carlos Mollison Facility :[facility] Start: 08-01-2024 ambulatory Carlos Mollison Facility :[facility] Start: 10-20-2023 End: 10-20-2023 Patient encounter procedure HAYDEE ESCOTO MD [facility] Start: 10-13-2023 ambulatory HAYDEE ESCOTO MD Facility :[facility] Start: 02-09-2023 End: 02-09-2023 [address] [facility] Work Phone: [facility] Work Phone: Start: 02-09-2023 End: 02-09-2023 Patient encounter procedure [facility] Work Phone: [facility]-Pulmonary Services/Neurology Start: 12-15-2022 End: 12-15-2022 Patient encounter procedure [facility] Work Phone: [facility] Start: 08-09-2022 End: 08-09-2022 [address] [facility] Work Phone: [facility] Work Phone: Start: 08-09-2022 End: 08-09-2022 Patient encounter procedure [facility] Work Phone: [facility]-Laboratory Start: 08-04-2022 Patient encounter procedure [facility] Work Phone: [facility]-Pulmonary Services/Neurology Start: 07-12-2022 Non-patient / Non-visit [facility] Work Phone: [facility] Start: 06-27-2022 End: 06-27-2022 Emergency department patient visit [facility] Work Phone: [facility]-Emergency Department Start: 06-01-2022 End: 06-01-2022 Emergency department patient visit [facility] Work Phone: [facility]-Emergency Department Start: 03-31-2022 End: 03-31-2022 Patient encounter procedure [facility] Work Phone: [facility] Start: 02-16-2022 End: 02-16-2022 Emergency department patient visit [facility] [facility] Work Phone[facility] Department Start: 02-07-2022 End: 02-07-2022 Patient encounter procedure [facility] Work Phone: [facility]Cardiovascular Services Start: 01-13-2022 Non-patient / Non-visit No Primary Care Physician [facility] Start: 01-13-2022 End: 01-13-2022 Patient encounter procedure No Primary Care Physician [facility] Start: 11-23-2021 End: 11-23-2021 Patient encounter procedure No Primary Care Physician [facility] Start: 10-26-2021 Non-patient / Non-visit No Primary Care Physician [facility] Start: 10-26-2021 End: 10-26-2021 Patient encounter procedure No Primary Care Physician [facility] Start: 10-06-2021 End: 10-06-2021 Patient encounter procedure No Primary Care Physician [facility]Laboratory Start: 09-23-2021 End: 09-23-2021 Patient encounter procedure No Primary Care Physician [facility] Start: 01-15-2018 Ambulatory [facility] Start: 11-15-2017 End: 11-15-2017 Ambulatory [place] Facility:[facility] Start: 10-03-2017 End: 10-04-2017 Ambulatory [facility] [place] Facility:[facility] Start: 09-22-2017 End: 09-23-2017 Ambulatory Cisco [place]illo Facility:[facility] Start: 08-19-2017 End: 08-19-2017 Ambulatory Cisco [place]illo Facility:[facility] Start: 08-03-2017 Ambulatory CELY GA [facility] Ambulatory Start: 08-02-2017 End: 08-02-2017 Ambulatory TOREY FLORES [facility] Ambulato ry Start: 08-02-2017 Office outpatient ne w 30 minutes Torey Flores Work Phone: [facility] Procedures Date Procedure Procedure Detail Performing Clinician Start: 04-27-2025 X-ray of knee, four or more views Dr. Geoff Marte DO Work Phone: Start: 06-27-2022 Plain x-ray of hand [facility] Work Phone: Start: 06-01-2022 End: 06-01-2022 Radiologic examination of knee [facility] Work Phone: Start: 02-16-2022 Plain chest X-ray [facility] Work Phone: Start: 11-23-2021 CT of abdomen and pe lvis without contrast No Primary Care Physician Start: 10-26-2021 Radionuclide imaging of perfusion of myocardium under exercise stress No Primary Care Physician Start: 05-23-2012 Colonoscopy Caryn Luz Work Phone: Plan of Treatment Date Care Activity Detail Author Start: 2037 RSV Vaccine (1 - 1-d ose 75+ series) RSV Vaccine (1 - 1-dose 75+ series) [facility] Start: 05-17-2025 [facility] Start: 05-17-2025 Knee 4 or More Views Knee 4 or More Views [facility] Start: 05-17-2025 XR Knee GE 4 Views [facility] Start: 04-27-2025 [facility] Start: 11-26-2024 End: 11-26-2024 Patient encounter procedure 11/26/2024 9:15 AM EDT Office Visit Podiatry [address] [place] [address] Caryn Roe [address] [address] Left Foot/Ankle pain, previous surgery on foot Podiatry Comment on above: Left Foot/Ankle pain , previous surgery on foot Start: 05-19-2024 Covid-19 Vaccine ( season) Covid-19 Vaccine ( season) [facility] Start: 05-19-2024 Influenza vaccination Influenza Vacc ine (#1) [facility] Start: 02-16-2022 [facility] Work Phone: Start: 03-22-2021 Diabetes Screening Diabetes Screenin g [facility] Start: 05-19-2017 Influenza vaccination SEQUENTI AL INFLUENZA VACCINE (#1) [facility] Work Phone: Start: 05-02-2015 Pneumococcal Vaccine : 50+ (2 of 2 - PCV) Pneumococcal Vaccine: 50+ (2 of 2 - PCV) [facility] Start: 05-23-2013 Screening for malign ant neoplasm of colon [facility] Start: 02-06-2012 Shingrix Vaccine (1 of 2) Shingrix Vaccine (1 of 2) [facility] Start: 07-19-2009 Screening for malign ant neoplasm of breast Mammogram Screening [facility] Start: 2007 Lipid panel Lipid Screening [facility] Start: 2007 Screening for malign ant neoplasm of colon [facility] Start: 1981 Urine microalbumin profile DTaP,Tdap,Td Vaccine (1 - Tdap) [facility] Start: 02-06-1980 Anxiety Screening Anxiety Screening [facility] Start: 02-06-1980 Depression Screening Depression Scre ing [facility] Start: 02-06-1980 Hepatitis C screening Hepatitis C [facility] Start: 02-06-1980 HIV screening HIV Screening [facility] Start: 1960 HEPATITIS C SCREENING HEPATITIS C [facility] Work Phone: Start: 1960 Screening colonoscopy COLONOSCOPY O [facility] Work Phone: Start: 1960 Screening for malign ant neoplasm of cervix PAP SMEAR [facility] Work Phone: Start: 1960 Tetanus vaccination TETANUS EVERY 10 YR [facility] Work Phone: Patient Education [facility] Work Phone: Patient referral [facility] Work Phone: Payers Date Payer Category Payer Self-pay [id number] 2022 Medicaid [employer] [id number] 2017 Unknown 2013 Medicaid [id number] 1962 Unknown [id number] 1962 Unknown [id number] 1962 Unknown [id number] 1962 Unknown [id number] [id number] 1962 Unknown [id number] [id number] 1962 Unknown [id number] 1959 Medicaid [id number] Unknown [id number] Unknown [id number] [id number] Unknown [id number] [id number] Unknown [id number] [id number] Unknown [id number] [id number] Unknown [id number] [id number] Unknown [id number] Unknown [id number] Social History Date Type Detail Facility Start: 08-02-2017 End: 05-17-2025 Tobacco smoking status NHIS Current every day smoker [facility] Start: 1960 Sex Assigned At Not on file O [facility] Work Phone: Start: 09-23-2021 End: 12-15-2022 Tobacco smoking status INIS Unknown if ever smoked [facility] Start: 07-14-2017 Heavy [facility] Start: 07-14-2017 None [facility] Start: 07-14-2017 Alone [facility] Start: 06-21-2021 Cigarettes [facility] Start: 1960 Sex Assigned At Female [facility] Tobacco smoking status No Smokin g Status Entered [facility] History of tobacco use Cigarette Smoker C [facility] Start: 03-09-2018 End: 11-21-2024 Cigarettes smoked current (pack per day) - Reported 1 [facility] Start: 03-09-2018 Tobacco use and exposure Smokeless tobacco non-user [facility] Start: 03-22-2018 Alcoholic beverage intake Current drinker of alcohol (finding) [facility] Start: 03-22-2018 End: 11-21-2024 Tobacco use panel [facility] National Score (1-10 0), lower number is lower risk 89 [facility] Mental Status Date Assessment Result Facility 02-16-2022 Cognitive function Awake;Alert;A ppropriate;Fol lows Commands [facility] Work Phone: Clinical Notes 10-20-2023 to 05-17-2025 Note Date & Type Note Facility 05-17-2025 Discharge summary [facility] 05-17-2025 Radiology Diagnostic study note [facility] Imaging Services [address] [place], [place] [address] Knee 4 or More Views MR#: [id number] Acct: [id number] Name: MARILU GUNTER Rep #: [id number] : 1960 F 65 From: Sadie Salazar MD PCP: Chuy Meng MD Status: REG ER Study:Knee 4 or More Views Date of Exam: 05/17/25 Exam# [id number] Ordering Dr: Kevin Hayes DO PROCEDURE: KNEE [...] evidence of an acute abnormality. [facility] CC: Dr. Kevin Gómez DO; Chuy Meng MD ~ Harness Builder: Signed [facility] 04-30-2025 Evaluation note Diagnosis Onset Date Resolution Osteoarthritis of right knee acute April 30 11:16am [facility] Work Phone: 1(265) 663-183408-10-2025 Radiology Diagnostic study note [facility] Imaging Services [address] [place] [id number] Knee 4 or More Views MR#: [id number] Acct: [id number] Name: MARILU GUNTER Rep #: [id number] : 1960 F 65 From: Princess Leonard MD PCP: Chuy Meng MD Status: REG ER Study:Knee 4 or More Views Date of Exam: 04/27/25 Exam# [id number] Ordering Dr: Elizabeth Marte DO PROCEDURE: KNEE [...] IMPRESSION: Mild right knee osteoarthritis. Reading Location: [place] [address] CC: Chuy Meng MD; DO Eddie Youssef Harness Builder: Signed [facility]02-27-2025 Telephone encounter Note* Telephone Encounter - Sonam [...] and schedule is fully booked prior to. [facility]02-27-2025 Miscellaneous Notes* Telephone Encounter - [...] Reports pain management, Dr. Rush (ph # [phone]) took an xray of her foot yesterday. Pt has not received the results yet. Dr. Rush also prescribed pain patches for her- she hasn't picked them up yet, will pick up man today. [facility] Telephone encounter Note * Telephone Encounter - Bev Meng LPN - 11/13/2024 1:54 PM EST Report of xrays has been received. Bev Meng LPN [facility] Work Phone: 1(867) 853-692002-25-2025 Telephone encounter Note* Telephone Encounter - Ara Hatfield LPN - 11/12/2024 3:11 PM EST 's office calling and is sending foot xray to office. Ara Hatfield LPN [facility]02-25-2025 Telephone encounter Note* Telephone Encounter - Luis [...] Reports pain management, Dr. Rush (ph # [phone]) took an xray of her foot yesterday. Pt has not received the results yet. Dr. Rush also prescribed pain patches for her- she hasn't picked them up yet, will pick up man today. [facility]02-02-2024 Note ORIGINAL EXAMINATION: MRI OF THE BRAIN [...] Sign Date: 10/20/2023 7:28:20 PM Ordering Provider: [facility] summary [facility] Date/Time May 17, 2025 3: 38am [facility] Medical Records Department [address] [place] [address] Emergency Department Summary 05/17/25 MR#: [id number] Acct: [id number] Name: MARILU GUNTER Rep #:[id number] : 1960 65 From: Kevin Patton ggett DO PCP: Chuy Meng MD Status:[facility] ER Location: ED HPI History of Present [...] intact Psych: Cooperative, appropriate mood and affect [facility] Medical History Left knee pain Bilateral primary [...] evidence of an acute abnormality. [facility] Dis[facility] Plan Triage Chief Complaint: Lower [...] your Primary Care Provider. Call [facility] ([phone]) or report to the closest Emergency Room. Call 911 if necessary. 05/17/25 0338 <Electronically signed by Kevin Gómez DO> Cosigner Signature (if applicable): CC: Chuy Meng MD ~ Signed [facility] Work Phone: Evaluation + Plan note No data available for this section [facility] Evaluation note* Diagnosis Onset Date Resolution Status Cardiomyopathy in disease classified elsewhere acute Chest pain acute Cardiac dysrhythmia chronic Essential hypertension chron ic Pure hypercholesterolemia [facility] Work Phone: Evaluation noteNo assessment information available [facility] Work Phone: Evaluation note* Diagnosis Onset Date Resolution Status Abdominal pain acute GERD (gastroesophageal reflux disease) chronic [facility] Work Phone: Evaluation note* Diagnosis Onset Date Resolution Status Cardiomyopathy in disease classified elsewhere acute Cardiac dysrhythmia chronic Essential hypertension chron ic Pure hypercholesterolemia [facility] Work Phone: Evaluation note* Diagnosis Onset Date Resolution Status Admit Date Osteoarthritis of right knee acute April 30, 2025 11:16am [facility] Work Phone: Hospital Discharge instructions No data available for this section [facility] Hospital Discharge instructionsAdditional Instructions Please [...] ER should you have any further concerns [facility] Work Phone: Hospital Discharge instructionsAmbulatory Orders* Physical Therapy Referral Location: None Selected [facility] Work Phone: Hospital Discharge instructionsAdditional Instructions Follow-up with your orthopedic physician, pain management, primary care physician. Return back to the ED symptoms change or worsen.[facility] Work Phone: Progress note No data available for this section [facility] Reason for referral (narrative)No reason for referral [facility] Work Phone: Assessments Diagnosis Left knee [...] March 19, 2019 1 0:58am Power of Line Installer [employer]rolley No March 19, 2019 10:58am Advance Directive Response Recorded Date/ Time Advance Directives No February 03 2 2:01pm Living Will No February 03, 2022 2 :01pm Power of Line Installer [employer]rolley No February 03, 2022 2:01pm Advance Directive Response Recorded Date/ Time Advance Directives No February 03 2 2:01pm Living Will No February 16, 2022 2 :28am Power of Line Installer Trolley No February 16, 2022 2:28am Advance Directive Response Recorded Date/ Time Advance Directives No February 03 2 2:01pm Living Will No June 01, 2022 7:02pm Power of Line Installer Trolley No May 7:02pm Advance Directive Response Recorded Date/ Time Advance Directives No February 03 1:01pm Living Will No June 27 6:28pm Power of Line Installer Trolley No June 27, 2022 6:28pm Advance Directive Response Recorded Date/ Time Advance Directives No February 03 2:01pm Living Will No June 27 7:28pm Power of Line Installer Trolley No June 27, 2022 7:28pm Advance Directive Response Recorded Date/ Time Do you have a Healthcare Power of Line Installer Trolley? No April 27, 2025 2:51am Advance Directives No February 03 2:01pm Advance Directive Response Recorded Date/ Time Advance Directives No April 28, 2025 9:22am Do you have a Healthcare Power of Line Installer Trolley? No April 27, 2025 2:51am Advance Directive Response Recorded Date/ Time Advance Directives No April 28, 2025 9:22am Do you have a Healthcare Power of Line Installer Trolley? No April 27, 2025 2:51am Do you have a Healthcare Power of Line Installer Trolley? No May 17, 2025 12:38am Chief Complaint and Reason for Visit Chief Complaint RE-ESTAB WITH [facility] CHEST PAIN CHEST PAIN pain Palpitations Reason for Visit Cardiomyopathy in [facility] classified elsewhere Chest pain Cardiac dysrhythmia [...] AND COLLAPSE Reason for Visit Cardiomyopathy in [facility] classified elsewhere Cardiac dysrhythmia Essential hypertension [...] and content) DATE CREATED AUTHOR 03/08/2018 [facility] DATE CREATED AUTHOR AUTHOR'S ORGANIZ ATION 03/09/2018 [facility] DATE CREATED AUTHOR AUTHOR'S ORGANIZ ATION 03/13/2018 [facility] DATE CREATED AUTHOR AUTHOR'S ORGANIZ ATION 10/15/2023 [facility] DATE CREATED AUTHOR AUTHOR'S ORGANIZ ATION 01/21/2025 [facility] DATE CREATED AUTHOR AUTHOR'S ORGANIZ ATION 07/26/2025 [facility] DATE CREATED AUTHOR AUTHOR'S ORGANIZ ATION 07/26/2025 [facility] Goals (unrecognized section and content) Goals [...] Dr. Frankie Santiago MD Family Provider Active [facility] Primary Care Provider A ctive Team Status: Inactive Member Role Status Dates [facility] Primary Care Provider, Referring Provider Active Maria Antonia TATE PA Attending Provider Active Team Status: Inactive Member Role Status Dates 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 hCuy INGRAM MD Primary Care Provider Active Start: [...] or prosecute any alcohol or drug abuse patient.[facility] Reason for Visit (unrecogniz ed [...] BE BASED ON THE PRIMARY CLINICAL RECORDS. [employer] [facility]. provides no warranty or guarantee of the accuracy or completeness of information in this document.
--- NOTE | 2025-09-04 23:57 | ED.VIS.CHEST ---
HPI History of Present Illness Chief Complaint: Chest Pain Narrative Narrative: Patient was seen and examined after presenting to ED for chest pain that occurred while she was singing karaoke at a bar did have some alcohol on board she states that she was here couple weeks ago for the same issue. [facility] Medical History Abnormal EKG Depression Non-ischemic cardiomyopathy Hypertension Palpitations Left knee pain Bilateral primary osteoarthritis of knee Right knee pain Wears dentures History of ulceration Smoker History of edema History of echocardiogram History of stress test Cardiology follow-up encounter History of heart attack History of atrial fibrillation Melena Abdominal pain Seizure History of left heart catheterization (LHC) (~09/04/09) Asthma COPD (chronic obstructive pulmonary disease) Cardiomyopathy in disease classified elsewhere Essential hypertension Chest pain GERD (gastroesophageal reflux disease) Tobacco use Pure hypercholesterolemia Old myocardial infarct HTN (hypertension) Cardiac dysrhythmia Bipolar disorder Home Medications ?Medication ?Instructions ?Recorded ?Last Taken ?Type lamotrigine 25 mg tablet 50 mg PO BID seizures 04/13/17 07/13/17 History atorvastatin 20 mg tablet 20 mg PO QHS #90 tabs 12/12/22 08/16/25 Rx duloxetine 60 mg capsule,delayed 90 mg PO DAILY 12/15/22 Unknown History release carvedilol 25 mg tablet 25 mg PO BID #180 tabs 05/02/24 Unknown Rx clonidine HCl 0.1 mg tablet 0.05 mg PO BID PRN PRN anxiety 04/27/25 Unknown History pantoprazole 40 mg tablet,delayed 40 mg PO BID 3 months #180 tabs 06/30/25 Unknown Rx release duloxetine 30 mg capsule,delayed 30 mg PO DAILY 08/17/25 Unknown History release Allergy/AdvReac Type Severity Reaction Status Date / Time NSAIDS (Non-Steroidal AdvReac Diarrhea Verified 09/04/25 23:28 Anti-Inflamma tramadol HCl (From Ultram) AdvReac Diarrhea Verified 09/04/25 23:28 Family History Mother Diabetes Cancer Father COPD (chronic obstructive pulmonary disease) Diabetes Sister Diabetes Surgical History History of partial hysterectomy History of bilateral cataract extraction History of total left knee replacement History of carpal tunnel release History of shoulder surgery History of foot surgery History of arthroscopy of both knees History of cholecystectomy History of hysterectomy Social History Smoking Status: Current every day smoker tobacco type: cigarettes alcohol intake: current details: occasional substance use type: does not use ROS ROS ED ROS Narrative Pertinent Positives: Chest pain Pertinent Negatives: Fevers chills shortness of breath body aches nausea vomiting diarrhea history of stents The remainder of review of systems negative unless otherwise stated in the HPI above. Systems reviewed including constitutional, psychiatric, cardiovascular, respiratory, integument, HENT, gastrointestinal. EXAM Physical Exam Narrative Exam Narrative: Patient is afebrile hemodynamically stable does not appear toxic or in distress normocephalic atraumatic no wheezing no stridor normal heart and lung sounds moving all extremities appropriately no lower extremity edema or calf tenderness intact and equal MSPs abdomen is soft nontender nondistended no palpable pulsatile mass Const Vital Signs: 09/04/25 23:28 09/04/25 23:31 09/05/25 00:27 Temperature 98.2 F Temperature Source Oral Pulse Rate 88 69 Respiratory Rate 14 20 H Respiratory Pattern Normal Blood Pressure 132/65 H 131/72 H Blood Pressure Mean 87 91 Pulse Ox 100 100 Oxygen Delivery Method Room Air Room Air 09/05/25 01:40 09/05/25 01:40 Temperature Temperature Source Pulse Rate 66 Respiratory Rate 18 Respiratory Pattern Blood Pressure 125/69 H Blood Pressure Mean 87 Pulse Ox 96 Oxygen Delivery Method Room Air Room Air Heart Score History: Slightly/Non-Suspicious ECG: Normal Age: >45 - <65 years Risk Factors: 1 or 2 Risk Factors Troponin: </= Normal Limit Score: 2 MDM MDM MDM Narrative Medical decision making narrative: Nursing notes, triage notes, available previous documentation, and vital signs were reviewed. Any discrepancies noted were addressed. Differential Diagnoses: Will evaluate for ACS lower suspicion for PE or aortic etiology or infectious causes could be a component of anxiety Interventions: Ativan aspirin Fluids Given: 1 L normal saline Labs Reviewed: No leukocytosis leukopenia anemia D-dimer was 0.47 no significant electrolyte abnormalities or renal insufficiency initial troponin was 7 proBNP was 59 Imaging Reviewed: Personally reviewed and interpreted by me: No pneumonia edema widened mediastinum or pneumothoraces EKG: Normal sinus rhythm rate of [address] segment elevation. I do not see evidence of ACS. No evidence of prolonged QT syndrome. No evidence of AV Block. No short MS intervals, wide QRS, or Delta waves indicative of WPW. No evidence of dagger-like q waves or LVH indicative of Hypertrophic Cardiomyopathy. No evidence of Brugada Syndrome. EKG interpretation is noted and agreed to in the EMR. The interpretation of this patient's EKG contributed directly to the care and management of this patient. Risk Stratification Tools: PERC Rule: PERC positive by age. D-Dimer ordered. Wells Score: Clinical signs & symptoms of DVT: No PE is #1 diagnosis or equally likely: No HR >100 at any time: No Immobilization at least 3 days or surgery in the previous 4 weeks: No Previous, objectively diagnosed PE or DVT: No Hemoptysis: No Malignancy in last 6 months: No Risk: Low <2 points: 1.3% incidence of PE. PERC positive based on age. D-Dimer 0.47. Previous Documentation Reviewed: None available or applicable at this time. ED Course: Patient presenting with symptoms as stated above she was given some Ativan as well patient was actually singing amazing Tracy in the room while getting an EKG. So far patient's labs are unremarkable delta troponin is pending patient has been up and ambulatory multiple times in the emergency department smiling seems to be doing well does not seem to be in pain at this point 0310: Delta troponin came back at 6. Patient is doing well otherwise. Return precautions follow-up recommendations provided patient stable for discharge home This note was made utilizing voice recognition software. All attempts were made to correct spelling or other errors prior to note completion. However, due to the fast-paced nature of emergency medicine, some errors may still be present. Lab Data Labs: Laboratory Results - last 24 hr 09/04/25 09/05/25 23:37 01:35 WBC 7.5 RBC 4.21 Hgb 12.3 Hct 36.7 L MCV 87.2 MCH 29.2 MCHC 33.5 RDW Std Deviation 40.7 RDW Coeff of Kaylyn 12.9 Plt Count 390 MPV 10.6 Immature Gran % (Auto) 0.400 Neut % (Auto) 46.5 L Lymph % (Auto) 45.4 H [place] % (Auto) 6.2 Eos % (Auto) 0.8 Baso % (Auto) 0.7 Absolute Neuts (auto) 3.5 Absolute Lymphs (auto) 3.38 Nucleated RBC % 0 D-Dimer Quant (PE/DVT) 0.47 Sodium 132 L Potassium 3.5 Chloride 97 L Carbon Dioxide 24.3 Anion Gap 11 BUN 6 Creatinine 0.77 Estim Creat Clear Calc 67.29 Est GFR (MDRD) Non-Af 87 BUN/Creatinine Ratio 8.1 L Glucose 110 H Calcium 8.9 Troponin T High Sens 7 D Troponin T Hi Sens 2 Hr 6 NT pro BNP II 59 Radiography Diagnostic Testing: Clinical Impression(s) from Imaging Studies Chest X-Ray 09/04/25 23:50 IMPRESSION: No Acute Findings. [facility] Discharge Plan Triage Chief Complaint: Chest Pain ED Provider: Chet Hebert Dx/Rx/DC Orders Clinical Impression: Chest pain of uncertain etiology, History of anxiety, Anxiety Instructions: ED Chest Pain, Uncertain Cause Prescriptions: No Action duloxetine 60 mg capsule,delayed release(DR/EC) 90 mg PO DAILY Patient Comments: DEPRESSION lamotrigine 25 MG tablet 50 mg PO BID clonidine HCl 0.1 mg tablet 0.05 mg PO BID PRN PRN (Reason: anxiety) duloxetine 30 mg capsule,delayed release(DR/EC) 30 mg PO DAILY atorvastatin 20 mg tablet 20 mg PO QHS Qty: 90 3RF carvedilol 25 mg tablet 25 mg PO BID Qty: 180 3RF Rx Instructions: must administer with a meal/food pantoprazole 40 mg tablet,delayed release (DR/EC) 40 mg PO BID 90 Days Qty: 180 1RF Primary Care Provider: [facility] Miriam Anton Referrals: [facility] Miriam Anton [Primary Care Provider, Medical] Activity Restrictions/Additional Instructions: I recommend that you follow-up with your primary care doctor. Please return if you are having any worsening symptoms. Print Language: Serbian Disposition Disposition: Home, Self Care
[2025-09-05 00:11] LABS: D-Dimer Quantitative (DVT/PE) 0.47 FEU/ug/m (0.27-0.49)
[2025-09-05 00:14] LABS: Hematocrit 36.7 % (37-47); Hemoglobin 12.3 g/dL (12.0-15.0); Immature Granulocytes Count 0.030 X10^3/uL (0.0-0.0); Mean Corp Hgb Conc 33.5 g/dL (32-36); Mean Corpuscular Volume 87.2 fL (81-99); Mean Platelet Vol. 10.6 fl (6.2-12.0); NRBC Flagged by Analyzer 0 % (0-5); Platelet Count 390 K/mm3 (150-450); RBC Distribution Width CV 12.9 % (11.6-14.6); RBC Distribution Width SD 40.7 fl (35.1-43.9); Red Blood Count 4.21 M/mm3 (4.2-5.4); White Blood Count 7.5 K/mm3 (4.4-11.0)
[2025-09-05 00:17] LABS: Anion Gap 11 (5-15); BUN 6 mg/dL (4-19); BUN/Creat Ratio 8.1 RATIO (10-20); Calcium,Total 8.9 mg/dL (7.6-11.0); Carbon Dioxide 24.3 mmol/L (21.0-32.0); Chloride 97 mmol/L (98-108); Estimated Creatinine Clearance 67.29 ml/min (50-250); Glucose 110 mg/dL (70-99); Potassium 3.5 mmol/L (3.3-5.1); Pro- Brain NATRIURETIC PEPTIDE 59 pg/mL (<=900); Troponin T High Sensitivity 7 ng/L (<=14)
[2025-09-05 00:27] VITALS: BP 131/72; PULSE 69; RESP 20; O2SAT 100
[2025-09-05 01:40] VITALS: BP 125/69; PULSE 66; RESP 18; O2SAT 96
[2025-09-05 02:25] LABS: Troponin T High Sens 2 HR 6 ng/L (<=14)
[2025-09-05 03:20] VITALS: BP 125/69; PULSE 65; RESP 18; TEMP 36.6; O2SAT 97
== END 2025-09-05 03:44 | disposition home or self-care (01) ==
PROVIDERS: Emergency Provider Specialist/Technologist Athletic Trainer; Visit Provider Specialist/Technologist Athletic Trainer
DX: R07.9 Chest pain, unspecified (principal); J44.9 Chronic obstructive pulmonary disease, unspecified; R56.9 Unspecified convulsions; F41.9 Anxiety disorder, unspecified; Z90.710 Acquired absence of both cervix and uterus; I10 Essential (primary) hypertension; E78.00 Pure hypercholesterolemia, unspecified; I25.2 Old myocardial infarction; Z79.899 Other long term (current) drug therapy; F32.A Depression, unspecified; K21.9 Gastro-esophageal reflux disease without esophagitis; Z98.41 Cataract extraction status, right eye; Z98.42 Cataract extraction status, left eye; Z96.652 Presence of left artificial knee joint; Z90.49 Acquired absence of other specified parts of digestive tract; F17.210 Nicotine dependence, cigarettes, uncomplicated
CPT/HCPCS: 71045; 80048; 83880; 84484; 85025; 85379; 93005; 96361; 96374; 99285; A4216